=== PATIENT | female | born 1950 | race Caucasian/White ===

== ENCOUNTER 2016-03-28 15:17 | Emergency (ER) | payer BC ==
[~2016-03-28] VITALS: Ht 166.4 cm; Wt 57.0 kg
[~2016-03-28 15:17] MED LIST: ALPR-411 JT; B-CO-34 JT; CALC1SOL JT; CALC667C4 JT; CINA60TA JT; CITA20TA9 JT; DOCU-94 JT; EPGI10M IV; FURO80TA63 JT; HYDR8TAB29 JT; METO1TAB69 JT; MYCO500T4 JT; NUTRLIQ14 GJT; PROGRAFT PO; RANI300T2 JT; SIMV10TA2 JT; SULF1SUS4 JT; TRIA1SPR4 NAE
[2016-03-28 15:38] VITALS: TEMP 37.1; Ht 166.4 cm; Wt 57.0 kg
[2016-03-28] MEDS ORDERED: METO100T14 JT (16:00)
[2016-03-28 17:03] VITALS: BP 134/86; PULSE 74; O2SAT 90
--- NOTE | 2016-03-28 18:40 | EMERGENCY ROOM VISIT NOTE ---
History Report prepared by Diane: Misael Ervin Under the Supervision of: Dr. Bertrand Hanna M.D. First contact with patient: 16:11 Chief Complaint: BLEEDING Stated Complaint: LF ARM BLEED/ FISTULA Nursing Triage Summary: Patient arrived to [facility] via BLS from the [place] [facility]. After patient's treatment, staff was unable to get the fistula to the left upper arm to stop bleeding. +bleeding noted from the needle insertion site to the left upper arm. Quick Clot applied with a pressure dressing and manual pressure - bleeeding ceased within about 10 minutes. History of Present Illness The patient is a 66 year old female who presents to the Emergency Room with complaints of a left arm bleed that occurred [employer]. The patient had received dialysis today, and afterward she noticed that her arm had not stopped bleeding. She has a fistula on her upper left arm. In the ER, the nurse applied a Quick Clot dressing to the area with some pressure. Within 10 minutes, the bleeding stopped. Patient denies LOC, headache, fevers, chills, diaphoresis, visual changes, neck pain, chest pain, breathing difficulties, nausea, vomiting , abdominal pain, back pain, melena, hematochezia, urinary symptoms, easy bleeding or bruising, rash, or other complaints. Source of History: patient Onset: [employer] Position: arm (left) Symptom Intensity: moderate Quality: other (bleeding) Timing: constant Review of Systems See HPI for pertinent positives and negatives. A total of six systems were reviewed and were otherwise negative. Past Medical & Surgical Medical Problems: (1) Abrasion of back wall of thorax (2) Acute anterior epistaxis (3) Altered mental status (4) Anemia (5) Chest wall pain (6) Chronic pain syndrome (7) Contusion of mid back (8) Contusion of mid back (9) Creatinine elevation (10) Creatinine elevation (11) Depression with anxiety (12) Diabetes (13) Drop foot gait (14) Dyslipidemia (15) End stage kidney disease (16) End stage renal disease on dialysis (17) Fall (18) Fall (19) Gastroparesis (20) GERD (gastroesophageal reflux disease) (21) HTN (hypertension) (22) Immunosuppression (23) Intractable back pain (24) Jejunostomy tube present (25) Laceration of right forearm (26) Narcotic dependence (27) Orbital floor fracture (28) Osteoporosis (29) Port-a-cath in place (30) Secondary hyperparathyroidism of renal origin Surgical Problems: (1) H/O pancreas transplant (2) H/O total hip arthroplasty (3) Pancreas transplant status Family History Cancer Heart disease Social History Smoking Status: Never Smoker Alcohol Use: none Drug Use: none Marital Status: Housing Status: lives with family Occupation Status: unemployed Current/Historical Medications Scheduled Calcium Acetate (Phoslo 667 Mg), 1 CAP PO QAM Calcium Acetate (Phoslo 667 Mg), 2 CAP PO DAILY AT LUNCH Calcium Acetate (Phoslo 667 Mg), 3 CAP PO QPM MEAL Cinecalcet (Sensipar), 30 MG JT BID Citalopram Hydrobromide (Celexa), 20 MG JT QAM Epoetin Roge (Procrit), 5,000 IV post dialysis Furosemide (Lasix), 80 MG JT BID Metoprolol Tartrate (Lopressor) (Lopressor), 100 MG PO BID Mycophenolate Mofetil (Cellcept), 1 TAB JT BID Nutritional Supplements (Nutren 2.0), 2 DOSE GJT DAILY Ranitidine (Zantac), 300 MG JT BID Simvastatin (Zocor), 1 TAB JT DAILY Sulfa/Trimethoprim (Bactrim 200/40MG 5ML), 5 ML JT M,W,F [Diatx Zn], 1 TAB JT QAM [prograft], 2 ML PO BID Scheduled PRN Alprazolam (Xanax), 0.5 MG JT Q6H PRN for Anxiety Docusate Sodium (Colace), 1 CAP JT BID PRN for CNSTIPATION Hydromorphone Hcl (Dilaudid), 1 TAB JT Q4 PRN for Pain Triamcinolone Acetonide (Nasal (Nasacort Allergy 24Hr), 1 SPRAY NA DAILY PRN for CONGSTION Allergies Coded Allergies: Penicillins (Verified Allergy, Intermediate, RASH, 03/28/16) Prednisolone (Verified Allergy, Mild, IRRITATION, 03/28/16) Acetaminophen (Unverified Allergy, Unknown, NAUSEA, 03/28/16) Cephalexin (Verified Allergy, Unknown, NAUSEA, 03/28/16) Erythromycin (Verified Allergy, Unknown, RASH, 03/28/16) Levofloxacin (Verified Allergy, Unknown, NAUSEA, 03/28/16) Nitrofurantoin (Verified Allergy, Unknown, NAUSEA, 03/28/16) Surgical Lubricant (Verified Allergy, Unknown, ITCHY, 03/28/16) Carbamazepine (Verified Adverse Reaction, Severe, TOXIC BLOOD POISONING, ) TOXIC BLOOD POISONING Metoclopramide (Verified Adverse Reaction, Severe, SEIZURES, 03/28/16) SEIZURES Mirtazapine (Verified Adverse Reaction, Severe, HEARS VOICES, 03/28/16) Pregabalin (Verified Adverse Reaction, Severe, CONFUSION, 03/28/16) Corticosteroids (Verified Adverse Reaction, Intermediate, NAUSEA, 03/28/16) PATIENT STATES ON ALLERGY SHEET "ABSOLUTELY NONE" Dicyclomine (Verified Adverse Reaction, Intermediate, HALLUCINATIONS, 03/28) HALLUCINATIONS Ketorolac (Verified Adverse Reaction, Intermediate, NAUSEATED, 03/28/16) Macrolides (Verified Adverse Reaction, Intermediate, ZITHROMAX-N/V, ) Quinolones (Verified Adverse Reaction, Intermediate, LEVAQUIN-NAUSEA, CHRONIC HEARTBURN, 03/28/16) levaquin =NAUSEA, CHRONIC HEARTBURN. PT SAID SHE WILL NOT TAKE 12/06/08 Cephalosporins (Verified Adverse Reaction, Mild, KEFLEX = NAUSEA, 03/28/16) Codeine (Verified Adverse Reaction, Mild, NAUSEA, 03/28/16) Gabapentin (Verified Adverse Reaction, Mild, NAUSEA, 03/28/16) NAUSEA Naproxen (Verified Adverse Reaction, Mild, NAUSEA, 03/28/16) Oxycodone (Verified Adverse Reaction, Mild, PRC/TYLOX = NAUSEA, 03/28/16) NAUSEA Phenobarbital (Verified Adverse Reaction, Mild, NAUSEA, 03/28/16) Promethazine (Verified Adverse Reaction, Mild, DIARRHEA, 03/28/16) Sertraline (Verified Adverse Reaction, Mild, NAUSEA, 03/28/16) Adhesives (Verified Adverse Reaction, Unknown, UNKNOWN, 03/28/16) Propoxyphene (Verified Adverse Reaction, Unknown, NAUSEA, 03/28/16) NAUSEA Tramadol (Verified Adverse Reaction, Unknown, DEPRESSION, 03/28/16) DEPRESSION Physical Exam Vital Signs Date Time Temp Pulse Resp B/P Pulse Ox O2 Delivery O2 Flow Rate FiO2 03/28/16 17:03 74 18 134/86 90 03/28/16 15:38 37.1 73 18 153/85 94 Room Air Physical Exam GENERAL: Awake, alert, well-appearing, in no distress HENT: Normocephalic, atraumatic. Oropharynx unremarkable. EYES: Normal conjunctiva. Sclera non-icteric. NECK: Supple. No nuchal rigidity. FROM. No JVD. RESPIRATORY: Clear to auscultation. CARDIAC: Regular rate, normal rhythm. Extremities warm and well perfused. Pulses equal. MUSCULOSKELETAL: Left arm examined: fistula present with 2 puncture sites in the upper aspect. Bleeding controlled. No obvious abnormalities. No sign of infection. NEURO: Normal sensorium. No sensory or motor deficits noted. SKIN: No rash or jaundice noted. Medical Decision & Procedures ED Course 1611: The patient was evaluated in room B12. A complete history and physical exam was performed. 1620: The patient's hemostatic dressing was removed. Dermabond was applied. 1648: The patient's bleeding has stopped. 1700: I reevaluated the patient. Discussed results and discharge instructions: She verbalized understanding and agreement. The patient is ready for discharge. Medical Decision The patient was evaluated. Clinically she was doing well. Nursing had placed quick clot and a pressure wrap. This resulted in hemostasis. Her physical examination was benign as above. There is no active bleeding but the puncture wounds still were present. Quick clot dressing was removed. The skin was prepped. I did cover the puncture wounds with Dermabond. The patient was observed and she had no additional bleeding. She felt well. A gauze cover was wrapped to protect the area. Bleeding instructions were given. She will follow -up with dialysis. If she worsens in any way she will come back to the Emergency Room for reevaluation. I gave my usual and customary discussion regarding this issue. Impression Primary Impression: Bleeding from dialysis shunt Scribe Attestation The scribe's documentation has been prepared under my direction and personally reviewed by me in its entirety. I confirm that the note above accurately reflects all work, treatment, procedures, and medical decision making performed by me. Departure Information Dispostion Home / Self-Care Referrals Pedro Pablo Hollis M.D. (PCP) Forms HOME CARE DOCUMENTATION FORM, IMPORTANT VISIT INFORMATION Patient Instructions My [facility] Additional Instructions Dermabond skin adhesive was used to close the wound. It should fall off in 5 to 10 days on its own. You do not did not need to keep it bandaged. Do not soak the wound for 8 hours. After 8 hours you may get it wet, but again do not soak it. Tylenol as needed for pain. Apply direct pressure for any bleeding. Return to the ER immediately for spreading redness, fevers, pus-like drainage, severe pain, or as needed. Follow-up with dialysis as scheduled on Wednesday.
[2016-06-15] MEDS ORDERED: MRLP17 PO (14:43)
[2016-06-15] MEDS ORDERED: HYDR8TAB29 JT (14:43)
[2016-06-15] MEDS ORDERED: LSN20 PO (14:43)
[2016-06-15] MEDS ORDERED: ZINC40OI11 TOP (14:43)
[2016-06-15] MEDS ORDERED: ALPR-411 JT (14:43)
[2016-07-22] MEDS ORDERED: [UNRECOGNIZED DRUG - CODE] PO (08:44)
== END 2016-03-28 17:03 | disposition home or self-care (01) ==
LOC: EDBD 15:17 → C.EDB 15:18
DX: I97.620 Postprocedural hemorrhage of a circulatory system organ or structure following other procedure (principal); Y84.1 Kidney dialysis as the cause of abnormal reaction of the patient, or of later complication, without mention of misadventure at the time of the procedure; N18.6 End stage renal disease; I12.0 Hypertensive chronic kidney disease with stage 5 chronic kidney disease or end stage renal disease; D64.9 Anemia, unspecified; E78.5 Hyperlipidemia, unspecified; K21.9 Gastro-esophageal reflux disease without esophagitis; F41.8 Other specified anxiety disorders; Z99.2 Dependence on renal dialysis; Z79.2 Long term (current) use of antibiotics; Z79.899 Other long term (current) drug therapy; Z88.0 Allergy status to penicillin; Z88.1 Allergy status to other antibiotic agents; Z88.5 Allergy status to narcotic agent; Z88.6 Allergy status to analgesic agent; Z88.8 Allergy status to other drugs, medicaments and biological substances; Z82.49 Family history of ischemic heart disease and other diseases of the circulatory system

== ENCOUNTER 2016-06-04 09:41 | Inpatient (IN) | payer BC, OTHER ==
[~2016-06-04] VITALS: Ht 165.1 cm; Wt 56.8 kg
[2016-06-04] VITALS (19 sets, daily range): BP systolic 128–172; BP diastolic 65–93; PULSE 64–72; TEMP 36.8–37.1; O2SAT 93–94; Ht 165.1 cm; Wt 56.8 kg
[~2016-06-04 09:41] MED LIST changes: -CALC1SOL JT; +METO100T14 JT; -METO1TAB69 JT
[2016-06-04 10:34] LABS: BASO % 0.3 %; BASO ABS # 0.02 K/uL (0-0.2); COMPLETE YES; EOS % 4.8 %; HEMATOCRIT 31.9 % (37-47); LYMPH % 16.4 %; LYMPH ABS # 0.99 K/uL (1.2-3.4); MEAN CELL VOLUME 108.5 fL (80-100); MEAN CORPUSCULAR HEMOGLOBIN 32.3 pg (25-34); MEAN CORPUSCULAR HGB CONC 29.8 g/dl (32-36); MEAN PLATELET VOLUME 11.2 fL (7.4-10.4); MONO % 8.8 %; NEUT % 69.7 %; PLATELET COUNT 110 K/uL (130-400); RED BLOOD COUNT 2.94 M/uL (4.2-5.4); WHITE BLOOD COUNT 6.03 K/uL (4.8-10.8)
--- NOTE | 2016-06-04 10:34 | EMERGENCY ROOM VISIT NOTE ---
History Report prepared by Diane: Selma Lopez Under the Supervision of: Dr. Micaela Parish M.D. First contact with patient: 10:15 Chief Complaint: ILLNESS Stated Complaint: SYNCOPE/WEAKNESS History of Present Illness The patient is a 66 year old female who presents to the Emergency Room with complaints of persistent weakness starting today. She presents to the ED via ALS. She had an episode of unresponsiveness on the way to dialysis. She reports SOB, diarrhea, and cough. She denies any melena. She missed dialysis 2 days ago. Source of History: patient Onset: today Position: other (global) Quality: other (weakness) Timing: other (persistent) Associated Symptoms: + SOB, + cough, + diarrhea, No melena Review of Systems See HPI for pertinent positives & negatives. A total of 10 systems reviewed and were otherwise negative. Past Medical & Surgical Medical Problems: (1) Abrasion of back wall of thorax (2) Acute anterior epistaxis (3) Altered mental status (4) Anemia (5) Chest wall pain (6) Chronic pain syndrome (7) Contusion of mid back (8) Contusion of mid back (9) Creatinine elevation (10) Creatinine elevation (11) Depression with anxiety (12) Diabetes (13) Drop foot gait (14) Dyslipidemia (15) End stage kidney disease (16) End stage renal disease on dialysis (17) Fall (18) Fall (19) Gastroparesis (20) GERD (gastroesophageal reflux disease) (21) HTN (hypertension) (22) Immunosuppression (23) Intractable back pain (24) Jejunostomy tube present (25) Laceration of right forearm (26) Narcotic dependence (27) Orbital floor fracture (28) Osteoporosis (29) Port-a-cath in place (30) Secondary hyperparathyroidism of renal origin (31) Syncope Surgical Problems: (1) H/O pancreas transplant (2) H/O total hip arthroplasty (3) Pancreas transplant status Family History Cancer Heart disease Social History Smoking Status: Never Smoker Alcohol Use: none Drug Use: none Marital Status: Housing Status: lives with family Occupation Status: unemployed Current/Historical Medications Scheduled Calcitriol (Calcitriol), 25 MG JT QAM Calcium Acetate (Phoslo 667 Mg), 2 CAP JT BREAKFAST Calcium Acetate (Phoslo 667 Mg), 3 CAP JT UD Calcium Acetate (Phoslo 667 Mg), 3 CAP JT SNACKS Cinecalcet (Sensipar), 30 MG JT QAM Citalopram Hydrobromide (Celexa), 20 MG JT QAM Epoetin Roge (Procrit), 5,000 IV post dialysis Furosemide (Lasix), 80 MG JT MoWeFr Metoprolol Tartrate (Lopressor) (Lopressor), 100 MG JT BID Mycophenolate Mofetil (Cellcept), 500 MG JT QAM Nutritional Supplements (Nutren 2.0), 2 DOSE GJT DAILY Pantoprazole (Protonix), 1 TAB JT BID Ranitidine (Zantac), 300 MG JT BID Simvastatin (Zocor), 1 TAB JT HS Tacrolimus (Prograf), 8 ML JT QAM Tacrolimus (Bulk) (Tacrolimus), 6 ML JT HS Trimethoprim/Sulfamethoxazole Susp (Bactrim 200/40MG 5ML), 2.5 ML JT MoWeFr [Diatx Zn], 1 TAB JT QAM Scheduled PRN Alprazolam (Xanax), 0.5 MG JT Q4H PRN for Anxiety Docusate Sodium (Colace), 1 CAP JT BID PRN for CNSTIPATION Hydromorphone Hcl (Dilaudid), 1 TAB JT Q4 PRN for Pain Triamcinolone Acetonide (Nasal (Nasacort Allergy 24Hr), 2 SPRAY AMRIT DAILY PRN for CONGSTION Allergies Coded Allergies: Penicillins (Verified Allergy, Intermediate, RASH, 06/04/16) Erythromycin (Verified Allergy, Mild, RASH, 06/04/16) Surgical Lubricant (Verified Allergy, Unknown, ITCHY, 06/04/16) Carbamazepine (Verified Adverse Reaction, Severe, TOXIC BLOOD POISONING, ) TOXIC BLOOD POISONING Metoclopramide (Verified Adverse Reaction, Severe, SEIZURES, 06/04/16) SEIZURES Corticosteroids (Verified Adverse Reaction, Intermediate, NAUSEA, 06/04/16) PATIENT STATES ON ALLERGY SHEET "ABSOLUTELY NONE" Dicyclomine (Verified Adverse Reaction, Intermediate, HALLUCINATIONS, 06/04) HALLUCINATIONS Ketorolac (Verified Adverse Reaction, Intermediate, NAUSEATED, 06/04/16) Pregabalin (Verified Adverse Reaction, Intermediate, CONFUSION, 06/04/16) Quinolones (Verified Adverse Reaction, Intermediate, LEVAQUIN-NAUSEA, CHRONIC HEARTBURN, 06/04/16) levaquin =NAUSEA, CHRONIC HEARTBURN. PT SAID SHE WILL NOT TAKE 12/06/08 Azithromycin (Verified Adverse Reaction, Mild, n&v, 06/04/16) Cephalexin (Verified Adverse Reaction, Mild, NAUSEA, 06/04/16) Cephalosporins (Verified Adverse Reaction, Mild, KEFLEX = NAUSEA, 06/04/16) Codeine (Verified Adverse Reaction, Mild, NAUSEA, 06/04/16) Gabapentin (Verified Adverse Reaction, Mild, NAUSEA, 06/04/16) NAUSEA Levofloxacin (Verified Adverse Reaction, Mild, NAUSEA, 06/04/16) Naproxen (Verified Adverse Reaction, Mild, NAUSEA, 06/04/16) Nitrofurantoin (Verified Adverse Reaction, Mild, NAUSEA, 06/04/16) Oxycodone (Verified Adverse Reaction, Mild, PRC/TYLOX = NAUSEA, 06/04/16) NAUSEA Phenobarbital (Verified Adverse Reaction, Mild, NAUSEA, 06/04/16) Prednisolone (Verified Adverse Reaction, Mild, IRRITATION, 06/04/16) Promethazine (Verified Adverse Reaction, Mild, DIARRHEA, 06/04/16) Sertraline (Verified Adverse Reaction, Mild, NAUSEA, 06/04/16) Adhesives (Verified Adverse Reaction, Unknown, UNKNOWN, 06/04/16) Mirtazapine (Verified Adverse Reaction, Unknown, HEARS VOICES, 06/04/16) Propoxyphene (Verified Adverse Reaction, Unknown, NAUSEA, 06/04/16) NAUSEA Tramadol (Verified Adverse Reaction, Unknown, DEPRESSION, 06/04/16) DEPRESSION Physical Exam Vital Signs Date Time Temp Pulse Resp B/P Pulse Ox O2 Delivery O2 Flow Rate FiO2 06/04/16 12:07 64 20 143/82 96 Nasal Cannula 2.0 06/04/16 10:51 65 18 150/81 94 Nasal Cannula 2.0 06/04/16 10:01 36.3 67 18 110/63 88 Room Air 06/04/16 09:57 66 06/04/16 09:52 94 Nasal Cannula 4.0 06/04/16 09:52 94 Nasal Cannula Physical Exam Vital signs reviewed. General: Chronically ill-appearing, in no significant distress. HEENT: No scleral icterus, PERRLA, neck supple. Atraumatic. Cardiovascular: Regular rate and rhythm, no extra sounds. Pulmonary: Left basilar crackles, normal work of breathing, on nasal cannula oxygen. Abdomen: Soft, nontender, nondistended, positive bowel sounds. Feeding tube on abdominal exam. Rectal: Normal rectal mucosa, guaiac positive brown stool. Musculoskeletal: Atraumatic, no significant peripheral edema. Significant scoliosis to spine with head deviated to the right. Neurologic: Patient awake alert and oriented x 3, full strength in all 4 extremities. Cranial nerves 2 through 12 grossly intact. Skin: Warm, dry, no rash Medical Decision & Procedures ER Provider Diagnostic Interpretation: X-ray results as stated below per interpretation by me and the radiologist: CHEST ONE VIEW PORTABLE CLINICAL HISTORY: Weakness. Syncope. COMPARISON STUDY: Chest radiograph July or 2015. FINDINGS: A left internal jugular [id number] is in place. The patient is rotated. Cardiomegaly is changed. There are trace bilateral pleural effusions. Mild pulmonary edema is noted. Linear opacities favor atelectasis. There is no pneumothorax. IMPRESSION: 1. Mild pulmonary edema and trace bilateral pleural effusions. 2. Linear opacities suggestive of atelectasis. 3. No pneumothorax. Electronically signed by: Karthik Kahn M.D. 06/04/2016 11:46 AM Dictated Date/Time: 06/04/2016 11:44 AM Laboratory Results 06/04/16 10:10 Red Blood Count 2.94, Mean Corpuscular Volume 108.5, Mean Corpuscular Hemoglobin 32.3, Mean Corpuscular Hemoglobin Concent 29.8, Mean Platelet Volume 11.2, Neutrophils (%) (Auto) 69.7, Lymphocytes (%) (Auto) 16.4, Monocytes (%) ( Auto) 8.8, Eosinophils (%) (Auto) 4.8, Basophils (%) (Auto) 0.3, Neutrophils # ( Auto) 4.20, Lymphocytes # (Auto) 0.99, Monocytes # (Auto) 0.53, Eosinophils # ( Auto) 0.29, Basophils # (Auto) 0.02 06/04/16 10:10 Test 06/04/16 10:10 06/04/16 10:45 06/04/16 10:48 06/04/16 10:51 White Blood Count 6.03 K/uL (4.8-10.8) Red Blood Count 2.94 M/uL (4.2-5.4) Hemoglobin 9.5 g/dL (12.0-16.0) Hematocrit 31.9 % (37-47) Mean Corpuscular Volume 108.5 fL (80-100) Mean Corpuscular Hemoglobin 32.3 pg (25-34) Mean Corpuscular Hemoglobin Concent 29.8 g/dl (32-36) Platelet Count 110 K/uL (130-400) Mean Platelet Volume 11.2 fL (7.4-10.4) Neutrophils (%) (Auto) 69.7 % Lymphocytes (%) (Auto) 16.4 % Monocytes (%) (Auto) 8.8 % Eosinophils (%) (Auto) 4.8 % Basophils (%) (Auto) 0.3 % Neutrophils # (Auto) 4.20 K/uL (1.4-6.5) Lymphocytes # (Auto) 0.99 K/uL (1.2-3.4) Monocytes # (Auto) 0.53 K/uL (0.11-0.59) Eosinophils # (Auto) 0.29 K/uL (0-0.5) Basophils # (Auto) 0.02 K/uL (0-0.2) RDW Standard Deviation 59.6 fL (36.4-46.3) RDW Coefficient of Variation 15.0 % (11.5-14.5) Immature Granulocyte % (Auto) 0.0 % Immature Granulocyte # (Auto) 0.00 K/uL (0.00-0.02) Est Creatinine Clear Calc Drug Dose 5.1 ml/min Estimated GFR () 5.0 Estimated GFR (Non- 4.4 BUN/Creatinine Ratio 12.2 (10-20) Calcium Level 8.6 mg/dl (8.5-10.1) Magnesium Level 2.8 mg/dl (1.8-2.4) Total Bilirubin 0.6 mg/dl (0.2-1) Direct Bilirubin 0.1 mg/dl (0-0.2) Aspartate Amino Transf (AST/SGOT) 15 U/L (15-37) Alanine Aminotransferase (ALT/SGPT) 18 U/L (12-78) Alkaline Phosphatase 126 U/L (45-117) Total Creatine Kinase 60 U/L (26-192) Creatine Kinase MB 2.0 ng/ml (0.5-3.6) Creatine Kinase MB Ratio 3.3 (0-3.0) Total Protein 6.4 gm/dl (6.4-8.2) Albumin 3.4 gm/dl (3.4-5.0) Thyroid Stimulating Hormone (TSH) 1.930 uIu/ml (0.300-4.500) Prothrombin Time 12.2 SECONDS (9.0-12.0) Prothromb Time International Ratio 1.1 (0.9-1.1) Activated Partial Thromboplast Time 33.2 SECONDS (21.0-31.0) Partial Thromboplastin Ratio 1.3 Bedside Hemoglobin 10.2 g/dl (12.0-16.0) Bedside Hematocrit 30 % (37-47) Bedside Sodium 140 mEq/L (135-144) Bedside Potassium 5.8 mEq/L (3.3-5.0) Bedside Chloride 101 mEq/L (101-112) Bedside Total CO2 26 mEq/l (24-31) Anion Gap 20.0 mmol/L (16-25) Bedside Blood Urea Nitrogen 104 mg/dl (7-18) Bedside Creatinine 8.1 mg/dl (0.6-1.3) Bedside Glucose (other) 88 mg/dl (70-99) Bedside Ionized Calcium (Demarco) 1.03 mmol/l (1.12-1.32) Bedside Troponin I 0.010 ng/ml (0-0.045) Laboratory results per my review. Medications Administered ECG Indication: syncope Rate (beats per minute): 67 Rhythm: normal sinus Findings: nonspecific-ST abn, no acute ischemic change, no ectopy ED Course 1019: Past medical records reviewed. The patient was evaluated in room B6. A complete history and physical examination was performed. 1207: I reviewed the patient's case with [place]. Rea, [facility] [place]. He will evaluate the patient for further management. 1210: Upon reevaluation, the patient is resting comfortably. I discussed laboratory and radiographic results with her. She verbalized agreement of the treatment plan. I spoke with Dr. Rea of the [facility] [place] [facility]. The patient will be evaluated for further management and care. Medical Decision Differential diagnosis: Etiologies such as metabolic, infection, hypo/hyperglycemia, electrolyte abnormalities, cardiac sources, intracerebral event, toxicologic, neurologic, as well as others were entertained. This patient was evaluated and appears to be chronically ill. She is guaiac positive from below. Patient was placed on the net mobile developer and hydrated gently with IV normal saline solution. H&H seems to be stable but anemic. EKG reveals a normal sinus rhythm with a nonspecific ST change. Patient is noted to be mildly hypoxic on nasal cannula oxygen. Due to the syncopal episode, GI bleed the patient will be evaluated by the hospitalist for further management. Dr. Hollis has evaluated the patient in the emergency department the placed orders for dialysis. Consults Time Called: 1204 Consulting Physician: Dr. Rea [facility] [place] Returned Call: 1207 I reviewed the patient's case with him. He will evaluate the patient for further management. Impression Primary Impression: GI bleed Additional Impressions: Episode of syncope Anemia Scribe Attestation The scribe's documentation has been prepared under my direction and personally reviewed by me in its entirety. I confirm that the note above accurately reflects all work, treatment, procedures, and medical decision making performed by me. Departure Information Dispostion Being Evaluated By Hospitalist Referrals Pedro Pablo Hollis M.D. (PCP) Patient Instructions My [facility] Problem Qualifiers
[2016-06-04 10:57] LABS: CALCIUM 8.6 mg/dl (8.5-10.1)
[2016-06-04 11:02] LABS: ISTAT CREATININE 8.1 mg/dl (0.6-1.3); ISTAT HEMOGLOBIN 10.2 g/dl (12.0-16.0); ISTAT IONIZED CALCIUM 1.03 mmol/l (1.12-1.32)
[2016-06-04] MEDS ORDERED: SODIUM CHLORIDE 0.9% 1000ML 1,000 ML IV PRN (11:03)
[2016-06-04 11:10] LABS: BUN/CREATININE RATIO 12.2 (10-20); CKMB/CK RATIO 3.3 (0-3.0); CREATININE 8.5 mg/dl (0.60-1.20); MAGNESIUM 2.8 mg/dl (1.8-2.4); POTASSIUM 5.7 mmol/L (3.5-5.1)
[2016-06-04 11:11] LABS: INR 1.1 (0.9-1.1); PARTIAL THROMBOPLASTIN RATIO 1.3; PROTHROMBIN TIME (PATIENT) 12.2 SECONDS (9.0-12.0)
[2016-06-04] MEDS ORDERED: MYCO200S JT (11:25)
[2016-06-04] MEDS ORDERED: SPTL JT (11:25)
[2016-06-04] MEDS ORDERED: [UNRECOGNIZED DRUG - CODE] JT (11:25)
[2016-06-04] MEDS ORDERED: [UNRECOGNIZED DRUG - CODE] JT (11:25)
[2016-06-04] MEDS ORDERED: PANT40TA JT (11:42)
[2016-06-04] MEDS ORDERED: TACRPOW JT (11:44)
--- NOTE | 2016-06-04 11:48 | DIAGNOSTIC IMAGING REPORT ---
CHEST ONE VIEW PORTABLE CLINICAL HISTORY: Weakness. Syncope. COMPARISON STUDY: Chest radiograph July or 2015. FINDINGS: A left internal jugular [id number] is in place. The patient is rotated. Cardiomegaly is changed. There are trace bilateral pleural effusions. Mild pulmonary edema is noted. Linear opacities favor atelectasis. There is no pneumothorax. IMPRESSION: 1. Mild pulmonary edema and trace bilateral pleural effusions. 2. Linear opacities suggestive of atelectasis. 3. No pneumothorax. Electronically signed by: Karthik Kahn M.D. 06/04/2016 11:46 AM Dictated Date/Time: 06/04/2016 11:44 AM
--- NOTE | 2016-06-04 11:51 | NEPHROLOGY CONSULTATION ---
DATE OF CONSULTATION: 06/04/2016 DATE OF CONSULTATION: 06/04/2016. HISTORY OF PRESENT ILLNESS: Mrs. Guillen is a 66-year-old white female well known to me. She has end-stage renal disease and is dialyzed regularly at the [facility] [place]. She dialyzes on Tuesdays, and Saturdays. She was sent to the Emergency Room by me after seeing her in a van outside the dialysis unit. Her had called and said that the patient awoke this morning feeling terribly weak. She said she had never seen her look so bad but elected to send her to dialysis as opposed directly to the Emergency Room. In the van, she appeared very pale and sallow. She was initially a bit difficult to arouse. She seemed generally weak. Because of her physical appearance she was sent to the emergency room for further evaluation and likely hospitalization. PROBLEM LIST: 1. History of diabetes mellitus, status post pancreas transplant in 2003 with normal carbohydrate metabolism. 2. Gastroparesis secondary to autonomic neuropathy with chronic nausea and vomiting. 3. End-stage renal disease. 4. Secondary anemia. 5. History of depression. 6. History of hypertension. 7. History of fractured left hip and right femur. 8. History of fractured left radius. 9. History of orbital fracture. As noted above, Mrs. Guillen has a history of longstanding insulin-dependent diabetes mellitus complicated by autonomic neuropathy primarily manifested by gastroparesis. Other complications of her diabetes include presumed diabetic nephropathy associated with hypertension and the ultimate progression to end-stage renal disease. However, in 2003, Mrs. Guillen underwent a pancreas transplant without any other solid organ transplant. That was done at the [facility]. She has been immunosuppressed since that time with a combination of Prograf 4 mg in the morning and 6 mg in the evening (concentration is 0.5 mg per mL) as well as CellCept 500 mg daily. She has a normal carbohydrate metabolism. She is followed regularly with serum amylase and lipase levels. They have continued to be normal. Despite her normal carbohydrate metabolism since her pancreas transplant, she continued to have the sequelae of longstanding diabetes. This was principally manifested by the autonomic neuropathy with gastroparesis as well as a peripheral neuropathy and an associated left foot drop. Additionally, she had progressive renal insufficiency associated with hypertension. Her renal insufficiency and hypertension frequently resulted in episodes of volume overload and shortness of breath. She was placed on the active renal transplant list at the [facility] in 2010. However, since that time she was removed from the list because of her other comorbidities and general decline in her health status. She has a GJ tube in place for occasional feedings, but predominantly for the administration of medications. The GJ tube is managed at [facility]. She has had significant difficulties with the tube flipping out of place. It has had to be replaced and repositioned on multiple occasions. This is generally done at [facility]. In August 2010, Mrs. Guillen was begun on maintenance dialysis. Despite some initial difficulties with vascular access she has had a functioning left upper arm AV fistula. That was created by Dr. Sanchez. Since being on dialysis the frequency of medical hospitalizations has decreased dramatically and has generally been brought about by falls resulting in some type of trauma or fracture. She has not had regular problems with symptoms of uremia or volume overload and her blood pressure has generally been controlled. Recently, she has missed dialysis treatments on occasion because of her reports of diarrhea. She says that she generally has about 2 bowel movements a day, occasionally 3. These are always brown in color. She has not had any obvious hematochezia nor has she had any obvious melena. She canceled her dialysis treatment that was scheduled for Thursday, June 02, 2016. She said that she was having diarrhea. Today, however, she tells me that on Wednesday she had only 2 bowel movements. She had 2-3 bowel movements yesterday and 1 bowel movement earlier this morning. Stools were brown. She said that this morning's bowel movement appeared essentially normal to her, although after passing some formed stools she said that she had some liquid stool. She denies having any abdominal pain other than occasional symptoms of abdominal pain that she attributes to being too "dried out" in the with dialysis treatments. Currently she dialyzes 3 times a week as noted. She is dialyzed with a 160 dialyzer. She receives no heparin with her dialysis treatments. However, despite that, she will occasionally have some oozing from her AV fistula. Her blood flow rate with dialysis is 350 mL per minute and her dialysis flow rate is 800 mL per minute. She is on a 2K 2 calcium bath for 3-1/2 hours. Other current medications administered in the dialysis unit include only Mircera 75 mg IV push q. 2 weeks. Her last dose of that was on 05/26/2016. She also will occasionally use loperamide 4 mg during dialysis treatment if she senses that she is going to have diarrhea. She also will occasionally use acetaminophen 650 mg for minor pain. Her home medications include Bactrim liquid 200/40 per 5 mL, which is administered on Wednesday, Wednesday and Wednesday via her GJ tube. Additionally, she takes calcitriol 25 mg via her J tube. She uses the liquid 1 mcg per mL. She uses calcium acetate (PhosLo) 667 mg 2 with breakfast, 3 with lunch and dinner and 1 with snacks, Celexa 20 mg via the J tube daily, her CellCept 500 mg daily (she uses 200 mg per mL liquid formula), Colace 100 mg twice daily, Diatx ZN 1 daily, hydromorphone 8 mg every 4 hours p.r.n., Lasix 80 mg twice daily (still makes urine), metoprolol tartrate 100 mg twice daily, Nasacort AQ 2 sniffs each nostril daily, Prograf liquid 4 mg in the morning and 3 mg in the evening via her J tube (the concentration is 0.5 mg per mL), Protonix 40 mg daily, ranitidine 300 mg daily, Sensipar 60 mg daily, Toprol-XL 50 mg daily, Xanax 0.5 mg q. 4 hours p.r.n. and simvastatin 10 mg at bedtime. The remainder of her past medical history appears in previous admission notes and will not be repeated. Her recent laboratory work showed her most recent hemoglobin to be 10.3. That has risen over the course of the past month on her erythrocyte stimulating agent (Mircera which she gets in the dose of 75 mcg every 2 weeks). She is not currently receiving intravenous iron. Her other laboratory work indicates well controlled end-stage renal disease. Dialysis clearances are adequate. She has not been significantly acidotic. Her serum albumin is 4.0 which is quite good for a patient on dialysis. OBJECTIVE: GENERAL: When seen by me in the Emergency Room, Mrs. Guillen appeared to be significantly better than she did when I saw her at the dialysis unit earlier today. VITAL SIGNS: Her blood pressure was 110/63 with a pulse of 67 and regular. Respiratory rate was 18, her pulse ox was only 88% on room air but 94% with 4 liters of oxygen via nasal cannula. SKIN: Warm and dry. She has no obvious rash or infiltrative skin disease. She has multiple scars from prior surgical procedures including a right lower quadrant scar from her pancreas transplant, a left upper arm scar from the creation of her AV fistula with multiple dialysis needle tract rajan over the fistula, scars over both hips from prior orthopedic surgery and a scar over her right shoulder. She has an A-port beneath the distal left clavicle. She has a GJ tube in place in the left upper quadrant of her abdomen. At the current time, her dressing appears to be dry. LYMPHATICS: Show no palpable lymphadenopathy. HEAD: Grossly normal. EYES: Grossly normal. She has no conjunctival injection and no conjunctival icterus. Pupils are equal and reactive to light. The ocular fundi were not examined. EARS, NOSE, MOUTH AND THROAT: Unremarkable other than very poor dentition. She has multiple missing teeth with retained roots. Oral mucous membranes are moist. NECK: Supple. It is flexed forward and tilted to the right which is a usual position for her. She has no jugular venous distention, carotid bruit or thyromegaly. CHEST: Showed initially some crackles at the right base, but then she appeared to clear with deep breathing. She had no other wheezes, rales or rhonchi. CARDIAC EXAMINATION: Showed a regular rhythm. S1 and S2 are normal. She has a soft systolic murmur at the base and a harsher systolic murmur at the apex radiating to the axilla. She has no gallop or rubs. ABDOMEN: Shows the GJ tube placement. The current dressing is dry. Bowel sounds are present and occasionally she has rushes noted. The abdomen is nontender. She has a fullness in the right lower quadrant at the site of her pancreas transplant. Liver and spleen are not felt. EXTREMITIES: Show no cyanosis, clubbing or peripheral edema. She has a left upper arm AV fistula with a good pulse, thrill and bruit. She has the scars noted over both hips and her shoulders. NEUROLOGIC EXAMINATION: Shows a decrease in protective sensation in her feet to vibration and light touch. Ankle jerks are absent bilaterally. Deep tendon reflexes, otherwise unremarkable. Cranial nerves II-XII are normal and symmetrical. She is oriented in 3 spheres. She speaks slowly and chooses her words carefully. PERTINENT LABORATORY WORK: From today shows a white count of 6,030 with an apparent normal differential, although she does have 4.8% eosinophils but her absolute eosinophil count is normal at 290. Her hemoglobin is 9.5 with a hematocrit of 31.9. Red cell indices are macrocytic. Her platelet count is 110,000. Clinical chemistries have yet to be reported. ASSESSMENT: Mrs. Guillen is a chronically ill woman with a longstanding history of type 1 diabetes. Her carbohydrate metabolism has been normal since 2003 when she received a pancreas transplant. She remains immunosuppressed. Despite her pancreas transplant, she went on to develop end-stage renal disease associated with her previous diabetes and hypertension. She has been on maintenance dialysis since 2010 and has been remarkably stable. She presents today with some generalized weakness. She had no chills or fevers. She reported that she had had some diarrhea, but close questioning with regard to her bowel movements suggest that she is at least not had a high volume of diarrhea. Nonetheless, given her appearance at that time seen I think that she should at least be kept on observation for a period of 24-48 hours. Dialysis can be arranged here. I would recommend a chest x-ray and blood cultures. Stool for occult blood was done and was positive but it is difficult to say whether or not she is really having any significant active GI bleeding. This is not necessarily an unusual finding in a patient with end-stage renal disease. Additionally, she has some irritation to the stomach from her GJ tube. No other immediate recommendations.
--- NOTE | 2016-06-04 12:41 | History and Physical ---
History & Physical Date & Time of Service: Jun 04, 2016 at 12:19 Chief Complaint: Syncope/Weakness Primary Care Physician: Pedro Pablo Hollis M.D. History of Present Illness Source: patient, spouse 66yo female with ESRD on HD //Wed and s/p pancreatic transplant on chronic immunosuppressives who presents after a syncopal episode in the parking lot at the [facility]. This AM upon awakening she reports that her legs "felt weak." When she tried to walk this AM with her walker it was very difficult because of the weakness. She says several times "I just didn't feel right." Had nausea this am but she has chronic nausea. Had pallor this AM according to her with whom she lives. Had slurred speech this AM but that is back to normal now. While in the van traveling to the dialysis center she said "I felt off." She felt confused and lightheaded. At some point she lost consciousness in the van. Dr. Hollis was in the dialysis center and ran out to the parking lot to assess her. She apparently "looked poor" per records and 911 was called. She was then transported to [facility]. Over the last 2 days she has had significant diarrhea. In fact she missed HD on Wednesday because of the diarrhea. Has had at least 4 episodes of diarrhea since Wednesday. The stool is foul-smelling. No bright red blood per rectum. She has chronic mucous in her stool. Her oral intake has been poor since Wednesday. Last evening she had mild periumbilical pain and a little this AM. She takes bactrim 3 days/week for prophylaxis and was on doxycycline a few weeks ago. Past Medical/Surgical History PMH: 1. T1DM, s/p pancreatic transplant 2003 @ [facility]; no longer requires insulin 2. severe scoliosis 3. 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 chronic pain syndrome 5. gastroparesis 6. left foot drop 7. diabetic neuropathy 8. h/o c. diff colitis 9. ESRD on HD //Wed 10. anemia of chronic kidney disease 11. depression/anxiety 12. HTN 13. h/o orbital fracture PSH: 1. History of fractured left hip s/p left ORIF. 2. AV fistula placement left upper extremity. 3. G-J tube placement. 4. A-Port placement, left chest. 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) Immunizations History of Influenza Vaccine: Yes Influenza Vaccine Date: Nov 20, 2011 History of Tetanus Vaccine?: Yes Tetanus Immunization Date: June 21, 2004 History of Pneumococcal: Yes Pneumococcal Date: June 20, 1999 History of Hepatitis B Vaccine: Yes Hepatitis Immunization Date: Apr 10, 2003 Multi-Drug Resistant Organisms History of MDRO: No Allergies Coded Allergies: Penicillins (Verified Allergy, Intermediate, RASH, 06/04/16) Erythromycin (Verified Allergy, Mild, RASH, 06/04/16) Surgical Lubricant (Verified Allergy, Unknown, ITCHY, 06/04/16) Carbamazepine (Verified Adverse Reaction, Severe, TOXIC BLOOD POISONING, ) TOXIC BLOOD POISONING Metoclopramide (Verified Adverse Reaction, Severe, SEIZURES, 06/04/16) SEIZURES Corticosteroids (Verified Adverse Reaction, Intermediate, NAUSEA, 06/04/16) PATIENT STATES ON ALLERGY SHEET "ABSOLUTELY NONE" Dicyclomine (Verified Adverse Reaction, Intermediate, HALLUCINATIONS, 06/04) HALLUCINATIONS Ketorolac (Verified Adverse Reaction, Intermediate, NAUSEATED, 06/04/16) Pregabalin (Verified Adverse Reaction, Intermediate, CONFUSION, 06/04/16) Quinolones (Verified Adverse Reaction, Intermediate, LEVAQUIN-NAUSEA, CHRONIC HEARTBURN, 06/04/16) levaquin =NAUSEA, CHRONIC HEARTBURN. PT SAID SHE WILL NOT TAKE 12/06/08 Azithromycin (Verified Adverse Reaction, Mild, n&v, 06/04/16) Cephalexin (Verified Adverse Reaction, Mild, NAUSEA, 06/04/16) Cephalosporins (Verified Adverse Reaction, Mild, KEFLEX = NAUSEA, 06/04/16) Codeine (Verified Adverse Reaction, Mild, NAUSEA, 06/04/16) Gabapentin (Verified Adverse Reaction, Mild, NAUSEA, 06/04/16) NAUSEA Levofloxacin (Verified Adverse Reaction, Mild, NAUSEA, 06/04/16) Naproxen (Verified Adverse Reaction, Mild, NAUSEA, 06/04/16) Nitrofurantoin (Verified Adverse Reaction, Mild, NAUSEA, 06/04/16) Oxycodone (Verified Adverse Reaction, Mild, PRC/TYLOX = NAUSEA, 06/04/16) NAUSEA Phenobarbital (Verified Adverse Reaction, Mild, NAUSEA, 06/04/16) Prednisolone (Verified Adverse Reaction, Mild, IRRITATION, 06/04/16) Promethazine (Verified Adverse Reaction, Mild, DIARRHEA, 06/04/16) Sertraline (Verified Adverse Reaction, Mild, NAUSEA, 06/04/16) Adhesives (Verified Adverse Reaction, Unknown, UNKNOWN, 06/04/16) Mirtazapine (Verified Adverse Reaction, Unknown, HEARS VOICES, 06/04/16) Propoxyphene (Verified Adverse Reaction, Unknown, NAUSEA, 06/04/16) NAUSEA Tramadol (Verified Adverse Reaction, Unknown, DEPRESSION, 06/04/16) DEPRESSION Home Medications Scheduled Calcitriol (Calcitriol), 25 MG JT QAM Calcium Acetate (Phoslo 667 Mg), 2 CAP JT BREAKFAST Calcium Acetate (Phoslo 667 Mg), 3 CAP JT UD Calcium Acetate (Phoslo 667 Mg), 3 CAP JT SNACKS Cinecalcet (Sensipar), 30 MG JT QAM Citalopram Hydrobromide (Celexa), 20 MG JT QAM Epoetin Roge (Procrit), 5,000 IV post dialysis Furosemide (Lasix), 80 MG JT MoWeFr Metoprolol Tartrate (Lopressor) (Lopressor), 100 MG JT BID Mycophenolate Mofetil (Cellcept), 500 MG JT QAM Nutritional Supplements (Nutren 2.0), 2 DOSE GJT DAILY Pantoprazole (Protonix), 1 TAB JT BID Ranitidine (Zantac), 300 MG JT BID Simvastatin (Zocor), 1 TAB JT HS Tacrolimus (Prograf), 8 ML JT QAM Tacrolimus (Bulk) (Tacrolimus), 6 ML JT HS Trimethoprim/Sulfamethoxazole Susp (Bactrim 200/40MG 5ML), 2.5 ML JT MoWeFr [Diatx Zn], 1 TAB JT QAM Scheduled PRN Alprazolam (Xanax), 0.5 MG JT Q4H PRN for Anxiety Docusate Sodium (Colace), 1 CAP JT BID PRN for CNSTIPATION Hydromorphone Hcl (Dilaudid), 1 TAB JT Q4 PRN for Pain Triamcinolone Acetonide (Nasal (Nasacort Allergy 24Hr), 2 SPRAY AMRIT DAILY PRN for CONGSTION Review of Systems Constitutional: + fatigue, + sweats (last week ), + weakness, No chills, No fever Eyes: No worsening of vision ENT: + nasal symptoms (chronic), + trouble swallowing (intermittent, chronic ) , No sore throat Respiratory: + dyspnea on exertion (chronic ), + sputum (every AM - chronic) Cardiovascular: + chest pain (last week after hemodialysis) Abdomen: + diarrhea, + nausea, + pain, No GI bleeding (had a fall last week; she hit the left chest wall during the fall; some pain associated with this) Musculoskeletal: + swelling (left foot - chronic ) Genitourinary - Female: + problem reported (makes very little urine, maybe twice a week) Neurologic: + balance problems (frequent falls ) Psychiatric: + anxiety, + depression symptoms Endocrine: + problem reported (cold intolerance) Hematologic / Lymphatic: + abnormal bleeding/bruising (bruises) Integumentary: No rash (bruises) Physical Exam Vital Signs Date Time Temp Pulse Resp B/P Pulse Ox O2 Delivery O2 Flow Rate FiO2 06/04/16 12:07 64 20 143/82 96 Nasal Cannula 2.0 06/04/16 10:51 65 18 150/81 94 Nasal Cannula 2.0 06/04/16 10:01 36.3 67 18 110/63 88 Room Air 06/04/16 09:57 66 06/04/16 09:52 94 Nasal Cannula 4.0 06/04/16 09:52 94 Nasal Cannula General Appearance: no apparent distress, + pertinent finding (chronically ill appearing, thin, severe scoliosis with torticollis, head tilt to the right) Head: normocephalic Eyes: normal inspection, PERRL (pupils 1-2mm b/l), sclerae normal ENT: hearing grossly normal, TMs normal, pharynx normal, + pertinent finding ( MM scantly dry; lips very dry; very poor dentition ) Neck: no adenopathy, thyroid normal, no JVD, + pertinent finding (torticollis, head tilt right ) Respiratory/Chest: no respiratory distress, no accessory muscle use, + crackles (left base) Cardiovascular: regular rate, rhythm, no gallop, + diastolic murmur (LLSB - 1/ 6 ), + systolic murmur (2/6 LLSB with radiation to axillae) Abdomen/GI: normal bowel sounds, non tender, soft, no organomegaly, + pertinent finding (G-J tube in place; there is copious amounts of dressing around the site but overall appears clean/dry) Back: + pertinent finding (severe scoliosis) Extremities/Musculoskelatal: + pedal edema (1+ b/l ) Neurologic/Psych: alert, normal mood/affect, oriented x 3, + pertinent finding (foot drop on left; strength 5/5 bilateral upper extremities; lower extremities about 4-5/5) Skin: + pallor Lymphatic: no adenopathy (cervical ) vascular - AV fistula, left arm with +thrill AV fistula - left chest - clean Diagnostics Laboratory Results Results Past 24 Hours Test 06/04/16 10:10 06/04/16 10:45 06/04/16 10:48 06/04/16 10:51 Range/Units White Blood Count 6.03 4.8-10.8 K/uL Red Blood Count 2.94 4.2-5.4 M/uL Hemoglobin 9.5 12.0-16.0 g/dL Hematocrit 31.9 37-47 % Mean Corpuscular Volume 108.5 80-100 fL Mean Corpuscular Hemoglobin 32.3 25-34 pg Mean Corpuscular Hemoglobin Concent 29.8 32-36 g/dl Platelet Count 110 130-400 K/uL Mean Platelet Volume 11.2 7.4-10.4 fL Neutrophils (%) (Auto) 69.7 % Lymphocytes (%) (Auto) 16.4 % Monocytes (%) (Auto) 8.8 % Eosinophils (%) (Auto) 4.8 % Basophils (%) (Auto) 0.3 % Neutrophils # (Auto) 4.20 1.4-6.5 K/uL Lymphocytes # (Auto) 0.99 1.2-3.4 K/uL Monocytes # (Auto) 0.53 0.11-0.59 K/uL Eosinophils # (Auto) 0.29 0-0.5 K/uL Basophils # (Auto) 0.02 0-0.2 K/uL RDW Standard Deviation 59.6 36.4-46.3 fL RDW Coefficient of Variation 15.0 11.5-14.5 % Immature Granulocyte % (Auto) 0.0 % Immature Granulocyte # (Auto) 0.00 0.00-0.02 K/uL Sodium Level 140 136-145 mmol/L Potassium Level 5.7 3.5-5.1 mmol/L Chloride Level 101 98-107 mmol/L Carbon Dioxide Level 28 21-32 mmol/L Anion Gap 11.0 20.0 16-25 mmol/L Blood Urea Nitrogen 103 7-18 mg/dl Creatinine 8.50 0.60-1.20 mg/dl Est Creatinine Clear Calc Drug Dose 5.1 ml/min Estimated GFR () 5.0 Estimated GFR (Non- 4.4 BUN/Creatinine Ratio 12.2 10-20 Random Glucose 94 70-99 mg/dl Calcium Level 8.6 8.5-10.1 mg/dl Magnesium Level 2.8 1.8-2.4 mg/dl Total Bilirubin 0.6 0.2-1 mg/dl Direct Bilirubin 0.1 0-0.2 mg/dl Aspartate Amino Transf (AST/SGOT) 15 15-37 U/L Alanine Aminotransferase (ALT/SGPT) 18 12-78 U/L Alkaline Phosphatase 126 45-117 U/L Total Creatine Kinase 60 26-192 U/L Creatine Kinase MB 2.0 0.5-3.6 ng/ml Creatine Kinase MB Ratio 3.3 0-3.0 Total Protein 6.4 6.4-8.2 gm/dl Albumin 3.4 3.4-5.0 gm/dl Prothrombin Time 12.2 9.0-12.0 SECONDS Prothromb Time International Ratio 1.1 0.9-1.1 Activated Partial Thromboplast Time 33.2 21.0-31.0 SECONDS Partial Thromboplastin Ratio 1.3 Bedside Hemoglobin 10.2 12.0-16.0 g/dl Bedside Hematocrit 30 37-47 % Bedside Sodium 140 135-144 mEq/L Bedside Potassium 5.8 3.3-5.0 mEq/L Bedside Chloride 101 101-112 mEq/L Bedside Total CO2 26 24-31 mEq/l Bedside Blood Urea Nitrogen 104 7-18 mg/dl Bedside Creatinine 8.1 0.6-1.3 mg/dl Bedside Glucose (other) 88 70-99 mg/dl Bedside Ionized Calcium (Demarco) 1.03 1.12-1.32 mmol/l Bedside Troponin I 0.010 0-0.045 ng/ml Diagnostic Radiology cxr: FINDINGS: A left internal jugular [id number] is in place. The patient is rotated. Cardiomegaly is changed. There are trace bilateral pleural effusions. Mild pulmonary edema is noted. Linear opacities favor atelectasis. There is no pneumothorax. IMPRESSION: 1. Mild pulmonary edema and trace bilateral pleural effusions. 2. Linear opacities suggestive of atelectasis. 3. No pneumothorax. EKG EKG - my reading - NSR, NS ST changes III, AVF Biatrial enlargement RSR' pattern lead V1 but QRS duration normal No change from prior EKG Impression Assessment and Plan 66yo female with multiple medical problems including ESRD on HD //Wed and s/p pancreatic transplant on chronic immunosuppressives who presents after feeling poorly most of this AM and then suffering a syncopal episode in the parking lot at the dialysis center. 1. syncope - she had prodromal symptoms leading up to the event ("didn't feel good," dizzy, thirsty, weak, etc). She had severe diarrhea over the last 48 hours with poor oral intake. It is possible that she was intra-vascularly volume depleted this AM leading to the event. Other possibilities include infectious process (stool, lungs, etc), cardiac dysrhythmia, valvular heart disease, etc. She has a nonfocal neurological exam so I am less suspicious about a INS[employer]OR [employer] event such as stroke. Plan - * check blood cultures, r/o bacteremia * check stool for c. diff and culture given her diarrhea * check rapid flu test * check cortisol, r/o Knott's * had mild-moderate mitral regurgitation on last echo; repeat the echo to exclude worsening valve disease * if the work-up is negative consider MRI brain, carotid duplex, etc. * place on telemetry * serial troponins * check TSH as well 2. ESRD on HD //Wed - Dr. Hollis has consulted and HD to be performed right away. 3. hyperkalemia - 2nd to #2. 4. s/p pancreatic transplant status - continue prograf and cellcept. I don't see that she has had recent levels and so will order them. Cont bactrim for PCP prophylaxis. 5. diarrhea - r/o infectious causes first; if negative then consider pancreatic insufficiency, etc. 6. macrocytic anemia - b12/folate in the recent past were normal. Check TSH. No evidence of liver disease. May be 2nd to ESRD. 7. thrombocytopenia - appears new relative to old CBCs. Repeat CBC in am for stability. 8. G-J tube status - noted. Mainly used to vent the stomach in the setting of her gastroparesis. 9. chronic pain syndrome - continue dilaudid prn. 10. DVT proph - SCDs for now due to heme+ stool. 11. heme+ stool - although stool was heme+ her hemoglobin levels are at baseline. I am less suspicious she is having an active GI bleed. Need to follow CBCs carefully however. Cont PPI twice daily. 12. HTN - takes lasix & metoprolol at home. Until we trend her BPs will hold the metoprolol. 13. PT, OT consultations. 14. FEN - renal/low fiber diet. Saline lock. BMP in am. Level of Care Telemetry Advanced Directives Existing Advance Directive: No Existing Living Will: No Resuscitation Status FULL RESUSCITATION VTE Prophylaxis Risk Level: Moderate Given or contraindicated: Unfractionated heparin SQ Note total visit time 70 minutes Additional Copies To Pedro Pablo Hollis M.D.
[2016-06-04] MEDS ORDERED: TRIAMCINOLONE ACET NASAL SPRAY 10.8ML BTL NAE PRN (13:15)
[2016-06-04] MEDS ORDERED: CALCIUM ACETATE 667MG GELCAP PO PRN (13:15)
[2016-06-04] MEDS ORDERED: NITROGLYCERIN 0.4 MG SL PER TAB CHARGE SL PRN (13:15)
[2016-06-04] MEDS: CALCIUM ACETATE 667MG GELCAP PO SCH (19:00)
[2016-06-04] MEDS: RANITIDINE HCL 150 MG TAB PO SCH (20:02)
[2016-06-04] MEDS: SIMVASTATIN 10 MG TAB JT SCH (20:03)
[2016-06-04] MEDS: TACROLIMUS 1 MG CAP JT SCH (20:03)
[2016-06-04] MEDS: ALPRAZOLAM 0.5 MG TAB JT PRN (20:03)
[2016-06-04] MEDS: LANSOPRAZOLE SOLUTAB 30 MG NG SCH (20:06)
[2016-06-04] MEDS ORDERED: HEPARIN SOD 5000 UNIT/0.5 ML CARP SQ SCH (21:00)
[2016-06-05] VITALS (9 sets, daily range): BP systolic 122–167; BP diastolic 67–86; PULSE 73–81; TEMP 36.4–36.9; O2SAT 90–95
[2016-06-05] MEDS: ALPRAZOLAM 0.5 MG TAB JT PRN ×3 (00:32→16:08)
[2016-06-05] MEDS: LANSOPRAZOLE SOLUTAB 30 MG NG SCH ×2 (08:49→21:16)
[2016-06-05] MEDS: FUROSEMIDE 80 MG TAB PO SCH (08:49)
[2016-06-05] MEDS: RANITIDINE HCL 150 MG TAB PO SCH ×2 (08:50→21:16)
[2016-06-05] MEDS: CALCIUM ACETATE 667MG GELCAP PO SCH ×3 (08:50→17:32)
[2016-06-05] MEDS: TACROLIMUS 1 MG CAP JT SCH ×2 (08:50→21:16)
[2016-06-05] MEDS: ACETAMINOPHEN 325 MG TAB PO PRN (08:52)
[2016-06-05] MEDS: MYCOPHENOLATE SUSP 200 MG/1 ML JT SCH (08:52)
[2016-06-05] MEDS: CALCITRIOL 0.25 MCG CAP JT SCH (08:52)
[2016-06-05] MEDS: CITALOPRAM 20 MG TAB JT SCH (08:52)
[2016-06-05] MEDS ORDERED: IMPACT LIQ 1000 ML BAG GJT SCH ×4 (09:00→17:15)
--- NOTE | 2016-06-05 10:16 | NEPHROLOGY PROGRESS NOTE ---
DATE: 06/05/2016 SUBJECTIVE: Mrs. Guillen says that she is feeling somewhat better today. She still has a variety of aches and pains that are relieved by her hydromorphone. She denies having any shortness of breath. She has had no chest pain. She has had no shaking chills and she has had no sweats. Despite her abdominal pain, she denies having any nausea or vomiting. Her dialysis treatment yesterday was uncomplicated. OBJECTIVE: GENERAL: On physical exam, at the current time Mrs. Guillen appears as a chronically ill woman but younger than her stated age of 66. VITAL SIGNS: She is afebrile (36.4), her blood pressure 130/67, her pulse 76 and regular, respiratory rate 16, her pulse ox is 91-94% on 2 liters of oxygen via nasal cannula but also on room air. SKIN: Shows a sallow complexion. She has scars from prior surgical procedures including a right lower quadrant scar from her pancreas transplant, a left upper arm scar from the creation of her AV fistula with multiple dialysis needle tract rajan over the fistula, and scars over both hips from prior orthopedic surgery. She also has a scar over her right shoulder. There is an A-port beneath the distal left clavicle. A GJ tube is in place in the left upper quadrant of her abdomen. Her dressing appears dry at this time. LYMPHATICS: Show no palpable lymphadenopathy. HEAD: Grossly normal. EYES: Grossly normal. There is no conjunctival injection and no conjunctival icterus. Pupils are equal and reactive to light. The fundi were not examined. EARS, NOSE, MOUTH AND THROAT: Unremarkable other than very poor dentition and multiple missing teeth with retained roots. Oral mucous membranes are moist. NECK: Supple. However, it remains flexed forward and tilted to the right. It can easily be straightened, however, either voluntarily or involuntarily. It can be straightened without significant pain. She has no jugular venous distention. I hear no carotid bruit and there is no thyromegaly. CHEST: Clear to auscultation. I hear no wheezes, rales or rhonchi. CARDIAC: Shows a regular rhythm. S1 and S2 are normal. She has a systolic murmur at the base as well as a harsher systolic murmur at the apex radiating to the axilla. There are no gallops and no rubs. ABDOMEN: Shows the GJ tube. The dressing is dry. Bowel sounds are present. I do not hear rushes as I did yesterday. There is no obvious organomegaly or mass, although she does have the right lower quadrant fullness at the site of her pancreas transplant. EXTREMITIES: Show no cyanosis, clubbing or peripheral edema. She has a left upper arm AV fistula with a good pulse, thrill and bruit. Scars are noted over both hips and her shoulders. NEUROLOGIC: Shows loss of protective sensation in her feet. Ankle jerks are absent bilaterally. Other deep tendon reflexes seem unremarkable. She is oriented in 3 spheres. She continues to speak slowly and carefully choose her words. The remainder of her neurologic exam is unremarkable. PERTINENT LABORATORY WORK: Has shown normal troponins. Her cortisol level is normal. She is negative for influenza A and influenza B, and her hepatitis C screen is negative. Her chest x-ray done at the time of admission showed mild pulmonary edema and trace bilateral pleural effusions. She does have some changes of atelectasis. There is no pneumothorax. ASSESSMENT: The etiology of Mrs. Guillen's symptoms is unclear. At the current time, with her normal white count and lack of fever, it does not appear as if she had at least a significant infection. Most of her symptoms have since resolved. She has normal troponins and her cardiac exam is unchanged, making an acute cardiac event unlikely as well. I am concerned and I have been concerned for some time about her dose of hydromorphone. It seems quite high, especially for a woman of her size and with her chronic renal insufficiency. However, she has been dependent on that dose for years with no previous apparent sequelae. However, if she has gradually been losing her residual renal function, metabolites of hydromorphone could accumulate and that could suppress her respirations and could have given her the presentation noted yesterday. PLAN: We will schedule hemodialysis again for tomorrow. Would continue to watch the patient closely. Would suggest discussing with the lab obtaining metabolites of hydromorphone. These are similar to the metabolites of morphine. Certainly, significant levels of the metabolites if present could explain her clinical picture.
--- NOTE | 2016-06-05 13:53 | Hospitalist Progress Note ---
Hospitalist Progress Note Date of Service Jun 05, 2016. Subjective Pt evaluation today including: conversation w/ patient, physical exam, chart review Feels well. Worked with PT. Medications Medications (Trade) Dose Ordered Sig/Ayaka Route Start Time Stop Time Status Last Admin Dose Admin Calcium Acetate (Phoslo Cap) 1,334 mg QDB PO 06/05/16 07:30 07/05/16 07:59 06/05/16 08:50 1,334 MG Calcium Acetate (Phoslo Cap) 2,001 mg 1130,1645 PO 06/04/16 19:00 07/04/16 18:59 06/05/16 12:29 2,001 MG Citalopram Hydrobromide (celeXA TAB) 20 mg QAM JT 06/05/16 09:00 07/05/16 08:59 06/05/16 08:52 20 MG Furosemide (Lasix Tab) 80 mg MoWeFr@0900 PO 06/05/16 09:00 07/05/16 08:59 06/05/16 08:49 80 MG Mycophenolate Mofetil (Cellcept Susp) 500 mg QAM JT 06/05/16 09:00 07/05/16 08:59 06/05/16 08:52 500 MG Lansoprazole (Prevacid Solutab) 30 mg BID NG 06/04/16 21:00 07/04/16 20:59 06/05/16 08:49 30 MG Simvastatin (Zocor Tab) 10 mg HS JT 06/04/16 21:00 07/04/16 20:59 06/04/16 20:03 10 MG Calcitriol (Rocaltrol Cap) 0.25 mcg QAM JT 06/05/16 09:00 07/05/16 08:59 06/05/16 08:52 0.25 MCG Tacrolimus (Prograf Cap) 6 mg HS JT 06/04/16 21:00 07/04/16 20:59 06/04/16 20:03 6 MG Tacrolimus (Prograf Cap) 8 mg QAM JT 06/05/16 09:00 07/05/16 08:59 06/05/16 08:50 8 MG Ranitidine HCl (zANTac TAB) 300 mg BID PO 06/04/16 21:00 07/04/16 20:59 06/05/16 08:50 300 MG Heparin Sodium (Porcine) (Heparin 100 Unit/ml 5ml Flush) 5 ml STK-MED ONCE .ROUTE 06/04/16 13:52 06/04/16 13:53 DC 06/04/16 13:52 5 ML Heparin Sodium (Porcine) (Heparin 100 Unit/ml 5ml Flush) 5 ml PRN PRN IV 06/05/16 03:15 07/05/16 03:14 06/05/16 08:52 5 ML Objective Vital Signs Date Time Temp Pulse Resp B/P Pulse Ox O2 Delivery O2 Flow Rate FiO2 06/05/16 12:00 Nasal Cannula 2.0 06/05/16 11:45 74 91 06/05/16 11:17 36.6 81 16 122/69 90 2.0 06/05/16 08:00 Nasal Cannula 06/05/16 07:32 36.4 76 16 130/67 94 Room Air 06/05/16 04:00 93 Nasal Cannula 2.0 06/05/16 03:31 36.8 73 21 167/86 91 Nasal Cannula 2.0 06/04/16 23:59 93 Nasal Cannula 2.0 06/04/16 23:27 37.1 72 20 172/85 93 Nasal Cannula 2.0 06/04/16 19:06 37.0 72 18 163/81 94 Nasal Cannula 2.0 06/04/16 18:45 Nasal Cannula 06/04/16 18:39 36.8 71 159/87 06/04/16 17:30 64 160/70 06/04/16 17:15 67 133/65 06/04/16 17:00 68 145/71 06/04/16 16:45 69 150/90 06/04/16 16:30 70 162/93 06/04/16 16:15 66 163/82 06/04/16 16:00 66 150/85 06/04/16 15:57 36.8 65 20 136/77 92 06/04/16 15:45 67 150/78 06/04/16 15:30 64 145/78 06/04/16 15:15 66 137/80 06/04/16 15:00 65 136/77 06/04/16 14:45 66 128/81 06/04/16 14:30 65 135/89 06/04/16 14:23 65 143/83 06/04/16 14:15 36.8 66 145/83 Physical Exam General Appearance: WD/WN Eyes: normal inspection ENT: hearing grossly normal Neck: + pertinent finding (Deviated to the right) Respiratory/Chest: chest non-tender, no respiratory distress Cardiovascular: regular rate, rhythm, no edema, + systolic murmur Abdomen: normal bowel sounds, non tender, soft Extremities: normal range of motion Neurologic/Psychiatric: alert, oriented x 3 Skin: no rash Laboratory Results Last 24 Hours Test 06/04/16 19:54 06/04/16 23:13 06/05/16 07:10 Troponin I < 0.015 ng/ml < 0.015 ng/ml Hepatitis C Antibody Screen NEG Assessment and Plan 66yo female with multiple medical problems including ESRD on HD //Wed and s/p pancreatic transplant on chronic immunosuppressives who presents after feeling poorly most of this AM and then suffering a syncopal episode in the parking lot at the dialysis center. 1. syncope - she had prodromal symptoms leading up to the event ("didn't feel good," dizzy, thirsty, weak, etc). She had severe diarrhea over the last 48 hours with poor oral intake. It is possible that she was intra-vascularly volume depleted this AM leading to the event. Other possibilities include infectious process (stool, lungs, etc), cardiac dysrhythmia, valvular heart disease, etc. She has a nonfocal neurological exam so I am less suspicious about a INDUSTRIAL/ORGANIZATIONAL PSYCHOLOGIST event such as stroke. Plan - * check blood cultures, r/o bacteremia * check stool for c. diff and culture given her diarrhea * Neg rapid flu test * Random s.cortisol is WNL. * had mild-moderate mitral regurgitation on last echo; repeat the echo to exclude worsening valve disease * if the work-up is negative consider MRI brain, carotid duplex, etc. * place on telemetry * serial troponins are negative. * check TSH as well 2. ESRD on HD //Wed - Dr. Hollis has consulted and HD to be performed right away. 3. hyperkalemia - 2nd to #2. 4. s/p pancreatic transplant status - continue prograf and cellcept. Will check levels Cont bactrim for PCP prophylaxis. 5. diarrhea - r/o infectious causes first; if negative then consider pancreatic insufficiency, etc. 6. macrocytic anemia - b12/folate in the recent past were normal. Check TSH. No evidence of liver disease. May be 2nd to ESRD. 7. thrombocytopenia - appears new relative to old CBCs. Repeat CBC in am for stability. 8. G-J tube status - noted. Mainly used to vent the stomach in the setting of her gastroparesis. 9. chronic pain syndrome - continue dilaudid prn. 10. DVT proph - SCDs for now due to heme+ stool. 11. heme+ stool - although stool was heme+ her hemoglobin levels are at baseline. I am less suspicious she is having an active GI bleed. Need to follow CBCs carefully however. Cont PPI twice daily. No significant drop in Hgb. 12. HTN - takes lasix & metoprolol at home. Until we trend her BPs will hold the metoprolol. 13. PT, OT consultations. 14. FEN - renal/low fiber diet. Saline lock. BMP in am.
--- NOTE | 2016-06-05 16:06 | ECHOCARDIOGRAM REPORT ---
*NOTICE TO RECEIVING LIBERTARIAN AGENCY This information is strictly Confidential and protected under [place] law. [place] law prohibits you from making any further disclosure of this information unless further disclosure is expressly permitted by the written consent of the person to whom it pertains or is authorized by law. A general authorization for the release of medical or other information is not sufficient for this purpose. Hospital accepts no responsibility if the information is made available to any other person, INCLUDING THE PATIENT. Interpretation Summary * Name: DENISHA MOREAU V Study Date: 06/05/2016 02:48 PM BP: 142/70 mmHg * Patient Location: .2T\S\E215\S\1 HR: 76 * : 1950 (M/d/yyyy) Gender: Female Height: 65 in * Age: 66 yrs Ethnicity: [place] Weight: 128 lb * Ordering Physician: Pedro Pablo Rea * Referring Physician: Self, Referred * Performed By: Jessica Harry RDCS * * Reason For Study: HTN * BSA: 1.6 m2 * -- Conclusions -- * There is mild asymmetric left ventricular hypertrophy. * Left ventricular systolic function is normal. * Diastolic dysfunction, Grade II (pseudonormalization pattern). * The left atrium is moderately dilated. * The right atrium is moderately dilated. * Calcified mitral apparatus. * There is moderate mitral annular calcification. * There is mild to moderate mitral regurgitation. * There is severe tricuspid regurgitation. * Right ventricular systolic pressure is elevated at >60mmHg. * Compared to a study from 2015, the pulmonary pressures are higher Procedure Details * A complete two-dimensional transthoracic echocardiogram was performed (2D, M-mode, Doppler and color flow Doppler). Left Ventricle * The left ventricle is normal in size. * There is mild asymmetric left ventricular hypertrophy. * Ejection Fraction = 55-60%. * Left ventricular systolic function is normal. * Diastolic dysfunction, Grade II (pseudonormalization pattern). Right Ventricle * The right ventricle is mildly dilated. * The right ventricular systolic function is qualitatively normal. Atria * The left atrium is moderately dilated. * The right atrium is moderately dilated. Mitral Valve * Calcified mitral apparatus. * There is moderate mitral annular calcification. * There is no mitral valve stenosis. * There is mild to moderate mitral regurgitation. Tricuspid Valve * The tricuspid valve is not well visualized, but is grossly normal. * There is severe tricuspid regurgitation. * Right ventricular systolic pressure is elevated at >60mmHg. Aortic Valve * The aortic valve is tricuspid. The leaflet thickness if normal. There is no aortic stenosis, and no significant insufficiency. * Annulus is calcified * No hemodynamically significant valvular aortic stenosis. * There is no significant aortic regurgitation. Great Vessels * The aortic root is normal size. Pericardium/Pleural * There is no pericardial effusion. * PLeural effusion is present MMode 2D Measurements and Calculations IVSd 0.93 cm IVSs 1.4 cm LVIDd 3.9 cm LVIDs 2.7 cm LVPWd 1.6 cm LVPWs 2.4 cm IVS/LVPW 0.60 FS 32.5 % EDV(Teich) 67.5 ml ESV(Teich) 26.0 ml EF(Teich) 61.4 % EDV(cubed) 61.1 ml ESV(cubed) 18.8 ml EF(cubed) 69.2 % % IVS thick 48.7 % % LVPW thick 50.7 % LV mass(C)d 170.8 grams LV mass(C)dI 104.4 grams/m\S\2 LV mass(C)s 202.5 grams LV mass(C)sI 123.8 grams/m\S\2 SV(Teich) 41.4 ml SI(Teich) 25.3 ml/m\S\2 SV(cubed) 42.3 ml SI(cubed) 25.8 ml/m\S\2 Ao root diam 2.7 cm Ao root area 5.7 cm\S\2 LA dimension 4.8 cm LA/Ao 1.8 LVAd ap4 24.9 cm\S\2 LVLd ap4 7.8 cm EDV(MOD-sp4) 65.8 ml LVAs ap4 14.2 cm\S\2 LVLs ap4 6.4 cm ESV(MOD-sp4) 27.7 ml EF(MOD-sp4) 57.9 % LVAd ap2 21.4 cm\S\2 LVLd ap2 7.7 cm EDV(MOD-sp2) 51.0 ml LVAs ap2 12.8 cm\S\2 LVLs ap2 6.1 cm ESV(MOD-sp2) 25.2 ml EF(MOD-sp2) 50.6 % SV(MOD-sp4) 38.1 ml SI(MOD-sp4) 23.3 ml/m\S\2 SV(MOD-sp2) 25.8 ml SI(MOD-sp2) 15.8 ml/m\S\2 Doppler Measurements and Calculations MV E max mckayla 100.9 cm/sec MV A max mckayla 100.4 cm/sec MV E/A 1.0 MV dec time 0.25 sec Ao V2 max 215.7 cm/sec Ao max PG 18.6 mmHg Ao max PG (full) 15.3 mmHg Ao V2 mean 146.8 cm/sec Ao mean PG 9.7 mmHg Ao mean PG (full) 8.1 mmHg Ao V2 VTI 40.3 cm LV V1 max PG 3.3 mmHg LV V1 mean PG 1.6 mmHg LV V1 max 90.7 cm/sec LV V1 mean 59.6 cm/sec LV V1 VTI 17.2 cm SV(Ao) 231.0 ml SI(Ao) 141.2 ml/m\S\2 TR max mckayla 372.6 cm/sec
[2016-06-05] MEDS: SIMVASTATIN 10 MG TAB JT SCH (21:16)
[2016-06-06] VITALS (26 sets, daily range): BP systolic 123–182; BP diastolic 66–92; PULSE 73–93; TEMP 36.7–36.9; O2SAT 93–97
[2016-06-06] MEDS: ALPRAZOLAM 0.5 MG TAB JT PRN ×4 (02:56→20:37)
[2016-06-06 07:19] LABS: BASO % 0.4 %; BASO ABS # 0.02 K/uL (0-0.2); COMPLETE YES; EOS % 5.7 %; HEMATOCRIT 32.9 % (37-47); IG% 0.4 %; LYMPH % 15.1 %; LYMPH ABS # 0.74 K/uL (1.2-3.4); MEAN CELL VOLUME 106.1 fL (80-100); MEAN CORPUSCULAR HEMOGLOBIN 31.6 pg (25-34); MEAN CORPUSCULAR HGB CONC 29.8 g/dl (32-36); MEAN PLATELET VOLUME 11.1 fL (7.4-10.4); MONO % 10.2 %; NEUT % 68.2 %; PLATELET COUNT 136 K/uL (130-400); WHITE BLOOD COUNT 4.91 K/uL (4.8-10.8)
[2016-06-06] MEDS: CALCIUM ACETATE 667MG GELCAP PO SCH ×3 (07:54→16:45)
[2016-06-06] MEDS: MYCOPHENOLATE SUSP 200 MG/1 ML JT SCH (07:55)
[2016-06-06] MEDS: LANSOPRAZOLE SOLUTAB 30 MG NG SCH ×3 (07:56→20:20)
[2016-06-06] MEDS: TACROLIMUS 1 MG CAP JT SCH ×2 (07:56→20:19)
[2016-06-06] MEDS: CALCITRIOL 0.25 MCG CAP JT SCH (07:56)
[2016-06-06] MEDS ORDERED: SODIUM CHLORIDE 0.9% 1000ML 1,000 ML IV PRN (08:00)
[2016-06-06 08:11] LABS: BUN/CREATININE RATIO 9.9 (10-20); CREATININE 6.4 mg/dl (0.60-1.20); POTASSIUM 4.3 mmol/L (3.5-5.1)
[2016-06-06] MEDS: CITALOPRAM 20 MG TAB JT SCH (08:15)
[2016-06-06] MEDS: RANITIDINE HCL 150 MG TAB PO SCH ×2 (08:15→20:19)
[2016-06-06] MEDS ORDERED: EPOETIN ALFA 10,000 UNITS/ML VIAL IV. ONE (10:00)
--- NOTE | 2016-06-06 13:34 | Dialysis Progress Note ---
Hemodialysis Note Date of Service Jun 06, 2016. Chief Complaint ESRD Subjective Suni was seen and evaluated during hemodialysis this morning. She tolerated her treatment well. Qb appropriate. Blood pressure normal. Net UF 3 kg. She reported continued weakness but overall no acute complaints. She believes that her weakness is related to anemia. Review of Systems A complete review of systems was performed. Pertinent positives are noted above. All other systems are negative. Vital Signs Last 8 Hrs Date Time Temp Pulse Resp B/P Pulse Ox O2 Delivery O2 Flow Rate FiO2 06/06/16 11:45 77 146/85 06/06/16 11:30 77 137/81 06/06/16 11:15 76 130/80 06/06/16 11:00 76 133/76 06/06/16 10:45 76 135/81 06/06/16 10:30 76 123/75 06/06/16 10:15 76 135/81 06/06/16 10:00 75 144/79 06/06/16 09:45 78 136/83 06/06/16 09:30 78 144/75 06/06/16 09:15 78 134/77 06/06/16 09:00 74 155/86 06/06/16 08:52 36.8 73 150/84 06/06/16 08:00 95 Nasal Cannula 2.0 06/06/16 07:26 36.9 79 18 158/83 95 I & O 24-Hour Column 06/06/16 08:00 Output Total 50 ml Balance -50 ml Last Recorded Weight Weight (Kilograms): 59.600 Physical Exam General Appearance: no apparent distress, + thin Head: normocephalic, atraumatic Eyes: normal inspection, sclerae normal ENT: normal ENT inspection, pharynx normal Neck: supple, no JVD Respiratory/Chest: lungs clear, no respiratory distress, no accessory muscle use Cardiovascular: regular rate, rhythm, no gallop Abdomen/GI: non tender, soft Extremities/Musculoskelatal: normal inspection, no pedal edema Neurologic/Psych: alert, normal mood/affect Social History Smoking Status: Never smoker Smokeless Tobacco Use: No Alcohol Use: socially Drug Use: none Marital Status: (in [place]; has 2 kids ) Housing Status: lives with family 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[employer]; 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8 g/dL (12.0-16.0) Hematocrit 32.9 % (37-47) Mean Corpuscular Volume 106.1 fL (80-100) Mean Corpuscular Hemoglobin 31.6 pg (25-34) Mean Corpuscular Hemoglobin Concent 29.8 g/dl (32-36) Platelet Count 136 K/uL (130-400) Mean Platelet Volume 11.1 fL (7.4-10.4) Neutrophils (%) (Auto) 68.2 % Lymphocytes (%) (Auto) 15.1 % Monocytes (%) (Auto) 10.2 % Eosinophils (%) (Auto) 5.7 % Basophils (%) (Auto) 0.4 % Neutrophils # (Auto) 3.35 K/uL (1.4-6.5) Lymphocytes # (Auto) 0.74 K/uL (1.2-3.4) Monocytes # (Auto) 0.50 K/uL (0.11-0.59) Eosinophils # (Auto) 0.28 K/uL (0-0.5) Basophils # (Auto) 0.02 K/uL (0-0.2) RDW Standard Deviation 55.8 fL (36.4-46.3) RDW Coefficient of Variation 14.3 % (11.5-14.5) Immature Granulocyte % (Auto) 0.4 % Immature Granulocyte # (Auto) 0.02 K/uL (0.00-0.02) Anion Gap 9.0 mmol/L (3-11) Est Creatinine Clear Calc Drug Dose 7.6 ml/min Estimated GFR () 7.1 Estimated GFR (Non- 6.1 BUN/Creatinine Ratio 9.9 (10-20) Calcium Level 9.0 mg/dl (8.5-10.1) Total Bilirubin 0.4 mg/dl (0.2-1) Aspartate Amino Transf (AST/SGOT) 12 U/L (15-37) Alanine Aminotransferase (ALT/SGPT) 15 U/L (12-78) Alkaline Phosphatase 113 U/L (45-117) Total Protein 6.1 gm/dl (6.4-8.2) Albumin 3.0 gm/dl (3.4-5.0) Globulin 3.1 gm/dl (2.5-4.0) Albumin/Globulin Ratio 1.0 (0.9-2) Allergies Coded Allergies: Penicillins (Verified Allergy, Intermediate, RASH, 06/04/16) Erythromycin (Verified Allergy, Mild, RASH, 06/04/16) Surgical Lubricant (Verified Allergy, Unknown, ITCHY, 06/04/16) Carbamazepine (Verified Adverse Reaction, Severe, TOXIC BLOOD POISONING, ) TOXIC BLOOD POISONING Metoclopramide (Verified Adverse Reaction, Severe, SEIZURES, 06/04/16) SEIZURES Corticosteroids (Verified Adverse Reaction, Intermediate, NAUSEA, 06/04/16) PATIENT STATES ON ALLERGY SHEET "ABSOLUTELY NONE" Dicyclomine (Verified Adverse Reaction, Intermediate, HALLUCINATIONS, 06/04) HALLUCINATIONS Ketorolac (Verified Adverse Reaction, Intermediate, NAUSEATED, 06/04/16) Pregabalin (Verified Adverse Reaction, Intermediate, CONFUSION, 06/04/16) Quinolones (Verified Adverse Reaction, Intermediate, LEVAQUIN-NAUSEA, CHRONIC HEARTBURN, 06/04/16) levaquin =NAUSEA, CHRONIC HEARTBURN. PT SAID SHE WILL NOT TAKE 12/06/08 Azithromycin (Verified Adverse Reaction, Mild, n&v, 06/04/16) Cephalexin (Verified Adverse Reaction, Mild, NAUSEA, 06/04/16) Cephalosporins (Verified Adverse Reaction, Mild, KEFLEX = NAUSEA, 06/04/16) Codeine (Verified Adverse Reaction, Mild, NAUSEA, 06/04/16) Gabapentin (Verified Adverse Reaction, Mild, NAUSEA, 06/04/16) NAUSEA Levofloxacin (Verified Adverse Reaction, Mild, NAUSEA, 06/04/16) Naproxen (Verified Adverse Reaction, Mild, NAUSEA, 06/04/16) Nitrofurantoin (Verified Adverse Reaction, Mild, NAUSEA, 06/04/16) Oxycodone (Verified Adverse Reaction, Mild, PRC/TYLOX = NAUSEA, 06/04/16) NAUSEA Phenobarbital (Verified Adverse Reaction, Mild, NAUSEA, 06/04/16) Prednisolone (Verified Adverse Reaction, Mild, IRRITATION, 06/04/16) Promethazine (Verified Adverse Reaction, Mild, DIARRHEA, 06/04/16) Sertraline (Verified Adverse Reaction, Mild, NAUSEA, 06/04/16) Adhesives (Verified Adverse Reaction, Unknown, UNKNOWN, 06/04/16) Mirtazapine (Verified Adverse Reaction, Unknown, HEARS VOICES, 06/04/16) Propoxyphene (Verified Adverse Reaction, Unknown, NAUSEA, 06/04/16) NAUSEA Tramadol (Verified Adverse Reaction, Unknown, DEPRESSION, 06/04/16) DEPRESSION Medications Current Inpatient Medications Medications (Trade) Dose Ordered Sig/Ayaka Route Start Time Stop Time Status Last Admin Dose Admin Acetaminophen (Tylenol Tab) 650 mg Q4H PRN PO 06/04/16 13:15 07/04/16 13:14 06/05/16 08:52 650 MG Ondansetron HCl (Zofran Inj) 4 mg Q6H PRN IV 06/04/16 13:15 07/04/16 13:14 Nitroglycerin (Nitrostat Tab) 0.4 mg UD PRN SL 06/04/16 13:15 07/04/16 13:14 Alprazolam (Xanax Tab) 0.5 mg Q4H PRN JT 06/04/16 13:15 07/04/16 13:14 06/06/16 08:27 0.5 MG Calcium Acetate (Phoslo Cap) 1,334 mg QDB PO 06/05/16 07:30 07/05/16 07:59 06/06/16 07:54 1,334 MG Calcium Acetate (Phoslo Cap) 2,001 mg TID PRN PO 06/04/16 13:15 07/04/16 13:14 Calcium Acetate (Phoslo Cap) 2,001 mg 1130,1645 PO 06/04/16 19:00 07/04/16 18:59 06/05/16 17:32 2,001 MG Citalopram Hydrobromide (celeXA TAB) 20 mg QAM JT 06/05/16 09:00 07/05/16 08:59 06/06/16 08:15 20 MG Furosemide (Lasix Tab) 80 mg MoWeFr@0900 PO 06/05/16 09:00 07/05/16 08:59 06/05/16 08:49 80 MG Hydromorphone HCl (Dilaudid Tab) 8 mg Q4 PRN JT 06/04/16 13:15 06/18/16 13:14 06/06/16 08:27 8 MG Mycophenolate Mofetil (Cellcept Susp) 500 mg QAM JT 06/05/16 09:00 07/05/16 08:59 06/06/16 07:55 500 MG Lansoprazole (Prevacid Solutab) 30 mg BID NG 06/04/16 21:00 07/04/16 20:59 06/05/16 21:16 30 MG Simvastatin (Zocor Tab) 10 mg HS JT 06/04/16 21:00 07/04/16 20:59 06/05/16 21:16 10 MG Triamcinolone Acetonide (Nasacort Allergy 24hr) 2 sprays DAILY PRN AMRIT 06/04/16 13:15 07/04/16 13:14 Calcitriol (Rocaltrol Cap) 0.25 mcg QAM JT 06/05/16 09:00 07/05/16 08:59 06/06/16 07:56 0.25 MCG Miscellaneous Information (Order Awaiting Action) 1 ea QS N/A 06/04/16 16:00 07/04/16 15:59 Tacrolimus (Prograf Cap) 6 mg HS JT 06/04/16 21:00 07/04/16 20:59 06/05/16 21:16 6 MG Tacrolimus (Prograf Cap) 8 mg QAM JT 06/05/16 09:00 07/05/16 08:59 4/29/17 07:56 8 MG Ranitidine HCl (zANTac TAB) 300 mg BID PO 06/04/16 21:00 07/04/16 20:59 06/06/16 08:15 300 MG Heparin Sodium (Porcine) 5 ml 5 ml PRN PRN IV 06/05/16 03:15 07/05/16 03:14 06/05/16 08:52 5 ML Sodium Chloride (Nss 1000ml) 1,000 ml @ 0 mls/hr Q0M PRN IV 06/06/16 08:00 06/06/16 19:00 Impression (1) ESRD (end stage renal disease) on dialysis (2) Diabetes mellitus type 1 (3) 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 Medical history is notable for DM 1 for which she underwent pancreas transplant at [facility]. She presented to [facility] following hemodialysis with progressive generalized weakness and a reported syncopal episode following hemodialysis. No acute cardiac etiology identified. Infectious work up has been negative. Several potential contributing medications include the regular use of hydromorphone. Professional oversight of hemodialysis was provided today. Suni tolerated hemodialysis well. Blood pressure and volume status are appropriate. Recommendations ESRD: -- HD TTS -- Qb ~400 via AVF -- Renal diet -- Medications appropriate for renal function Pancreas transplant: -- Maintained on Tacrolimus and Cellcept -- Tolerating medications well Anemia: -- Maintained on Micera as outpatient -- Check B12, folic acid and iron profile
[2016-06-06] MEDS ORDERED: POLYETHYLENE (MIRALAX) 17 GM PACK PO ONE (15:03)
[2016-06-06] MEDS: ONDANSETRON INJ 2 MG/ML 2 ML VIAL IV PRN (15:11)
[2016-06-06] MEDS: SIMVASTATIN 10 MG TAB JT SCH (20:19)
[2016-06-06] MEDS: DOCUSATE SODIUM 100 MG CAP PO SCH (20:20)
--- NOTE | 2016-06-06 21:16 | Hospitalist Progress Note ---
Hospitalist Progress Note Date of Service Jun 06, 2016. (Brandon Mc PA-C) Subjective Pt evaluation today including: conversation w/ patient, conversation w/ family , physical exam, chart review, lab review, review of studies Pain: Controlled End-stage renal dialysis patient with no urine output Reported change in mental status in dialysis parking lot last Several days of diarrhea prior to event. Patient also reports increasing balance issues at home Today patient complains that to much fluid is taken off during dialysis resulting in nausea and vomiting Patient also complains about fluid restrictions She reports the pain is generally controlled No fever or chills or rigors No shortness of breath, cough, sputum production Additional Comments: A total of 12 systems was reviewed and is negative other than as listed above in the HPI All Other Systems: Reviewed and Negative (Brandon Mc PA-C) Medications Current Inpatient Medications Medications (Trade) Dose Ordered Sig/Ayaka Route Start Time Stop Time Status Last Admin Dose Admin Acetaminophen (Tylenol Tab) 650 mg Q4H PRN PO 06/04/16 13:15 07/04/16 13:14 06/05/16 08:52 650 MG Ondansetron HCl (Zofran Inj) 4 mg Q6H PRN IV 06/04/16 13:15 07/04/16 13:14 06/06/16 15:11 4 MG Nitroglycerin (Nitrostat Tab) 0.4 mg UD PRN SL 06/04/16 13:15 07/04/16 13:14 Alprazolam (Xanax Tab) 0.5 mg Q4H PRN JT 06/04/16 13:15 07/04/16 13:14 06/06/16 20:37 0.5 MG Calcium Acetate (Phoslo Cap) 1,334 mg QDB PO 06/05/16 07:30 07/05/16 07:59 06/06/16 07:54 1,334 MG Calcium Acetate (Phoslo Cap) 2,001 mg TID PRN PO 06/04/16 13:15 07/04/16 13:14 Calcium Acetate (Phoslo Cap) 2,001 mg 1130,1645 PO 06/04/16 19:00 07/04/16 18:59 06/06/16 13:33 2,001 MG Citalopram Hydrobromide (celeXA TAB) 20 mg QAM JT 06/05/16 09:00 07/05/16 08:59 06/06/16 08:15 20 MG Furosemide (Lasix Tab) 80 mg MoWeFr@0900 PO 06/05/16 09:00 07/05/16 08:59 06/05/16 08:49 80 MG Hydromorphone HCl (Dilaudid Tab) 8 mg Q4 PRN JT 06/04/16 13:15 06/18/16 13:14 06/06/16 20:37 8 MG Mycophenolate Mofetil (Cellcept Susp) 500 mg QAM JT 06/05/16 09:00 07/05/16 08:59 06/06/16 07:55 500 MG Lansoprazole (Prevacid Solutab) 30 mg BID NG 06/04/16 21:00 07/04/16 20:59 06/06/16 20:20 30 MG Simvastatin (Zocor Tab) 10 mg HS JT 06/04/16 21:00 07/04/16 20:59 06/06/16 20:19 10 MG Triamcinolone Acetonide (Nasacort Allergy 24hr) 2 sprays DAILY PRN AMRIT 06/04/16 13:15 07/04/16 13:14 Calcitriol (Rocaltrol Cap) 0.25 mcg QAM JT 06/05/16 09:00 07/05/16 08:59 06/06/16 07:56 0.25 MCG Miscellaneous Information (Order Awaiting Action) 1 ea QS N/A 06/04/16 16:00 07/04/16 15:59 Tacrolimus (Prograf Cap) 6 mg HS JT 06/04/16 21:00 07/04/16 20:59 06/06/16 20:19 6 MG Tacrolimus (Prograf Cap) 8 mg QAM JT 06/05/16 09:00 07/05/16 08:59 06/06/16 07:56 8 MG Ranitidine HCl (zANTac TAB) 300 mg BID PO 06/04/16 21:00 07/04/16 20:59 06/06/16 20:19 300 MG Heparin Sodium (Porcine) (Heparin 100 Unit/ml 5ml Flush) 5 ml PRN PRN IV 06/05/16 03:15 07/05/16 03:14 06/05/16 08:52 5 ML Docusate Sodium (coLACE CAP) 100 mg BID PO 06/06/16 21:00 07/06/16 20:59 06/06/16 20:20 100 MG Polyethylene (Miralax Powder Packet) 17 gm DAILY PO 06/07/16 09:00 07/07/16 08:59 (Brandon Mc-C) Objective Vital Signs Date Time Temp Pulse Resp B/P Pulse Ox O2 Delivery O2 Flow Rate FiO2 06/06/16 19:47 36.8 78 20 164/88 97 Nasal Cannula 2.0 06/06/16 16:00 93 Nasal Cannula 2.0 06/06/16 15:07 36.9 93 20 182/88 94 Nasal Cannula 2.0 06/06/16 13:20 95 Nasal Cannula 2.0 06/06/16 13:00 36.8 76 155/92 06/06/16 12:15 77 153/86 06/06/16 12:00 77 149/84 06/06/16 11:45 77 146/85 06/06/16 11:30 77 137/81 06/06/16 11:15 76 130/80 06/06/16 11:00 76 133/76 06/06/16 10:45 76 135/81 06/06/16 10:30 76 123/75 06/06/16 10:15 76 135/81 06/06/16 10:00 75 144/79 06/06/16 09:45 78 136/83 06/06/16 09:30 78 144/75 06/06/16 09:15 78 134/77 06/06/16 09:00 74 155/86 06/06/16 08:52 36.8 73 150/84 06/06/16 08:00 95 Nasal Cannula 2.0 06/06/16 07:26 36.9 79 18 158/83 95 06/06/16 04:10 94 Nasal Cannula 2.0 06/06/16 03:27 36.8 76 20 147/66 93 Nasal Cannula 2.0 06/05/16 23:59 94 Nasal Cannula 2.0 06/05/16 23:18 36.6 75 20 157/81 94 Nasal Cannula 2.0 (Brandon Mc PA-C) Physical Exam Notes: GENERAL : No acute distress EYES: No icterus, gaze conjugate NOSE: No evidence of epistaxis SKIN: Positive turgor with tenting MOUTH: No lesions or candidiasis. Mucosa dry NECK: Supple LUNGS: CTA B/L, no wheezes, rales or rhonchi. Decreased bilaterally HEART: Regular, rate controlled ABDOMEN: Soft, NT, ND, BS Present EXTREMITIES: No LE edema, pedal pulses intact NEURO: A&OX3 (Brandon Mc PA-C) Laboratory Results Last 24 Hours Test 06/06/16 06:59 White Blood Count 4.91 K/uL Red Blood Count 3.10 M/uL Hemoglobin 9.8 g/dL Hematocrit 32.9 % Mean Corpuscular Volume 106.1 fL Mean Corpuscular Hemoglobin 31.6 pg Mean Corpuscular Hemoglobin Concent 29.8 g/dl Platelet Count 136 K/uL Mean Platelet Volume 11.1 fL Neutrophils (%) (Auto) 68.2 % Lymphocytes (%) (Auto) 15.1 % Monocytes (%) (Auto) 10.2 % Eosinophils (%) (Auto) 5.7 % Basophils (%) (Auto) 0.4 % Neutrophils # (Auto) 3.35 K/uL Lymphocytes # (Auto) 0.74 K/uL Monocytes # (Auto) 0.50 K/uL Eosinophils # (Auto) 0.28 K/uL Basophils # (Auto) 0.02 K/uL RDW Standard Deviation 55.8 fL RDW Coefficient of Variation 14.3 % Immature Granulocyte % (Auto) 0.4 % Immature Granulocyte # (Auto) 0.02 K/uL Sodium Level 140 mmol/L Potassium Level 4.3 mmol/L Chloride Level 100 mmol/L Carbon Dioxide Level 31 mmol/L Anion Gap 9.0 mmol/L Blood Urea Nitrogen 64 mg/dl Creatinine 6.40 mg/dl Est Creatinine Clear Calc Drug Dose 7.6 ml/min Estimated GFR () 7.1 Estimated GFR (Non- 6.1 BUN/Creatinine Ratio 9.9 Random Glucose 169 mg/dl Calcium Level 9.0 mg/dl Total Bilirubin 0.4 mg/dl Aspartate Amino Transf (AST/SGOT) 12 U/L Alanine Aminotransferase (ALT/SGPT) 15 U/L Alkaline Phosphatase 113 U/L Total Protein 6.1 gm/dl Albumin 3.0 gm/dl Globulin 3.1 gm/dl Albumin/Globulin Ratio 1.0 (Brandon Mc PA-C) Diagnostic Results CHEST ONE VIEW PORTABLE CLINICAL HISTORY: Weakness. Syncope. COMPARISON STUDY: Chest radiograph July or 2015. FINDINGS: A left internal jugular [id number] is in place. The patient is rotated. Cardiomegaly is changed. There are trace bilateral pleural effusions. Mild pulmonary edema is noted. Linear opacities favor atelectasis. There is no pneumothorax. IMPRESSION: 1. Mild pulmonary edema and trace bilateral pleural effusions. 2. Linear opacities suggestive of atelectasis. 3. No pneumothorax. (Brandon Mc PA-C) Assessment and Plan SYNCOPE Patient found to be with change of mental status and transferred to emergency room for further evaluation treatment on 06/04/16 Question of whether patient was dehydrated secondary to multiple episodes of diarrhea No further episodes since admission No evidence of sepsis Echocardiogram shows no significant change and valvular disease or function No significant arrhythmia on telemetry Consider brain imaging and carotid duplex No other significant indication for etiology END-STAGE RENAL DISEASE Follows with Dr. Hollis Continue hemodialysis Wednesday//Wednesday PANCREATIC TRANSPLANT [facility] in 2003 Continue Prograf DIARRHEA Controlled - patient reports no further diarrhea CHRONIC PAIN SYNDROME Continue dilauded which patient has taken for years Discussed possibility of patient following with pain clinic HYPERTENSION Metoprolol held Continue furosemide Continued hemodialysis HEME POSITIVE STOOL No sergio blood per patient report No bowel movement since admission Continue ranitidine and lansoprazole DVT PROPHYLAXIS Chemical prophylaxis held for macrocytic anemia and question of heme positive stool Continue HILLARY hose and SCDs as tolerated Thank you for including us in the care of this patient. Please refer to Dr. eRa's addendum for further recommendations Continued [facility] stay due to: other Discharge planning: uncertain (Brandon Mc PA-C) Attending Attestation Note: Pt seen/examined, chart reviewed, care plan d/w TRAM Mc. I agree w/ the holloway components of his documentation. Pt reports she is now constipated - has had NO diarrhea since admission. She denies any syncope, presyncope, or dizziness. Did have episode of emesis after dialysis today; the emesis contained her previous meal. Denies any dyspnea. VSS no fever gen - nad mouth - MMM neck - no JVD, torticollis head tilt right heart - RRR, s1, s2, 2/6 systolic murmur LSB lungs - CTA b/l abd - soft, NT, BS+ ext - no edema hemoglobin 9.8 A/P: 1. recent syncope - exact etiology unclear; infectious & metabolic w/u negative , but I do suspect she was volume depleted (from diarrhea) precipitating and/or at least contributing to event. 2. pulmonary HTN - severe. etiology?? idiopathic vs chronic PE vs primary lung disease (CT chest 2013 with "ill-defined" infiltrates) vs other. the amount of mitral regurg unlikely to cause the amount of pulmonary HTN. consider V/Q scan and/or consider CTA chest. 3. diarrhea - resolved. 4. constipation - add miralax/colace. 5. ESRD - on HD //Wed. 6. anemia - agree w/ work-up as ordered by nephrology. PT note reviewed -- may be able to return home, but still remains weak. Post-discharge rehab may be best option. Cheryl REA MD (Pedro Pablo Rea MD)
[2016-06-06] MEDS: ACETAMINOPHEN 325 MG TAB PO PRN (22:46)
[2016-06-07] VITALS (14 sets, daily range): BP systolic 131–167; BP diastolic 70–82; PULSE 77–80; TEMP 36.6–36.8; O2SAT 91–99
[2016-06-07] MEDS: ALPRAZOLAM 0.5 MG TAB JT PRN ×4 (01:39→21:24)
[2016-06-07 06:39] LABS: BLOOD UREA NITROGEN 32 mg/dl (7-18); BUN/CREATININE RATIO 7.1 (10-20); CALCIUM 8.9 mg/dl (8.5-10.1); CARBON DIOXIDE 32 mmol/L (21-32); CHLORIDE 99 mmol/L (98-107); FERRITIN 645.5 ng/ml (8.0-388.0); GLUCOSE 173 mg/dl (70-99); PHOSPHORUS 4.6 mg/dl (2.5-4.9); POTASSIUM 3.9 mmol/L (3.5-5.1); SODIUM 138 mmol/L (136-145); TOTAL IRON BINDING CAPACITY 182 mcg/dl (250-450)
[2016-06-07] MEDS: ACETAMINOPHEN 325 MG TAB PO PRN (07:16)
[2016-06-07] MEDS: CALCIUM ACETATE 667MG GELCAP PO SCH ×3 (07:18→16:33)
[2016-06-07] MEDS: LANSOPRAZOLE SOLUTAB 30 MG NG SCH ×2 (08:13→21:24)
[2016-06-07] MEDS: POLYETHYLENE (MIRALAX) 17 GM PACK PO SCH (08:13)
[2016-06-07] MEDS: CITALOPRAM 20 MG TAB JT SCH (08:14)
[2016-06-07] MEDS: MYCOPHENOLATE SUSP 200 MG/1 ML JT SCH (08:14)
[2016-06-07] MEDS: TACROLIMUS 1 MG CAP JT SCH ×2 (08:15→21:24)
[2016-06-07] MEDS: DOCUSATE SODIUM 100 MG CAP PO SCH ×2 (08:15→21:24)
[2016-06-07] MEDS: CALCITRIOL 0.25 MCG CAP JT SCH (08:15)
[2016-06-07] MEDS: RANITIDINE HCL 150 MG TAB PO SCH ×2 (08:15→21:24)
--- NOTE | 2016-06-07 09:21 | Hospitalist Progress Note ---
Hospitalist Progress Note Date of Service Jun 07, 2016. Subjective Pt evaluation today including: conversation w/ patient, physical exam, chart review, lab review, review of studies Pain: Better controlled PO Intake: Fluid restriction. No dysphagia Patient seen and examined at bedside. She had a better night last night. Nausea better controlled. No vomiting last night. No bowel movement. Denies fever sweats rigors. No new acute complaints. She has a lot of nephrology related questions. I suggested that she have more in depth discussion with nephrology.All other concerns addressed to the satisfaction of the patient. No acute complaints. Head ache is improved. Additional Comments: A total of 12 systems was reviewed and is negative other than as listed above in the HPI All Other Systems: Reviewed and Negative Medications Current Inpatient Medications Medications (Trade) Dose Ordered Sig/Ayaka Route Start Time Stop Time Status Last Admin Dose Admin Acetaminophen (Tylenol Tab) 650 mg Q4H PRN PO 06/04/16 13:15 07/04/16 13:14 06/07/16 07:16 650 MG Ondansetron HCl (Zofran Inj) 4 mg Q6H PRN IV 06/04/16 13:15 07/04/16 13:14 06/06/16 15:11 4 MG Nitroglycerin (Nitrostat Tab) 0.4 mg UD PRN SL 06/04/16 13:15 07/04/16 13:14 Alprazolam (Xanax Tab) 0.5 mg Q4H PRN JT 06/04/16 13:15 07/04/16 13:14 06/07/16 08:15 0.5 MG Calcium Acetate (Phoslo Cap) 1,334 mg QDB PO 06/05/16 07:30 07/05/16 07:59 06/07/16 07:18 1,334 MG Calcium Acetate (Phoslo Cap) 2,001 mg TID PRN PO 06/04/16 13:15 07/04/16 13:14 Calcium Acetate (Phoslo Cap) 2,001 mg 1130,1645 PO 06/04/16 19:00 07/04/16 18:59 06/06/16 13:33 2,001 MG Citalopram Hydrobromide (celeXA TAB) 20 mg QAM JT 06/05/16 09:00 07/05/16 08:59 06/07/16 08:14 20 MG Furosemide (Lasix Tab) 80 mg MoWeFr@0900 PO 06/05/16 09:00 07/05/16 08:59 06/05/16 08:49 80 MG Hydromorphone HCl (Dilaudid Tab) 8 mg Q4 PRN JT 06/04/16 13:15 06/18/16 13:14 06/07/16 08:16 8 MG Mycophenolate Mofetil (Cellcept Susp) 500 mg QAM JT 06/05/16 09:00 07/05/16 08:59 06/07/16 08:14 500 MG Lansoprazole (Prevacid Solutab) 30 mg BID NG 06/04/16 21:00 07/04/16 20:59 06/06/16 20:20 30 MG Simvastatin (Zocor Tab) 10 mg HS JT 06/04/16 21:00 07/04/16 20:59 06/06/16 20:19 10 MG Triamcinolone Acetonide (Nasacort Allergy 24hr) 2 sprays DAILY PRN AMRIT 06/04/16 13:15 07/04/16 13:14 Calcitriol (Rocaltrol Cap) 0.25 mcg QAM JT 06/05/16 09:00 07/05/16 08:59 06/07/16 08:15 0.25 MCG Miscellaneous Information (Order Awaiting Action) 1 ea QS N/A 06/04/16 16:00 07/04/16 15:59 Tacrolimus (Prograf Cap) 6 mg HS JT 06/04/16 21:00 07/04/16 20:59 06/06/16 20:19 6 MG Tacrolimus (Prograf Cap) 8 mg QAM JT 06/05/16 09:00 07/05/16 08:59 06/07/16 08:15 8 MG Ranitidine HCl (zANTac TAB) 300 mg BID PO 06/04/16 21:00 07/04/16 20:59 06/07/16 08:15 300 MG Heparin Sodium (Porcine) (Heparin 100 Unit/ml 5ml Flush) 5 ml PRN PRN IV 06/05/16 03:15 07/05/16 03:14 06/05/16 08:52 5 ML Docusate Sodium (coLACE CAP) 100 mg BID PO 06/06/16 21:00 07/06/16 20:59 06/07/16 08:15 100 MG Polyethylene (Miralax Powder Packet) 17 gm DAILY PO 06/07/16 09:00 07/07/16 08:59 Objective Vital Signs Date Time Temp Pulse Resp B/P Pulse Ox O2 Delivery O2 Flow Rate FiO2 06/07/16 07:02 36.7 80 18 167/82 95 Room Air 06/07/16 04:00 91 Room Air 06/07/16 03:18 36.8 78 17 131/73 91 Room Air 06/07/16 00:00 97 Nasal Cannula 2.0 06/06/16 23:07 36.7 75 16 168/87 97 Nasal Cannula 2.0 06/06/16 20:00 97 Nasal Cannula 2.0 06/06/16 19:47 36.8 78 20 164/88 97 Nasal Cannula 2.0 06/06/16 16:00 93 Nasal Cannula 2.0 06/06/16 15:07 36.9 93 20 182/88 94 Nasal Cannula 2.0 06/06/16 13:20 95 Nasal Cannula 2.0 06/06/16 13:00 36.8 76 155/92 06/06/16 12:15 77 153/86 06/06/16 12:00 77 149/84 06/06/16 11:45 77 146/85 06/06/16 11:30 77 137/81 06/06/16 11:15 76 130/80 06/06/16 11:00 76 133/76 06/06/16 10:45 76 135/81 06/06/16 10:30 76 123/75 06/06/16 10:15 76 135/81 06/06/16 10:00 75 144/79 06/06/16 09:45 78 136/83 06/06/16 09:30 78 144/75 Physical Exam Notes: Vital Signs - as noted below Laboratory Data - as noted below Physical Exam: General - NAD Eyes - No icterus, gaze conjugate ENT - Mucosa moist, no lesions or candidiasis Neck - torticollis, No JVD Back - kyphoscoliosis Lungs - No bronchospasm, rales, or rhonchi. Better inspiratory effort today Heart - Regular, rate controlled Abdomen - Soft, NT, ND, BS present Extremities - No edema, pedal pulses intact Neuro - A&OX3 Skin - less turgor Laboratory Results Last 24 Hours Test 06/07/16 05:15 06/07/16 08:34 Sodium Level 138 mmol/L Potassium Level 3.9 mmol/L Chloride Level 99 mmol/L Carbon Dioxide Level 32 mmol/L Anion Gap 7.0 mmol/L Blood Urea Nitrogen 32 mg/dl Creatinine 4.50 mg/dl Est Creatinine Clear Calc Drug Dose 10.8 ml/min Estimated GFR () 10.9 Estimated GFR (Non- 9.4 BUN/Creatinine Ratio 7.1 Random Glucose 173 mg/dl Calcium Level 8.9 mg/dl Phosphorus Level 4.6 mg/dl Iron Level mcg/dl Total Iron Binding Capacity 182 mcg/dl Transferrin 144 mg/dl Transferrin % Saturation % Ferritin 645.5 ng/ml Albumin 2.9 gm/dl Vitamin B12 Level > 2000 pg/mL Folate > 24.00 ng/mL Assessment and Plan SYNCOPE Patient found to be with change of mental status and transferred to emergency room for further evaluation treatment on 06/04/16 Question of whether patient was dehydrated secondary to multiple episodes of diarrhea No further episodes since admission No evidence of sepsis Echocardiogram shows no significant change and valvular disease or function No significant arrhythmia on telemetry Check carotid duplex today Check orthostatics No other significant indication for etiology END-STAGE RENAL DISEASE Follows with Dr. Hollis Continue hemodialysis Wednesday//Wednesday PANCREATIC TRANSPLANT [facility] in 2003 Continue Prograf DIARRHEA Controlled - patient reports no further diarrhea again today CHRONIC PAIN SYNDROME Continue dilauded (patient has taken for years) Mycophenolic acid, MPA glucuronide, and tacrolimus pending Discussed possibility of patient following with pain clinic HYPERTENSION Metoprolol held Continue furosemide -2.6 L cumulative I's and O's with dialysis Continued hemodialysis HEME POSITIVE STOOL No sergio blood per patient report No bowel movement since admission Continue ranitidine and lansoprazole DVT PROPHYLAXIS Chemical prophylaxis held for macrocytic anemia and question of heme positive stool Continue HILLARY hose and SCDs as tolerated Please refer to Dr. Arechiga's addendum for further recommendations Continued [facility] stay due to: other Discharge planning: uncertain
--- NOTE | 2016-06-07 12:13 | Nephrology Progress Note ---
Nephrology Progress Note Date of Service Jun 07, 2016. Chief Complaint ESRD Subjective No acute events overnight. Suni is uncomfortable due to positioning in her bed this morning. She reports some ache discomfort in her lower back. Overall , she continues to feel weak. Appetite is slowly improving. She denies nausea this morning. She denies fevers or chills. She denies shortness of breath. She tolerated hemodialysis yesterday without complications. Review of Systems A complete review of systems was performed. Pertinent positives are noted above. All other systems are negative. Vital Signs Last 8 Hrs Date Time Temp Pulse Resp B/P Pulse Ox O2 Delivery O2 Flow Rate FiO2 06/07/16 11:06 36.7 79 16 134/76 95 Room Air 06/07/16 08:00 92 Room Air 06/07/16 07:02 36.7 80 18 167/82 95 Room Air I & O 24-Hour Column 06/07/16 08:00 Intake Total 500 ml Output Total 3100 ml Balance -2600 ml Last Recorded Weight Weight (Kilograms): 58.700 Physical Exam General Appearance: no apparent distress, + thin Head: normocephalic, atraumatic Eyes: normal inspection, sclerae normal ENT: normal ENT inspection, pharynx normal Neck: supple, no JVD Respiratory/Chest: lungs clear, + decreased breath sounds Cardiovascular: regular rate, rhythm, no gallop Abdomen/GI: non tender, soft Extremities/Musculoskelatal: normal inspection, no pedal edema Neurologic/Psych: alert, normal mood/affect Family History Cancer Heart disease Social History Smoking Status: Never smoker Smokeless Tobacco Use: No Alcohol Use: socially Drug Use: none Marital Status: (in [place]; has 2 kids ) Housing Status: lives with family 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00 ng/mL (>5.38) Allergies Coded Allergies: Penicillins (Verified Allergy, Intermediate, RASH, 06/04/16) Erythromycin (Verified Allergy, Mild, RASH, 06/04/16) Surgical Lubricant (Verified Allergy, Unknown, ITCHY, 06/04/16) Carbamazepine (Verified Adverse Reaction, Severe, TOXIC BLOOD POISONING, ) TOXIC BLOOD POISONING Metoclopramide (Verified Adverse Reaction, Severe, SEIZURES, 06/04/16) SEIZURES Corticosteroids (Verified Adverse Reaction, Intermediate, NAUSEA, 06/04/16) PATIENT STATES ON ALLERGY SHEET "ABSOLUTELY NONE" Dicyclomine (Verified Adverse Reaction, Intermediate, HALLUCINATIONS, 06/04) HALLUCINATIONS Ketorolac (Verified Adverse Reaction, Intermediate, NAUSEATED, 06/04/16) Pregabalin (Verified Adverse Reaction, Intermediate, CONFUSION, 06/04/16) Quinolones (Verified Adverse Reaction, Intermediate, LEVAQUIN-NAUSEA, CHRONIC HEARTBURN, 06/04/16) levaquin =NAUSEA, CHRONIC HEARTBURN. PT SAID SHE WILL NOT TAKE 12/06/08 Azithromycin (Verified Adverse Reaction, Mild, n&v, 06/04/16) Cephalexin (Verified Adverse Reaction, Mild, NAUSEA, 06/04/16) Cephalosporins (Verified Adverse Reaction, Mild, KEFLEX = NAUSEA, 06/04/16) Codeine (Verified Adverse Reaction, Mild, NAUSEA, 06/04/16) Gabapentin (Verified Adverse Reaction, Mild, NAUSEA, 06/04/16) NAUSEA Levofloxacin (Verified Adverse Reaction, Mild, NAUSEA, 06/04/16) Naproxen (Verified Adverse Reaction, Mild, NAUSEA, 06/04/16) Nitrofurantoin (Verified Adverse Reaction, Mild, NAUSEA, 06/04/16) Oxycodone (Verified Adverse Reaction, Mild, PRC/TYLOX = NAUSEA, 06/04/16) NAUSEA Phenobarbital (Verified Adverse Reaction, Mild, NAUSEA, 06/04/16) Prednisolone (Verified Adverse Reaction, Mild, IRRITATION, 06/04/16) Promethazine (Verified Adverse Reaction, Mild, DIARRHEA, 06/04/16) Sertraline (Verified Adverse Reaction, Mild, NAUSEA, 06/04/16) Adhesives (Verified Adverse Reaction, Unknown, UNKNOWN, 06/04/16) Mirtazapine (Verified Adverse Reaction, Unknown, HEARS VOICES, 06/04/16) Propoxyphene (Verified Adverse Reaction, Unknown, NAUSEA, 06/04/16) NAUSEA Tramadol (Verified Adverse Reaction, Unknown, DEPRESSION, 06/04/16) DEPRESSION Medications Current Inpatient Medications Medications (Trade) Dose Ordered Sig/Ayaka Route Start Time Stop Time Status Last Admin Dose Admin Acetaminophen (Tylenol Tab) 650 mg Q4H PRN PO 06/04/16 13:15 07/04/16 13:14 06/07/16 07:16 650 MG Ondansetron HCl (Zofran Inj) 4 mg Q6H PRN IV 06/04/16 13:15 07/04/16 13:14 06/06/16 15:11 4 MG Nitroglycerin (Nitrostat Tab) 0.4 mg UD PRN SL 06/04/16 13:15 07/04/16 13:14 Alprazolam (Xanax Tab) 0.5 mg Q4H PRN JT 06/04/16 13:15 07/04/16 13:14 06/07/16 08:15 0.5 MG Calcium Acetate (Phoslo Cap) 1,334 mg QDB PO 06/05/16 07:30 07/05/16 07:59 06/07/16 07:18 1,334 MG Calcium Acetate (Phoslo Cap) 2,001 mg TID PRN PO 06/04/16 13:15 07/04/16 13:14 Calcium Acetate (Phoslo Cap) 2,001 mg 1130,1645 PO 06/04/16 19:00 07/04/16 18:59 06/07/16 11:33 2,001 MG Citalopram Hydrobromide (celeXA TAB) 20 mg QAM JT 06/05/16 09:00 07/05/16 08:59 06/07/16 08:14 20 MG Furosemide (Lasix Tab) 80 mg MoWeFr@0900 PO 06/05/16 09:00 07/05/16 08:59 06/05/16 08:49 80 MG Hydromorphone HCl (Dilaudid Tab) 8 mg Q4 PRN JT 06/04/16 13:15 06/18/16 13:14 06/07/16 08:16 8 MG Mycophenolate Mofetil (Cellcept Susp) 500 mg QAM JT 06/05/16 09:00 07/05/16 08:59 06/07/16 08:14 500 MG Lansoprazole (Prevacid Solutab) 30 mg BID NG 06/04/16 21:00 07/04/16 20:59 06/06/16 20:20 30 MG Simvastatin (Zocor Tab) 10 mg HS JT 06/04/16 21:00 07/04/16 20:59 06/06/16 20:19 10 MG Triamcinolone Acetonide (Nasacort Allergy 24hr) 2 sprays DAILY PRN AMRIT 06/04/16 13:15 07/04/16 13:14 Calcitriol (Rocaltrol Cap) 0.25 mcg QAM JT 06/05/16 09:00 07/05/16 08:59 06/07/16 08:15 0.25 MCG Miscellaneous Information (Order Awaiting Action) 1 ea QS N/A 06/04/16 16:00 07/04/16 15:59 Tacrolimus (Prograf Cap) 6 mg HS JT 06/04/16 21:00 07/04/16 20:59 06/06/16 20:19 6 MG Tacrolimus (Prograf Cap) 8 mg QAM JT 06/05/16 09:00 07/05/16 08:59 06/07/16 08:15 8 MG Ranitidine HCl (zANTac TAB) 300 mg BID PO 06/04/16 21:00 07/04/16 20:59 06/07/16 08:15 300 MG Heparin Sodium (Porcine) (Heparin 100 Unit/ml 5ml Flush) 5 ml PRN PRN IV 06/05/16 03:15 07/05/16 03:14 06/05/16 08:52 5 ML Docusate Sodium (coLACE CAP) 100 mg BID PO 06/06/16 21:00 07/06/16 20:59 06/07/16 08:15 100 MG Polyethylene (Miralax Powder Packet) 17 gm DAILY PO 06/07/16 09:00 07/07/16 08:59 Impression (1) ESRD (end stage renal disease) on dialysis (2) Diabetes mellitus type 1 (3) 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 Medical history is notable for DM 1 for which she underwent pancreas transplant at [facility]. She presented to [facility] following outpatient and an unwitnessed syncopal episode following hemodialysis. She reported progressive generalized weakness. No acute cardiac etiology identified. Infectious work up has been negative. There are several potential contributing medications include the regular use of hydromorphone. Blood pressure volume status and electrolytes are appropriate. Recommendations ESRD: -- HD TTS -- Renal diet -- Medications appropriate for renal function Pancreas transplant: -- Maintained on Tacrolimus and Cellcept -- Tolerating medications well Anemia: -- Maintained on Mircera as outpatient -- Hemoglobin stable
[2016-06-07] MEDS: SIMVASTATIN 10 MG TAB JT SCH (21:24)
[2016-06-08] VITALS (11 sets, daily range): BP systolic 141–174; BP diastolic 66–90; PULSE 77–81; TEMP 36.4–36.8; O2SAT 93–99
[2016-06-08] MEDS: ALPRAZOLAM 0.5 MG TAB JT PRN ×3 (03:36→21:44)
--- NOTE | 2016-06-08 06:53 | DIAGNOSTIC IMAGING REPORT ---
ULTRASOUND OF THE CAROTID ARTERIES CLINICAL HISTORY: Syncope COMPARISON STUDY: None. TECHNIQUE: Real-time, grayscale, and color Doppler sonography of the carotid arteries was performed. Imaging reviewed in the transverse and longitudinal planes. NASCET criteria was utilized for stenosis calcification. FINDINGS: There is minimal atherosclerotic plaque present . The peak systolic velocity within the right internal carotid artery is 56 cm/sec. The systolic velocity ratio of right internal to common carotid artery is 0.6. The peak systolic velocity within the left internal carotid artery is 73 cm/sec. The systolic velocity ratio left internal to common carotid artery is 0.7. Antegrade flow is seen in the vertebral arteries. The external carotid arteries are patent. There is a multinodular thyroid gland with nodules measuring up to 19 mm in diameter. Prominent lymph nodes in the right neck are also visualized several without normal fatty salud. The largest measures 10 x 6 x 6 mm. IMPRESSION: 1. No evidence of hemodynamically significant carotid stenosis 2. Multinodular thyroid gland. 3. Prominent right cervical lymph nodes Electronically signed by: Casey Baca M.D. 06/08/2016 6:52 AM Dictated Date/Time: 06/08/2016 6:49 AM
[2016-06-08] MEDS: CALCIUM ACETATE 667MG GELCAP PO SCH ×3 (07:38→17:54)
[2016-06-08] MEDS: LANSOPRAZOLE SOLUTAB 30 MG NG SCH ×2 (08:52→21:10)
[2016-06-08] MEDS: POLYETHYLENE (MIRALAX) 17 GM PACK PO SCH (08:52)
[2016-06-08] MEDS: CITALOPRAM 20 MG TAB JT SCH (09:17)
[2016-06-08] MEDS: DOCUSATE SODIUM 100 MG CAP PO SCH ×2 (09:17→21:11)
[2016-06-08] MEDS: MYCOPHENOLATE SUSP 200 MG/1 ML JT SCH (09:17)
[2016-06-08] MEDS: CALCITRIOL 0.25 MCG CAP JT SCH (09:17)
[2016-06-08] MEDS: FUROSEMIDE 80 MG TAB PO SCH (09:18)
[2016-06-08] MEDS: RANITIDINE HCL 150 MG TAB PO SCH ×2 (09:18→21:11)
--- NOTE | 2016-06-08 09:48 | NEPHROLOGY PROGRESS NOTE ---
DATE: 06/08/2016 SUBJECTIVE: Ms. Guillen has multiple complaints again this morning. She was bothered yesterday by pain in her neck. She had some studies done this morning regarding her neck, but now says that her next does not hurt her at all. Also, last night, she vomited. When asked if she had abdominal pain, she said that it was "not horrible." In fact, she said it was not particularly severe at all. She has not had a bowel movement for the past 24 hours. However, she does not feel particularly constipated. She generally feels weak. She has had no shaking chills or fevers. She denies having any chest pain or shortness of breath. She has many musculoskeletal aches and pains. OBJECTIVE: GENERAL: On physical exam, she appears about the same. She is a chronically ill, small woman, who appears to be younger than her stated age of 66. However, she does appear to be quite obviously chronically ill. VITAL SIGNS: Her blood pressure today is 163/89, her pulse is 80 and regular, respiratory rate 18, and her pulse ox 97% on 2 liters via nasal cannula. She is afebrile. SKIN: Shows normal skin turgor. She has multiple scars from prior surgeries including scars over both hips from hip surgery, right lower quadrant scar from her pancreas transplant and a scar in the left antecubital fossa from the creation of her AV fistula with multiple dialysis needle tract rajan over the upper arm fistula. She has an A-port beneath the distal left clavicle. LYMPHATICS: Show no palpable lymphadenopathy. HEAD: Normal. EYES: Grossly normal. The ocular fundi were not examined. EARS, NOSE, MOUTH AND THROAT: All unremarkable. Her dentition is in very poor repair. Her oral mucous membranes are moist. NECK: Tilted to the right; however, can easily be straightened both passively and actively. She has no jugular venous distention, carotid bruit or thyromegaly. CHEST: Clear to auscultation, although breath sounds are somewhat diminished at the bases. She has no wheezes, rales or rhonchi. CARDIAC: Shows a regular rhythm. She has a soft systolic murmur at the base and a harsh murmur at the apex radiating toward the axilla. She has no gallop sounds. ABDOMEN: Shows the G-J tube in the left upper quadrant. The dressing is dry. There is no significant surrounding erythema. There was no obvious drainage at that time seen by me. She has a fullness in the right lower quadrant in the area of her pancreas transplant. No other organomegaly or mass. There is no definite palpable ascites. Bowel sounds are present. EXTREMITIES: Show no cyanosis, clubbing or peripheral edema. She has a left upper arm AV fistula with a good pulse, thrill and bruit. She has the other scars as noted. NEUROLOGIC: Shows a decrease in protective sensation in her feet. Ankle jerks are absent. No other abnormalities are noted. She continues to speak slowly and chose her words carefully. No laboratory work was ordered today. ASSESSMENT: Ms. Guillen remains reasonably stable. She is chronically ill and generally weak. Part of the weakness may be related to her anemia. The anemia is likely multifactorial and include her chronic renal disease. However, given her low platelet count, I would still be concerned about the possibility that the changes are related to mycophenolate or the possibility is that she is evolving myelodysplastic disorder. I do not think further workup is necessary until we see how she responds to her Epogen. As an outpatient, she has been receiving ____, which is a long-acting erythrocyte stimulating agent. In my experience, it has not been as effective as Aranesp or erythropoietin. RECOMMENDATIONS: I have taken the liberty of ordering hydromorphone metabolites to see if that might have contributed to her symptoms at the time of admission and whether or not it warrants a decrease in her dose, which she has refused in the past. We will schedule her for dialysis tomorrow and continue her on Epogen for now. No other immediate recommendations for either workup or therapy.
[2016-06-08] MEDS: TACROLIMUS 1 MG CAP JT SCH ×2 (12:57→21:12)
--- NOTE | 2016-06-08 14:11 | Progress Note ---
Subjective Date of Service: June 08, 2016. Subjective Pt evaluation today including: conversation w/ patient, physical exam, chart review, lab review, review of studies Problem List Medical Problems: (1) Acute head injury Status: Acute (2) Chronic pain syndrome Status: Chronic (3) Depression with anxiety Status: Chronic (4) Dyslipidemia Status: Chronic (5) End stage renal disease on dialysis Status: Chronic (6) Episode of syncope Status: Acute (7) GERD (gastroesophageal reflux disease) Status: Chronic (8) GI bleed Status: Acute (9) HTN (hypertension) Status: Chronic (10) Narcotic dependence Status: Chronic (11) Osteoporosis Status: Chronic (12) Right arm pain Status: Acute (13) Right orbital fracture Status: Acute Review of Systems Constitutional: No chills, No fever Respiratory: No cough, No dyspnea on exertion, No shortness of breath, No sputum, No wheezing Cardiac: No chest pain, No orthopnea Abdomen: No constipation, No diarrhea, No nausea, No pain, No vomiting Musculoskeletal: No joint pain, No muscle pain Female : No dysuria, No urinary frequency Objective Vital Signs Date Time Temp Pulse Resp B/P Pulse Ox O2 Delivery O2 Flow Rate FiO2 06/08/16 12:00 93 Nasal Cannula 2.0 06/08/16 11:01 36.8 79 18 152/80 94 2.0 06/08/16 08:00 93 Nasal Cannula 2.0 06/08/16 07:22 36.7 80 18 163/89 97 2.0 06/08/16 04:03 165/88 06/08/16 04:00 97 Nasal Cannula 2.0 06/08/16 03:16 36.7 81 16 174/90 97 Nasal Cannula 2.0 06/08/16 00:00 99 Nasal Cannula 2.0 06/07/16 23:09 36.8 77 19 163/82 99 Nasal Cannula 2.0 06/07/16 20:00 36.6 80 20 139/79 97 Nasal Cannula 2.0 06/07/16 20:00 97 Nasal Cannula 2.0 06/07/16 16:00 94 Nasal Cannula 2.0 06/07/16 15:27 36.7 80 20 150/74 94 Nasal Cannula 2.0 06/07/16 14:12 133/70 06/07/16 14:11 157/81 06/07/16 14:10 158/79 Physical Exam General Appearance: WD/WN, no apparent distress Neck: supple, no adenopathy Respiratory/Chest: lungs clear, normal breath sounds Cardiovascular: no edema, no gallop Abdomen: non tender, soft Neurologic/Psychiatric: alert, normal mood/affect Assessment and Plan SYNCOPE/WEAKNESS Patient found to be with change of mental status and transferred to emergency room for further evaluation treatment on 06/04/16 Question of whether patient was dehydrated secondary to multiple episodes of diarrhea No further episodes since admission No evidence of sepsis Echocardiogram shows no significant change and valvular disease or function No significant arrhythmia on telemetry Carotid US unremarkable for any significant stenosis Orthostatics negative END-STAGE RENAL DISEASE Follows with Dr. Hollis Continue hemodialysis Wednesday//Wednesday PANCREATIC TRANSPLANT [facility] in 2003 Continue Prograf DIARRHEA Controlled - patient reports no further diarrhea again today CHRONIC PAIN SYNDROME Continue dilauded (patient has taken for years) Mycophenolic acid, MPA glucuronide, and tacrolimus pending Discussed possibility of patient following with pain clinic HYPERTENSION Metoprolol held Continue furosemide -2.6 L cumulative I's and O's with dialysis Continued hemodialysis HEME POSITIVE STOOL No sergio blood per patient report No bowel movement since admission Continue ranitidine and lansoprazole DVT PROPHYLAXIS Chemical prophylaxis held for macrocytic anemia and question of heme positive stool Continue HILLARY harkins and JASVIRs as tolerated Continued [facility] stay due to: other Discharge planning: uncertain
[2016-06-08] MEDS: SIMVASTATIN 10 MG TAB JT SCH (21:12)
[2016-06-09] VITALS (23 sets, daily range): BP systolic 82–156; BP diastolic 53–89; PULSE 80–92; TEMP 36.7–36.8; O2SAT 96–99
[2016-06-09] MEDS: ALPRAZOLAM 0.5 MG TAB JT PRN ×3 (02:18→17:55)
[2016-06-09] MEDS ORDERED: EPOETIN ALFA 10,000 UNITS/ML VIAL IV. SCH (08:00)
[2016-06-09] MEDS ORDERED: SODIUM CHLORIDE 0.9% 1000ML 1,000 ML IV PRN (08:00)
[2016-06-09] MEDS: DOCUSATE SODIUM 100 MG CAP PO SCH ×2 (08:00→20:50)
[2016-06-09] MEDS: LANSOPRAZOLE SOLUTAB 30 MG NG SCH ×2 (08:04→20:50)
[2016-06-09] MEDS: CALCIUM ACETATE 667MG GELCAP PO SCH ×3 (08:05→17:38)
[2016-06-09] MEDS: RANITIDINE HCL 150 MG TAB PO SCH ×2 (08:07→20:50)
[2016-06-09] MEDS: ACETAMINOPHEN 325 MG TAB PO PRN ×2 (08:09→17:41)
--- NOTE | 2016-06-09 09:43 | NEPHROLOGY PROGRESS NOTE ---
DATE: 06/09/2016 SUBJECTIVE: Ms. Guillen says that she is not feeling too bad this morning. However, she points out that she did vomit last night a small amount. Vomitus contained no blood. She has some mild nausea, but has been able to eat at least to some degree. She complains of being constipated. She has had no shaking chills or sweats. She denies having chest pain or shortness of breath. She has been out of bed and says that she has been able to walk to the bathroom. She has no specific symptoms of uremia or volume overload. OBJECTIVE: GENERAL: On physical exam, she appears as a chronically ill woman, a younger than her stated age of 66. She was in no distress when seen. VITAL SIGNS: She is afebrile (36.7), her blood pressure 123/71, her pulse 83 and regular, respiratory rate 17, and her pulse ox 99% on room air. SKIN: Shows normal skin turgor. There is no rash or infiltrative skin disease. She has a left upper arm AV fistula with multiple needle tract rajan over the fistula. There is an A-port beneath the distal left clavicle. GJ tube is present exiting in the left upper quadrant of her abdomen. She has a right lower quadrant abdominal scar from her pancreas transplant. LYMPHATICS: Show no palpable lymphadenopathy. HEAD: Normal. EYES: Grossly normal. The ocular fundi were not examined. EARS, NOSE, MOUTH AND THROAT: Unremarkable. Dentition is in very poor repair with multiple missing teeth. Oral mucous membranes are moist. NECK: Remains tilted to the right and can easily be straightened both passively and actively. It is supple. There is no jugular venous distention, carotid bruit or thyromegaly. CHEST: Clear to auscultation. Breath sounds are diminished at the bases. I hear no wheezes, rales or rhonchi. CARDIAC: Shows a regular rhythm. There is a soft systolic murmur at the base and a harsh systolic murmur at the apex radiating to the axilla. No gallops or rubs are heard. ABDOMEN: Shows GJ tube to be in place. The dressing is dry. She has a fullness in the right lower quadrant at the site of her pancreas transplant. There is no other organomegaly or mass. No definite ascites. EXTREMITIES: Show no cyanosis, clubbing or peripheral edema. She has a left upper arm AV fistula with a good pulse, thrill and bruit. She has scars over both hips. NEUROLOGIC: Shows diminished protective sensation in her feet. She has no ankle jerks. No other abnormalities are noted. Again, she speaks slowly and she uses her words carefully. No laboratory work was done today. ASSESSMENT: Ms. Guillen seems to be reasonably stable at the current time. She has multiple complaints, but that is not necessarily unusual for her. She has a global weakness. I am sure that that is multifactorial. I am still concerned about the effects of metabolites of hydromorphone. She has been taking high dose for many years. It has not seemed to be a problem in the past. I did try to order hydromorphone metabolites yesterday, although I do not see them listed in her current laboratory work. PLAN: Hemodialysis today. I think we should plan for transfer either to [facility] or some intermediate facility for the interim care until she gains enough strength to return home.
--- NOTE | 2016-06-09 12:50 | Progress Note ---
Subjective Date of Service: June 09, 2016. Subjective Pt evaluation today including: conversation w/ patient, physical exam, chart review, lab review, review of studies, review of inpatient medication list Resting comfortably in bed some nausea and headache this AM Tolerating breakfast No acute events overnight Problem List Medical Problems: (1) Acute head injury Status: Acute (2) Chronic pain syndrome Status: Chronic (3) Depression with anxiety Status: Chronic (4) Dyslipidemia Status: Chronic (5) End stage renal disease on dialysis Status: Chronic (6) Episode of syncope Status: Acute (7) GERD (gastroesophageal reflux disease) Status: Chronic (8) GI bleed Status: Acute (9) HTN (hypertension) Status: Chronic (10) Narcotic dependence Status: Chronic (11) Osteoporosis Status: Chronic (12) Right arm pain Status: Acute (13) Right orbital fracture Status: Acute Review of Systems Constitutional: No chills, No fever Respiratory: No cough, No dyspnea on exertion, No shortness of breath, No sputum, No wheezing Cardiac: No chest pain, No orthopnea Abdomen: + nausea, + vomiting, No diarrhea, No pain Musculoskeletal: No joint pain, No muscle pain Female : No dysuria, No urinary frequency Objective Vital Signs Date Time Temp Pulse Resp B/P Pulse Ox O2 Delivery O2 Flow Rate FiO2 06/09/16 12:30 87 108/67 06/09/16 12:15 92 113/70 06/09/16 12:00 88 110/63 06/09/16 11:45 86 110/69 06/09/16 11:30 91 103/66 06/09/16 11:15 91 102/63 06/09/16 11:00 91 102/60 06/09/16 10:45 87 107/67 06/09/16 10:30 87 105/65 06/09/16 10:15 90 82/53 06/09/16 10:00 89 99/61 06/09/16 09:45 88 109/63 06/09/16 09:30 84 109/69 06/09/16 09:21 83 119/69 06/09/16 09:06 36.7 82 119/70 06/09/16 08:00 96 Room Air 06/09/16 07:34 36.7 83 17 123/71 99 Room Air 06/09/16 00:00 96 Room Air 06/08/16 23:22 36.6 77 16 141/66 93 Room Air 06/08/16 20:00 96 Room Air 06/08/16 16:00 Nasal Cannula 2.0 06/08/16 16:00 36.4 79 20 171/80 96 2.0 Physical Exam General Appearance: WD/WN, no apparent distress Neck: supple, no adenopathy Respiratory/Chest: chest non-tender, lungs clear Cardiovascular: no edema, no gallop Abdomen: non tender, soft Neurologic/Psychiatric: alert, oriented x 3 Laboratory Results Last 24 Hours Test 06/09/16 09:53 Assessment and Plan SYNCOPE/WEAKNESS Patient found to be with change of mental status and transferred to emergency room for further evaluation treatment on 06/04/16 Question of whether patient was dehydrated secondary to multiple episodes of diarrhea No further episodes since admission No evidence of sepsis Echocardiogram shows no significant change and valvular disease or function No significant arrhythmia on telemetry Carotid US unremarkable for any significant stenosis Orthostatics negative END-STAGE RENAL DISEASE Follows with Dr. Hollis Continue hemodialysis Wednesday//Wednesday PANCREATIC TRANSPLANT [facility] in 2003 Continue Prograf DIARRHEA Controlled - patient reports no further diarrhea again today CHRONIC PAIN SYNDROME Continue dilauded (patient has taken for years) Mycophenolic acid, MPA glucuronide, and tacrolimus pending Discussed possibility of patient following with pain clinic HYPERTENSION Metoprolol held Continue furosemide -2.6 L cumulative I's and O's with dialysis Continued hemodialysis HEME POSITIVE STOOL No sergio blood per patient report No bowel movement since admission Continue ranitidine and lansoprazole DVT PROPHYLAXIS Chemical prophylaxis held for macrocytic anemia and question of heme positive stool Continue HILLARY hose and SCDs as tolerated DISPO Awaiting placement Continued [facility] stay due to: other Discharge planning: uncertain
[2016-06-09] MEDS: CALCITRIOL 0.25 MCG CAP JT SCH (13:42)
[2016-06-09] MEDS: POLYETHYLENE (MIRALAX) 17 GM PACK PO SCH (13:42)
[2016-06-09] MEDS: CITALOPRAM 20 MG TAB JT SCH (13:42)
[2016-06-09] MEDS: TACROLIMUS 1 MG CAP JT SCH ×2 (13:43→20:52)
[2016-06-09] MEDS: MYCOPHENOLATE SUSP 200 MG/1 ML JT SCH (13:45)
[2016-06-09] MEDS: SIMVASTATIN 10 MG TAB JT SCH (20:50)
[2016-06-10] VITALS (7 sets, daily range): BP systolic 127–159; BP diastolic 68–83; PULSE 80–89; TEMP 36.6–36.8; O2SAT 89–96
[2016-06-10] MEDS: ALPRAZOLAM 0.5 MG TAB JT PRN ×4 (00:46→22:47)
[2016-06-10 07:29] LABS: FK506 TACROLIMUS HIGHLY SENS 7.9 MCG/L (5-20); MPA GLUCURONIDE 174.6 mcg/mL (35.0-100.0); MYCOPHENOLIC ACID 2.6 mcg/mL (1.0-3.5)
[2016-06-10] MEDS: CALCIUM ACETATE 667MG GELCAP PO SCH ×3 (08:22→18:11)
[2016-06-10] MEDS: POLYETHYLENE (MIRALAX) 17 GM PACK PO SCH (08:23)
[2016-06-10] MEDS: LANSOPRAZOLE SOLUTAB 30 MG NG SCH ×2 (08:24→20:40)
[2016-06-10] MEDS: CALCITRIOL 0.25 MCG CAP JT SCH (08:25)
[2016-06-10] MEDS: TACROLIMUS 1 MG CAP JT SCH ×2 (08:25→20:41)
[2016-06-10] MEDS: MYCOPHENOLATE SUSP 200 MG/1 ML JT SCH (08:26)
[2016-06-10] MEDS: DOCUSATE SODIUM 100 MG CAP PO SCH ×2 (08:26→20:42)
[2016-06-10] MEDS: FUROSEMIDE 80 MG TAB PO SCH (08:26)
[2016-06-10] MEDS: CITALOPRAM 20 MG TAB JT SCH (08:26)
[2016-06-10] MEDS: RANITIDINE HCL 150 MG TAB PO SCH ×2 (08:27→20:42)
[2016-06-10] MEDS: ACETAMINOPHEN 325 MG TAB PO PRN (08:30)
--- NOTE | 2016-06-10 11:31 | NEPHROLOGY PROGRESS NOTE ---
DATE: 06/10/2016 SUBJECTIVE: Mrs. Guillen says that she is feeling somewhat better today. She denies having any nausea or vomiting. She denies abdominal pain. She says that her appetite is improved. She did have a bowel movement earlier today. She denies chest pain and denies shortness of breath. She does have a variety of musculoskeletal aches and pains which are chronic but not particularly severe today. She denies having a stiff neck or headache today. She had multiple questions with regard to post-hospitalization care, specifically what rehabilitation facility or retirement might be available to her. OBJECTIVE: GENERAL: On physical exam, she appears as an obviously chronically ill woman who appears to be somewhat younger than her stated age of 66. VITAL SIGNS: She is afebrile (36.6), her blood pressure 127/68, her pulse 86 and regular, respiratory rate 16, pulse ox is 90-96% on 2 liters of oxygen via nasal cannula. SKIN: Shows normal skin turgor. She has no rash or infiltrative skin disease. She has a few scattered ecchymoses. She has multiple scars from prior surgical procedures including a scar in the left antecubital fossa from the creation of her AV fistula which is dilated in the left upper arm. There are multiple dialysis needle tract rajan over the fistula. She has an A-port beneath the distal left clavicle. A GJ tube is present in the left upper quadrant of her abdomen. She has a right lower quadrant scar from her previous pancreas transplant and scars over both hips from prior orthopedic surgery. LYMPHATICS: Show no palpable lymphadenopathy. HEAD: Grossly normal. EYES: Grossly normal. The ocular fundi were not examined. She has no conjunctival icterus. EARS, NOSE, MOUTH AND THROAT: All relatively unremarkable, although her dentition is in very poor repair with multiple missing teeth and retained roots. Oral mucous membranes are moist. NECK: Remains tilted to the right. It can be easily straightened both actively and passively. It is supple. She has no jugular venous distention, carotid bruit, or thyromegaly. CHEST: Clear to auscultation. She has no wheezes, rales or rhonchi. CARDIAC: Shows a regular rhythm. S1 and S2 seem normal. She has a systolic murmur at the base radiating toward the neck and a harsher systolic murmur at the apex radiating to the axilla. I hear no gallops. ABDOMEN: Shows the GJ tube to be in place. It is otherwise soft and nontender. There is fullness in the right upper quadrant at the site of her pancreas transplant. There is no definite ascites. EXTREMITIES: Show no cyanosis, clubbing or peripheral edema. She has a left upper arm AV fistula. NEUROLOGIC: Shows diminished protective sensation in her feet. She does not have ankle jerks. No other abnormalities were noted. She does speak slowly and chooses her words carefully. She does not have asterixis. No laboratory work was ordered for today. A study has been sent out to reference lab for her morphine metabolites given her use of hydromorphone. RECOMMENDATIONS: No specific change in her chronic therapy. However, I do think she is essentially ready for discharge. However, discharge to home is not advisable. I think she either needs to go to [facility] and it appears as if she has been approved for transfer there. If not [facility], she would need to go to a retirement facility with significant physical therapy. Nonetheless, I do think that she can participate in physical therapy for a significant time each day. No other recommendations. If she is to be discharged, she should be on her usual chronic medications. I will continue to follow her as an outpatient. If she is discharged to anywhere but [facility], the dialysis unit needs to be notified so that arrangements for transportation to the dialysis unit can be made. If she goes to [facility], we will continue her dialysis there. If she is still in the hospital tomorrow, dialysis orders are written.
--- NOTE | 2016-06-10 15:11 | Progress Note ---
Subjective Date of Service: June 10, 2016. Subjective Pt evaluation today including: conversation w/ patient, physical exam, chart review, lab review, review of studies, review of inpatient medication list Resting comfortably in bed States persistent weakness No N/V/D Problem List Medical Problems: (1) Acute head injury Status: Acute (2) Chronic pain syndrome Status: Chronic (3) Depression with anxiety Status: Chronic (4) Dyslipidemia Status: Chronic (5) End stage renal disease on dialysis Status: Chronic (6) Episode of syncope Status: Acute (7) GERD (gastroesophageal reflux disease) Status: Chronic (8) GI bleed Status: Acute (9) HTN (hypertension) Status: Chronic (10) Narcotic dependence Status: Chronic (11) Osteoporosis Status: Chronic (12) Right arm pain Status: Acute (13) Right orbital fracture Status: Acute Review of Systems Constitutional: + fatigue, + weakness, No fever Respiratory: No cough, No dyspnea on exertion, No shortness of breath, No sputum, No wheezing Cardiac: No chest pain, No orthopnea Abdomen: No constipation, No diarrhea, No nausea, No pain, No vomiting Musculoskeletal: No joint pain, No muscle pain Female : No dysuria, No urinary frequency Objective Vital Signs Date Time Temp Pulse Resp B/P Pulse Ox O2 Delivery O2 Flow Rate FiO2 06/10/16 10:30 89 96 06/10/16 09:35 36.6 86 16 127/68 93 Nasal Cannula 2.0 06/10/16 08:00 96 Room Air 06/10/16 07:00 36.8 82 20 159/78 90 Room Air 06/10/16 00:10 36.6 85 18 154/83 93 Room Air 06/10/16 00:00 Room Air 06/09/16 21:00 97 Nasal Cannula 2.0 06/09/16 15:33 36.8 80 18 156/89 97 Nasal Cannula 2.0 Physical Exam General Appearance: WD/WN, no apparent distress Neck: supple, no adenopathy Respiratory/Chest: chest non-tender, lungs clear, normal breath sounds Cardiovascular: no edema, no gallop Abdomen: non tender, soft Neurologic/Psychiatric: alert, oriented x 3 Laboratory Results Last 24 Hours Test 06/09/16 16:00 Assessment and Plan SYNCOPE/WEAKNESS Patient found to be with change of mental status and transferred to emergency room for further evaluation treatment on 06/04/16 Question of whether patient was dehydrated secondary to multiple episodes of diarrhea No further episodes since admission No evidence of sepsis Echocardiogram shows no significant change and valvular disease or function No significant arrhythmia on telemetry Carotid US unremarkable for any significant stenosis Orthostatics negative Awaiting placement END-STAGE RENAL DISEASE Follows with Dr. Hollis Continue hemodialysis Wednesday//Wednesday PANCREATIC TRANSPLANT [facility] in 2003 Continue Prograf DIARRHEA Controlled - patient reports no further diarrhea again today CHRONIC PAIN SYNDROME Continue dilauded (patient has taken for years) Mycophenolic acid, MPA glucuronide, and tacrolimus pending Discussed possibility of patient following with pain clinic HYPERTENSION Metoprolol held Continue furosemide -2.6 L cumulative I's and O's with dialysis Continued hemodialysis HEME POSITIVE STOOL No sergio blood per patient report No bowel movement since admission Continue ranitidine and lansoprazole DVT PROPHYLAXIS Chemical prophylaxis held for macrocytic anemia and question of heme positive stool Continue HILLARY shahana and SCDs as tolerated DISPOSITION Awaiting placement Continued [facility] stay due to: other Discharge planning: uncertain
[2016-06-10] MEDS: SIMVASTATIN 10 MG TAB JT SCH (20:41)
[2016-06-11] VITALS (22 sets, daily range): BP systolic 70–171; BP diastolic 47–93; PULSE 63–93; TEMP 36.2–36.9; O2SAT 96–98
[2016-06-11] MEDS ORDERED: SODIUM CHLORIDE 0.9% 1000ML 1,000 ML IV PRN (06:00)
[2016-06-11] MEDS ORDERED: EPOETIN ALFA 10,000 UNITS/ML VIAL IV. SCH (06:00)
[2016-06-11] MEDS: CALCIUM ACETATE 667MG GELCAP PO SCH ×3 (07:17→17:53)
[2016-06-11] MEDS: ACETAMINOPHEN 325 MG TAB PO PRN (07:26)
[2016-06-11] MEDS: ALPRAZOLAM 0.5 MG TAB JT PRN ×3 (07:27→20:22)
[2016-06-11] MEDS: LANSOPRAZOLE SOLUTAB 30 MG NG SCH ×2 (07:30→19:58)
[2016-06-11] MEDS: RANITIDINE HCL 150 MG TAB PO SCH ×2 (07:30→19:58)
[2016-06-11] MEDS ORDERED: LISINOPRIL 20 MG TAB PO ONE (08:45)
--- NOTE | 2016-06-11 10:49 | NEPHROLOGY PROGRESS NOTE ---
DATE: 06/11/2016 DATE: 06/11/2016. SUBJECTIVE: Ms. Guillen says that she is fatigued this morning. She did not sleep well last night. She denies having chest pain or shortness of breath. She does say that she has had some occasional abdominal pain and says that she vomited on one occasion last night. She denies having had any hematemesis. She did have 2 bowel movements yesterday. Today, she is complaining of some soreness around her right ear. She has a difficult time telling me exactly where in or around her ear her discomfort is. At one point she indicated that it was irritation from her oxygen tube, but equally as frequently she seemed to point to something deeper in her ear. She says that she has some right neck discomfort at the site over the right carotid artery. She said that she has some discomfort after having her duplex carotid ultrasound done 2 days ago. She has no other specific complaint. Apparently we are now waiting for her insurance to reauthorized her to go to [facility]. An alternative is for her to go to [facility]. If that were to be the case, they would need to make some arrangements for her transportation to dialysis. OBJECTIVE: GENERAL: On physical exam when seen Suni was undergoing her routine dialysis treatment. VITAL SIGNS: She is afebrile (36.7). Her blood pressure when seen was 90/54 with a pulse of 92 and regular. Her respiratory rate is 20 and her pulse ox on 2 liters of nasal oxygen is 98%. SKIN: Shows normal skin turgor. She has no rash or infiltrative skin disease. She has a slightly sallow complexion. She has multiple scars from prior surgical procedures. That includes scars over both hips and a right lower quadrant scar from her pancreas transplant. She has an A-port beneath the distal left clavicle. She has a left upper arm AV fistula with multiple dialysis needle tract rajan over the fistula. She has no palpable lymphadenopathy. HEAD: Normal. EYES: Grossly normal. The ocular fundi were not examined. EARS: Show no tenderness in the ears, particularly on the right side. I see no areas of irritation on the external ear. She has no particular degree of pain on pulling her ear. NOSE, MOUTH AND THROAT: Unremarkable other than very poor dentition with multiple missing teeth and retained roots. NECK: Supple. She holds her head tilted to the right, but she can easily straighten it of her own volition. Certainly, her neck is not stiff. She has no jugular venous distention, carotid bruit or thyromegaly. CHEST: Clear to auscultation. She has no wheezes, rales or rhonchi. CARDIAC EXAMINATION: Shows a regular rhythm. S1 and S2 are normal. She has a systolic murmur at the base radiating toward the neck as well as a harsh holosystolic murmur heard at the apex and radiating to the axilla. ABDOMEN: Shows a GJ tube to be in place exiting in the left upper quadrant. Bowel sounds are present. There is no definite organomegaly or mass. Her abdomen is not tender. Bowel sounds are present. EXTREMITIES: Show no cyanosis, clubbing or peripheral edema. She has scars over her hips from prior surgeries. There is a left upper arm AV fistula which is functioning well. NEUROLOGIC EXAMINATION: Shows no lateralizing changes. She has diminished protective sensation in her feet and diminished ankle jerks. She continues to speak slowly and choose words carefully. She seems somewhat less alert than she was yesterday but certainly is oriented to time, place and person. ASSESSMENT: Mrs. Guillen seems to be reasonably stable. I still get a bit concerned about the waxing and waning of her level of alertness. I am still concerned about buildup of metabolites of hydromorphone. Blood studies to determine that have been sent out. She says that she is trying to use or request less hydromorphone. RECOMMENDATIONS: No changes for now other than I would try as hard as we can to encourage her to minimize her dose of hydromorphone. Hopefully, the hospitalists can find an otoscope to look at her right ear. No other recommendations for now pending her insurance approval to go to [facility] or to go to [facility].
--- NOTE | 2016-06-11 12:44 | Progress Note ---
Subjective Date of Service: June 11, 2016. Subjective Pt evaluation today including: conversation w/ patient, physical exam, chart review, lab review, review of studies, review of inpatient medication list Seen during dialysis Resting comfortably in bed States neck hurting where carotid US was performed but OK now No shortness of breath, or chest pain No other concerns noted Problem List Medical Problems: (1) Acute head injury Status: Acute (2) Chronic pain syndrome Status: Chronic (3) Depression with anxiety Status: Chronic (4) Dyslipidemia Status: Chronic (5) End stage renal disease on dialysis Status: Chronic (6) Episode of syncope Status: Acute (7) GERD (gastroesophageal reflux disease) Status: Chronic (8) GI bleed Status: Acute (9) HTN (hypertension) Status: Chronic (10) Narcotic dependence Status: Chronic (11) Osteoporosis Status: Chronic (12) Right arm pain Status: Acute (13) Right orbital fracture Status: Acute Review of Systems Constitutional: No chills, No fever Respiratory: No cough, No dyspnea on exertion, No sputum, No wheezing Cardiac: No chest pain, No orthopnea Abdomen: No constipation, No diarrhea, No nausea, No pain, No vomiting Musculoskeletal: No joint pain, No muscle pain Female : No dysuria, No urinary frequency Objective Vital Signs Date Time Temp Pulse Resp B/P Pulse Ox O2 Delivery O2 Flow Rate FiO2 06/11/16 12:27 36.8 86 133/77 06/11/16 11:45 90 111/65 06/11/16 11:30 90 104/63 06/11/16 11:15 90 94/59 06/11/16 11:00 91 87/57 06/11/16 10:45 90 91/55 06/11/16 10:30 91 80/52 06/11/16 10:15 63 98/59 06/11/16 10:00 92 90/54 06/11/16 09:45 93 87/54 06/11/16 09:30 90 85/50 06/11/16 09:15 92 84/51 06/11/16 09:00 92 70/47 06/11/16 08:45 81 96/64 06/11/16 08:38 83 130/81 06/11/16 08:30 36.7 85 145/83 06/11/16 08:00 36.9 86 20 171/93 98 Nasal Cannula 2.0 5/4/17 08:00 98 Nasal Cannula 2.0 06/11/16 00:29 36.8 81 19 168/91 96 Nasal Cannula 2.0 06/11/16 00:00 Room Air 06/10/16 16:00 92 Room Air 06/10/16 15:27 36.6 80 15 159/79 89 Room Air Physical Exam General Appearance: WD/WN, no apparent distress Neck: supple, no adenopathy Respiratory/Chest: lungs clear, normal breath sounds Cardiovascular: no edema, no gallop Abdomen: non tender, soft Neurologic/Psychiatric: alert, normal mood/affect Assessment and Plan SYNCOPE/WEAKNESS Patient found to be with change of mental status and transferred to emergency room for further evaluation treatment on 06/04/16 Question of whether patient was dehydrated secondary to multiple episodes of diarrhea No further episodes since admission No evidence of sepsis Echocardiogram shows no significant change and valvular disease or function No significant arrhythmia on telemetry Carotid US unremarkable for any significant stenosis Orthostatics negative Awaiting placement END-STAGE RENAL DISEASE Follows with Dr. Hollis Continue hemodialysis Wednesday//Wednesday PANCREATIC TRANSPLANT [facility] in 2003 Continue Prograf DIARRHEA Controlled - patient reports no further diarrhea again today CHRONIC PAIN SYNDROME Continue dilauded (patient has taken for years) Mycophenolic acid, MPA glucuronide, and tacrolimus pending Discussed possibility of patient following with pain clinic HYPERTENSION Metoprolol held Continue furosemide -2.6 L cumulative I's and O's with dialysis Continued hemodialysis HEME POSITIVE STOOL No sergio blood per patient report No bowel movement since admission Continue ranitidine and lansoprazole DVT PROPHYLAXIS Chemical prophylaxis held for macrocytic anemia and question of heme positive stool Continue HILLARY harkins and Tommy as tolerated DISPOSITION Awaiting placement Continued [facility] stay due to: other Discharge planning: uncertain
[2016-06-11] MEDS: MYCOPHENOLATE SUSP 200 MG/1 ML JT SCH (13:50)
[2016-06-11] MEDS: POLYETHYLENE (MIRALAX) 17 GM PACK PO SCH (13:50)
[2016-06-11] MEDS: DOCUSATE SODIUM 100 MG CAP PO SCH ×2 (13:50→19:57)
[2016-06-11] MEDS: TACROLIMUS 1 MG CAP JT SCH ×2 (13:51→19:59)
[2016-06-11] MEDS: CITALOPRAM 20 MG TAB JT SCH (13:51)
[2016-06-11] MEDS: CALCITRIOL 0.25 MCG CAP JT SCH (13:52)
[2016-06-11] MEDS: SIMVASTATIN 10 MG TAB JT SCH (20:00)
[2016-06-12] MEDS: ALPRAZOLAM 0.5 MG TAB JT PRN ×3 (02:01→20:09)
[2016-06-12 07:20] VITALS: BP 151/77; PULSE 88; TEMP 37.1; O2SAT 93
[2016-06-12 08:00] VITALS: O2SAT 93
[2016-06-12] MEDS: CALCIUM ACETATE 667MG GELCAP PO SCH ×3 (08:30→16:07)
[2016-06-12] MEDS: DOCUSATE SODIUM 100 MG CAP PO SCH ×2 (08:30→20:09)
[2016-06-12] MEDS: POLYETHYLENE (MIRALAX) 17 GM PACK PO SCH (08:31)
[2016-06-12] MEDS: CITALOPRAM 20 MG TAB JT SCH (08:32)
[2016-06-12] MEDS: LANSOPRAZOLE SOLUTAB 30 MG NG SCH ×2 (08:33→20:09)
[2016-06-12] MEDS: RANITIDINE HCL 150 MG TAB PO SCH ×2 (08:33→20:09)
[2016-06-12] MEDS: FUROSEMIDE 80 MG TAB PO SCH (08:34)
[2016-06-12] MEDS: CALCITRIOL 0.25 MCG CAP JT SCH (08:34)
[2016-06-12] MEDS: MYCOPHENOLATE SUSP 200 MG/1 ML JT SCH (08:35)
[2016-06-12] MEDS: LISINOPRIL 20 MG TAB PO SCH (08:38)
[2016-06-12] MEDS: TACROLIMUS 1 MG CAP JT SCH ×2 (08:40→20:10)
--- NOTE | 2016-06-12 11:03 | NEPHROLOGY PROGRESS NOTE ---
DATE: 06/12/2016 DATE: 06/12/2016. SUBJECTIVE: Ms. Guillen has no specific complaints this morning. However, she is quite lethargic. She denies having any sergio chest pain but says that her chest is "uncomfortable" from time to time. She denies being short of breath. She has no cough and has had no wheezing. She says that she is intermittently nauseated from time to time which is a usual situation for her. However, she says that she has been able to eat. She has not had a bowel movement for nearly 48 hours. She has taken her hydromorphone. Her last dose was about 2 hours before she was seen. Her dose was 8 mg. OBJECTIVE: GENERAL: On physical findings Mrs. Guillen was somewhat lethargic but easily aroused. Once again, she answers questions, but takes a while to think about her answers. From time to time it seems as if she is being somewhat evasive, although it is possible that she simply is having a hard time describing her feelings. VITAL SIGNS: She has a temperature of 37.1. Her blood pressure 151/77, her pulse is 88 and regular, respiratory rate 20 and her pulse ox 93% on 2 liters of oxygen via nasal cannula. SKIN: Shows normal skin turgor. There is no rash or infiltrative skin disease. She has multiple scars from prior surgical procedures including scars over both hips as well as her right lower quadrant. There is an A-port beneath the distal left clavicle. She has a left upper arm AV fistula with multiple dialysis needle track rajan over the fistula. GJ tube is present exiting in the left upper quadrant of her abdomen. LYMPHATICS: Show no palpable adenopathy. HEAD: Normal. EYES: Grossly normal. The ocular fundi were not examined. EARS, NOSE, MOUTH AND THROAT: Remarkable for very poor dentition with multiple missing teeth and retained roots. Her oral mucous membranes are moist. NECK: Supple. Her head remains tilted to the right, but she can straighten it voluntarily. Her neck is not stiff. There is no jugular venous distention, carotid bruit or thyromegaly. CHEST: Clear to auscultation. I hear no wheezes, rales or rhonchi. CARDIAC EXAMINATION: Shows a regular rhythm. S1 and S2 are normal. She has a grade 2/6 systolic murmur at the base radiating toward the neck as well as a harsher grade 2-3 holosystolic murmur at the apex radiating to the axilla. ABDOMEN: Shows the GJ tube to be in place. It is slightly distended. Bowel sounds are present. Her abdomen is nontender and there is no obvious organomegaly or mass. She does have fullness in the right lower quadrant at the site of her pancreas transplant. EXTREMITIES: Show no cyanosis, clubbing or peripheral edema. She has scars as previously noted. Her AV fistula is functioning well. NEUROLOGIC EXAMINATION: Again shows her to be quite lethargic. She has no lateralizing changes. There is diminished protective sensation in her feet as well as diminished ankle jerks. No specific laboratory work was done today, although she did have an isolated blood sugar done yesterday of 218. Additional laboratory work that is back from 06/05/2016 shows that her mycophenolic acid level is 2.6 and her tacrolimus level is 7.9, both within an acceptable range for trough level. Her MPA glucuronide however is somewhat high. However, she shows no excessive signs of marrow suppression with acceptable levels of her white count and platelet count. I do not see any immediate reason to decrease her dose of immunosuppressants. It is being [facility] at the [facility]. We followed them intermittently locally as well. ASSESSMENT: Mrs. Guillen seems a bit more sedated today, but she had only recently gotten her dose of hydromorphone. Otherwise, she appears to be stable despite her complaints. She will often have multiple complaints. RECOMMENDATIONS: If accepted at [facility], I see no reason why she cannot be transferred there. We can continue to follow her status there and she can receive her dialysis treatments there. Otherwise, we will make sure that she gets her regular dialysis treatment here tomorrow. I will be out of town for the next week. Dr. Muller will be the inpatient office machine embossograph operator during that time and I will ask if he would stop by to see Mrs. Guillen and continue to supervise her dialysis treatments.
[2016-06-12 14:56] VITALS: BP 123/69; PULSE 83; TEMP 37; O2SAT 96
--- NOTE | 2016-06-12 15:46 | Progress Note ---
Subjective Date of Service: June 12, 2016. Subjective Pt evaluation today including: conversation w/ patient, physical exam, chart review, lab review, review of studies, review of inpatient medication list Resting comfortably in bed States occasional pain in neck and right flank pain Awaiting dispo for SNF Problem List Medical Problems: (1) Acute head injury Status: Acute (2) Chronic pain syndrome Status: Chronic (3) Depression with anxiety Status: Chronic (4) Dyslipidemia Status: Chronic (5) End stage renal disease on dialysis Status: Chronic (6) Episode of syncope Status: Acute (7) GERD (gastroesophageal reflux disease) Status: Chronic (8) GI bleed Status: Acute (9) HTN (hypertension) Status: Chronic (10) Narcotic dependence Status: Chronic (11) Osteoporosis Status: Chronic (12) Right arm pain Status: Acute (13) Right orbital fracture Status: Acute Review of Systems Constitutional: No chills, No fever Respiratory: No cough, No shortness of breath, No sputum, No wheezing Cardiac: No chest pain, No orthopnea Abdomen: No constipation, No diarrhea, No nausea, No pain, No vomiting Musculoskeletal: + joint pain, No muscle pain Female : No dysuria, No urinary frequency Objective Vital Signs Date Time Temp Pulse Resp B/P Pulse Ox O2 Delivery O2 Flow Rate FiO2 06/12/16 14:56 37.0 83 18 123/69 96 Nasal Cannula 2.0 06/12/16 08:00 93 Nasal Cannula 2.0 06/12/16 07:20 37.1 88 20 151/77 93 Nasal Cannula 2.0 06/12/16 00:00 Nasal Cannula 2.0 06/11/16 23:08 36.9 80 18 162/87 96 Nasal Cannula 2.0 06/11/16 16:06 36.2 79 18 142/77 98 Nasal Cannula 2.0 06/11/16 16:00 98 Nasal Cannula 2.0 Physical Exam General Appearance: WD/WN, + mild distress Neck: supple, no adenopathy Respiratory/Chest: lungs clear, normal breath sounds Cardiovascular: no edema, no gallop Abdomen: non tender, soft Neurologic/Psychiatric: alert, normal mood/affect Assessment and Plan SYNCOPE/WEAKNESS Patient found to be with change of mental status and transferred to emergency room for further evaluation treatment on 06/04/16 Question of whether patient was dehydrated secondary to multiple episodes of diarrhea No further episodes since admission No evidence of sepsis Echocardiogram shows no significant change and valvular disease or function No significant arrhythmia on telemetry Carotid US unremarkable for any significant stenosis Orthostatics negative Awaiting placement END-STAGE RENAL DISEASE Follows with Dr. Hollis Continue hemodialysis Wednesday//Wednesday PANCREATIC TRANSPLANT [facility] in 2003 Continue Prograf DIARRHEA Controlled - patient reports no further diarrhea again today CHRONIC PAIN SYNDROME Continue dilauded (patient has taken for years) Mycophenolic acid, MPA glucuronide, and tacrolimus pending Discussed possibility of patient following with pain clinic HYPERTENSION Metoprolol held Continue furosemide -2.6 L cumulative I's and O's with dialysis Continued hemodialysis HEME POSITIVE STOOL No sergio blood per patient report No bowel movement since admission Continue ranitidine and lansoprazole DVT PROPHYLAXIS Chemical prophylaxis held for macrocytic anemia and question of heme positive stool Continue HILLARY harkins and Tommy as tolerated DISPOSITION Awaiting placement Continued [facility] stay due to: other Discharge planning: uncertain
[2016-06-12] MEDS: SIMVASTATIN 10 MG TAB JT SCH (20:09)
[2016-06-12 22:45] VITALS: BP 121/70; PULSE 63; TEMP 36.3; O2SAT 95
[2016-06-13] VITALS (22 sets, daily range): BP systolic 89–154; BP diastolic 53–86; PULSE 82–88; TEMP 36.6–37.2; O2SAT 93–96
[2016-06-13] MEDS: ALPRAZOLAM 0.5 MG TAB JT PRN ×2 (03:05→21:20)
[2016-06-13] MEDS: ONDANSETRON INJ 2 MG/ML 2 ML VIAL IV PRN (03:06)
[2016-06-13] MEDS: LISINOPRIL 20 MG TAB PO SCH (08:00)
[2016-06-13] MEDS ORDERED: EPOETIN ALFA 10,000 UNITS/ML VIAL IV. SCH (08:00)
[2016-06-13] MEDS: POLYETHYLENE (MIRALAX) 17 GM PACK PO SCH (08:00)
[2016-06-13] MEDS: DOCUSATE SODIUM 100 MG CAP PO SCH ×2 (08:00→21:02)
[2016-06-13] MEDS ORDERED: SODIUM CHLORIDE 0.9% 1000ML 1,000 ML IV PRN (08:00)
[2016-06-13] MEDS: CALCITRIOL 0.25 MCG CAP JT SCH (08:20)
[2016-06-13] MEDS: MYCOPHENOLATE SUSP 200 MG/1 ML JT SCH (08:21)
[2016-06-13] MEDS: CITALOPRAM 20 MG TAB JT SCH (08:22)
[2016-06-13] MEDS: TACROLIMUS 1 MG CAP JT SCH ×2 (08:23→21:01)
[2016-06-13] MEDS: RANITIDINE HCL 150 MG TAB PO SCH ×2 (08:25→21:02)
[2016-06-13] MEDS: LANSOPRAZOLE SOLUTAB 30 MG NG SCH ×2 (08:27→21:01)
[2016-06-13] MEDS: CALCIUM ACETATE 667MG GELCAP PO SCH ×3 (08:27→18:01)
--- NOTE | 2016-06-13 09:55 | Dialysis Progress Note ---
Hemodialysis Note Date of Service June 13, 2016. Chief Complaint Follow up evaluation of this patient with ESRD on HD admitted for evaluation of lethargy Subjective Mrs. Guillen was seen & examined during HD this morning. She was alert and oriented to person, place and time. She denied fever, angina or dyspnea. She complained of generalized weakness. Her L arm AVF was functioning well at Qb 350 cc/min. The patient denied any complications with her HD treatment and voiced no new medical concerns. Review of Systems Constitutional: No fever Cardiovascular: No chest pain Respiratory: No dyspnea at rest Abdomen: No nausea, No pain Extremities: No leg edema A complete review of systems was performed. Pertinent positives are noted above. All other systems are negative. Vital Signs Last 8 Hrs Date Time Temp Pulse Resp B/P Pulse Ox O2 Delivery O2 Flow Rate FiO2 06/13/16 09:15 86 131/72 06/13/16 09:00 82 141/77 06/13/16 08:52 37.2 85 151/86 06/13/16 06:57 37.1 85 16 154/77 95 I & O 24-Hour Column 06/13/16 07:59 Intake Total 420 ml Balance 420 ml Last Recorded Weight Weight (Kilograms): 57.100 Physical Exam General Appearance: no apparent distress, + thin (frail, chronically ill appearing) Head: atraumatic (temporal muscle wasting) Eyes: PERRL, EOMI Neck: no adenopathy Respiratory/Chest: lungs clear (anteriorly) Cardiovascular: regular rate, rhythm Abdomen/GI: non tender, soft Extremities/Musculoskelatal: no calf tenderness, no pedal edema Neurologic/Psych: alert, oriented x 3 Social History Smoking Status: Never smoker Smokeless Tobacco Use: No Alcohol Use: socially Drug Use: none Marital Status: (in [place]; has 2 kids ) Housing Status: lives with family 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[employer]; 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) Allergies Coded Allergies: Penicillins (Verified Allergy, Intermediate, RASH, 06/04/16) Erythromycin (Verified Allergy, Mild, RASH, 06/04/16) Surgical Lubricant (Verified Allergy, Unknown, ITCHY, 06/04/16) Carbamazepine (Verified Adverse Reaction, Severe, TOXIC BLOOD POISONING, ) TOXIC BLOOD POISONING Metoclopramide (Verified Adverse Reaction, Severe, SEIZURES, 06/04/16) SEIZURES Corticosteroids (Verified Adverse Reaction, Intermediate, NAUSEA, 06/04/16) PATIENT STATES ON ALLERGY SHEET "ABSOLUTELY NONE" Dicyclomine (Verified Adverse Reaction, Intermediate, HALLUCINATIONS, 06/04) HALLUCINATIONS Ketorolac (Verified Adverse Reaction, Intermediate, NAUSEATED, 06/04/16) Pregabalin (Verified Adverse Reaction, Intermediate, CONFUSION, 06/04/16) Quinolones (Verified Adverse Reaction, Intermediate, LEVAQUIN-NAUSEA, CHRONIC HEARTBURN, 06/04/16) levaquin =NAUSEA, CHRONIC HEARTBURN. PT SAID SHE WILL NOT TAKE 12/06/08 Azithromycin (Verified Adverse Reaction, Mild, n&v, 06/04/16) Cephalexin (Verified Adverse Reaction, Mild, NAUSEA, 06/04/16) Cephalosporins (Verified Adverse Reaction, Mild, KEFLEX = NAUSEA, 06/04/16) Codeine (Verified Adverse Reaction, Mild, NAUSEA, 06/04/16) Gabapentin (Verified Adverse Reaction, Mild, NAUSEA, 06/04/16) NAUSEA Levofloxacin (Verified Adverse Reaction, Mild, NAUSEA, 06/04/16) Naproxen (Verified Adverse Reaction, Mild, NAUSEA, 06/04/16) Nitrofurantoin (Verified Adverse Reaction, Mild, NAUSEA, 06/04/16) Oxycodone (Verified Adverse Reaction, Mild, PRC/TYLOX = NAUSEA, 06/04/16) NAUSEA Phenobarbital (Verified Adverse Reaction, Mild, NAUSEA, 06/04/16) Prednisolone (Verified Adverse Reaction, Mild, IRRITATION, 06/04/16) Promethazine (Verified Adverse Reaction, Mild, DIARRHEA, 06/04/16) Sertraline (Verified Adverse Reaction, Mild, NAUSEA, 06/04/16) Adhesives (Verified Adverse Reaction, Unknown, UNKNOWN, 06/04/16) Mirtazapine (Verified Adverse Reaction, Unknown, HEARS VOICES, 06/04/16) Propoxyphene (Verified Adverse Reaction, Unknown, NAUSEA, 06/04/16) NAUSEA Tramadol (Verified Adverse Reaction, Unknown, DEPRESSION, 06/04/16) DEPRESSION Medications Current Inpatient Medications Medications (Trade) Dose Ordered Sig/Ayaka Route Start Time Stop Time Status Last Admin Dose Admin Acetaminophen (Tylenol Tab) 650 mg Q4H PRN PO 06/04/16 13:15 07/04/16 13:14 06/11/16 07:26 650 MG Ondansetron HCl (Zofran Inj) 4 mg Q6H PRN IV 06/04/16 13:15 07/04/16 13:14 06/13/16 03:06 4 MG Nitroglycerin (Nitrostat Tab) 0.4 mg UD PRN SL 06/04/16 13:15 07/04/16 13:14 Alprazolam (Xanax Tab) 0.5 mg Q4H PRN JT 06/04/16 13:15 07/04/16 13:14 06/13/16 03:05 0.5 MG Calcium Acetate (Phoslo Cap) 1,334 mg QDB PO 06/05/16 07:30 07/05/16 07:59 06/13/16 08:27 1,334 MG Calcium Acetate (Phoslo Cap) 2,001 mg TID PRN PO 06/04/16 13:15 07/04/16 13:14 Calcium Acetate (Phoslo Cap) 2,001 mg 1130,1645 PO 06/04/16 19:00 07/04/16 18:59 06/12/16 16:07 2,001 MG Citalopram Hydrobromide (celeXA TAB) 20 mg QAM JT 06/05/16 09:00 07/05/16 08:59 06/13/16 08:22 20 MG Furosemide (Lasix Tab) 80 mg MoWeFr@0900 PO 06/05/16 09:00 07/05/16 08:59 06/12/16 08:34 80 MG Hydromorphone HCl (Dilaudid Tab) 8 mg Q4 PRN JT 06/04/16 13:15 06/18/16 13:14 06/13/16 03:05 8 MG Mycophenolate Mofetil (Cellcept Susp) 500 mg QAM JT 06/05/16 09:00 07/05/16 08:59 06/13/16 08:21 500 MG Lansoprazole (Prevacid Solutab) 30 mg BID NG 06/04/16 21:00 07/04/16 20:59 06/13/16 08:27 30 MG Simvastatin (Zocor Tab) 10 mg HS JT 06/04/16 21:00 5/27/17 20:59 06/12/16 20:09 10 MG Triamcinolone Acetonide (Nasacort Allergy 24hr) 2 sprays DAILY PRN AMRIT 06/04/16 13:15 07/04/16 13:14 Calcitriol (Rocaltrol Cap) 0.25 mcg QAM JT 06/05/16 09:00 07/05/16 08:59 06/13/16 08:20 0.25 MCG Miscellaneous Information (Order Awaiting Action) 1 ea QS N/A 06/04/16 16:00 07/04/16 15:59 Tacrolimus (Prograf Cap) 6 mg HS JT 06/04/16 21:00 07/04/16 20:59 06/12/16 20:10 6 MG Tacrolimus (Prograf Cap) 8 mg QAM JT 06/05/16 09:00 07/05/16 08:59 06/13/16 08:23 8 MG Ranitidine HCl (zANTac TAB) 300 mg BID PO 06/04/16 21:00 07/04/16 20:59 06/13/16 08:25 300 MG Heparin Sodium (Porcine) (Heparin 100 Unit/ml 5ml Flush) 5 ml PRN PRN IV 06/05/16 03:15 07/05/16 03:14 06/13/16 03:06 5 ML Docusate Sodium (coLACE CAP) 100 mg BID PO 06/06/16 21:00 07/06/16 20:59 06/12/16 20:09 100 MG Polyethylene (Miralax Powder Packet) 17 gm DAILY PO 06/07/16 09:00 07/07/16 08:59 06/12/16 08:31 17 GM Lisinopril (Zestril Tab) 20 mg QAM PO 06/12/16 08:00 07/12/16 07:59 06/12/16 08:38 20 MG Epoetin Roge 11732 units 10,000 units TODAY@0800 IV. 06/13/16 08:00 06/13/16 18:00 Sodium Chloride (Nss 1000ml) 1,000 ml @ 0 mls/hr Q0M PRN IV 06/13/16 08:00 06/13/16 18:00 Impression (1) ESRD (end stage renal disease) on dialysis (2) Diabetes mellitus type 1 (3) 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 Medical history is notable for DM 1 for which she underwent pancreas transplant at [facility]. She was admitted for evaluation of lethargy. Patient reports progressive weakness. No acute cardiac etiology identified. Infectious evaluation has been negative. There are several potential contributing medications include the regular use of hydromorphone. Recommendations ESRD: -- Patient was seen & examined during her HD treatment this am. She is medically stable. No change to current HD prescription. -- Renal diet PANCREAS TRANSPLANT: -- Continue current immunosuppressive regimen ANEMIA: -- Epogen 10,000 units IV to be provided w/ HD today OTHER: -- Await transfer to [facility] for ongoing physical therapy
--- NOTE | 2016-06-13 13:35 | Progress Note ---
Subjective Date of Service: June 13, 2016. Subjective Pt evaluation today including: conversation w/ patient, physical exam, chart review, lab review, review of studies, review of inpatient medication list Resting comfortably in bed Undergoing dialysis No new concerns at this time Problem List Medical Problems: (1) Acute head injury Status: Acute (2) Chronic pain syndrome Status: Chronic (3) Depression with anxiety Status: Chronic (4) Dyslipidemia Status: Chronic (5) End stage renal disease on dialysis Status: Chronic (6) Episode of syncope Status: Acute (7) GERD (gastroesophageal reflux disease) Status: Chronic (8) GI bleed Status: Acute (9) HTN (hypertension) Status: Chronic (10) Narcotic dependence Status: Chronic (11) Osteoporosis Status: Chronic (12) Right arm pain Status: Acute (13) Right orbital fracture Status: Acute Review of Systems Constitutional: No chills, No fever Respiratory: No cough, No dyspnea on exertion, No shortness of breath, No sputum, No wheezing Cardiac: No chest pain, No orthopnea Abdomen: No constipation, No nausea, No pain, No vomiting Musculoskeletal: + joint pain, + muscle pain Female : No dysuria, No urinary frequency Objective Vital Signs Date Time Temp Pulse Resp B/P Pulse Ox O2 Delivery O2 Flow Rate FiO2 06/13/16 12:59 37.0 85 146/76 06/13/16 12:15 85 140/79 06/13/16 12:00 85 118/83 06/13/16 11:45 86 132/77 06/13/16 11:30 86 136/76 06/13/16 11:15 86 127/70 06/13/16 11:00 85 116/65 06/13/16 10:45 84 113/64 06/13/16 10:31 84 107/63 06/13/16 10:15 88 111/66 06/13/16 10:00 88 89/53 06/13/16 09:45 88 95/59 06/13/16 09:30 84 103/61 06/13/16 09:15 86 131/72 06/13/16 09:00 82 141/77 06/13/16 08:52 37.2 85 151/86 06/13/16 06:57 37.1 85 16 154/77 95 06/13/16 00:00 Nasal Cannula 2.0 06/12/16 22:45 36.3 63 16 121/70 95 06/12/16 20:00 Nasal Cannula 2.0 06/12/16 16:00 Nasal Cannula 2.0 06/12/16 14:56 37.0 83 18 123/69 96 Nasal Cannula 2.0 Physical Exam General Appearance: WD/WN, + mild distress Neck: supple, no adenopathy Respiratory/Chest: lungs clear, normal breath sounds Cardiovascular: no edema, no gallop Abdomen: non tender, soft Neurologic/Psychiatric: alert, normal mood/affect Assessment and Plan SYNCOPE/WEAKNESS Patient found to be with change of mental status and transferred to emergency room for further evaluation treatment on 06/04/16 Question of whether patient was dehydrated secondary to multiple episodes of diarrhea No further episodes since admission No evidence of sepsis Echocardiogram shows no significant change and valvular disease or function No significant arrhythmia on telemetry Carotid US unremarkable for any significant stenosis Orthostatics negative Awaiting placement END-STAGE RENAL DISEASE Follows with Dr. Hollis Continue hemodialysis Wednesday//Wednesday Awaiting placement PANCREATIC TRANSPLANT [facility] in 2003 Continue Prograf DIARRHEA Controlled - patient reports no further diarrhea again today CHRONIC PAIN SYNDROME Continue dilauded (patient has taken for years), likely metabolites contributing to weakness Mycophenolic acid, MPA glucuronide, and tacrolimus levels obtained Discussed possibility of patient following with pain clinic HYPERTENSION Metoprolol held Continue furosemide -2.6 L cumulative I's and O's with dialysis Continued hemodialysis HEME POSITIVE STOOL No sergio blood per patient report No bowel movement since admission Continue ranitidine and lansoprazole DVT PROPHYLAXIS Chemical prophylaxis held for macrocytic anemia and question of heme positive stool Continue HILLARY harkins and JASVIRs as tolerated DISPOSITION Awaiting placement Continued [facility] stay due to: other Discharge planning: uncertain
[2016-06-13] MEDS: SIMVASTATIN 10 MG TAB JT SCH (21:02)
[2016-06-13] MEDS: ACETAMINOPHEN 325 MG TAB PO PRN (22:29)
[2016-06-14 06:06] LABS: HEMATOCRIT 35.5 % (37-47); MEAN CELL VOLUME 105.3 fL (80-100); MEAN CORPUSCULAR HGB CONC 30.4 g/dl (32-36); PLATELET COUNT 203 K/uL (130-400); RED BLOOD COUNT 3.37 M/uL (4.2-5.4); WHITE BLOOD COUNT 5.32 K/uL (4.8-10.8)
[2016-06-14 06:37] LABS: BUN/CREATININE RATIO 6.7 (10-20); POTASSIUM 3.7 mmol/L (3.5-5.1)
[2016-06-14 06:52] VITALS: BP 174/87; PULSE 76; TEMP 36.6; O2SAT 96
[2016-06-14] MEDS: ALPRAZOLAM 0.5 MG TAB JT PRN ×3 (08:42→23:18)
[2016-06-14] MEDS: POLYETHYLENE (MIRALAX) 17 GM PACK PO SCH (08:44)
[2016-06-14] MEDS: CALCIUM ACETATE 667MG GELCAP PO SCH ×3 (08:44→16:23)
[2016-06-14] MEDS: CITALOPRAM 20 MG TAB JT SCH (08:47)
[2016-06-14] MEDS: DOCUSATE SODIUM 100 MG CAP PO SCH ×2 (08:47→20:22)
[2016-06-14] MEDS: RANITIDINE HCL 150 MG TAB PO SCH ×2 (08:47→20:23)
[2016-06-14] MEDS: TACROLIMUS 1 MG CAP JT SCH ×2 (08:48→22:06)
[2016-06-14] MEDS: LISINOPRIL 20 MG TAB PO SCH (08:48)
[2016-06-14] MEDS: CALCITRIOL 0.25 MCG CAP JT SCH (08:48)
[2016-06-14] MEDS: MYCOPHENOLATE SUSP 200 MG/1 ML JT SCH (08:49)
[2016-06-14] MEDS: LANSOPRAZOLE SOLUTAB 30 MG NG SCH ×2 (08:49→20:22)
--- NOTE | 2016-06-14 10:06 | Nephrology Progress Note ---
Nephrology Progress Note Date of Service June 14, 2016. Chief Complaint Follow up evaluation of this patient with ESRD on HD admitted for evaluation of lethargy Subjective Mrs. Guillen was seen & examined in her hospital room this morning. She complains of constipation. She has been given Miralax this morning by the RN. Patient was dialyzed yesterday for 3.5 hours w/ 1300 cc UF. UF was reduced due to intradialytic hypotension. No other complications. AVF functioned well. Mrs. Guillen complains of weakness. She has difficulty grasping standard eating utensils. She is anxious to begin outpatient physical therapy Review of Systems Constitutional: No fever Cardiovascular: No chest pain Respiratory: No dyspnea at rest Abdomen: + constipation, No nausea Extremities: No leg edema A complete review of systems was performed. Pertinent positives are noted above. All other systems are negative. Vital Signs Last 8 Hrs Date Time Temp Pulse Resp B/P Pulse Ox O2 Delivery O2 Flow Rate FiO2 06/14/16 06:52 36.6 76 18 174/87 96 Nasal Cannula 2.0 I & O 24-Hour Column 06/14/16 08:00 Intake Total 400 ml Output Total 1760 ml Balance -1360 ml Last Recorded Weight Weight (Kilograms): 56.400 Physical Exam General Appearance: + thin (frail, chronically ill appearing) Head: atraumatic (temporal muscle wasting) Eyes: PERRL, EOMI Neck: no adenopathy Respiratory/Chest: lungs clear Cardiovascular: regular rate, rhythm Abdomen/GI: non tender, soft Extremities/Musculoskelatal: no pedal edema, + pertinent finding (L upper arm AVF + bruit) Neurologic/Psych: alert, oriented x 3 Family History Cancer Heart disease Social History Smoking Status: Never smoker Smokeless Tobacco Use: No Alcohol Use: socially Drug Use: none Marital Status: (in [place]; has 2 kids ) Housing Status: lives with family 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[email or web address]; 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) Laboratory Results Past 24 Hours 06/14/16 05:50 06/14/16 05:50 Test 06/14/16 05:50 Red Blood Count 3.37 M/uL (4.2-5.4) Mean Corpuscular Volume 105.3 fL (80-100) Mean Corpuscular Hemoglobin 32.0 pg (25-34) Mean Corpuscular Hemoglobin Concent 30.4 g/dl (32-36) RDW Standard Deviation 52.9 fL (36.4-46.3) RDW Coefficient of Variation 14.0 % (11.5-14.5) Mean Platelet Volume 10.0 fL (7.4-10.4) Anion Gap 8.0 mmol/L (3-11) Est Creatinine Clear Calc Drug Dose 12.0 ml/min Estimated GFR () 12.5 Estimated GFR (Non- 10.8 BUN/Creatinine Ratio 6.7 (10-20) Calcium Level 10.0 mg/dl (8.5-10.1) Allergies Coded Allergies: Penicillins (Verified Allergy, Intermediate, RASH, 06/04/16) Erythromycin (Verified Allergy, Mild, RASH, 06/04/16) Surgical Lubricant (Verified Allergy, Unknown, ITCHY, 06/04/16) Carbamazepine (Verified Adverse Reaction, Severe, TOXIC BLOOD POISONING, ) TOXIC BLOOD POISONING Metoclopramide (Verified Adverse Reaction, Severe, SEIZURES, 06/04/16) SEIZURES Corticosteroids (Verified Adverse Reaction, Intermediate, NAUSEA, 06/04/16) PATIENT STATES ON ALLERGY SHEET "ABSOLUTELY NONE" Dicyclomine (Verified Adverse Reaction, Intermediate, HALLUCINATIONS, 06/04) HALLUCINATIONS Ketorolac (Verified Adverse Reaction, Intermediate, NAUSEATED, 06/04/16) Pregabalin (Verified Adverse Reaction, Intermediate, CONFUSION, 06/04/16) Quinolones (Verified Adverse Reaction, Intermediate, LEVAQUIN-NAUSEA, CHRONIC HEARTBURN, 06/04/16) levaquin =NAUSEA, CHRONIC HEARTBURN. PT SAID SHE WILL NOT TAKE 12/06/08 Azithromycin (Verified Adverse Reaction, Mild, n&v, 06/04/16) Cephalexin (Verified Adverse Reaction, Mild, NAUSEA, 06/04/16) Cephalosporins (Verified Adverse Reaction, Mild, KEFLEX = NAUSEA, 06/04/16) Codeine (Verified Adverse Reaction, Mild, NAUSEA, 06/04/16) Gabapentin (Verified Adverse Reaction, Mild, NAUSEA, 06/04/16) NAUSEA Levofloxacin (Verified Adverse Reaction, Mild, NAUSEA, 06/04/16) Naproxen (Verified Adverse Reaction, Mild, NAUSEA, 06/04/16) Nitrofurantoin (Verified Adverse Reaction, Mild, NAUSEA, 06/04/16) Oxycodone (Verified Adverse Reaction, Mild, PRC/TYLOX = NAUSEA, 06/04/16) NAUSEA Phenobarbital (Verified Adverse Reaction, Mild, NAUSEA, 06/04/16) Prednisolone (Verified Adverse Reaction, Mild, IRRITATION, 06/04/16) Promethazine (Verified Adverse Reaction, Mild, DIARRHEA, 06/04/16) Sertraline (Verified Adverse Reaction, Mild, NAUSEA, 06/04/16) Adhesives (Verified Adverse Reaction, Unknown, UNKNOWN, 06/04/16) Mirtazapine (Verified Adverse Reaction, Unknown, HEARS VOICES, 06/04/16) Propoxyphene (Verified Adverse Reaction, Unknown, NAUSEA, 06/04/16) NAUSEA Tramadol (Verified Adverse Reaction, Unknown, DEPRESSION, 06/04/16) DEPRESSION Medications Current Inpatient Medications Medications (Trade) Dose Ordered Sig/Ayaka Route Start Time Stop Time Status Last Admin Dose Admin Acetaminophen (Tylenol Tab) 650 mg Q4H PRN PO 06/04/16 13:15 07/04/16 13:14 06/13/16 22:29 650 MG Ondansetron HCl (Zofran Inj) 4 mg Q6H PRN IV 06/04/16 13:15 07/04/16 13:14 06/13/16 03:06 4 MG Nitroglycerin (Nitrostat Tab) 0.4 mg UD PRN SL 06/04/16 13:15 07/04/16 13:14 Alprazolam (Xanax Tab) 0.5 mg Q4H PRN JT 06/04/16 13:15 07/04/16 13:14 06/14/16 08:42 0.5 MG Calcium Acetate (Phoslo Cap) 1,334 mg QDB PO 06/05/16 07:30 07/05/16 07:59 06/14/16 08:44 1,334 MG Calcium Acetate (Phoslo Cap) 2,001 mg TID PRN PO 06/04/16 13:15 07/04/16 13:14 Calcium Acetate (Phoslo Cap) 2,001 mg 1130,1645 PO 06/04/16 19:00 07/04/16 18:59 06/13/16 18:01 2,001 MG Citalopram Hydrobromide (celeXA TAB) 20 mg QAM JT 06/05/16 09:00 07/05/16 08:59 06/14/16 08:47 20 MG Furosemide (Lasix Tab) 80 mg MoWeFr@0900 PO 06/05/16 09:00 07/05/16 08:59 06/12/16 08:34 80 MG Hydromorphone HCl (Dilaudid Tab) 8 mg Q4 PRN JT 06/04/16 13:15 06/18/16 13:14 06/14/16 08:42 8 MG Mycophenolate Mofetil (Cellcept Susp) 500 mg QAM JT 06/05/16 09:00 07/05/16 08:59 06/14/16 08:49 500 MG Lansoprazole (Prevacid Solutab) 30 mg BID NG 06/04/16 21:00 07/04/16 20:59 06/14/16 08:49 30 MG Simvastatin (Zocor Tab) 10 mg HS JT 06/04/16 21:00 07/04/16 20:59 06/13/16 21:02 10 MG Triamcinolone Acetonide (Nasacort Allergy 24hr) 2 sprays DAILY PRN AMRIT 06/04/16 13:15 07/04/16 13:14 Calcitriol (Rocaltrol Cap) 0.25 mcg QAM JT 06/05/16 09:00 07/05/16 08:59 06/14/16 08:48 0.25 MCG Miscellaneous Information (Order Awaiting Action) 1 ea QS N/A 06/04/16 16:00 07/04/16 15:59 Tacrolimus (Prograf Cap) 6 mg HS JT 06/04/16 21:00 07/04/16 20:59 06/13/16 21:01 6 MG Tacrolimus (Prograf Cap) 8 mg QAM JT 06/05/16 09:00 07/05/16 08:59 06/14/16 08:48 8 MG Ranitidine HCl (zANTac TAB) 300 mg BID PO 06/04/16 21:00 07/04/16 20:59 06/14/16 08:47 300 MG Heparin Sodium (Porcine) (Heparin 100 Unit/ml 5ml Flush) 5 ml PRN PRN IV 06/05/16 03:15 07/05/16 03:14 06/14/16 05:48 5 ML Docusate Sodium (coLACE CAP) 100 mg BID PO 06/06/16 21:00 07/06/16 20:59 06/14/16 08:47 100 MG Polyethylene (Miralax Powder Packet) 17 gm DAILY PO 06/07/16 09:00 07/07/16 08:59 06/14/16 08:44 17 GM Lisinopril (Zestril Tab) 20 mg QAM PO 06/12/16 08:00 07/12/16 07:59 06/14/16 08:48 20 MG Impression (1) ESRD (end stage renal disease) on dialysis (2) Diabetes mellitus type 1 (3) 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 Medical history is notable for DM 1 for which she underwent pancreas transplant at [facility]. She was admitted for evaluation of lethargy. Patient reports progressive weakness. No acute cardiac etiology identified. Infectious evaluation has been negative. There are several potential contributing medications include the regular use of hydromorphone. Recommendations ESRD: -- Volume status and electrolyte balance are acceptable this morning. No acute indication for HD at this time. -- Renal diet PANCREAS TRANSPLANT: -- Continue current immunosuppressive regimen ANEMIA: -- H&H trending up. Will monitor. Epogen administered w/ HD yesterday OTHER: -- Await transfer to [facility] for ongoing physical therapy
[2016-06-14] MEDS: ACETAMINOPHEN 325 MG TAB PO PRN (11:38)
[2016-06-14] MEDS ORDERED: SOAP SUDS ENEMA PR PRN (14:00)
--- NOTE | 2016-06-14 14:01 | Progress Note ---
Subjective Date of Service: June 14, 2016. Subjective Pt evaluation today including: conversation w/ patient, physical exam, chart review, lab review, review of studies, review of inpatient medication list Pt resting comfortably in bed Eating breakffst States occasional joint pain most notably in neck and right shoulder but not present at this time Tolerating dialysis, no other active issues present Problem List Medical Problems: (1) Acute head injury Status: Acute (2) Chronic pain syndrome Status: Chronic (3) Depression with anxiety Status: Chronic (4) Dyslipidemia Status: Chronic (5) End stage renal disease on dialysis Status: Chronic (6) Episode of syncope Status: Acute (7) GERD (gastroesophageal reflux disease) Status: Chronic (8) GI bleed Status: Acute (9) HTN (hypertension) Status: Chronic (10) Narcotic dependence Status: Chronic (11) Osteoporosis Status: Chronic (12) Right arm pain Status: Acute (13) Right orbital fracture Status: Acute Review of Systems Constitutional: No chills, No fever Respiratory: No cough, No dyspnea on exertion, No shortness of breath, No sputum, No wheezing Cardiac: No chest pain, No orthopnea Abdomen: No constipation, No diarrhea, No nausea, No pain, No vomiting Musculoskeletal: + joint pain, + muscle pain Female : No dysuria, No urinary frequency Objective Vital Signs Date Time Temp Pulse Resp B/P Pulse Ox O2 Delivery O2 Flow Rate FiO2 06/14/16 08:00 Nasal Cannula 2.0 06/14/16 06:52 36.6 76 18 174/87 96 Nasal Cannula 2.0 06/14/16 01:00 Nasal Cannula 2.0 06/13/16 22:55 36.6 85 18 153/74 95 Nasal Cannula 2.0 06/13/16 16:00 93 Room Air 2.0 06/13/16 14:56 87 96 06/13/16 14:51 36.9 87 18 124/77 93 2.0 Physical Exam General Appearance: WD/WN, no apparent distress Neck: supple, no adenopathy Respiratory/Chest: lungs clear, normal breath sounds Cardiovascular: no edema, no gallop Abdomen: non tender, soft Neurologic/Psychiatric: alert, oriented x 3 Laboratory Results Last 24 Hours Test 06/14/16 05:50 White Blood Count 5.32 K/uL Red Blood Count 3.37 M/uL Hemoglobin 10.8 g/dL Hematocrit 35.5 % Mean Corpuscular Volume 105.3 fL Mean Corpuscular Hemoglobin 32.0 pg Mean Corpuscular Hemoglobin Concent 30.4 g/dl RDW Standard Deviation 52.9 fL RDW Coefficient of Variation 14.0 % Platelet Count 203 K/uL Mean Platelet Volume 10.0 fL Sodium Level 140 mmol/L Potassium Level 3.7 mmol/L Chloride Level 100 mmol/L Carbon Dioxide Level 32 mmol/L Anion Gap 8.0 mmol/L Blood Urea Nitrogen 27 mg/dl Creatinine 4.00 mg/dl Est Creatinine Clear Calc Drug Dose 12.0 ml/min Estimated GFR () 12.5 Estimated GFR (Non- 10.8 BUN/Creatinine Ratio 6.7 Random Glucose 149 mg/dl Calcium Level 10.0 mg/dl Assessment and Plan SYNCOPE/WEAKNESS Patient found to be with change of mental status and transferred to emergency room for further evaluation treatment on 06/04/16 Question of whether patient was dehydrated secondary to multiple episodes of diarrhea No further episodes since admission No evidence of sepsis Echocardiogram shows elev pulm pressures, EF 55-60%, diastolic dysfunction No significant arrhythmia on telemetry Carotid US unremarkable for any significant stenosis Orthostatics negative Awaiting SNF placement END-STAGE RENAL DISEASE Follows with Dr. Hollis Continue hemodialysis Wednesday//Wednesday Awaiting placement PANCREATIC TRANSPLANT [facility] in 2003 Continue Prograf DIARRHEA Controlled - patient reports no further diarrhea again today CHRONIC PAIN SYNDROME Continue dilaudid (patient has taken for years), likely metabolites contributing to weakness Mycophenolic acid, MPA glucuronide, and tacrolimus levels obtained Discussed possibility of patient following with pain clinic HYPERTENSION Restart metoprolol as BP uncontrolled Continue [id number] mg PO MWF Continued hemodialysis HEME POSITIVE STOOL No sergio blood per patient report No bowel movement since admission Continue ranitidine and lansoprazole DVT PROPHYLAXIS Chemical prophylaxis held for macrocytic anemia and question of heme positive stool Continue HILLARY hose and SCDs as tolerated DISPOSITION Awaiting placement at this time, will need SNF, pt denied at [facility] Will need facility that can take dialysis pt and provide transportation for dialysis Continued [facility] stay due to: other Discharge planning: uncertain
[2016-06-14 14:41] VITALS: BP 110/67; PULSE 74; TEMP 36.6; O2SAT 90
[2016-06-14] MEDS: METOPROLOL TARTRATE 100 MG TAB JT SCH (20:22)
[2016-06-14] MEDS: SIMVASTATIN 10 MG TAB JT SCH (22:07)
[2016-06-14 23:11] VITALS: BP 149/83; PULSE 80; TEMP 36.9; O2SAT 92
[2016-06-15 05:24] LABS: HEMATOCRIT 34.2 % (37-47); MEAN CELL VOLUME 106.5 fL (80-100); MEAN CORPUSCULAR HEMOGLOBIN 32.1 pg (25-34); MEAN CORPUSCULAR HGB CONC 30.1 g/dl (32-36); MEAN PLATELET VOLUME 10.2 fL (7.4-10.4); PLATELET COUNT 197 K/uL (130-400); RED BLOOD COUNT 3.21 M/uL (4.2-5.4)
[2016-06-15 06:24] LABS: BUN/CREATININE RATIO 7.3 (10-20); CALCIUM 9.9 mg/dl (8.5-10.1); CREATININE 5.3 mg/dl (0.60-1.20); POTASSIUM 3.9 mmol/L (3.5-5.1)
[2016-06-15 06:50] VITALS: BP 167/92; PULSE 71; TEMP 36.7; O2SAT 97
[2016-06-15] MEDS: CALCIUM ACETATE 667MG GELCAP PO SCH ×2 (07:44→12:00)
[2016-06-15] MEDS: DOCUSATE SODIUM 100 MG CAP PO SCH (07:44)
[2016-06-15] MEDS: LISINOPRIL 20 MG TAB PO SCH (07:44)
[2016-06-15] MEDS: CITALOPRAM 20 MG TAB JT SCH (07:44)
[2016-06-15] MEDS: RANITIDINE HCL 150 MG TAB PO SCH (07:44)
[2016-06-15] MEDS: CALCITRIOL 0.25 MCG CAP JT SCH (07:45)
[2016-06-15] MEDS: LANSOPRAZOLE SOLUTAB 30 MG NG SCH (07:46)
[2016-06-15] MEDS: FUROSEMIDE 80 MG TAB PO SCH (07:46)
[2016-06-15] MEDS: METOPROLOL TARTRATE 100 MG TAB JT SCH (07:46)
[2016-06-15] MEDS: POLYETHYLENE (MIRALAX) 17 GM PACK PO SCH (07:47)
[2016-06-15] MEDS: MYCOPHENOLATE SUSP 200 MG/1 ML JT SCH (07:47)
[2016-06-15] MEDS: TACROLIMUS 1 MG CAP JT SCH (08:07)
--- NOTE | 2016-06-15 08:54 | Nephrology Progress Note ---
Nephrology Progress Note Date of Service June 15, 2016. Chief Complaint Follow up evaluation of this patient with ESRD on HD admitted for evaluation of lethargy Subjective Mrs. Guillen was seen & examined in her hospital room this morning. She received Miralax yesterday. She reports that she has had two bowel movements and her constipation has resolved. She is tolerating an oral diet. Patient was dialyzed on Wednesday. She currently denies dyspnea, angina or nausea. Mrs. Guillen complains of weakness. She reports difficulty ambulating. She is anxious to begin outpatient physical therapy Review of Systems Constitutional: No fever Cardiovascular: No chest pain Respiratory: No dyspnea at rest Abdomen: No nausea, No pain, No vomiting Extremities: No leg edema A complete review of systems was performed. Pertinent positives are noted above. All other systems are negative. Vital Signs Last 8 Hrs Date Time Temp Pulse Resp B/P Pulse Ox O2 Delivery O2 Flow Rate FiO2 06/15/16 06:50 36.7 71 20 167/92 97 Nasal Cannula 2.0 I & O 24-Hour Column 06/15/16 07:59 Intake Total 275 ml Output Total 50 ml Balance 225 ml Last Recorded Weight Weight (Kilograms): 56.800 Physical Exam General Appearance: no apparent distress, + thin (frail, chronically ill appearing) Head: atraumatic, + pertinent finding (temporal muscle wasting) Eyes: PERRL, EOMI Neck: no adenopathy Respiratory/Chest: lungs clear, no respiratory distress Cardiovascular: regular rate, rhythm Abdomen/GI: non tender, soft, + pertinent finding (G-tube in place) Extremities/Musculoskelatal: no calf tenderness, no pedal edema, + pertinent finding (left upper arm AVF + bruit) Neurologic/Psych: alert, oriented x 3 Family History Cancer Heart disease Social History Smoking Status: Never smoker Smokeless Tobacco Use: No Alcohol Use: socially Drug Use: none Marital Status: (in [place]; has 2 kids ) Housing Status: lives with family 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[employer]; 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) Laboratory Results Past 24 Hours 06/15/16 05:15 06/15/16 05:15 Test 06/14/16 14:20 06/15/16 05:15 Magnesium Level 2.4 mg/dl (1.8-2.4) Red Blood Count 3.21 M/uL (4.2-5.4) Mean Corpuscular Volume 106.5 fL (80-100) Mean Corpuscular Hemoglobin 32.1 pg (25-34) Mean Corpuscular Hemoglobin Concent 30.1 g/dl (32-36) RDW Standard Deviation 55.2 fL (36.4-46.3) RDW Coefficient of Variation 14.3 % (11.5-14.5) Mean Platelet Volume 10.2 fL (7.4-10.4) Anion Gap 5.0 mmol/L (3-11) Est Creatinine Clear Calc Drug Dose 9.0 ml/min Estimated GFR () 8.9 Estimated GFR (Non- 7.7 BUN/Creatinine Ratio 7.3 (10-20) Calcium Level 9.9 mg/dl (8.5-10.1) Allergies Coded Allergies: Penicillins (Verified Allergy, Intermediate, RASH, 06/04/16) Erythromycin (Verified Allergy, Mild, RASH, 06/04/16) Surgical Lubricant (Verified Allergy, Unknown, ITCHY, 06/04/16) Carbamazepine (Verified Adverse Reaction, Severe, TOXIC BLOOD POISONING, ) TOXIC BLOOD POISONING Metoclopramide (Verified Adverse Reaction, Severe, SEIZURES, 06/04/16) SEIZURES Corticosteroids (Verified Adverse Reaction, Intermediate, NAUSEA, 06/04/16) PATIENT STATES ON ALLERGY SHEET "ABSOLUTELY NONE" Dicyclomine (Verified Adverse Reaction, Intermediate, HALLUCINATIONS, 06/04) HALLUCINATIONS Ketorolac (Verified Adverse Reaction, Intermediate, NAUSEATED, 06/04/16) Pregabalin (Verified Adverse Reaction, Intermediate, CONFUSION, 06/04/16) Quinolones (Verified Adverse Reaction, Intermediate, LEVAQUIN-NAUSEA, CHRONIC HEARTBURN, 06/04/16) levaquin =NAUSEA, CHRONIC HEARTBURN. PT SAID SHE WILL NOT TAKE 12/06/08 Azithromycin (Verified Adverse Reaction, Mild, n&v, 06/04/16) Cephalexin (Verified Adverse Reaction, Mild, NAUSEA, 06/04/16) Cephalosporins (Verified Adverse Reaction, Mild, KEFLEX = NAUSEA, 06/04/16) Codeine (Verified Adverse Reaction, Mild, NAUSEA, 06/04/16) Gabapentin (Verified Adverse Reaction, Mild, NAUSEA, 06/04/16) NAUSEA Levofloxacin (Verified Adverse Reaction, Mild, NAUSEA, 06/04/16) Naproxen (Verified Adverse Reaction, Mild, NAUSEA, 06/04/16) Nitrofurantoin (Verified Adverse Reaction, Mild, NAUSEA, 06/04/16) Oxycodone (Verified Adverse Reaction, Mild, PRC/TYLOX = NAUSEA, 06/04/16) NAUSEA Phenobarbital (Verified Adverse Reaction, Mild, NAUSEA, 06/04/16) Prednisolone (Verified Adverse Reaction, Mild, IRRITATION, 06/04/16) Promethazine (Verified Adverse Reaction, Mild, DIARRHEA, 06/04/16) Sertraline (Verified Adverse Reaction, Mild, NAUSEA, 06/04/16) Adhesives (Verified Adverse Reaction, Unknown, UNKNOWN, 06/04/16) Mirtazapine (Verified Adverse Reaction, Unknown, HEARS VOICES, 06/04/16) Propoxyphene (Verified Adverse Reaction, Unknown, NAUSEA, 06/04/16) NAUSEA Tramadol (Verified Adverse Reaction, Unknown, DEPRESSION, 06/04/16) DEPRESSION Medications Current Inpatient Medications Medications (Trade) Dose Ordered Sig/Ayaka Route Start Time Stop Time Status Last Admin Dose Admin Acetaminophen (Tylenol Tab) 650 mg Q4H PRN PO 06/04/16 13:15 07/04/16 13:14 06/14/16 11:38 650 MG Ondansetron HCl (Zofran Inj) 4 mg Q6H PRN IV 06/04/16 13:15 07/04/16 13:14 06/13/16 03:06 4 MG Nitroglycerin (Nitrostat Tab) 0.4 mg UD PRN SL 06/04/16 13:15 07/04/16 13:14 Alprazolam (Xanax Tab) 0.5 mg Q4H PRN JT 06/04/16 13:15 07/04/16 13:14 06/14/16 23:18 0.5 MG Calcium Acetate (Phoslo Cap) 1,334 mg QDB PO 06/05/16 07:30 07/05/16 07:59 06/15/16 07:44 1,334 MG Calcium Acetate (Phoslo Cap) 2,001 mg TID PRN PO 06/04/16 13:15 07/04/16 13:14 Calcium Acetate (Phoslo Cap) 2,001 mg 1130,1645 PO 06/04/16 19:00 07/04/16 18:59 06/14/16 16:23 2,001 MG Citalopram Hydrobromide (celeXA TAB) 20 mg QAM JT 06/05/16 09:00 07/05/16 08:59 06/15/16 07:44 20 MG Furosemide (Lasix Tab) 80 mg MoWeFr@0900 PO 06/05/16 09:00 07/05/16 08:59 06/15/16 07:46 80 MG Hydromorphone HCl (Dilaudid Tab) 8 mg Q4 PRN JT 06/04/16 13:15 06/18/16 13:14 06/14/16 23:18 8 MG Mycophenolate Mofetil (Cellcept Susp) 500 mg QAM JT 06/05/16 09:00 07/05/16 08:59 06/15/16 07:47 500 MG Lansoprazole (Prevacid Solutab) 30 mg BID NG 06/04/16 21:00 07/04/16 20:59 06/15/16 07:46 30 MG Simvastatin (Zocor Tab) 10 mg HS JT 06/04/16 21:00 07/04/16 20:59 06/14/16 22:07 10 MG Triamcinolone Acetonide (Nasacort Allergy 24hr) 2 sprays DAILY PRN AMRIT 06/04/16 13:15 07/04/16 13:14 Calcitriol (Rocaltrol Cap) 0.25 mcg QAM JT 06/05/16 09:00 07/05/16 08:59 06/15/16 07:45 0.25 MCG Miscellaneous Information (Order Awaiting Action) 1 ea QS N/A 06/04/16 16:00 07/04/16 15:59 Tacrolimus (Prograf Cap) 6 mg HS JT 06/04/16 21:00 07/04/16 20:59 06/14/16 22:06 6 MG Tacrolimus (Prograf Cap) 8 mg QAM JT 06/05/16 09:00 07/05/16 08:59 06/15/16 08:07 8 MG Ranitidine HCl (zANTac TAB) 300 mg BID PO 06/04/16 21:00 07/04/16 20:59 06/15/16 07:44 300 MG Heparin Sodium (Porcine) (Heparin 100 Unit/ml 5ml Flush) 5 ml PRN PRN IV 06/05/16 03:15 07/05/16 03:14 06/15/16 05:12 5 ML Docusate Sodium (coLACE CAP) 100 mg BID PO 06/06/16 21:00 07/06/16 20:59 06/15/16 07:44 100 MG Polyethylene (Miralax Powder Packet) 17 gm DAILY PO 06/07/16 09:00 07/07/16 08:59 06/15/16 07:47 17 GM Lisinopril (Zestril Tab) 20 mg QAM PO 06/12/16 08:00 07/12/16 07:59 06/15/16 07:44 20 MG Miscellaneous (Soap Suds Enema) 1 ea DAILY PRN DE 06/14/16 14:00 07/14/16 13:59 Metoprolol Tartrate (Lopressor Tab) 100 mg BID JT 06/14/16 20:00 07/14/16 19:59 06/15/16 07:46 100 MG Impression (1) ESRD (end stage renal disease) on dialysis (2) Diabetes mellitus type 1 (3) 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 Medical history is notable for DM 1 for which she underwent pancreas transplant at [facility]. She was admitted for evaluation of lethargy. Patient reports progressive weakness. No acute cardiac etiology identified. Infectious evaluation has been negative. There are several potential contributing medications include the regular use of hydromorphone. Recommendations ESRD: -- Volume status and electrolyte balance are acceptable this morning. No acute indication for HD at this time. -- Will provide inpatient HD tomorrow am. If patient is transferred to [facility] today then she will resume outpatient HD at the [facility] HD unit -- Renal diet PANCREAS TRANSPLANT: -- Continue current immunosuppressive regimen ANEMIA: -- H&H trending up. Will monitor. OTHER: -- Await transfer to [facility] for ongoing physical therapy
[2016-06-15] MEDS: ALPRAZOLAM 0.5 MG TAB JT PRN (09:50)
[2016-06-15 14:21] VITALS: BP 167/92; PULSE 71; TEMP 36.7; O2SAT 97
[2016-06-15] MEDS ORDERED: ALPR-411 JT (14:43)
[2016-06-15] MEDS ORDERED: ZINC40OI13 TOP (14:43)
[2016-06-15] MEDS ORDERED: HYDR8TAB29 JT (14:43)
[2016-06-15] MEDS ORDERED: LSN20 PO (14:43)
[2016-06-15] MEDS ORDERED: MRLP17 PO (14:43)
--- NOTE | 2016-06-15 14:45 | Discharge Instructions ---
Discharge Instructions Admission Admission Date: Jun 04, 2016 at 13:12 Admission Diagnosis: Syncope. Discharge Care Plan - Problem: Medical Problems: (1) Episode of syncope (2) GI bleed Care Plan - Goal(s): Improve function Care Plan - Instructions: Activity Recommendations: no limitations Recommended Home Diet: 2000 Arthur Wt Reduction, Renal, Soft Low Fiber VTE Core Measure Inpt VTE Proph given/why not?: Unfractionated heparin SQ Follow Up Follow-Up: Follow up with gastro entrologist in 1-2 weeks for PEG tube malfunction Aly Harper Recommendations: Call your doctor if: * Temperature above 101 degrees * Pain not relieved by pain medicine ordered * There is increased drainage or redness from any incision * You have any unanswered questions or concerns. Your Doctors Instructions noted above were prepared by provider Primo Chang.
--- NOTE | 2016-06-15 15:00 | Discharge Summary ---
Discharge Summary Date of Service June 15, 2016. Discharge Summary Admission Date: Jun 04, 2016 at 13:12 Discharge Date: June 15, 2016 Discharge Disposition: assisted facility Principal Diagnosis: SYNCOPE/WEAKNESS Problems/Secondary Diagnoses: (1) Chronic pain syndrome Status: Chronic (2) Depression with anxiety Status: Chronic (3) Dyslipidemia Status: Chronic (4) End stage renal disease on dialysis Status: Chronic (5) GERD (gastroesophageal reflux disease) Status: Chronic (6) HTN (hypertension) Status: Chronic (7) Narcotic dependence Status: Chronic (8) Osteoporosis Status: Chronic Immunizations: Have You Had Influenza Vaccine: Yes Influenza Vaccine Date: Nov 20, 2011 History of Tetanus Vaccine?: Yes Tetanus Immunization Date: June 21, 2004 History of Pneumococcal: Yes Pneumococcal Date: June 20, 1999 History of Hepatitis B Vaccine: Yes Hepatitis Immunization Date: Apr 10, 2003 Discharge Exam Review of Systems: Constitutional: No chills, No fatigue, No fever, No problem reported, No sweats, No weakness, No weight loss Eyes: No diplopia, No discharge, No eye pain, No problem reported, No redness, No worsening of vision ENT: No dental problems, No hearing loss, No nasal symptoms, No problem reported, No sore throat, No tinnitus, No trouble swallowing, No unusual epistaxis Respiratory: No cough, No dyspnea at rest, No dyspnea on exertion, No hemoptysis, No problem reported, No shortness of breath, No sputum, No wheezing Cardiovascular: No PND, No chest pain, No claudication, No edema, No orthopnea, No palpitations, No problem reported Abdomen: No GI bleeding, No constipation, No diarrhea, No nausea, No pain, No problem reported, No vomiting Musculoskeletal: No calf pain, No joint pain, No muscle pain, No problem reported, No swelling Neurologic: No balance problems, No memory loss, No numbness/tingling, No paralysis, No problem reported, No vertigo, No weakness Psychiatric: No anhedonism, No anxiety, No depression symptoms, No insomnia , No problem reported, No substance abuse Hematologic / Lymphatic: No abnormal bleeding/bruising, No clotting problems , No night sweats, No problem reported, No swollen lymph nodes Integumentary: + rash Physical Exam: General Appearance: no apparent distress Eyes: normal inspection, EOMI ENT: normal ENT inspection, hearing grossly normal Neck: supple Respiratory/Chest: chest non-tender, lungs clear, normal breath sounds, no respiratory distress, no accessory muscle use Cardiovascular: regular rate, rhythm, no edema, no gallop, no JVD, no murmur Abdomen / GI: normal bowel sounds, non tender, soft, + pertinent finding ( excuriation and inflammation of skin at the PEG tube inserion site) Extremities: normal inspection, no calf tenderness, normal capillary refill 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 Hollis, while inpatient she Continued hemodialysis Wednesday/ /Wednesday restarted blood pressure meds cleared for discharge today Total Time Spent: Greater than 30 minutes This includes examination of the patient, discharge planning, medication reconciliation, and communication with other providers. Discharge Instructions Please refer to the electronic Patient Visit Report (Discharge Instructions) for additional information.
[2016-06-16] MEDS ORDERED: EPOETIN ALFA 10,000 UNITS/ML VIAL IV. ONE (06:00)
[2016-06-16] MEDS ORDERED: EPOETIN ALFA INJ 5,000 UNITS in SYRINGE 0 ML IV. SCH (08:00)
--- NOTE | 2016-06-17 07:49 | EDITING REQUIRED CODING QUERY ---
CODING QUERY To promote full compliance with coding requirements relating to patient care, provider participation is requested in all cases of academic program specialist uncertainty. Please assist us with the question(s) below: Coding Question(s): Patient admitted with syncope, etiology unclear on admission. Pt had missed 2 days of dialysis treatments before admission. Please document , if known or suspected, the etiology of the syncope. Thanks for your help! Connor Lazaro PERINATAL SPECIALIST [facility] Physician's Response(s): Primary diagnosis is syncope likely secondary to dehydration and vasovagal response Principal Diagnosis: "_that condition established after study, to be chiefly responsible for occasioning the admission of the patient to the hospital for care." Co-Existing Principal Diagnosis: "_when two or more diagnoses equally meet the criteria for principal diagnosis as determined by the circumstances of admission, diagnostic work up, and/or therapy provided, and the Alphabetic Index, Tabular List, or another coding guideline does not provide sequencing direction, any one of the diagnoses may be sequenced first." "When the physician has documented what appears to be a current diagnosis in the body of the record, but has not included the diagnosis in the final diagnostic statement, the physician should be asked whether the diagnosis should be added." (Source Coding Clinic 2 QTR90. p3-4)
[2016-07-22] MEDS ORDERED: [UNRECOGNIZED DRUG - CODE] PO (08:44)
== END 2016-06-15 15:15 | DRG 640 ==
LOC: ENRESERVDT → ENRESERVTM → EDBD 09:41 → C.EDB 09:42 → C.2T 13:12 → EDBEDREQ 06-08 13:44 → C.MS4W 06-08 16:15
PROVIDERS: ADMIT Internal Medicine; ATTEND Internal Medicine
PROC: 5A1D60Z (ICD-10-PCS; principal; 2016-06-04)
DX: E86.0 Dehydration (principal); N18.6 End stage renal disease; K92.2 Gastrointestinal hemorrhage, unspecified; Z94.83 Pancreas transplant status; I12.0 Hypertensive chronic kidney disease with stage 5 chronic kidney disease or end stage renal disease; F11.20 Opioid dependence, uncomplicated; Z99.2 Dependence on renal dialysis; G89.4 Chronic pain syndrome; E10.21 Type 1 diabetes mellitus with diabetic nephropathy; E78.5 Hyperlipidemia, unspecified; R55 Syncope and collapse; E10.43 Type 1 diabetes mellitus with diabetic autonomic (poly)neuropathy; K21.9 Gastro-esophageal reflux disease without esophagitis; Z93.4 Other artificial openings of gastrointestinal tract status; Z96.649 Presence of unspecified artificial hip joint; M41.9 Scoliosis, unspecified; Z88.0 Allergy status to penicillin; D69.6 Thrombocytopenia, unspecified; I27.2 Other secondary pulmonary hypertension; K59.00 Constipation, unspecified

== ENCOUNTER 2016-08-05 12:47 | Inpatient (IN) | payer BC, OTHER ==
[~2016-08-05] VITALS: Ht 152.4 cm; Wt 57.1 kg
[2016-08-05] VITALS (23 sets, daily range): BP systolic 124–177; BP diastolic 77–98; PULSE 70–76; TEMP 36.7–37.2; O2SAT 81–93; Ht 152.4 cm; Wt 57.1 kg
[~2016-08-05 12:47] MED LIST changes: -DOCU-94 JT; +MYCO200S JT; -MYCO500T4 JT; -PROGRAFT PO; +SPTL JT; -SULF1SUS4 JT; +ZINC40OI11 TOP; +[UNRECOGNIZED DRUG - CODE] PO
[2016-08-05] MEDS ORDERED: ASPIRIN 81 MG CHEW PO STA (12:57)
[2016-08-05] MEDS ORDERED: NITROGLYCERIN 0.4 MG SL PER TAB CHARGE SL PRN ×2 (13:00→16:15)
[2016-08-05 13:35] LABS: BASO % 0.2 %; BASO ABS # 0.02 K/uL (0-0.2); COMPLETE YES; EOS % 1.3 %; HEMATOCRIT 43.2 % (37-47); IG% 0.1 %; LYMPH % 5.8 %; MEAN CELL VOLUME 105.6 fL (80-100); MEAN CORPUSCULAR HEMOGLOBIN 31.1 pg (25-34); MEAN CORPUSCULAR HGB CONC 29.4 g/dl (32-36); MEAN PLATELET VOLUME 11.4 fL (7.4-10.4); MONO % 12.5 %; NEUT % 80.1 %; PLATELET COUNT 136 K/uL (130-400); RED BLOOD COUNT 4.09 M/uL (4.2-5.4); WHITE BLOOD COUNT 10.39 K/uL (4.8-10.8)
[2016-08-05 14:06] LABS: BLOOD UREA NITROGEN 80 mg/dl (7-18); CALCIUM 8.8 mg/dl (8.5-10.1); CARBON DIOXIDE 28 mmol/L (21-32); CHLORIDE 99 mmol/L (98-107); CKMB/CK RATIO 3.3 (0-3.0); GLUCOSE 171 mg/dl (70-99); POTASSIUM 4.3 mmol/L (3.5-5.1); SODIUM 138 mmol/L (136-145)
[2016-08-05] MEDS ORDERED: PANT40TA PO (14:33)
[2016-08-05] MEDS ORDERED: HYDR4TAB78 PO (14:33)
[2016-08-05] MEDS ORDERED: METO50TA7 PO (14:33)
[2016-08-05] MEDS ORDERED: [UNRECOGNIZED DRUG - CODE] PO (14:33)
[2016-08-05] MEDS ORDERED: CINA60TA PO (14:33)
[2016-08-05] MEDS ORDERED: DOCU-94 PO (14:33)
[2016-08-05] MEDS ORDERED: B COCAP3 (14:33)
--- NOTE | 2016-08-05 14:45 | DIAGNOSTIC IMAGING REPORT ---
CT ANGIOGRAM OF THE CHEST CLINICAL HISTORY: Atypical chest pain. Dyspnea. COMPARISON STUDY: Chest x-ray dated 08/05/2016. Chest CT dated 09/30/2013. TECHNIQUE: Following the IV administration of 72 cc of Optiray 320, CT angiogram of the chest was performed from the upper abdomen to the thoracic inlet utilizing the pulmonary embolus protocol. Images are reviewed in the axial, sagittal, and coronal planes. 3-D MIPS images are created and assessed. IV contrast was administered without complication. The examination is significantly degraded by motion artifact, as well as by streak artifact from the patient's arms which could not be elevated above the chest. CT DOSE: 231.67 mGy.cm FINDINGS: Thyroid: Imaged portions of the thyroid gland are normal in size and attenuation. Subcentimeter low-attenuation thyroid nodules are seen bilaterally. Thoracic aorta: The thoracic aorta is normal in caliber and demonstrates standard 3-vessel arch anatomy. No dissection is seen. A left internal jugular central venous infusion port is in place. A dialysis fistula is questioned in the left upper extremity. Pulmonary vasculature: The pulmonary trunk is dilated, measuring 3.2 cm in transverse diameter. This suggests pulmonary artery hypertension. There are no filling defects identified in main, lobar, or segmental pulmonary branches to suggest pulmonary embolus. Heart: The heart is markedly enlarged and there is a small pericardial effusion. The coronary arteries are densely calcified. Reflux of contrast into the IVC and hepatic veins suggests cardiac dysfunction. Lungs and pleural spaces: There are moderate left greater than right pleural effusions with associated bibasilar consolidation. Diffuse intralobular septal thickening is noted and there is multifocal groundglass change. Apical scarring is observed. No pneumothorax is seen. The trachea and central airways are patent. Mediastinum: There are mildly enlarged mediastinal lymph nodes. A pretracheal node on image #165 measures 1.4 cm in short axis. Symone: Clear. Axillae: There is no axillary lymphadenopathy. Upper abdomen: Partially visualized upper abdominal viscera is within normal limits. A catheter is noted in the left upper quadrant of the abdomen. Skeletal structures: The skeletal structures are osteopenic. Degenerative change and scoliosis are noted in the thoracic spine. There are moderate compression deformities of T10 and T11. No lytic or blastic bony lesions are clearly seen. There is a bifid right anterior lower rib. IMPRESSION: 1. Significantly streak and motion artifact degraded examination. 2. There is no evidence of pulmonary embolus in the main, lobar, or segmental pulmonary arteries. 3. Cardiomegaly with evidence of pulmonary artery hypertension and congestive failure. 4. Diffuse groundglass change likely represents interstitial edema. Correlate clinically for evidence of superimposed pneumonia or pulmonary hemorrhage. 5. Moderate pleural effusions with bibasilar consolidation. 6. Mildly enlarged mediastinal lymph nodes are nonspecific and may be on a reactive basis. 7. Additional changes as above. Electronically signed by: Brandon Madden M.D. 08/05/2016 2:44 PM Dictated Date/Time: 08/05/2016 2:37 PM
--- NOTE | 2016-08-05 14:47 | DIAGNOSTIC IMAGING REPORT ---
SINGLE VIEW CHEST CLINICAL HISTORY: Dyspnea. Atypical chest pain. FINDINGS: An AP, portable, upright chest radiograph is compared to study dated 06/04/2016. The examination is significantly degraded by portable technique and patient rotation. A left internal jugular central venous infusion port is unchanged in position. The heart is enlarged and there is atherosclerotic calcification of the thoracic order. There is pulmonary vascular congestion and interstitial edema. There are layering pleural effusions with bibasilar consolidation. No pneumothorax is seen. The skeletal structures are osteopenic. Degenerative change and scoliosis are noted in the thoracic spine. IMPRESSION: 1. Cardiomegaly with evidence of congestive failure and interstitial edema. 2. Layering pleural effusions with bibasilar consolidation. This likely represents atelectasis. Clinical correlation will be required. Electronically signed by: Brandon Madden M.D. 08/05/2016 2:46 PM Dictated Date/Time: 08/05/2016 2:45 PM
--- NOTE | 2016-08-05 15:17 | DIAGNOSTIC IMAGING REPORT ---
RIGHT SHOULDER MIN 2 VIEWS ROUTINE CLINICAL HISTORY: r shoulder pain Right COMPARISON: None. DISCUSSION: Generalized degenerative change. No acute bony abnormality. Diffuse parenchymal fibrotic change. There is no evidence for soft tissue swelling. IMPRESSION: Degenerative change. No acute process. Electronically signed by: Jose F Hutchins M.D. 08/05/2016 3:15 PM Dictated Date/Time: 08/05/2016 3:12 PM
[2016-08-05 15:34] LABS: VEN BLD GAS O2 SATURATION 65.2 %; VEN BLOOD GAS BASE EXCESS -0.7 mmol/L
[2016-08-05] MEDS ORDERED: TRIAMCINOLONE ACET NASAL SPRAY 10.8ML BTL NAE PRN (15:45)
[2016-08-05] MEDS ORDERED: CALCIUM ACETATE 667MG GELCAP PO PRN (16:00)
[2016-08-05] MEDS ORDERED: ONDANSETRON INJ 2 MG/ML 2 ML VIAL IV PRN (16:15)
[2016-08-05] MEDS ORDERED: MAGNESIUM HYDROXIDE SUSP 30 ML UDC PO PRN (16:15)
[2016-08-05] MEDS ORDERED: MoRPHine SULFATE 2 MG/ML CARP IV PRN (16:15)
--- NOTE | 2016-08-05 16:19 | History and Physical ---
History & Physical Date & Time of Service: Aug 05, 2016 at 16:12 Chief Complaint: Shoulder Pain Primary Care Physician: Pedro Pablo Hollis M.D. History of Present Illness 66-year-old chronically ill female who presents with pleuritic chest pain and shoulder pain. The patient has had both of these issues before but today she felt they were worse. The patient stated just moving in bed she felt a pop in her shoulder and then developed chest pain which was sharp in nature which radiated to her central chest and was worse with a deep breath. The patient is a chronic dialysis patient who missed her dialysis treatment on the . The patient in the emergency department was found to be hypoxic on room air (she usually only wears oxygen at night), a CT angiogram was performed to rule out pulmonary embolism which was ruled out however she was found to be with pulmonary edema likely from diastolic heart failure and skipping her dialysis treatments. There were no elevation of her biomarkers regarding her chest pain nor were there any EKG changes consistent with pericarditis or ischemic or infarction. The patient is benign unit overnight serial cardiac enzymes drawn and dialysis will be performed on the Currently the patient has a resolution of her discomfort Past Medical/Surgical History Medical Problems: (1) Chest wall pain Status: Resolved (2) Chronic pain syndrome Status: Chronic (3) Depression with anxiety Status: Chronic (4) Diabetes Status: Chronic (5) Drop foot gait Status: Chronic (6) Dyslipidemia Status: Chronic (7) End stage kidney disease Status: Chronic (8) End stage renal disease on dialysis Status: Chronic (9) Fall Status: Resolved (10) Gastroparesis Status: Chronic (11) GERD (gastroesophageal reflux disease) Status: Chronic (12) HTN (hypertension) Status: Chronic (13) Intractable back pain Status: Resolved (14) Jejunostomy tube present Status: Chronic (15) Narcotic dependence Status: Chronic (16) Osteoporosis Status: Chronic (17) Port-a-cath in place Status: Resolved Surgical Problems: (1) H/O pancreas transplant Status: Chronic (2) H/O total hip arthroplasty Status: Chronic Family History Cancer Heart disease Social History Smoking Status: Never Smoker Drug Use: none Marital Status: Housing status: lives with family Occupational Status: retired Immunizations History of Influenza Vaccine: Yes Influenza Vaccine Date: Nov 20, 2011 History of Tetanus Vaccine?: Yes Tetanus Immunization Date: June 21, 2004 History of Pneumococcal: Yes Pneumococcal Date: June 20, 1999 History of Hepatitis B Vaccine: Yes Hepatitis Immunization Date: Apr 10, 2003 Multi-Drug Resistant Organisms History of MDRO: No Allergies Coded Allergies: Penicillins (Verified Allergy, Intermediate, RASH, 08/05/16) Erythromycin (Verified Allergy, Mild, RASH, 08/05/16) Acetaminophen (Unverified Allergy, Unknown, ., 08/05/16) Surgical Lubricant (Verified Allergy, Unknown, ITCHY, 08/05/16) Carbamazepine (Verified Adverse Reaction, Severe, TOXIC BLOOD POISONING, ) TOXIC BLOOD POISONING Metoclopramide (Verified Adverse Reaction, Severe, SEIZURES, 08/05/16) SEIZURES Corticosteroids (Verified Adverse Reaction, Intermediate, NAUSEA, 08/05/16) PATIENT STATES ON ALLERGY SHEET "ABSOLUTELY NONE" Dicyclomine (Verified Adverse Reaction, Intermediate, HALLUCINATIONS, 08/05) HALLUCINATIONS Ketorolac (Verified Adverse Reaction, Intermediate, NAUSEATED, 08/05/16) Pregabalin (Verified Adverse Reaction, Intermediate, CONFUSION, 08/05/16) Quinolones (Verified Adverse Reaction, Intermediate, LEVAQUIN-NAUSEA, CHRONIC HEARTBURN, 08/05/16) levaquin =NAUSEA, CHRONIC HEARTBURN. PT SAID SHE WILL NOT TAKE 12/06/08 Azithromycin (Verified Adverse Reaction, Mild, n&v, 08/05/16) Cephalexin (Verified Adverse Reaction, Mild, NAUSEA, 08/05/16) Cephalosporins (Verified Adverse Reaction, Mild, KEFLEX = NAUSEA, 08/05/16) Codeine (Verified Adverse Reaction, Mild, NAUSEA, 08/05/16) Gabapentin (Verified Adverse Reaction, Mild, NAUSEA, 08/05/16) NAUSEA Levofloxacin (Verified Adverse Reaction, Mild, NAUSEA, 08/05/16) Naproxen (Verified Adverse Reaction, Mild, NAUSEA, 08/05/16) Nitrofurantoin (Verified Adverse Reaction, Mild, NAUSEA, 08/05/16) Oxycodone (Verified Adverse Reaction, Mild, PRC/TYLOX = NAUSEA, 08/05/16) NAUSEA Phenobarbital (Verified Adverse Reaction, Mild, NAUSEA, 08/05/16) Prednisolone (Verified Adverse Reaction, Mild, IRRITATION, 08/05/16) Promethazine (Verified Adverse Reaction, Mild, DIARRHEA, 08/05/16) Sertraline (Verified Adverse Reaction, Mild, NAUSEA, 08/05/16) Adhesives (Verified Adverse Reaction, Unknown, UNKNOWN, 08/05/16) Mirtazapine (Verified Adverse Reaction, Unknown, HEARS VOICES, 08/05/16) Propoxyphene (Verified Adverse Reaction, Unknown, NAUSEA, 08/05/16) NAUSEA Tramadol (Verified Adverse Reaction, Unknown, DEPRESSION, 08/05/16) DEPRESSION Home Medications Scheduled B Complex W/ C (Vitamin B Complex-C), 1 CAP DAILY Calcium Acetate (Phoslo 667 Mg), 2 CAP JT BREAKFAST Calcium Acetate (Phoslo 667 Mg), 3 CAP JT UD Calcium Acetate (Phoslo 667 Mg), 3 CAP JT SNACKS Cinecalcet (Sensipar), 30 MG JT QAM Cinecalcet (Sensipar), 60 MG PO DAILY Citalopram Hydrobromide (Celexa), 20 MG JT QAM Furosemide (Lasix), 80 MG JT BID Metoprolol Succ (Toprol Xl) (Toprol-Xl), 50 MG PO BID Metoprolol Tartrate (Lopressor) (Lopressor), 100 MG JT BID Mycophenolate Mofetil (Cellcept), 500 MG JT QAM Nutritional Supplements (Nutren 2.0), 2 DOSE GJT DAILY Pantoprazole (Protonix), 40 MG PO BID Ranitidine (Zantac), 300 MG JT BID Simvastatin (Zocor), 10 MG JT HS Tacrolimus (Prograf), 6 ML PO QPM Tacrolimus (Prograf), 8 MG PO QAM Trimethoprim/Sulfamethoxazole Susp (Bactrim 200/40MG 5ML), 2.5 ML JT MoWeFr Scheduled PRN Alprazolam (Xanax), 0.5 MG JT Q4H PRN for Anxiety Docusate Sodium (Colace), 100 MG PO BID PRN for Constipation Hydromorphone Hcl (Dilaudid), 8 MG PO Q4H PRN for Pain Triamcinolone Acetonide (Nasal (Nasacort Allergy 24Hr), 2 SPRAY AMRIT DAILY PRN for CONGSTION Review of Systems ROS: Chronically ill-appearing No facial trauma she's had history of the same PERRL EOMI Sclera normal Neck JVD, no adenopathy, trachea midline Car is regular without murmur Lungs are clear no focal air loss, no cough, the pain is reproduced with deep breaths Abd is soft non tender normal bowel sounds, her G-tube site is irritated and erythematous with a dark brown drainage crusting around the tube Extremity, no edema no cyanosis, she has plantar corns present and poor nail hygiene Skin she is evidence of chronic venous stasis changes Neuro Alert and oriented X3 no focal loss of strength or sensation upper or lower extremity Psyche no anxiety or depression Physical Exam Vital Signs Date Time Temp Pulse Resp B/P (MAP) Pulse Ox O2 Delivery O2 Flow Rate FiO2 08/05/16 13:28 97 Nasal Cannula 4.0 08/05/16 13:27 50 Room Air 08/05/16 13:24 36.7 79 16 175/107 50 Room Air 08/05/16 13:04 78 General Appearance: + mild distress, + thin Head: normocephalic, atraumatic Eyes: PERRL, EOMI ENT: hearing grossly normal, pharynx normal Neck: supple, trachea midline Respiratory/Chest: + decreased breath sounds, + accessory muscle use Cardiovascular: regular rate, rhythm, + systolic murmur Abdomen/GI: normal bowel sounds, non tender, soft, + pertinent finding (G-tube present central abdomen with irritated skin surrounding it and crusting dark discharge) Back: + pertinent finding (this patient has scoliosis and has some minor skin irritation along her back there is no palpable pain) Extremities/Musculoskelatal: no pedal edema, + pertinent finding Neurologic/Psych: alert (she has some distal changes of skin consistent with venous stasis and she has corns on the plantar aspect of both feet), oriented x 3 Skin: normal color, warm/dry, no rash Diagnostics Laboratory Results Results Past 24 Hours Test 08/05/16 12:56 08/05/16 13:12 08/05/16 15:26 Range/Units Bedside Glucose 157 70-90 mg/dl White Blood Count 10.39 4.8-10.8 K/uL Red Blood Count 4.09 4.2-5.4 M/uL Hemoglobin 12.7 12.0-16.0 g/dL Hematocrit 43.2 37-47 % Mean Corpuscular Volume 105.6 80-100 fL Mean Corpuscular Hemoglobin 31.1 25-34 pg Mean Corpuscular Hemoglobin Concent 29.4 32-36 g/dl Platelet Count 136 130-400 K/uL Mean Platelet Volume 11.4 7.4-10.4 fL Neutrophils (%) (Auto) 80.1 % Lymphocytes (%) (Auto) 5.8 % Monocytes (%) (Auto) 12.5 % Eosinophils (%) (Auto) 1.3 % Basophils (%) (Auto) 0.2 % Neutrophils # (Auto) 8.33 1.4-6.5 K/uL Lymphocytes # (Auto) 0.60 1.2-3.4 K/uL Monocytes # (Auto) 1.30 0.11-0.59 K/uL Eosinophils # (Auto) 0.13 0-0.5 K/uL Basophils # (Auto) 0.02 0-0.2 K/uL RDW Standard Deviation 54.1 36.4-46.3 fL RDW Coefficient of Variation 14.1 11.5-14.5 % Immature Granulocyte % (Auto) 0.1 % Immature Granulocyte # (Auto) 0.01 0.00-0.02 K/uL D-Dimer 1400 0-500 ug/L FEU Sodium Level 138 136-145 mmol/L Potassium Level 4.3 3.5-5.1 mmol/L Chloride Level 99 98-107 mmol/L Carbon Dioxide Level 28 21-32 mmol/L Anion Gap 11.0 3-11 mmol/L Blood Urea Nitrogen 80 7-18 mg/dl Creatinine 8.00 0.60-1.20 mg/dl Est Creatinine Clear Calc Drug Dose 5.3 ml/min Estimated GFR () 5.4 Estimated GFR (Non- 4.7 BUN/Creatinine Ratio 10.0 10-20 Random Glucose 171 70-99 mg/dl Calcium Level 8.8 8.5-10.1 mg/dl Total Creatine Kinase 51 26-192 U/L Creatine Kinase MB 1.7 0.5-3.6 ng/ml Creatine Kinase MB Ratio 3.3 0-3.0 Troponin I < 0.015 0-0.045 ng/ml Venous Blood pH 7.31 7.36-7.41 Venous Blood Partial Pressure CO2 53 38.0-50.0 mmHg Venous Blood Partial Pressure O2 36 mmHg Venous Blood HCO3 26 mmol/L Venous Blood Oxygen Saturation 65.2 % Venous Blood Base Excess -0.7 mmol/L Diagnostic Radiology CT angiogram shows no pulmonary embolism other (chest x-ray and CTA are consistent with volume overload there is an implanted Port-A-Cath visible) Normal EKG Impression Assessment and Plan 58-year-old female with chronic end-stage renal disease on dialysis who missed her dialysis treatment. Chest with pleuritic chest pain. The patient in the telemetry unit with serial cardiac enzymes. She'll echocardiogram in May 2016 which showed an EF of 50-60% with diastolic 75 to moderate mitral regurgitation. The acute hepatic respiratory failure is likely based on diastolic heart failure from volume overload of renal failure and diastolic dysfunction will maintain her on Lasix therapy with urgent dialysis being performed in with Dr. howe and Dr. Arzate's oversight Regarding her pancreatic transplant will maintain her antidepressant medications with tacrolimus and Prograf will continue her renal failure medications of Sensipar and PhosLo Regarding her diabetes this is been controlled since her pancreatic transplant follow-up glucoses on his serologic labs in the morning DVT prevention be renal dosed heparin This patient is a full code Advanced Directives Existing Living Will: No Existing Power of Pneumatic Press Hand: No VTE Prophylaxis VTE Risk Assessment Done? Y/N: Yes Risk Level: Moderate Given or contraindicated: Unfractionated heparin SQ
--- NOTE | 2016-08-05 18:10 | Nephrology Consultation ---
Nephrology Consultation Date & Providers Date of Consultation: Aug 05, 2016. Primary Care Provider: Pedro Pablo Hollis M.D. Referring Provider: Reason for Consultation Evaluation and management for end-stage renal disease on hemodialysis. History of Present Illness Suni Guillen is a 66 year old female with PMH significant for ESRD on HD T,T, S at [facility] admitted with frequent fall. Nephrology consult was requested for management of hemodialysis and immunosuppression. Electronic medical record including labs and imaging personally reviewed. uSni presented to the ED as she has been having right shoulder pain and chest pain. Right shoulder x-ray in the ED showed no fracture or other acute finding. Initial troponin was negative. She has no history of coronary artery disease, has normal ejection fraction. EKG was otherwise unremarkable. She had CTA which was negative for pulmonary embolism but has pulmonary congestion. Currently her short of breath improved and chest pain resolved. she uses nasal cannula oxygen 2 L chronically. She missed her dialysis yesterday. 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 Suni has long-standing history of diabetes complicated by diabetic nephropathy , neuropathy and gastroparesis. Her end-stage renal disease is secondary to diabetic nephropathy and has been on hemodialysis since August 2010 via a left brachiocephalic AV fistula. She is on dialysis Wednesday, , Wednesday at [facility] and she missed dialysis yesterday. She has gastroparesis and has a J-tube in place. Has history of pancreas transplant in 2003 for diabetes and on immunosuppression currently with tacrolimus and CellCept. She denies episode of fever or chills. No syncope, loss of consciousness, headache, dizziness or lightheadedness. Allergies Coded Allergies: Penicillins (Verified Allergy, Intermediate, RASH, 08/05/16) Erythromycin (Verified Allergy, Mild, RASH, 08/05/16) Acetaminophen (Unverified Allergy, Unknown, ., 08/05/16) Surgical Lubricant (Verified Allergy, Unknown, ITCHY, 08/05/16) Carbamazepine (Verified Adverse Reaction, Severe, TOXIC BLOOD POISONING, ) TOXIC BLOOD POISONING Metoclopramide (Verified Adverse Reaction, Severe, SEIZURES, 08/05/16) SEIZURES Corticosteroids (Verified Adverse Reaction, Intermediate, NAUSEA, 08/05/16) PATIENT STATES ON ALLERGY SHEET "ABSOLUTELY NONE" Dicyclomine (Verified Adverse Reaction, Intermediate, HALLUCINATIONS, 08/05) HALLUCINATIONS Ketorolac (Verified Adverse Reaction, Intermediate, NAUSEATED, 08/05/16) Pregabalin (Verified Adverse Reaction, Intermediate, CONFUSION, 08/05/16) Quinolones (Verified Adverse Reaction, Intermediate, LEVAQUIN-NAUSEA, CHRONIC HEARTBURN, 08/05/16) levaquin =NAUSEA, CHRONIC HEARTBURN. PT SAID SHE WILL NOT TAKE 12/06/08 Azithromycin (Verified Adverse Reaction, Mild, n&v, 08/05/16) Cephalexin (Verified Adverse Reaction, Mild, NAUSEA, 08/05/16) Cephalosporins (Verified Adverse Reaction, Mild, KEFLEX = NAUSEA, 08/05/16) Codeine (Verified Adverse Reaction, Mild, NAUSEA, 08/05/16) Gabapentin (Verified Adverse Reaction, Mild, NAUSEA, 08/05/16) NAUSEA Levofloxacin (Verified Adverse Reaction, Mild, NAUSEA, 08/05/16) Naproxen (Verified Adverse Reaction, Mild, NAUSEA, 08/05/16) Nitrofurantoin (Verified Adverse Reaction, Mild, NAUSEA, 08/05/16) Oxycodone (Verified Adverse Reaction, Mild, PRC/TYLOX = NAUSEA, 08/05/16) NAUSEA Phenobarbital (Verified Adverse Reaction, Mild, NAUSEA, 08/05/16) Prednisolone (Verified Adverse Reaction, Mild, IRRITATION, 08/05/16) Promethazine (Verified Adverse Reaction, Mild, DIARRHEA, 08/05/16) Sertraline (Verified Adverse Reaction, Mild, NAUSEA, 08/05/16) Adhesives (Verified Adverse Reaction, Unknown, UNKNOWN, 08/05/16) Mirtazapine (Verified Adverse Reaction, Unknown, HEARS VOICES, 08/05/16) Propoxyphene (Verified Adverse Reaction, Unknown, NAUSEA, 08/05/16) NAUSEA Tramadol (Verified Adverse Reaction, Unknown, DEPRESSION, 08/05/16) DEPRESSION Inpatient Medications Current Inpatient Medications Medications (Trade) Dose Ordered Sig/Ayaka Route Start Time Stop Time Status Last Admin Dose Admin Alprazolam (Xanax Tab) 0.5 mg Q4H PRN JT 08/05/16 15:45 09/04/16 15:44 Calcium Acetate (Phoslo Cap) 1,334 mg QDB PO 08/06/16 08:00 09/05/16 07:59 Calcium Acetate (Phoslo Cap) 2,001 mg QDL PO 08/06/16 11:00 09/05/16 10:59 Citalopram Hydrobromide (celeXA TAB) 20 mg QAM JT 08/06/16 09:00 09/05/16 08:59 Docusate Sodium (coLACE SYRUP) 100 mg BID PRN PO 08/05/16 15:45 09/04/16 15:44 Furosemide (Lasix Tab) 80 mg BID17 PO 08/05/16 21:00 09/04/16 20:59 Hydromorphone HCl (Dilaudid Tab) 8 mg Q4H PRN PO 08/05/16 15:45 08/19/16 15:44 UNV Metoprolol Succinate (Toprol Xl Tab) 50 mg BID PO 08/05/16 21:00 09/04/16 20:59 UNV Metoprolol Tartrate (Lopressor Tab) 100 mg BID JT 08/05/16 21:00 09/04/16 20:59 UNV Mycophenolate Mofetil (Cellcept Susp) 500 mg QAM JT 08/06/16 09:00 09/05/16 08:59 Pantoprazole Sodium (Protonix Tab) 40 mg BID PO 08/05/16 21:00 09/04/16 20:59 Simvastatin (Zocor Tab) 10 mg HS JT 08/05/16 21:00 09/04/16 20:59 Triamcinolone Acetonide (Nasacort Allergy 24hr) 2 sprays DAILY PRN AMRIT 08/05/16 15:45 09/04/16 15:44 Vitamin B Complex (Vitamin B Complex) 1 tab DAILY PO 08/06/16 09:00 09/05/16 08:59 Non-Formulary Medication (Cinecalcet (Sensipar)) 30 mg QAM JT 08/06/16 09:00 09/05/16 08:59 UNV Non-Formulary Medication (Cinecalcet (Sensipar)) 60 mg DAILY PO 08/06/16 09:00 09/05/16 08:59 UNV Ranitidine HCl (zANTac SYRUP) 300 mg BID GT 08/05/16 21:00 09/04/16 20:59 Tacrolimus (Prograf Cap) 6 mg QPM PO 08/05/16 21:00 09/04/16 20:59 Tacrolimus (Prograf Cap) 8 mg QAM PO 08/06/16 09:00 09/05/16 08:59 Trimethoprim/ Sulfamethoxazole (Septra Susp) 2 ml MoWeFr@0900 PO 08/07/16 09:00 09/06/16 08:59 Calcium Acetate (Phoslo Cap) 667 mg UD PO 08/05/16 16:00 09/04/16 15:59 UNV Calcium Acetate (Phoslo Cap) 2,001 mg QDD PO 08/05/16 18:00 09/04/16 17:59 Family History Cancer Heart disease Social History Smoking Status: Never Smoker Drug Use: none Marital Status: Housing Status: lives with family Occupation: retired Review of Systems A complete review of systems was performed. Pertinent positives are noted above. All other systems are negative. Physical Exam Date Time Temp Pulse Resp B/P (MAP) Pulse Ox O2 Delivery O2 Flow Rate FiO2 08/05/16 15:22 90 Nasal Cannula 4.0 08/05/16 15:10 74 18 162/91 90 Room Air 08/05/16 13:28 97 Nasal Cannula 4.0 08/05/16 13:27 50 Room Air 08/05/16 13:24 36.7 79 16 175/107 50 Room Air 08/05/16 13:04 78 GENERAL: Middle-aged female, AAA x 3, chronically ill-appearing, not in any distress. HEENT: Atraumatic, normocephalic. NECK: Supple, no JVD, no carotid bruit appreciated. ENT: No sinus tenderness MOUTH and THROAT: Moist oral mucosa, no oral ulcer or pharyngeal erythema RESPIRATORY: Rales bilaterally CARDIOVASCULAR: S1, S2 normal, rate rhythm regular. ABDOMEN: Soft, nontender, positive bowel sound. J tube in place MUSCULOSKELETAL: No CVA tenderness. No joint swelling, erythema or tenderness. Normal range of motion. SKIN: No skin rash EXTREMITY: No lower extremity edema NEURO: No gross focal neurological deficit, speech fluent. PSYCHIATRY: Normal mood and judgment Laboratory Results Last 24 Hours Test 08/05/16 12:56 08/05/16 13:12 08/05/16 15:26 Bedside Glucose 157 mg/dl White Blood Count 10.39 K/uL Red Blood Count 4.09 M/uL Hemoglobin 12.7 g/dL Hematocrit 43.2 % Mean Corpuscular Volume 105.6 fL Mean Corpuscular Hemoglobin 31.1 pg Mean Corpuscular Hemoglobin Concent 29.4 g/dl Platelet Count 136 K/uL Mean Platelet Volume 11.4 fL Neutrophils (%) (Auto) 80.1 % Lymphocytes (%) (Auto) 5.8 % Monocytes (%) (Auto) 12.5 % Eosinophils (%) (Auto) 1.3 % Basophils (%) (Auto) 0.2 % Neutrophils # (Auto) 8.33 K/uL Lymphocytes # (Auto) 0.60 K/uL Monocytes # (Auto) 1.30 K/uL Eosinophils # (Auto) 0.13 K/uL Basophils # (Auto) 0.02 K/uL RDW Standard Deviation 54.1 fL RDW Coefficient of Variation 14.1 % Immature Granulocyte % (Auto) 0.1 % Immature Granulocyte # (Auto) 0.01 K/uL D-Dimer 1400 ug/L FEU Sodium Level 138 mmol/L Potassium Level 4.3 mmol/L Chloride Level 99 mmol/L Carbon Dioxide Level 28 mmol/L Anion Gap 11.0 mmol/L Blood Urea Nitrogen 80 mg/dl Creatinine 8.00 mg/dl Est Creatinine Clear Calc Drug Dose 5.3 ml/min Estimated GFR () 5.4 Estimated GFR (Non- 4.7 BUN/Creatinine Ratio 10.0 Random Glucose 171 mg/dl Calcium Level 8.8 mg/dl Total Creatine Kinase 51 U/L Creatine Kinase MB 1.7 ng/ml Creatine Kinase MB Ratio 3.3 Troponin I < 0.015 ng/ml Venous Blood pH 7.31 Venous Blood Partial Pressure CO2 53 mmHg Venous Blood Partial Pressure O2 36 mmHg Venous Blood HCO3 26 mmol/L Venous Blood Oxygen Saturation 65.2 % Venous Blood Base Excess -0.7 mmol/L Jenna Guillen is a 66-year-old female with past medical history significant for end-stage renal disease secondary to diabetic nephropathy on hemodialysis, history of pancreas transplant currently on immunosuppression, gastroparesis secondary to diabetes neuropathy. She was admitted to the hospital with chest and shoulder pain as well as SOB. Her regular dialysis days are Wednesday, , Wednesday in however she missed dialysis yesterday and currently she seems to be volume overloaded. Electrolyte and blood pressure acceptable. CTA on admission was negative for PE but had pulmonary edema. Initial troponin was negative. No history of coronary artery disease, has normal ejection fraction. History of pancreatic transplant on immunosuppression. Has gastroparesis with diabetes and has J tube in place Recommendations --will schedule for urgent dialysis now with 3 K bath and UF as tolerated to reach her estimated dry weight. --We will keep on schedule for dialysis tomorrow as her regular schedule --avoid IV fluid, continue on renal vitamin. --Dose medications for GFR less than 10 --Avoid nephrotoxic medications --Continue on current dose of Prograf and cellcept --Continue Sensipar and phosphate binder. --will hold erythropoietin stimulating agents as Hb >11 Thank you for the consultation. It was a pleasure to see Suni. This chart was completed utilizing [id number] Speech and voice recognition software. Grammatical errors, random word insertions, pronoun errors and incomplete sentences are occasional consequences of this system. Any questions or concerns about the content, text or information contained within the body of this dictation should be addressed directly to the physician for clarification.
[2016-08-05] MEDS: CALCIUM ACETATE 667MG GELCAP PO SCH (18:21)
--- NOTE | 2016-08-05 19:46 | EMERGENCY ROOM VISIT NOTE ---
History Report prepared by Diane: Sanjay Fofana Under the Supervision of: Dr. [place] Alarcon D.O. First contact with patient: 12:48 Stated Complaint: SHOULDER PAIN History of Present Illness The patient is a 66 year old female with a history of diabetes and ESRD who presents to the Emergency Room with complaints of improving right shoulder pain that started earlier today. The patient heard a "pop" in the right shoulder and began to experience severe pain that has improved somewhat. She has baseline numbness secondary to diabetes. The patient was also experiencing middle chest tightness and shortness of breath. The patient still feels "achy" when she takes a deep breath. Per daughter, the patient has had pain before but never the "squeezing" chest pain. The patient has been receiving dialysis for 6-7 years, and she missed it yesterday. She has had a port for a long time. She has had a JG tube since 1994. She is s/p pancreatic transplant and takes antirejection medications. The patient wears oxygen at night. The patient does not have known history of CAD. Patient denies headache, change in vision, fevers , nausea, vomiting, diarrhea, pain with urination, and melena. Past medical records reviewed. She is s/p pancreatic transplant from [place] in 2003. She has an EF of 55%. She is on 2L of oxygen chronically at night. She receives dialysis for ESRD. Source of History: patient, family, other (past medical records) Onset: today Position: shoulder (right) Symptom Intensity: severe Timing: other (improving) Associated Symptoms: + chest pain, + SOB, No fevers, No headache, No nausea , No vomiting, No melena, No diarrhea, No urinary symptoms Review of Systems See HPI for pertinent positives & negatives. A total of 10 systems reviewed and were otherwise negative. Past Medical & Surgical Medical Problems: (1) Acute anterior epistaxis (2) Anemia (3) Anxiety (4) Chest wall pain (5) Chronic pain syndrome (6) Depression (7) Depression with anxiety (8) Diabetes (9) Diabetes mellitus type 1 (10) Drop foot gait (11) Dyslipidemia (12) End stage kidney disease (13) End stage renal disease on dialysis (14) ESRD (end stage renal disease) on dialysis (15) Fall (16) Gastroparesis (17) GERD (gastroesophageal reflux disease) (18) HTN (hypertension) (19) Immunosuppression (20) Intractable back pain (21) Jejunostomy tube present (22) Narcotic dependence (23) Orbital floor fracture (24) Osteoporosis (25) Port-a-cath in place (26) Scoliosis (27) Secondary hyperparathyroidism of renal origin (28) Syncope Surgical Problems: (1) H/O pancreas transplant (2) H/O total hip arthroplasty (3) Pancreas replaced by transplant (4) Pancreas transplant status Family History Cancer Heart disease Social History Smoking Status: Never Smoker Alcohol Use: none Drug Use: none Marital Status: Housing Status: lives with family Occupation Status: retired Current/Historical Medications Scheduled B Complex W/ C (Vitamin B Complex-C), 1 CAP DAILY Calcium Acetate (Phoslo 667 Mg), 2 CAP JT BREAKFAST Calcium Acetate (Phoslo 667 Mg), 3 CAP JT UD Calcium Acetate (Phoslo 667 Mg), 3 CAP JT SNACKS Cinecalcet (Sensipar), 30 MG JT QAM Cinecalcet (Sensipar), 60 MG PO DAILY Citalopram Hydrobromide (Celexa), 20 MG JT QAM Furosemide (Lasix), 80 MG JT BID Metoprolol Tartrate (Lopressor) (Lopressor), 100 MG JT BID Mycophenolate Mofetil (Cellcept), 500 MG JT QAM Nutritional Supplements (Nutren 2.0), 2 DOSE GJT DAILY Pantoprazole (Protonix), 40 MG PO BID Ranitidine (Zantac), 300 MG JT BID Simvastatin (Zocor), 10 MG JT HS Tacrolimus (Prograf), 6 ML PO QPM Tacrolimus (Prograf), 8 MG PO QAM Trimethoprim/Sulfamethoxazole Susp (Bactrim 200/40MG 5ML), 2.5 ML JT MoWeFr Scheduled PRN Alprazolam (Xanax), 0.5 MG JT Q4H PRN for Anxiety Docusate Sodium (Colace), 100 MG PO BID PRN for Constipation Hydromorphone Hcl (Dilaudid), 8 MG PO Q4H PRN for Pain Triamcinolone Acetonide (Nasal (Nasacort Allergy 24Hr), 2 SPRAY AMRIT DAILY PRN for CONGSTION Allergies Coded Allergies: Penicillins (Verified Allergy, Intermediate, RASH, 6/28/17) Erythromycin (Verified Allergy, Mild, RASH, 08/05/16) Acetaminophen (Unverified Allergy, Unknown, ., 08/05/16) Surgical Lubricant (Verified Allergy, Unknown, ITCHY, 08/05/16) Carbamazepine (Verified Adverse Reaction, Severe, TOXIC BLOOD POISONING, ) TOXIC BLOOD POISONING Metoclopramide (Verified Adverse Reaction, Severe, SEIZURES, 08/05/16) SEIZURES Corticosteroids (Verified Adverse Reaction, Intermediate, NAUSEA, 08/05/16) PATIENT STATES ON ALLERGY SHEET "ABSOLUTELY NONE" Dicyclomine (Verified Adverse Reaction, Intermediate, HALLUCINATIONS, 08/05) HALLUCINATIONS Ketorolac (Verified Adverse Reaction, Intermediate, NAUSEATED, 08/05/16) Pregabalin (Verified Adverse Reaction, Intermediate, CONFUSION, 08/05/16) Quinolones (Verified Adverse Reaction, Intermediate, LEVAQUIN-NAUSEA, CHRONIC HEARTBURN, 08/05/16) levaquin =NAUSEA, CHRONIC HEARTBURN. PT SAID SHE WILL NOT TAKE 12/06/08 Azithromycin (Verified Adverse Reaction, Mild, n&v, 08/05/16) Cephalexin (Verified Adverse Reaction, Mild, NAUSEA, 08/05/16) Cephalosporins (Verified Adverse Reaction, Mild, KEFLEX = NAUSEA, 08/05/16) Codeine (Verified Adverse Reaction, Mild, NAUSEA, 08/05/16) Gabapentin (Verified Adverse Reaction, Mild, NAUSEA, 08/05/16) NAUSEA Levofloxacin (Verified Adverse Reaction, Mild, NAUSEA, 08/05/16) Naproxen (Verified Adverse Reaction, Mild, NAUSEA, 08/05/16) Nitrofurantoin (Verified Adverse Reaction, Mild, NAUSEA, 08/05/16) Oxycodone (Verified Adverse Reaction, Mild, PRC/TYLOX = NAUSEA, 08/05/16) NAUSEA Phenobarbital (Verified Adverse Reaction, Mild, NAUSEA, 08/05/16) Prednisolone (Verified Adverse Reaction, Mild, IRRITATION, 08/05/16) Promethazine (Verified Adverse Reaction, Mild, DIARRHEA, 08/05/16) Sertraline (Verified Adverse Reaction, Mild, NAUSEA, 08/05/16) Adhesives (Verified Adverse Reaction, Unknown, UNKNOWN, 08/05/16) Mirtazapine (Verified Adverse Reaction, Unknown, HEARS VOICES, 08/05/16) Propoxyphene (Verified Adverse Reaction, Unknown, NAUSEA, 08/05/16) NAUSEA Tramadol (Verified Adverse Reaction, Unknown, DEPRESSION, 08/05/16) DEPRESSION Physical Exam Vital Signs Date Time Temp Pulse Resp B/P (MAP) Pulse Ox O2 Delivery O2 Flow Rate FiO2 08/05/16 15:22 90 Nasal Cannula 4.0 08/05/16 15:10 74 18 162/91 90 Room Air 08/05/16 13:28 97 Nasal Cannula 4.0 08/05/16 13:27 50 Room Air 08/05/16 13:24 36.7 79 16 175/107 50 Room Air 08/05/16 13:04 78 Physical Exam GENERAL: Chronically ill-appearing, sitting up in bed, disheveled. EYE EXAM: normal conjunctiva. OROPHARYNX: no exudate, no erythema, lips, buccal mucosa, and tongue normal and mucous membranes are moist NECK: supple, no nuchal rigidity, no adenopathy, non-tender CHEST: Port located along the left chest wall. LUNGS: Clear to auscultation. Normal chest wall mechanics HEART: no murmurs, S1 normal and S2 normal ABDOMEN: Distended, abdomen soft, non-tender, normo-active bowel sounds, no masses, no rebound or guarding, GJ tube located in the mid abdomen. BACK: Back is symmetrical on inspection and there is no deformity, no midline tenderness, no CVA tenderness. SKIN: no rashes and no bruising UPPER EXTREMITIES: Left upper extremity with dialysis fistula present with positive thrill and bruit. LOWER EXTREMITIES: No pitting edema. NEURO EXAM: Normal sensorium, cranial nerves II-XII grossly intact, normal speech, no gross weakness of arms, no gross weakness of legs. Gross sensation intact. Medical Decision & Procedures ER Provider Diagnostic Interpretation: Radiology results as stated below per my review and the radiologist's interpretation: RIGHT SHOULDER MIN 2 VIEWS ROUTINE CLINICAL HISTORY: r shoulder pain Right COMPARISON: None. DISCUSSION: Generalized degenerative change. No acute bony abnormality. Diffuse parenchymal fibrotic change. There is no evidence for soft tissue swelling. IMPRESSION: Degenerative change. No acute process. Electronically signed by: Jose F Hutchins M.D. 08/05/2016 3:15 PM Dictated Date/Time: 08/05/2016 3:[address] ANGIOGRAM OF THE CHEST CLINICAL HISTORY: Atypical chest pain. Dyspnea. COMPARISON STUDY: Chest x-ray dated 08/05/2016. Chest CT dated 09/30/2013. TECHNIQUE: Following the IV administration of 72 cc of Optiray 320, CT angiogram of the chest was performed from the upper abdomen to the thoracic inlet utilizing the pulmonary embolus protocol. Images are reviewed in the axial, sagittal, and coronal planes. 3-D MIPS images are created and assessed. IV contrast was administered without complication. The examination is significantly degraded by motion artifact, as well as by streak artifact from the patient's arms which could not be elevated above the chest. CT DOSE: 231.67 mGy.cm FINDINGS: Thyroid: Imaged portions of the thyroid gland are normal in size and attenuation. Subcentimeter low-attenuation thyroid nodules are seen bilaterally. Thoracic aorta: The thoracic aorta is normal in caliber and demonstrates standard 3-vessel arch anatomy. No dissection is seen. A left internal jugular central venous infusion port is in place. A dialysis fistula is questioned in the left upper extremity. Pulmonary vasculature: The pulmonary trunk is dilated, measuring 3.2 cm in transverse diameter. This suggests pulmonary artery hypertension. There are no filling defects identified in main, lobar, or segmental pulmonary branches to suggest pulmonary embolus. Heart: The heart is markedly enlarged and there is a small pericardial effusion. The coronary arteries are densely calcified. Reflux of contrast into the IVC and hepatic veins suggests cardiac dysfunction. Lungs and pleural spaces: There are moderate left greater than right pleural effusions with associated bibasilar consolidation. Diffuse intralobular septal thickening is noted and there is multifocal groundglass change. Apical scarring is observed. No pneumothorax is seen. The trachea and central airways are patent. Mediastinum: There are mildly enlarged mediastinal lymph nodes. A pretracheal node on image #165 measures 1.4 cm in short axis. Symone: Clear. Axillae: There is no axillary lymphadenopathy. Upper abdomen: Partially visualized upper abdominal viscera is within normal limits. A catheter is noted in the left upper quadrant of the abdomen. Skeletal structures: The skeletal structures are osteopenic. Degenerative change and scoliosis are noted in the thoracic spine. There are moderate compression deformities of T10 and T11. No lytic or blastic bony lesions are clearly seen. There is a bifid right anterior lower rib. IMPRESSION: 1. Significantly streak and motion artifact degraded examination. 2. There is no evidence of pulmonary embolus in the main, lobar, or segmental pulmonary arteries. 3. Cardiomegaly with evidence of pulmonary artery hypertension and congestive failure. 4. Diffuse groundglass change likely represents interstitial edema. Correlate clinically for evidence of superimposed pneumonia or pulmonary hemorrhage. 5. Moderate pleural effusions with bibasilar consolidation. 6. Mildly enlarged mediastinal lymph nodes are nonspecific and may be on a reactive basis. 7. Additional changes as above. Electronically signed by: Brandon Madden M.D. 08/05/2016 2:44 PM Dictated Date/Time: 08/05/2016 2:37 PM SINGLE VIEW CHEST CLINICAL HISTORY: Dyspnea. Atypical chest pain. FINDINGS: An AP, portable, upright chest radiograph is compared to study dated 06/04/2016. The examination is significantly degraded by portable technique and patient rotation. A left internal jugular central venous infusion port is unchanged in position. The heart is enlarged and there is atherosclerotic calcification of the thoracic order. There is pulmonary vascular congestion and interstitial edema. There are layering pleural effusions with bibasilar consolidation. No pneumothorax is seen. The skeletal structures are osteopenic. Degenerative change and scoliosis are noted in the thoracic spine. IMPRESSION: 1. Cardiomegaly with evidence of congestive failure and interstitial edema. 2. Layering pleural effusions with bibasilar consolidation. This likely represents atelectasis. Clinical correlation will be required. Electronically signed by: Brandon Madden M.D. 08/05/2016 2:46 PM Dictated Date/Time: 08/05/2016 2:45 PM Laboratory Results 08/05/16 13:12 Red Blood Count 4.09, Mean Corpuscular Volume 105.6, Mean Corpuscular Hemoglobin 31.1, Mean Corpuscular Hemoglobin Concent 29.4, Mean Platelet Volume 11.4, Neutrophils (%) (Auto) 80.1, Lymphocytes (%) (Auto) 5.8, Monocytes (%) ( Auto) 12.5, Eosinophils (%) (Auto) 1.3, Basophils (%) (Auto) 0.2, Neutrophils # (Auto) 8.33, Lymphocytes # (Auto) 0.60, Monocytes # (Auto) 1.30, Eosinophils # ( Auto) 0.13, Basophils # (Auto) 0.02 08/05/16 13:12 Test 08/05/16 12:56 08/05/16 13:12 08/05/16 15:26 Bedside Glucose 157 mg/dl (70-90) White Blood Count 10.39 K/uL (4.8-10.8) Red Blood Count 4.09 M/uL (4.2-5.4) Hemoglobin 12.7 g/dL (12.0-16.0) Hematocrit 43.2 % (37-47) Mean Corpuscular Volume 105.6 fL (80-100) Mean Corpuscular Hemoglobin 31.1 pg (25-34) Mean Corpuscular Hemoglobin Concent 29.4 g/dl (32-36) Platelet Count 136 K/uL (130-400) Mean Platelet Volume 11.4 fL (7.4-10.4) Neutrophils (%) (Auto) 80.1 % Lymphocytes (%) (Auto) 5.8 % Monocytes (%) (Auto) 12.5 % Eosinophils (%) (Auto) 1.3 % Basophils (%) (Auto) 0.2 % Neutrophils # (Auto) 8.33 K/uL (1.4-6.5) Lymphocytes # (Auto) 0.60 K/uL (1.2-3.4) Monocytes # (Auto) 1.30 K/uL (0.11-0.59) Eosinophils # (Auto) 0.13 K/uL (0-0.5) Basophils # (Auto) 0.02 K/uL (0-0.2) RDW Standard Deviation 54.1 fL (36.4-46.3) RDW Coefficient of Variation 14.1 % (11.5-14.5) Immature Granulocyte % (Auto) 0.1 % Immature Granulocyte # (Auto) 0.01 K/uL (0.00-0.02) D-Dimer 1400 ug/L FEU (0-500) Anion Gap 11.0 mmol/L (3-11) Est Creatinine Clear Calc Drug Dose 5.3 ml/min Estimated GFR () 5.4 Estimated GFR (Non- 4.7 BUN/Creatinine Ratio 10.0 (10-20) Calcium Level 8.8 mg/dl (8.5-10.1) Total Creatine Kinase 51 U/L (26-192) Creatine Kinase MB 1.7 ng/ml (0.5-3.6) Creatine Kinase MB Ratio 3.3 (0-3.0) Troponin I < 0.015 ng/ml (0-0.045) Venous Blood pH 7.31 (7.36-7.41) Venous Blood Partial Pressure CO2 53 mmHg (38.0-50.0) Venous Blood Partial Pressure O2 36 mmHg Venous Blood HCO3 26 mmol/L Venous Blood Oxygen Saturation 65.2 % Venous Blood Base Excess -0.7 mmol/L Laboratory results per my review. Medications Administered Medications (Trade) Dose Ordered Sig/Ayaka Route Start Time Stop Time Status Last Admin Dose Admin Aspirin (Aspirin Chew) 324 mg NOW STAT PO 08/05/16 12:57 08/05/16 12:59 DC 08/05/16 13:43 324 MG ECG Indication: chest pain Rate (beats per minute): 78 Rhythm: sinus rhythm Findings: nonspecific-ST abn (Inferior), other (early R wave progression) Comparison ECG Date: 04 June 2016 Change: no significant change ED Course ED COURSE: Vital signs were reviewed and showed hypertension. The patients medical record was reviewed The above diagnostic studies were performed and reviewed. ED treatments and interventions as stated above. 1250: The patient was evaluated in room A10. A complete history and physical examination was performed. 1257: Aspirin 324 mg PO. 1300: Nitrostat 0.4 mg SL. 1318: Rechecked the patient. She was hypoxic. She denies history of asthma or COPD. 1455: The patient is doing fine. Medicine was paged. 1500: Discussed the case with Dr. Haskins, [facility] Hospitalist. The patient will be evaluated. 1510: Upon reevaluation, the patient is doing fine.I discussed my findings with the patient and she understands and agrees with the treatment plan. Based on the patients age, coexisting illnesses, exam and lab findings the decision to treat as an inpatient was made. The patient remained stable while under my care. The patient will be evaluated for further management. Medical Decision Differential diagnoses includes but is not limited to acute coronary syndrome, myocardial infarction, pericarditis, pulmonary embolus, aortic dissection, pneumonia, pneumothorax, musculoskeletal, shingles, esophageal. Medication Reconciliation: I attest that I have personally reviewed the patient' s current medication list. Blood pressure screening: Patient was found to have an elevated blood pressure and was referred to their primary doctor for recheck and further treatment. Patient is a 66-year-old female who presents the ER for right shoulder pain associated with chest pain shortness of breath. Upon presentation she is found be hypoxic on room air at 70%. She wears 2 L at night only. Patient is on dialysis. She does have a pancreas transplant. CBC was unremarkable. Creatinine is elevated at 8. Troponin was negative. D-dimer positive and CT PE shows bilateral pleural effusions. No PEs. VBG shows pH of 7.31. Patient was updated at bedside and admitted to internal medicine for further workup of her hypoxia. Consults Time Called: 1450 Consulting Physician: Dr. Haskins, [facility] Hospitalist. Returned Call: 1500 The patient will be evaluated. Impression Primary Impression: Hypoxia Additional Impression: Substernal precordial chest pain Scribe Attestation The scribe's documentation has been prepared under my direction and personally reviewed by me in its entirety. I confirm that the note above accurately reflects all work, treatment, procedures, and medical decision making performed by me. Departure Information Dispostion Being Evaluated By Hospitalist Referrals Pedro Pablo Hollis M.D. (PCP) Problem Qualifiers
[2016-08-05] MEDS ORDERED: METOPROLOL SUCC 50MG EXT REL TAB PO SCH (21:00)
[2016-08-05] MEDS: METOPROLOL TARTRATE 100 MG TAB JT SCH (21:00)
[2016-08-05] MEDS: HEPARIN SOD 5000 UNIT/0.5 ML CARP SQ SCH (21:00)
[2016-08-05] MEDS: SIMVASTATIN 10 MG TAB JT SCH (21:10)
[2016-08-05] MEDS: TACROLIMUS 1 MG CAP PO SCH (21:10)
[2016-08-05] MEDS: RANITIDINE HCL SYRUP 150 MG/10 ML 480ML GT SCH (21:10)
[2016-08-05] MEDS: PANTOprazole SOD 40 MG TAB PO SCH (21:11)
[2016-08-05] MEDS: FUROSEMIDE 80 MG TAB PO SCH (21:11)
[2016-08-05] MEDS: ALPRAZOLAM 0.5 MG TAB JT PRN (21:14)
[2016-08-06] VITALS (9 sets, daily range): BP systolic 140–162; BP diastolic 79–91; PULSE 74–81; TEMP 36.5–37.6; O2SAT 84–99
[2016-08-06 01:03] LABS: CKMB/CK RATIO 2.9 (0-3.0)
[2016-08-06 05:09] LABS: HEMATOCRIT 41.3 % (37-47); MEAN CELL VOLUME 104.3 fL (80-100); MEAN CORPUSCULAR HEMOGLOBIN 32.3 pg (25-34); MEAN PLATELET VOLUME 11.3 fL (7.4-10.4); PLATELET COUNT 119 K/uL (130-400); RED BLOOD COUNT 3.96 M/uL (4.2-5.4); WHITE BLOOD COUNT 13.59 K/uL (4.8-10.8)
[2016-08-06] MEDS: ALPRAZOLAM 0.5 MG TAB JT PRN ×4 (05:44→21:47)
[2016-08-06 05:51] LABS: BLOOD UREA NITROGEN 27 mg/dl (7-18); BUN/CREATININE RATIO 6.7 (10-20); CARBON DIOXIDE 33 mmol/L (21-32); CHLORIDE 98 mmol/L (98-107); CKMB/CK RATIO 3.2 (0-3.0); GLUCOSE 166 mg/dl (70-99); POTASSIUM 4.3 mmol/L (3.5-5.1); SODIUM 138 mmol/L (136-145)
[2016-08-06 06:02] LABS: CALCIUM 9.4 mg/dl (8.5-10.1)
[2016-08-06] MEDS: FUROSEMIDE 80 MG TAB PO SCH ×2 (07:32→17:31)
[2016-08-06] MEDS: CALCIUM ACETATE 667MG GELCAP PO SCH ×3 (07:32→16:49)
[2016-08-06] MEDS: RANITIDINE HCL SYRUP 150 MG/10 ML 480ML GT SCH ×2 (07:32→21:02)
[2016-08-06] MEDS: CITALOPRAM 20 MG TAB JT SCH (07:32)
[2016-08-06] MEDS: METOPROLOL TARTRATE 100 MG TAB JT SCH ×2 (07:32→21:03)
[2016-08-06] MEDS: PANTOprazole SOD 40 MG TAB PO SCH ×2 (07:33→21:04)
[2016-08-06] MEDS: VITAMIN B COMPLEX TAB PO SCH (07:33)
[2016-08-06] MEDS: TACROLIMUS 1 MG CAP PO SCH ×2 (07:33→21:02)
[2016-08-06] MEDS: MYCOPHENOLATE SUSP 200 MG/1 ML JT SCH (07:43)
[2016-08-06] MEDS: HEPARIN SOD 5000 UNIT/0.5 ML CARP SQ SCH ×2 (07:56→21:00)
[2016-08-06] MEDS ORDERED: CINACALCET 60 MG PO SCH (09:00)
--- NOTE | 2016-08-06 10:55 | Clinical Documentation Query ---
CLINICAL DOCUMENTATION QUERY Dr. ORTEGA, In your clinical opinion is this patient being managed for: ( x ) Acute diastolic CHF ( ) Other explanation of clinical findings (Please Explain) ( ) Unable to determine (Please Define) ( ) Need to Discuss ( ) Not Agree The medical record reflects the following clinical findings, treatment, and risk factors. Clinical Indicators: 66 yo female presenting with acute hypoxic respiratory failure likely based on diastolic heart failure. Pt missed dialysis on 08/04 Treatment:nephrology consult for urgent dialysis, tele, serial cardiac enzymes, continue home lasix and lopressor Risk Factors: missed dialysis treatment/ESRD, DM, HTN Please clarify and document your clinical opinion in the progress notes and discharge summary. Terms such as "probable", "suspected", "likely", "questionable", "possible", or "still to be ruled out" are acceptable. IF IN AGREEMENT, YOU MUST DOCUMENT ABOVE DIAGNOSTIC STATEMENT IN DAILY PROGRESS NOTES AND DISCHARGE SUMMARY. This document is not part of the patient's record. Thank You, Renée Merrill, LAURA [phone]
--- NOTE | 2016-08-06 11:02 | Nephrology Progress Note ---
Nephrology Progress Note Date of Service Aug 06, 2016. Subjective Generally feels better but admits breathing not quite back to normal. This AM felt a "crack" in her right shoulder then pain radiating down her right arm to the hand then back up to the elbow. Pain then went to the neck bilaterally then resolved. No other associated sx. She says she has been having a chest tightness at home lasting for about 2 hours at a time with some associated SOB.She says that the air feels "heavy." No tother sx. of uremia or volume overload at this time. She tolerated her dialysis yesterday with 2.5L of fluid removed. Review of Systems Constitutional: + problem reported Cardiovascular: + problem reported Respiratory: + problem reported A complete review of systems was performed. Pertinent positives are noted above. All other systems are negative. Vital Signs Last 8 Hrs Date Time Temp Pulse Resp B/P (MAP) Pulse Ox O2 Delivery O2 Flow Rate FiO2 08/06/16 09:02 95 Nasal Cannula 2.0 08/06/16 08:21 37.6 76 20 140/79 (99) 84 Room Air 08/06/16 08:01 94 Room Air 08/06/16 04:00 Nasal Cannula 2.0 08/06/16 04:00 36.5 81 20 147/85 (105) 94 Nasal Cannula 2.0 Last Recorded Weight Weight (Kilograms): 53.100 Physical Exam Appears comfortable with O2 at 2L/min. BP: 140/76 P: 77 reg R: 18 Pulse Ox = 100 % with 2L of O2 via nasal canula Skin: Normal turgor. Scars from prior surgery. Some scratches and appearance of mottling of lower extremities No adenopathy HEENT: Unremarkable except for poor dentition. Oral mucous membranes are moist. Neck: JVD to angle of the jaw at 45 degrees Chest: Clear to auscultation Cor: RSR. Soft ANT at the base. No gallop or rub ABD: Non-tender. GJ tube exits in the LUQ Ext' No edema. Decreased ROM of the left shoulder Neuro: No focal signs Family History Cancer Heart disease Social History Smoking Status: Never smoker Drug Use: none Marital Status: Housing Status: lives with family Occupation: retired Laboratory Results Past 24 Hours 08/05/16 13:12 Red Blood Count 4.09, Mean Corpuscular Volume 105.6, Mean Corpuscular Hemoglobin 31.1, Mean Corpuscular Hemoglobin Concent 29.4, Mean Platelet Volume 11.4, Neutrophils (%) (Auto) 80.1, Lymphocytes (%) (Auto) 5.8, Monocytes (%) ( Auto) 12.5, Eosinophils (%) (Auto) 1.3, Basophils (%) (Auto) 0.2, Neutrophils # (Auto) 8.33, Lymphocytes # (Auto) 0.60, Monocytes # (Auto) 1.30, Eosinophils # ( Auto) 0.13, Basophils # (Auto) 0.02 08/06/16 04:45 08/05/16 13:12 08/06/16 04:45 Test 08/05/16 12:56 08/05/16 13:12 08/05/16 15:26 08/06/16 00:22 Bedside Glucose 157 mg/dl (70-90) White Blood Count 10.39 K/uL (4.8-10.8) Red Blood Count 4.09 M/uL (4.2-5.4) Hemoglobin 12.7 g/dL (12.0-16.0) Hematocrit 43.2 % (37-47) Mean Corpuscular Volume 105.6 fL (80-100) Mean Corpuscular Hemoglobin 31.1 pg (25-34) Mean Corpuscular Hemoglobin Concent 29.4 g/dl (32-36) Platelet Count 136 K/uL (130-400) Mean Platelet Volume 11.4 fL (7.4-10.4) Neutrophils (%) (Auto) 80.1 % Lymphocytes (%) (Auto) 5.8 % Monocytes (%) (Auto) 12.5 % Eosinophils (%) (Auto) 1.3 % Basophils (%) (Auto) 0.2 % Neutrophils # (Auto) 8.33 K/uL (1.4-6.5) Lymphocytes # (Auto) 0.60 K/uL (1.2-3.4) Monocytes # (Auto) 1.30 K/uL (0.11-0.59) Eosinophils # (Auto) 0.13 K/uL (0-0.5) Basophils # (Auto) 0.02 K/uL (0-0.2) RDW Standard Deviation 54.1 fL (36.4-46.3) RDW Coefficient of Variation 14.1 % (11.5-14.5) Immature Granulocyte % (Auto) 0.1 % Immature Granulocyte # (Auto) 0.01 K/uL (0.00-0.02) D-Dimer 1400 ug/L FEU (0-500) Anion Gap 11.0 mmol/L (3-11) Est Creatinine Clear Calc Drug Dose 5.3 ml/min Estimated GFR () 5.4 Estimated GFR (Non- 4.7 BUN/Creatinine Ratio 10.0 (10-20) Calcium Level 8.8 mg/dl (8.5-10.1) Total Creatine Kinase 51 U/L (26-192) 34 U/L (26-192) Creatine Kinase MB 1.7 ng/ml (0.5-3.6) 1.0 ng/ml (0.5-3.6) Creatine Kinase MB Ratio 3.3 (0-3.0) 2.9 (0-3.0) Troponin I < 0.015 ng/ml (0-0.045) < 0.015 ng/ml (0-0.045) Venous Blood pH 7.31 (7.36-7.41) Venous Blood Partial Pressure CO2 53 mmHg (38.0-50.0) Venous Blood Partial Pressure O2 36 mmHg Venous Blood HCO3 26 mmol/L Venous Blood Oxygen Saturation 65.2 % Venous Blood Base Excess -0.7 mmol/L Test 08/06/16 04:45 Red Blood Count 3.96 M/uL (4.2-5.4) Mean Corpuscular Volume 104.3 fL (80-100) Mean Corpuscular Hemoglobin 32.3 pg (25-34) Mean Corpuscular Hemoglobin Concent 31.0 g/dl (32-36) RDW Standard Deviation 54.7 fL (36.4-46.3) RDW Coefficient of Variation 14.3 % (11.5-14.5) Mean Platelet Volume 11.3 fL (7.4-10.4) Anion Gap 7.0 mmol/L (3-11) Est Creatinine Clear Calc Drug Dose 9.7 ml/min Estimated GFR () 12.5 Estimated GFR (Non- 10.8 BUN/Creatinine Ratio 6.7 (10-20) Calcium Level 9.4 mg/dl (8.5-10.1) Total Creatine Kinase 25 U/L (26-192) Creatine Kinase MB 0.8 ng/ml (0.5-3.6) Creatine Kinase MB Ratio 3.2 (0-3.0) Troponin I < 0.015 ng/ml (0-0.045) Date/Time Source Procedure Growth Status 08/05/16 17:30 Nasal MRSA DNA Surveillance Screen - Final Specimen Negative for MRSA by DNA Probe Complete Allergies Coded Allergies: Penicillins (Verified Allergy, Intermediate, RASH, 08/05/16) Erythromycin (Verified Allergy, Mild, RASH, 08/05/16) Acetaminophen (Unverified Allergy, Unknown, ., 08/05/16) Surgical Lubricant (Verified Allergy, Unknown, ITCHY, 08/05/16) Carbamazepine (Verified Adverse Reaction, Severe, TOXIC BLOOD POISONING, ) TOXIC BLOOD POISONING Metoclopramide (Verified Adverse Reaction, Severe, SEIZURES, 08/05/16) SEIZURES Corticosteroids (Verified Adverse Reaction, Intermediate, NAUSEA, 08/05/16) PATIENT STATES ON ALLERGY SHEET "ABSOLUTELY NONE" Dicyclomine (Verified Adverse Reaction, Intermediate, HALLUCINATIONS, 08/05) HALLUCINATIONS Ketorolac (Verified Adverse Reaction, Intermediate, NAUSEATED, 08/05/16) Pregabalin (Verified Adverse Reaction, Intermediate, CONFUSION, 08/05/16) Quinolones (Verified Adverse Reaction, Intermediate, LEVAQUIN-NAUSEA, CHRONIC HEARTBURN, 08/05/16) levaquin =NAUSEA, CHRONIC HEARTBURN. PT SAID SHE WILL NOT TAKE 12/06/08 Azithromycin (Verified Adverse Reaction, Mild, n&v, 08/05/16) Cephalexin (Verified Adverse Reaction, Mild, NAUSEA, 08/05/16) Cephalosporins (Verified Adverse Reaction, Mild, KEFLEX = NAUSEA, 08/05/16) Codeine (Verified Adverse Reaction, Mild, NAUSEA, 08/05/16) Gabapentin (Verified Adverse Reaction, Mild, NAUSEA, 08/05/16) NAUSEA Levofloxacin (Verified Adverse Reaction, Mild, NAUSEA, 08/05/16) Naproxen (Verified Adverse Reaction, Mild, NAUSEA, 08/05/16) Nitrofurantoin (Verified Adverse Reaction, Mild, NAUSEA, 08/05/16) Oxycodone (Verified Adverse Reaction, Mild, PRC/TYLOX = NAUSEA, 08/05/16) NAUSEA Phenobarbital (Verified Adverse Reaction, Mild, NAUSEA, 08/05/16) Prednisolone (Verified Adverse Reaction, Mild, IRRITATION, 08/05/16) Promethazine (Verified Adverse Reaction, Mild, DIARRHEA, 08/05/16) Sertraline (Verified Adverse Reaction, Mild, NAUSEA, 08/05/16) Adhesives (Verified Adverse Reaction, Unknown, UNKNOWN, 08/05/16) Mirtazapine (Verified Adverse Reaction, Unknown, HEARS VOICES, 08/05/16) Propoxyphene (Verified Adverse Reaction, Unknown, NAUSEA, 08/05/16) NAUSEA Tramadol (Verified Adverse Reaction, Unknown, DEPRESSION, 08/05/16) DEPRESSION Medications Current Inpatient Medications Medications (Trade) Dose Ordered Sig/Ayaka Route Start Time Stop Time Status Last Admin Dose Admin Alprazolam (Xanax Tab) 0.5 mg Q4H PRN JT 08/05/16 15:45 09/04/16 15:44 08/06/16 05:44 0.5 MG Calcium Acetate (Phoslo Cap) 1,334 mg QDB PO 08/06/16 07:30 09/05/16 07:59 08/06/16 07:32 1,334 MG Calcium Acetate (Phoslo Cap) 2,001 mg QDL PO 08/06/16 11:00 09/05/16 10:59 Citalopram Hydrobromide (celeXA TAB) 20 mg QAM JT 08/06/16 09:00 09/05/16 08:59 08/06/16 07:32 20 MG Docusate Sodium (coLACE SYRUP) 100 mg BID PRN PO 08/05/16 15:45 09/04/16 15:44 Furosemide (Lasix Tab) 80 mg BID17 PO 08/05/16 21:00 09/04/16 20:59 08/06/16 07:32 80 MG Hydromorphone HCl (Dilaudid Tab) 8 mg Q4H PRN PO 08/05/16 15:45 08/19/16 15:44 08/06/16 09:32 8 MG Metoprolol Tartrate (Lopressor Tab) 100 mg BID JT 08/05/16 21:00 09/04/16 20:59 08/06/16 07:32 100 MG Mycophenolate Mofetil (Cellcept Susp) 500 mg QAM JT 08/06/16 09:00 09/05/16 08:59 08/06/16 07:43 500 MG Pantoprazole Sodium (Protonix Tab) 40 mg BID PO 08/05/16 21:00 09/04/16 20:59 08/05/16 21:11 40 MG Simvastatin (Zocor Tab) 10 mg HS JT 08/05/16 21:00 09/04/16 20:59 08/05/16 21:10 10 MG Triamcinolone Acetonide (Nasacort Allergy 24hr) 2 sprays DAILY PRN AMRIT 08/05/16 15:45 09/04/16 15:44 Vitamin B Complex (Vitamin B Complex) 1 tab DAILY PO 08/06/16 09:00 09/05/16 08:59 08/06/16 07:33 1 TAB Miscellaneous Information (Order Awaiting Action) 1 ea QS N/A 08/06/16 00:00 09/05/16 00:00 Ranitidine HCl (zANTac SYRUP) 300 mg BID GT 08/05/16 21:00 09/04/16 20:59 08/06/16 07:32 300 MG Tacrolimus (Prograf Cap) 6 mg QPM PO 08/05/16 21:00 09/04/16 20:59 08/05/16 21:10 6 MG Tacrolimus (Prograf Cap) 8 mg QAM PO 08/06/16 09:00 09/05/16 08:59 08/06/16 07:33 8 MG Trimethoprim/ Sulfamethoxazole (Septra Susp) 2 ml MoWeFr@0900 PO 08/07/16 09:00 09/06/16 08:59 Calcium Acetate (Phoslo Cap) 2,001 mg TID PRN PO 08/05/16 16:00 09/04/16 15:59 Calcium Acetate (Phoslo Cap) 2,001 mg QDD PO 08/05/16 17:07 09/04/16 17:59 08/05/16 18:21 2,001 MG Heparin Sodium (Porcine) (Heparin Sq 5000 Unit/0.5ml) 5,000 unit Q12 SQ 08/05/16 21:00 09/04/16 20:59 08/06/16 07:56 5,000 UNIT Magnesium Hydroxide (Milk Of Magnesia Susp) 30 ml Q12H PRN PO 08/05/16 16:15 09/04/16 16:14 Ondansetron HCl (Zofran Inj) 4 mg Q6H PRN IV 08/05/16 16:15 09/04/16 16:14 Nitroglycerin (Nitrostat Tab) 0.4 mg UD PRN SL 08/05/16 16:15 09/04/16 16:14 Morphine Sulfate (MoRPHine SULFATE INJ) 2 mg Q30M PRN IV 08/05/16 16:15 08/19/16 16:14 Impression Improved as far as SOB. Still likely mildly volume overloaded. Recent chest discomfort. Poor compliance with attendence of dialysis treatments likely contributed to immediate problem. Recommendations No immediate changes. Will schedule hemodialysis for tomorrow. Would suggest an echocardiogram.
[2016-08-06] MEDS ORDERED: SODIUM CHLORIDE 0.9% 1000ML 1,000 ML IV PRN (11:12)
--- NOTE | 2016-08-06 13:24 | Hospitalist Progress Note ---
Hospitalist Progress Note Date of Service Aug 06, 2016. Subjective Pt evaluation today including: conversation w/ patient, physical exam, chart review, lab review, review of studies, review of inpatient medication list Patient seen and evaluated. Was dialyzed yesterday on 08/05 and plan for dialysis tomorrow per Dr. Hollis. She reports she feels improved from admission but still has some L shoulder pain and stiffness Reports her baseline O2 is 2 L only at night. She ambulates with a walker for short distances and a wheelchair if going longer distances Fluid balance is - 2505. He was hypoxic at 87% this AM and remains on NC. Constitutional: No fever, No chills ENT: No nasal symptoms, No sore throat, No trouble swallowing Respiratory: + cough (intermittent), + dyspnea at rest (mild but improving) , No sputum Cardiovascular: No chest pain, No palpitations Abdomen: No pain, No nausea, No vomiting Musculoskeletal: + joint pain (L shoulder) Neurologic: + memory loss Medications Current Inpatient Medications Medications (Trade) Dose Ordered Sig/Ayaka Route Start Time Stop Time Status Last Admin Dose Admin Alprazolam (Xanax Tab) 0.5 mg Q4H PRN JT 08/05/16 15:45 09/04/16 15:44 08/06/16 05:44 0.5 MG Calcium Acetate (Phoslo Cap) 1,334 mg QDB PO 08/06/16 07:30 09/05/16 07:59 08/06/16 07:32 1,334 MG Calcium Acetate (Phoslo Cap) 2,001 mg QDL PO 08/06/16 11:00 09/05/16 10:59 08/06/16 11:00 2,001 MG Citalopram Hydrobromide (celeXA TAB) 20 mg QAM JT 08/06/16 09:00 09/05/16 08:59 08/06/16 07:32 20 MG Docusate Sodium (coLACE SYRUP) 100 mg BID PRN PO 08/05/16 15:45 09/04/16 15:44 Furosemide (Lasix Tab) 80 mg BID17 PO 08/05/16 21:00 09/04/16 20:59 08/06/16 07:32 80 MG Hydromorphone HCl (Dilaudid Tab) 8 mg Q4H PRN PO 08/05/16 15:45 08/19/16 15:44 08/06/16 09:32 8 MG Metoprolol Tartrate (Lopressor Tab) 100 mg BID JT 08/05/16 21:00 09/04/16 20:59 08/06/16 07:32 100 MG Mycophenolate Mofetil (Cellcept Susp) 500 mg QAM JT 08/06/16 09:00 09/05/16 08:59 08/06/16 07:43 500 MG Pantoprazole Sodium (Protonix Tab) 40 mg BID PO 08/05/16 21:00 09/04/16 20:59 08/05/16 21:11 40 MG Simvastatin (Zocor Tab) 10 mg HS JT 08/05/16 21:00 09/04/16 20:59 08/05/16 21:10 10 MG Triamcinolone Acetonide (Nasacort Allergy 24hr) 2 sprays DAILY PRN AMRIT 08/05/16 15:45 09/04/16 15:44 Vitamin B Complex (Vitamin B Complex) 1 tab DAILY PO 08/06/16 09:00 09/05/16 08:59 08/06/16 07:33 1 TAB Miscellaneous Information (Order Awaiting Action) 1 ea QS N/A 08/06/16 00:00 09/05/16 00:00 Ranitidine HCl (zANTac SYRUP) 300 mg BID GT 08/05/16 21:00 09/04/16 20:59 08/06/16 07:32 300 MG Tacrolimus (Prograf Cap) 6 mg QPM PO 08/05/16 21:00 09/04/16 20:59 08/05/16 21:10 6 MG Tacrolimus (Prograf Cap) 8 mg QAM PO 08/06/16 09:00 09/05/16 08:59 08/06/16 07:33 8 MG Trimethoprim/ Sulfamethoxazole (Septra Susp) 2 ml MoWeFr@0900 PO 08/07/16 09:00 09/06/16 08:59 Calcium Acetate (Phoslo Cap) 2,001 mg TID PRN PO 08/05/16 16:00 09/04/16 15:59 Calcium Acetate (Phoslo Cap) 2,001 mg QDD PO 08/05/16 17:07 09/04/16 17:59 08/05/16 18:21 2,001 MG Heparin Sodium (Porcine) (Heparin Sq 5000 Unit/0.5ml) 5,000 unit Q12 SQ 08/05/16 21:00 09/04/16 20:59 08/06/16 07:56 5,000 UNIT Magnesium Hydroxide (Milk Of Magnesia Susp) 30 ml Q12H PRN PO 08/05/16 16:15 09/04/16 16:14 Ondansetron HCl (Zofran Inj) 4 mg Q6H PRN IV 08/05/16 16:15 09/04/16 16:14 Nitroglycerin (Nitrostat Tab) 0.4 mg UD PRN SL 08/05/16 16:15 09/04/16 16:14 Morphine Sulfate (MoRPHine SULFATE INJ) 2 mg Q30M PRN IV 08/05/16 16:15 08/19/16 16:14 Sodium Chloride 1,000 ml @ 0 mls/hr Q0M PRN IV 08/06/16 11:12 08/06/16 23:11 Heparin Sodium (Porcine) (No Heparin In Dialysis) 1 ea 1200 N/A 08/06/16 12:00 08/06/16 16:00 Objective Vital Signs Date Time Temp Pulse Resp B/P (MAP) Pulse Ox O2 Delivery O2 Flow Rate FiO2 08/06/16 12:29 94 Room Air 08/06/16 11:10 37.1 74 20 162/91 (114) 98 Nasal Cannula 2.0 08/06/16 09:02 95 Nasal Cannula 2.0 08/06/16 08:21 37.6 76 20 140/79 (99) 84 Room Air 08/06/16 08:01 94 Room Air 08/06/16 04:00 Nasal Cannula 2.0 08/06/16 04:00 36.5 81 20 147/85 (105) 94 Nasal Cannula 2.0 08/06/16 00:00 37.6 77 18 141/82 (101) 97 Nasal Cannula 2.0 08/05/16 23:59 Nasal Cannula 2.0 08/05/16 23:26 36.8 76 159/91 (113) 08/05/16 22:30 74 153/83 08/05/16 22:15 70 134/80 08/05/16 22:00 74 148/82 08/05/16 21:45 74 153/93 08/05/16 21:30 76 177/98 08/05/16 21:15 75 171/91 08/05/16 21:00 74 163/90 08/05/16 20:45 75 163/95 08/05/16 20:30 74 172/92 08/05/16 20:15 74 156/83 08/05/16 20:00 75 157/93 08/05/16 20:00 Nasal Cannula 2.0 08/05/16 19:45 74 151/91 08/05/16 19:43 37.2 74 24 132/91 (105) 91 Nasal Cannula 2.0 08/05/16 19:41 81 Room Air 08/05/16 19:30 74 132/91 08/05/16 19:15 74 143/92 08/05/16 19:00 74 124/77 08/05/16 18:45 73 134/79 08/05/16 18:39 74 140/85 08/05/16 18:30 36.7 74 142/80 (100) 08/05/16 17:00 36.7 74 20 168/87 (114) 93 Nasal Cannula 2.0 08/05/16 16:53 75 20 157/90 99 Nasal Cannula 2.0 08/05/16 15:22 90 Nasal Cannula 4.0 08/05/16 15:10 74 18 162/91 90 Room Air 08/05/16 13:28 97 Nasal Cannula 4.0 08/05/16 13:27 50 Room Air 08/05/16 13:24 36.7 79 16 175/107 50 Room Air 08/05/16 13:04 78 Physical Exam General Appearance: no apparent distress, + thin Eyes: sclerae normal ENT: hearing grossly normal Neck: supple, trachea midline, + JVD Respiratory/Chest: lungs clear, normal breath sounds, no respiratory distress, no accessory muscle use Cardiovascular: regular rate, rhythm, no gallop, no murmur Abdomen: normal bowel sounds, non tender, soft, + pertinent finding (G tube with mild erythema around insertion site with small superficial skin tears without purulent drainage) Extremities: + pertinent finding (Limited ROM of L shoudler 2/2 pain) Neurologic/Psychiatric: alert Skin: normal color, warm/dry Laboratory Results Last 24 Hours Test 6/28/17 13:12 08/05/16 15:26 08/06/16 00:22 08/06/16 04:45 White Blood Count 10.39 K/uL 13.59 K/uL Red Blood Count 4.09 M/uL 3.96 M/uL Hemoglobin 12.7 g/dL 12.8 g/dL Hematocrit 43.2 % 41.3 % Mean Corpuscular Volume 105.6 fL 104.3 fL Mean Corpuscular Hemoglobin 31.1 pg 32.3 pg Mean Corpuscular Hemoglobin Concent 29.4 g/dl 31.0 g/dl Platelet Count 136 K/uL 119 K/uL Mean Platelet Volume 11.4 fL 11.3 fL Neutrophils (%) (Auto) 80.1 % Lymphocytes (%) (Auto) 5.8 % Monocytes (%) (Auto) 12.5 % Eosinophils (%) (Auto) 1.3 % Basophils (%) (Auto) 0.2 % Neutrophils # (Auto) 8.33 K/uL Lymphocytes # (Auto) 0.60 K/uL Monocytes # (Auto) 1.30 K/uL Eosinophils # (Auto) 0.13 K/uL Basophils # (Auto) 0.02 K/uL RDW Standard Deviation 54.1 fL 54.7 fL RDW Coefficient of Variation 14.1 % 14.3 % Immature Granulocyte % (Auto) 0.1 % Immature Granulocyte # (Auto) 0.01 K/uL D-Dimer 1400 ug/L FEU Sodium Level 138 mmol/L 138 mmol/L Potassium Level 4.3 mmol/L 4.3 mmol/L Chloride Level 99 mmol/L 98 mmol/L Carbon Dioxide Level 28 mmol/L 33 mmol/L Anion Gap 11.0 mmol/L 7.0 mmol/L Blood Urea Nitrogen 80 mg/dl 27 mg/dl Creatinine 8.00 mg/dl 4.00 mg/dl Est Creatinine Clear Calc Drug Dose 5.3 ml/min 9.7 ml/min Estimated GFR () 5.4 12.5 Estimated GFR (Non- 4.7 10.8 BUN/Creatinine Ratio 10.0 6.7 Random Glucose 171 mg/dl 166 mg/dl Calcium Level 8.8 mg/dl 9.4 mg/dl Total Creatine Kinase 51 U/L 34 U/L 25 U/L Creatine Kinase MB 1.7 ng/ml 1.0 ng/ml 0.8 ng/ml Creatine Kinase MB Ratio 3.3 2.9 3.2 Troponin I < 0.015 ng/ml < 0.015 ng/ml < 0.015 ng/ml Venous Blood pH 7.31 Venous Blood Partial Pressure CO2 53 mmHg Venous Blood Partial Pressure O2 36 mmHg Venous Blood HCO3 26 mmol/L Venous Blood Oxygen Saturation 65.2 % Venous Blood Base Excess -0.7 mmol/L Assessment and Plan 58-year-old female with chronic end-stage renal disease on dialysis who missed her dialysis treatment. Chest with pleuritic chest pain. Acute on Chronic Diastolic CHF 2/2 Dialysis Non-Compliance: - Echo (May 2016) - EF 50-60% with diastolic dysfunction grade II; R ventricular systolic pressure elevated and mild-mod MR - Furosemide 80 mg BID - Lopressor 100 mg BID Acute Respiratory Failure 2/2 Above: - Plan to wean O2 as necessary with home diuretics and dialysis ESRD on HD: - Dialyzed on 08/05 and plan for dialysis tomorrow - Phoslo with meals and snacks; Sensipar is non-formulary Diabetes S/P Pancreatic Transplant (2003): Transplantation in [place] - Glucose controlled since transplantation - will monitor with routine labs - Cellcept 500 mg daily and Prograf 8 mg AM and 6 mg PM DVT Prophylaxis: Heparin 5000 units SC Q12H Code Status: FULL RESUSCITATION Disposition: Dialysis tomorrow and goal to return to home O2 use of only 2 L HS Continued [facility] stay due to: multiple IV medications needed
[2016-08-06] MEDS: SIMVASTATIN 10 MG TAB JT SCH (21:03)
[2016-08-07] VITALS (27 sets, daily range): BP systolic 97–131; BP diastolic 55–78; PULSE 66–82; TEMP 36.4–37.2; O2SAT 91–100
[2016-08-07] MEDS: ALPRAZOLAM 0.5 MG TAB JT PRN ×4 (03:05→21:55)
[2016-08-07 06:05] LABS: ESTIMATED AVERAGE GLUCOSE 140 mg/dl; HA1C FLAG Normal (Normal)
[2016-08-07 06:37] LABS: BUN/CREATININE RATIO 8.6 (10-20); CALCIUM 9.5 mg/dl (8.5-10.1); CREATININE 5.4 mg/dl (0.60-1.20); POTASSIUM 4.4 mmol/L (3.5-5.1)
[2016-08-07] MEDS ORDERED: SULFAMETHOXAZOLE/TRIMETHOPRIM 200MG/40MG/5ML SUSP PO SCH (09:00)
[2016-08-07] MEDS: RANITIDINE HCL SYRUP 150 MG/10 ML 480ML GT SCH ×2 (10:47→21:43)
[2016-08-07] MEDS: CITALOPRAM 20 MG TAB JT SCH (10:47)
[2016-08-07] MEDS: DOCUSATE SODIUM 100 MG/10 ML UDC PO PRN (10:47)
[2016-08-07] MEDS: CALCIUM ACETATE 667MG GELCAP PO SCH ×4 (10:47→17:48)
[2016-08-07] MEDS: FUROSEMIDE 80 MG TAB PO SCH ×2 (10:48→17:49)
[2016-08-07] MEDS: METOPROLOL TARTRATE 100 MG TAB JT SCH ×2 (10:48→21:40)
[2016-08-07] MEDS: PANTOprazole SOD 40 MG TAB PO SCH ×2 (10:48→21:00)
[2016-08-07] MEDS: SULFAMETHOXAZOLE/TRIMETHOPRIM 200MG/40MG/5ML SUSP PO SCH (10:48)
[2016-08-07] MEDS: VITAMIN B COMPLEX TAB PO SCH (10:48)
[2016-08-07] MEDS: TACROLIMUS 1 MG CAP PO SCH ×2 (10:49→21:37)
[2016-08-07] MEDS: HEPARIN SOD 5000 UNIT/0.5 ML CARP SQ SCH ×2 (10:50→21:41)
--- NOTE | 2016-08-07 10:52 | Nephrology Progress Note ---
Nephrology Progress Note Date of Service Aug 07, 2016. Subjective Seen at the end of her dialysis treatment.She says she had a "horrible" treatment. She was bothered by pain in her left shoulder. Was holding it still because of her AVF. She also developed hypotension with ultrafiltration. Was OOB yesterday without unusual SOB. Denies chest pain. No other sx. of uremia or volume overload. No diarrhea. No other complaints other than musculoskeletal aches and pains. Review of Systems Cardiovascular: + problem reported Respiratory: + problem reported Musculoskeletal: + problem reported A complete review of systems was performed. Pertinent positives are noted above. All other systems are negative. Vital Signs Last 8 Hrs Date Time Temp Pulse Resp B/P (MAP) Pulse Ox O2 Delivery O2 Flow Rate FiO2 08/07/16 10:16 36.4 77 115/59 (77) 08/07/16 10:00 71 105/69 08/07/16 09:45 69 111/76 08/07/16 09:30 73 102/70 08/07/16 09:15 76 99/69 08/07/16 09:00 73 101/55 08/07/16 08:45 70 110/68 08/07/16 08:30 66 105/60 08/07/16 08:15 66 102/57 08/07/16 08:00 70 114/59 08/07/16 07:45 69 110/76 08/07/16 07:30 70 114/71 08/07/16 07:15 69 110/60 08/07/16 07:00 70 98/57 08/07/16 06:45 69 109/60 08/07/16 06:30 75 107/58 08/07/16 06:15 36.5 74 116/69 (85) 08/07/16 04:00 98 Nasal Cannula 3.0 08/07/16 04:00 37.0 74 14 131/74 (93) 98 Nasal Cannula 3.0 I & O 24-Hour Column 08/08/16 08:00 Output Total 2400 ml Balance -2400 ml Last Recorded Weight Weight (Kilograms): 56.300 Physical Exam Skin: deminished turgor. Scars from prion surgeries. Lymphatics: No adenopathy or lymphangitis HEENT: Unremarkable. Oral mucous membranes moist. Neck: No JVD at 60 degrees. Chest:m Clear ton auscultation Cor: Regular rhythm. Grade 2/6 ANT at the base and left sternal border. Abd: GJ tube in place. Soft. Not tender. Fullness LLQ from pancreas transplant. Ext: No edema. Scratches and scrapes. No focal or lateralizing signs. Family History Cancer Heart disease Social History Smoking Status: Never smoker Drug Use: none Marital Status: Housing Status: lives with family Occupation: retired Laboratory Results Past 24 Hours 08/07/16 04:52 Test 08/07/16 04:52 Anion Gap 10.0 mmol/L (3-11) Est Creatinine Clear Calc Drug Dose 7.8 ml/min Estimated GFR () 8.7 Estimated GFR (Non- 7.5 BUN/Creatinine Ratio 8.6 (10-20) Estimated Average Glucose 140 mg/dl Hemoglobin A1c 6.5 % (4.5-5.6) Calcium Level 9.5 mg/dl (8.5-10.1) Allergies Coded Allergies: Penicillins (Verified Allergy, Intermediate, RASH, 08/05/16) Erythromycin (Verified Allergy, Mild, RASH, 08/05/16) Acetaminophen (Unverified Allergy, Unknown, ., 08/05/16) Surgical Lubricant (Verified Allergy, Unknown, ITCHY, 08/05/16) Carbamazepine (Verified Adverse Reaction, Severe, TOXIC BLOOD POISONING, ) TOXIC BLOOD POISONING Metoclopramide (Verified Adverse Reaction, Severe, SEIZURES, 08/05/16) SEIZURES Corticosteroids (Verified Adverse Reaction, Intermediate, NAUSEA, 08/05/16) PATIENT STATES ON ALLERGY SHEET "ABSOLUTELY NONE" Dicyclomine (Verified Adverse Reaction, Intermediate, HALLUCINATIONS, 08/05) HALLUCINATIONS Ketorolac (Verified Adverse Reaction, Intermediate, NAUSEATED, 08/05/16) Pregabalin (Verified Adverse Reaction, Intermediate, CONFUSION, 08/05/16) Quinolones (Verified Adverse Reaction, Intermediate, LEVAQUIN-NAUSEA, CHRONIC HEARTBURN, 08/05/16) levaquin =NAUSEA, CHRONIC HEARTBURN. PT SAID SHE WILL NOT TAKE 12/06/08 Azithromycin (Verified Adverse Reaction, Mild, n&v, 08/05/16) Cephalexin (Verified Adverse Reaction, Mild, NAUSEA, 08/05/16) Cephalosporins (Verified Adverse Reaction, Mild, KEFLEX = NAUSEA, 08/05/16) Codeine (Verified Adverse Reaction, Mild, NAUSEA, 08/05/16) Gabapentin (Verified Adverse Reaction, Mild, NAUSEA, 08/05/16) NAUSEA Levofloxacin (Verified Adverse Reaction, Mild, NAUSEA, 08/05/16) Naproxen (Verified Adverse Reaction, Mild, NAUSEA, 08/05/16) Nitrofurantoin (Verified Adverse Reaction, Mild, NAUSEA, 08/05/16) Oxycodone (Verified Adverse Reaction, Mild, PRC/TYLOX = NAUSEA, 08/05/16) NAUSEA Phenobarbital (Verified Adverse Reaction, Mild, NAUSEA, 08/05/16) Prednisolone (Verified Adverse Reaction, Mild, IRRITATION, 08/05/16) Promethazine (Verified Adverse Reaction, Mild, DIARRHEA, 08/05/16) Sertraline (Verified Adverse Reaction, Mild, NAUSEA, 08/05/16) Adhesives (Verified Adverse Reaction, Unknown, UNKNOWN, 08/05/16) Mirtazapine (Verified Adverse Reaction, Unknown, HEARS VOICES, 08/05/16) Propoxyphene (Verified Adverse Reaction, Unknown, NAUSEA, 08/05/16) NAUSEA Tramadol (Verified Adverse Reaction, Unknown, DEPRESSION, 08/05/16) DEPRESSION Medications Current Inpatient Medications Medications (Trade) Dose Ordered Sig/Ayaka Route Start Time Stop Time Status Last Admin Dose Admin Alprazolam (Xanax Tab) 0.5 mg Q4H PRN JT 08/05/16 15:45 09/04/16 15:44 08/07/16 07:55 0.5 MG Calcium Acetate (Phoslo Cap) 1,334 mg QDB PO 08/06/16 07:30 09/05/16 07:59 08/06/16 07:32 1,334 MG Calcium Acetate (Phoslo Cap) 2,001 mg QDL PO 08/06/16 11:00 09/05/16 10:59 08/06/16 11:00 2,001 MG Citalopram Hydrobromide (celeXA TAB) 20 mg QAM JT 08/06/16 09:00 09/05/16 08:59 08/06/16 07:32 20 MG Docusate Sodium (coLACE SYRUP) 100 mg BID PRN PO 08/05/16 15:45 09/04/16 15:44 Furosemide (Lasix Tab) 80 mg BID17 PO 08/05/16 21:00 09/04/16 20:59 08/06/16 17:31 80 MG Hydromorphone HCl (Dilaudid Tab) 8 mg Q4H PRN PO 08/05/16 15:45 08/19/16 15:44 08/07/16 07:55 8 MG Metoprolol Tartrate (Lopressor Tab) 100 mg BID JT 08/05/16 21:00 09/04/16 20:59 08/06/16 21:03 100 MG Mycophenolate Mofetil (Cellcept Susp) 500 mg QAM JT 08/06/16 09:00 09/05/16 08:59 08/06/16 07:43 500 MG Pantoprazole Sodium (Protonix Tab) 40 mg BID PO 08/05/16 21:00 09/04/16 20:59 08/06/16 21:04 40 MG Simvastatin (Zocor Tab) 10 mg HS JT 08/05/16 21:00 09/04/16 20:59 08/06/16 21:03 10 MG Triamcinolone Acetonide (Nasacort Allergy 24hr) 2 sprays DAILY PRN AMRIT 08/05/16 15:45 09/04/16 15:44 Vitamin B Complex (Vitamin B Complex) 1 tab DAILY PO 08/06/16 09:00 09/05/16 08:59 08/06/16 07:33 1 TAB Miscellaneous Information (Order Awaiting Action) 1 ea QS N/A 08/06/16 00:00 09/05/16 00:00 Ranitidine HCl (zANTac SYRUP) 300 mg BID GT 08/05/16 21:00 09/04/16 20:59 08/06/16 21:02 300 MG Tacrolimus (Prograf Cap) 6 mg QPM PO 08/05/16 21:00 09/04/16 20:59 08/06/16 21:02 6 MG Tacrolimus (Prograf Cap) 8 mg QAM PO 08/06/16 09:00 09/05/16 08:59 08/06/16 07:33 8 MG Calcium Acetate (Phoslo Cap) 2,001 mg TID PRN PO 08/05/16 16:00 09/04/16 15:59 Calcium Acetate (Phoslo Cap) 2,001 mg QDD PO 08/05/16 17:07 09/04/16 17:59 08/06/16 16:49 2,001 MG Heparin Sodium (Porcine) (Heparin Sq 5000 Unit/0.5ml) 5,000 unit Q12 SQ 08/05/16 21:00 09/04/16 20:59 08/06/16 21:00 5,000 UNIT Magnesium Hydroxide (Milk Of Magnesia Susp) 30 ml Q12H PRN PO 08/05/16 16:15 09/04/16 16:14 Ondansetron HCl (Zofran Inj) 4 mg Q6H PRN IV 08/05/16 16:15 09/04/16 16:14 Nitroglycerin (Nitrostat Tab) 0.4 mg UD PRN SL 08/05/16 16:15 09/04/16 16:14 Morphine Sulfate (MoRPHine SULFATE INJ) 2 mg Q30M PRN IV 08/05/16 16:15 08/19/16 16:14 Trimethoprim/ Sulfamethoxazole (Septra Susp) 10 ml MoWeFr@0900 PO 08/07/16 09:00 09/06/16 08:59 Impression Improved as far as SOB. Appears to be euvolemic at this time. Nom uremic sx. Stable from the ESRD standpoint. Havem not seen results of echocardiogram. If otherwise stable, should be OK for d/c on usual meds. I discussed compliance with outpatient treatments with her. Recommendations No immediate changes. D/C if otherwise stable on usual meds. Next outpatient dialysis is 08/11. PLEASE NOTE: Dose of Tacrolimus should be 3mgm qAM and 4mgm qPM.
[2016-08-07] MEDS: MYCOPHENOLATE SUSP 200 MG/1 ML JT SCH (10:53)
[2016-08-07] MEDS ORDERED: TACR1CAP PO ×2 (11:47)
--- NOTE | 2016-08-07 15:22 | Progress Note ---
Subjective Date of Service: Aug 07, 2016. Subjective Pt evaluation today including: conversation w/ patient, physical exam, lab review, conversation w/ it consultant, review of inpatient medication list Pain: pain nearly resolved PO Intake: poor Voiding: no voiding problems had HD today, tolerated well she feels weak her chest pain nearly gone, breathing better discussed discharge, she feels weak, suggested we get therapy evaluations, try for d/c tomorrow she agreed with this plan reviewed labs transfer to medical Problem List Medical Problems: (1) Acute head injury Status: Acute (2) Chronic pain syndrome Status: Chronic (3) Depression with anxiety Status: Chronic (4) Dyslipidemia Status: Chronic (5) End stage renal disease on dialysis Status: Chronic (6) Episode of syncope Status: Acute (7) GERD (gastroesophageal reflux disease) Status: Chronic (8) HTN (hypertension) Status: Chronic (9) Hypoxia Status: Acute (10) Narcotic dependence Status: Chronic (11) Osteoporosis Status: Chronic (12) Right arm pain Status: Acute (13) Right orbital fracture Status: Acute (14) Substernal precordial chest pain Status: Acute Review of Systems Constitutional: + weakness, + fatigue Respiratory: + dyspnea on exertion Abdomen: + problem reported (poor appetite) All Other Systems: Reviewed and Negative Medications Current Inpatient Medications Medications (Trade) Dose Ordered Sig/Ayaka Route Start Time Stop Time Status Last Admin Dose Admin Alprazolam (Xanax Tab) 0.5 mg Q4H PRN JT 08/05/16 15:45 09/04/16 15:44 08/07/16 07:55 0.5 MG Calcium Acetate (Phoslo Cap) 1,334 mg QDB PO 08/06/16 07:30 09/05/16 07:59 08/07/16 10:47 1,334 MG Calcium Acetate (Phoslo Cap) 2,001 mg QDL PO 08/06/16 11:00 09/05/16 10:59 08/06/16 11:00 2,001 MG Citalopram Hydrobromide (celeXA TAB) 20 mg QAM JT 08/06/16 09:00 09/05/16 08:59 08/07/16 10:47 20 MG Docusate Sodium (coLACE SYRUP) 100 mg BID PRN PO 08/05/16 15:45 09/04/16 15:44 08/07/16 10:47 100 MG Furosemide (Lasix Tab) 80 mg BID17 PO 08/05/16 21:00 09/04/16 20:59 08/07/16 10:48 80 MG Hydromorphone HCl (Dilaudid Tab) 8 mg Q4H PRN PO 08/05/16 15:45 08/19/16 15:44 08/07/16 07:55 8 MG Metoprolol Tartrate (Lopressor Tab) 100 mg BID JT 08/05/16 21:00 09/04/16 20:59 08/07/16 10:48 100 MG Mycophenolate Mofetil (Cellcept Susp) 500 mg QAM JT 08/06/16 09:00 09/05/16 08:59 08/07/16 10:53 500 MG Pantoprazole Sodium (Protonix Tab) 40 mg BID PO 08/05/16 21:00 09/04/16 20:59 08/07/16 10:48 40 MG Simvastatin (Zocor Tab) 10 mg HS JT 08/05/16 21:00 09/04/16 20:59 08/06/16 21:03 10 MG Triamcinolone Acetonide (Nasacort Allergy 24hr) 2 sprays DAILY PRN AMRIT 08/05/16 15:45 09/04/16 15:44 Vitamin B Complex (Vitamin B Complex) 1 tab DAILY PO 08/06/16 09:00 09/05/16 08:59 08/07/16 10:48 1 TAB Miscellaneous Information (Order Awaiting Action) 1 ea QS N/A 08/06/16 00:00 09/05/16 00:00 Ranitidine HCl (zANTac SYRUP) 300 mg BID GT 08/05/16 21:00 09/04/16 20:59 08/07/16 10:47 300 MG Calcium Acetate (Phoslo Cap) 2,001 mg TID PRN PO 08/05/16 16:00 09/04/16 15:59 Calcium Acetate (Phoslo Cap) 2,001 mg QDD PO 08/05/16 17:07 09/04/16 17:59 08/06/16 16:49 2,001 MG Heparin Sodium (Porcine) (Heparin Sq 5000 Unit/0.5ml) 5,000 unit Q12 SQ 08/05/16 21:00 09/04/16 20:59 08/07/16 10:50 5,000 UNIT Magnesium Hydroxide (Milk Of Magnesia Susp) 30 ml Q12H PRN PO 08/05/16 16:15 09/04/16 16:14 Ondansetron HCl (Zofran Inj) 4 mg Q6H PRN IV 08/05/16 16:15 09/04/16 16:14 Nitroglycerin (Nitrostat Tab) 0.4 mg UD PRN SL 08/05/16 16:15 09/04/16 16:14 Morphine Sulfate (MoRPHine SULFATE INJ) 2 mg Q30M PRN IV 08/05/16 16:15 08/19/16 16:14 Trimethoprim/ Sulfamethoxazole (Septra Susp) 10 ml MoWeFr@0900 PO 08/07/16 09:00 09/06/16 08:59 08/07/16 10:48 10 ML Tacrolimus (Prograf Cap) 3 mg QPM PO 08/07/16 21:00 09/04/16 20:59 Tacrolimus (Prograf Cap) 4 mg QAM PO 08/08/16 09:00 09/05/16 08:59 Objective Vital Signs Date Time Temp Pulse Resp B/P (MAP) Pulse Ox O2 Delivery O2 Flow Rate FiO2 08/07/16 12:35 37.1 75 20 114/62 (79) 94 Nasal Cannula 2.0 08/07/16 12:00 100 Nasal Cannula 1.5 08/07/16 10:37 76 114/64 (81) 100 Nasal Cannula 1.5 08/07/16 10:16 36.4 77 115/59 (77) 08/07/16 10:00 71 105/69 08/07/16 09:45 69 111/76 08/07/16 09:30 73 102/70 08/07/16 09:15 76 99/69 08/07/16 09:00 73 101/55 08/07/16 08:45 70 110/68 08/07/16 08:30 66 105/60 08/07/16 08:15 66 102/57 08/07/16 08:00 70 114/59 08/07/16 07:45 69 110/76 08/07/16 07:30 70 114/71 08/07/16 07:15 69 110/60 08/07/16 07:00 70 98/57 08/07/16 06:45 69 109/60 08/07/16 06:30 75 107/58 08/07/16 06:15 36.5 74 116/69 (85) 08/07/16 04:00 98 Nasal Cannula 3.0 08/07/16 04:00 37.0 74 14 131/74 (93) 98 Nasal Cannula 3.0 08/07/16 00:00 97 Nasal Cannula 2.0 08/07/16 00:00 36.6 73 121/72 (88) 97 Nasal Cannula 08/06/16 20:10 Room Air 08/06/16 19:47 37.1 77 16 144/86 (105) 97 Nasal Cannula 2.0 08/06/16 16:00 Room Air 08/06/16 15:19 37.4 76 20 157/88 (111) 99 Nasal Cannula 2.0 Physical Exam General Appearance: no apparent distress, + thin Neck: supple, no adenopathy, no JVD, trachea midline Respiratory/Chest: chest non-tender, normal breath sounds, no respiratory distress, no accessory muscle use, + decreased breath sounds (bases) Cardiovascular: regular rate, rhythm, no edema, no gallop, no JVD, no murmur Abdomen: normal bowel sounds, non tender, soft, no organomegaly Extremities: normal range of motion, non-tender, normal inspection, no pedal edema, no calf tenderness, pelvis stable 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, alert, normal mood/affect, oriented x 3, + motor weakness (generalized) Skin: normal color, warm/dry, no rash Laboratory Results Last 24 Hours Test 08/07/16 04:52 Sodium Level 137 mmol/L Potassium Level 4.4 mmol/L Chloride Level 97 mmol/L Carbon Dioxide Level 30 mmol/L Anion Gap 10.0 mmol/L Blood Urea Nitrogen 46 mg/dl Creatinine 5.40 mg/dl Est Creatinine Clear Calc Drug Dose 7.8 ml/min Estimated GFR () 8.7 Estimated GFR (Non- 7.5 BUN/Creatinine Ratio 8.6 Random Glucose 128 mg/dl Estimated Average Glucose 140 mg/dl Hemoglobin A1c 6.5 % Calcium Level 9.5 mg/dl Assessment and Plan 58-year-old female with chronic end-stage renal disease on dialysis who missed her dialysis treatment. Chest with pleuritic chest pain. Acute on Chronic Diastolic CHF 2/2 Dialysis Non-Compliance: - acute component resolved with UF via dialysis - Echo (May 2016) - EF 50-60% with diastolic dysfunction grade II; R ventricular systolic pressure elevated and mild-mod MR repeat echo ordered and results still pending, will follow up - Furosemide 80 mg BID - Lopressor 100 mg BID Acute Respiratory Failure 2/2 Above: - try to wean oxygen off today - needs to sit up in chair, ambulate therapy consulted ESRD on HD: - Dialyzed on 08/05 and 08/07, tolerated well - Phoslo with meals and snacks; Sensipar is non-formulary Diabetes S/P Pancreatic Transplant (2003): Transplantation in [place] - Glucose controlled since transplantation - will monitor with routine labs - Cellcept 500 mg daily and Prograf 4 mg AM and 3 mg PM DVT Prophylaxis: Heparin 5000 units SC Q12H Code Status: FULL RESUSCITATION Plan: transfer to medical, PT/OT evaluations, try to d/c tomorrow Continued [facility] stay due to: multiple IV medications needed
--- NOTE | 2016-08-07 17:16 | ECHOCARDIOGRAM REPORT ---
*NOTICE TO RECEIVING [employer]UTION [employer]Y AGENCY This information is strictly Confidential and protected under [place] law. [place] law prohibits you from making any further disclosure of this information unless further disclosure is expressly permitted by the written consent of the person to whom it pertains or is authorized by law. A general authorization for the release of medical or other information is not sufficient for this purpose. Hospital accepts no responsibility if the information is made available to any other person, INCLUDING THE PATIENT. Interpretation Summary * Name: DENISHA MOREAU V Study Date: 08/07/2016 03:44 PM BP: 117/69 mmHg * Patient Location: .2E\S\E211\S\1 HR: 75 * : 1950 (M/d/yyyy) Gender: Female Height: 60 in * Age: 66 yrs Ethnicity: [place] Weight: 117 lb * Ordering Physician: Shorty Otoole * Referring Physician: Self, Referred * Performed By: Jenna Frankel RDCS * * Reason For Study: CHF * BSA: 1.5 m2 * -- Conclusions -- * Left ventricular systolic function is normal. * No regional wall motion abnormalities noted. * Ejection Fraction = 55-60%. * There is mild mitral regurgitation. * There is mild tricuspid regurgitation. Procedure Details * A complete two-dimensional transthoracic echocardiogram was performed (2D, M-mode, Doppler and color flow Doppler). Left Ventricle * The left ventricle is normal in size. * There is normal left ventricular wall thickness. * Ejection Fraction = 55-60%. * Left ventricular systolic function is normal. * No regional wall motion abnormalities noted. Right Ventricle * The right ventricle is grossly normal size. * The right ventricular systolic function is normal as assessed by tricuspid annular plane systolic excursion (TAPSE) (normal >1.5 cm). Atria * The left atrium is mildly dilated. * The right atrium is mildly dilated. * There is no evidence of atrial septal defect, but resolution does not allow assessment for a patent foramen ovale. Mitral Valve * The mitral valve is grossly normal. * There is no mitral valve stenosis. * There is mild mitral regurgitation. Tricuspid Valve * The tricuspid valve is not well visualized, but is grossly normal. * There is mild tricuspid regurgitation. Aortic Valve * The aortic valve is not well visualized. * The aortic valve opens well. * No hemodynamically significant valvular aortic stenosis. * There is no significant aortic regurgitation. Pulmonic Valve * The pulmonary valve is not well seen, but the Doppler examination is normal without significant regurgitation or stenosis. Great Vessels * The aortic root is normal size. * The pulmonary is not well visualized. Pericardium/Pleural * Trivial pericardial effusion. * Small left pleural effusion. Great Vessels * IVC not well visualized. MMode 2D Measurements and Calculations IVSd 0.95 cm LVIDd 4.1 cm LVIDs 2.9 cm LVPWd 1.2 cm IVS/LVPW 0.79 FS 30.4 % EDV(Teich) 74.8 ml ESV(Teich) 31.2 ml EF(Teich) 58.3 % EDV(cubed) 69.6 ml ESV(cubed) 23.5 ml EF(cubed) 66.3 % LV mass(C)d 147.5 grams LV mass(C)dI 99.2 grams/m\S\2 SV(Teich) 43.6 ml SI(Teich) 29.3 ml/m\S\2 SV(cubed) 46.1 ml SI(cubed) 31.0 ml/m\S\2 Ao root diam 2.8 cm Ao root area 6.1 cm\S\2 ACS 1.6 cm LA dimension 3.9 cm asc Aorta Diam 2.2 cm LA/Ao 1.4 LVOT diam 2.0 cm LVOT area 3.0 cm\S\2 LVAd ap4 23.0 cm\S\2 LVLd ap4 6.8 cm EDV(MOD-sp4) 63.7 ml EDV(sp4-el) 66.1 ml LVAs ap4 14.3 cm\S\2 LVLs ap4 5.8 cm ESV(MOD-sp4) 30.3 ml ESV(sp4-el) 29.7 ml EF(MOD-sp4) 52.4 % EF(sp4-el) 55.0 % LVAd ap2 25.0 cm\S\2 LVLd ap2 7.4 cm EDV(MOD-sp2) 70.9 ml EDV(sp2-el) 71.9 ml LVAs ap2 15.3 cm\S\2 LVLs ap2 6.4 cm ESV(MOD-sp2) 30.9 ml ESV(sp2-el) 31.3 ml EF(MOD-sp2) 56.4 % EF(sp2-el) 56.5 % LVLd %diff 7.4 % EDV(MOD-bp) 70.2 ml LVLs %diff 8.6 % ESV(MOD-bp) 32.0 ml EF(MOD-bp) 54.3 % SV(MOD-sp4) 33.4 ml SI(MOD-sp4) 22.5 ml/m\S\2 SV(MOD-sp2) 40.0 ml SI(MOD-sp2) 26.9 ml/m\S\2 SV(MOD-bp) 38.1 ml SI(MOD-bp) 25.7 ml/m\S\2 SV(sp4-el) 36.4 ml SI(sp4-el) 24.5 ml/m\S\2 SV(sp2-el) 40.6 ml SI(sp2-el) 27.3 ml/m\S\2 Doppler Measurements and Calculations MV E max mckayla 86.8 cm/sec MV A max mckayla 97.0 cm/sec MV E/A 0.90 MV dec time 0.28 sec Ao V2 max 156.9 cm/sec Ao max PG 9.8 mmHg Ao max PG (full) 7.7 mmHg OMARI(V,A) 1.4 cm\S\2 OMARI(V,D) 1.4 cm\S\2 LV V1 max PG 2.1 mmHg LV V1 max 73.2 cm/sec PA V2 max 78.7 cm/sec PA max PG 2.5 mmHg PA acc slope 261.2 cm/sec\S\2 PA acc time 0.17 sec TR max mckayla 275.5 cm/sec PA pr(Accel) 2.9 mmHg
[2016-08-07] MEDS: SIMVASTATIN 10 MG TAB JT SCH (21:39)
[2016-08-08 06:10] LABS: HEMATOCRIT 39.7 % (37-47); MEAN CELL VOLUME 103.9 fL (80-100); MEAN CORPUSCULAR HEMOGLOBIN 30.9 pg (25-34); MEAN CORPUSCULAR HGB CONC 29.7 g/dl (32-36); MEAN PLATELET VOLUME 11.9 fL (7.4-10.4); PLATELET COUNT 133 K/uL (130-400); RED BLOOD COUNT 3.82 M/uL (4.2-5.4); WHITE BLOOD COUNT 8.17 K/uL (4.8-10.8)
[2016-08-08 06:36] LABS: BUN/CREATININE RATIO 8.5 (10-20); CALCIUM 9.4 mg/dl (8.5-10.1); CREATININE 4.3 mg/dl (0.60-1.20); POTASSIUM 4.1 mmol/L (3.5-5.1)
[2016-08-08 07:40] LABS: FK506 TACROLIMUS HIGHLY SENS 4.2 MCG/L (5-20)
[2016-08-08 07:57] VITALS: BP 142/78; PULSE 81; TEMP 36.8; O2SAT 91
[2016-08-08] MEDS: CALCIUM ACETATE 667MG GELCAP PO SCH ×4 (08:00→16:37)
--- NOTE | 2016-08-08 08:01 | Hospitalist Progress Note ---
Hospitalist Progress Note Date of Service Aug 08, 2016. Subjective Pt evaluation today including: conversation w/ patient, physical exam, chart review, lab review, review of studies, conversation w/ advertising sales consultant (Gen Surg - Dr. Salgado), review of inpatient medication list Patient seen and evaluated. Patient's GJ tube dislodged overnight. Will place Diamond catheter in stoma to keep site open until re-insertion. Consult placed to Gen Surg. Discussed with Dr. Salgado - will place as large of a Diamond as possible to keep stoma open. Patient reports has placed her tube in the past. She normally goes to [place] for reinsertion. She was seen in our ED in 2014 for dislodgement and a temporary G tube was placed and was referred to [place]. Patient reports that she has now pain at site. Stoma visualized. Mild erythema around stoma site which looks improved from previous day. Purulent drainage at stoma opening. Does report feeling improved. Currently oxygenating well on RA. Continues to report neck and L shoulder pain. Patient has significant curvature of spine. She has never seen orthopedics for musculoskeletal problems. LUE fistula with + thrill +bruit Verbalizes no other needs at this time. Constitutional: No fever, No chills Respiratory: No shortness of breath Cardiovascular: No chest pain Abdomen: No pain, No nausea, No vomiting, No diarrhea, No constipation Musculoskeletal: + joint pain (L shoulder) Medications Current Inpatient Medications Medications (Trade) Dose Ordered Sig/Ayaka Route Start Time Stop Time Status Last Admin Dose Admin Alprazolam (Xanax Tab) 0.5 mg Q4H PRN JT 08/05/16 15:45 09/04/16 15:44 08/07/16 21:55 0.5 MG Calcium Acetate (Phoslo Cap) 1,334 mg QDB PO 08/06/16 07:30 09/05/16 07:59 08/07/16 10:47 1,334 MG Calcium Acetate (Phoslo Cap) 2,001 mg QDL PO 08/06/16 11:00 09/05/16 10:59 08/06/16 11:00 2,001 MG Citalopram Hydrobromide (celeXA TAB) 20 mg QAM JT 08/06/16 09:00 09/05/16 08:59 08/07/16 10:47 20 MG Docusate Sodium (coLACE SYRUP) 100 mg BID PRN PO 08/05/16 15:45 09/04/16 15:44 08/07/16 10:47 100 MG Furosemide (Lasix Tab) 80 mg BID17 PO 08/05/16 21:00 09/04/16 20:59 08/07/16 17:49 80 MG Hydromorphone HCl (Dilaudid Tab) 8 mg Q4H PRN PO 08/05/16 15:45 08/19/16 15:44 08/07/16 21:55 8 MG Metoprolol Tartrate (Lopressor Tab) 100 mg BID JT 08/05/16 21:00 09/04/16 20:59 08/07/16 21:40 100 MG Mycophenolate Mofetil (Cellcept Susp) 500 mg QAM JT 08/06/16 09:00 09/05/16 08:59 08/07/16 10:53 500 MG Pantoprazole Sodium (Protonix Tab) 40 mg BID PO 08/05/16 21:00 09/04/16 20:59 08/07/16 10:48 40 MG Simvastatin (Zocor Tab) 10 mg HS JT 08/05/16 21:00 09/04/16 20:59 08/07/16 21:39 10 MG Triamcinolone Acetonide (Nasacort Allergy 24hr) 2 sprays DAILY PRN AMRIT 08/05/16 15:45 09/04/16 15:44 Vitamin B Complex (Vitamin B Complex) 1 tab DAILY PO 08/06/16 09:00 09/05/16 08:59 08/07/16 10:48 1 TAB Miscellaneous Information (Order Awaiting Action) 1 ea QS N/A 08/06/16 00:00 09/05/16 00:00 Ranitidine HCl (zANTac SYRUP) 300 mg BID GT 08/05/16 21:00 09/04/16 20:59 08/07/16 21:43 300 MG Calcium Acetate (Phoslo Cap) 2,001 mg TID PRN PO 08/05/16 16:00 09/04/16 15:59 Calcium Acetate (Phoslo Cap) 2,001 mg QDD PO 08/05/16 17:07 09/04/16 17:59 08/07/16 17:48 2,001 MG Heparin Sodium (Porcine) (Heparin Sq 5000 Unit/0.5ml) 5,000 unit Q12 SQ 08/05/16 21:00 09/04/16 20:59 08/07/16 21:41 5,000 UNIT Magnesium Hydroxide (Milk Of Magnesia Susp) 30 ml Q12H PRN PO 08/05/16 16:15 09/04/16 16:14 Ondansetron HCl (Zofran Inj) 4 mg Q6H PRN IV 08/05/16 16:15 09/04/16 16:14 Nitroglycerin (Nitrostat Tab) 0.4 mg UD PRN SL 08/05/16 16:15 09/04/16 16:14 Morphine Sulfate (MoRPHine SULFATE INJ) 2 mg Q30M PRN IV 08/05/16 16:15 08/19/16 16:14 Trimethoprim/ Sulfamethoxazole (Septra Susp) 10 ml MoWeFr@0900 PO 08/07/16 09:00 09/06/16 08:59 08/07/16 10:48 10 ML Tacrolimus (Prograf Cap) 3 mg QPM PO 08/07/16 21:00 09/04/16 20:59 08/07/16 21:37 3 MG Tacrolimus (Prograf Cap) 4 mg QAM PO 08/08/16 09:00 09/05/16 08:59 Heparin Sodium (Porcine) (Heparin 100 Unit/ml 5ml Flush) 5 ml PRN PRN IV 08/08/16 00:45 09/07/16 00:44 08/08/16 05:27 5 ML Objective Vital Signs Date Time Temp Pulse Resp B/P (MAP) Pulse Ox O2 Delivery O2 Flow Rate FiO2 08/08/16 00:00 Nasal Cannula 2.0 08/07/16 23:12 36.8 82 16 97/60 (72) 91 Room Air 08/07/16 16:55 36.9 81 18 111/78 (89) 95 Nasal Cannula 2.0 08/07/16 16:50 93 Nasal Cannula 2.0 08/07/16 16:28 37.2 75 22 93 2.0 08/07/16 15:28 37.2 75 22 117/69 (85) 93 Nasal Cannula 2.0 08/07/16 12:35 37.1 75 20 114/62 (79) 94 Nasal Cannula 2.0 08/07/16 12:00 100 Nasal Cannula 1.5 08/07/16 10:37 76 114/64 (81) 100 Nasal Cannula 1.5 08/07/16 10:16 36.4 77 115/59 (77) 08/07/16 10:00 71 105/69 08/07/16 09:45 69 111/76 08/07/16 09:30 73 102/70 08/07/16 09:15 76 99/69 08/07/16 09:00 73 101/55 08/07/16 08:45 70 110/68 08/07/16 08:30 66 105/60 08/07/16 08:15 66 102/57 08/07/16 08:00 70 114/59 Physical Exam General Appearance: no apparent distress, + thin Eyes: sclerae normal ENT: hearing grossly normal Neck: supple, no JVD, trachea midline Respiratory/Chest: lungs clear, normal breath sounds, no respiratory distress, no accessory muscle use Cardiovascular: regular rate, rhythm, + systolic murmur Abdomen: normal bowel sounds, non tender, soft, + pertinent finding (GJ site stoma with mild erythema and purulent drainage from opening) Extremities: no pedal edema, no calf tenderness, + pertinent finding ( tenderness to palpation of neck and shoulder; ROM limited due to pain) Neurologic/Psychiatric: alert, oriented x 3 Skin: normal color, warm/dry Laboratory Results Last 24 Hours Test 08/08/16 05:30 White Blood Count 8.17 K/uL Red Blood Count 3.82 M/uL Hemoglobin 11.8 g/dL Hematocrit 39.7 % Mean Corpuscular Volume 103.9 fL Mean Corpuscular Hemoglobin 30.9 pg Mean Corpuscular Hemoglobin Concent 29.7 g/dl RDW Standard Deviation 53.9 fL RDW Coefficient of Variation 14.3 % Platelet Count 133 K/uL Mean Platelet Volume 11.9 fL Sodium Level 138 mmol/L Potassium Level 4.1 mmol/L Chloride Level 100 mmol/L Carbon Dioxide Level 32 mmol/L Anion Gap 6.0 mmol/L Blood Urea Nitrogen 37 mg/dl Creatinine 4.30 mg/dl Est Creatinine Clear Calc Drug Dose 9.8 ml/min Estimated GFR () 11.5 Estimated GFR (Non- 9.9 BUN/Creatinine Ratio 8.5 Random Glucose 168 mg/dl Calcium Level 9.4 mg/dl Assessment and Plan 58-year-old female with chronic end-stage renal disease on dialysis who missed her dialysis treatment. Chest with pleuritic chest pain. GJ Tube Dislodgement: - Place Diamond catheter in stoma to keep open and await more permanent placement of active tube - will only place to length of gastric tube to keep track open - Consult Gen Surg - discussed with Dr. Salgado - agreed with above plan and he will evaluate patient Acute on Chronic Diastolic CHF 2/2 Dialysis Non-Compliance: RESOLVED - Echo - EF 55-60% with mild MR and TR - Furosemide 80 mg BID - Lopressor 100 mg BID Acute Respiratory Failure 2/2 Above: RESOLVED - Adequately oxygenating on RA - Recommend up in chair and ambulation ESRD on HD: STABLE - Dialyzed on 08/05 and 08/07 with no issue - Phoslo with meals and snacks; Sensipar is non-formulary Diabetes S/P Pancreatic Transplant (2003): Transplantation in [place] - Glucose controlled since transplantation - will monitor with routine labs - Cellcept 500 mg daily and Prograf 4 mg AM and 3 mg PM DVT Prophylaxis: Heparin 5000 units SC Q12H Code Status: FULL RESUSCITATION Disposition: - GJ tube replacement - PT/OT evaluations - evaluate for D/C needs Continued [facility] stay due to: other (GJ tube displacement) Discharge planning: uncertain
[2016-08-08] MEDS: CITALOPRAM 20 MG TAB JT SCH ×2 (08:25→11:57)
[2016-08-08] MEDS: MYCOPHENOLATE SUSP 200 MG/1 ML JT SCH ×2 (08:25→10:03)
[2016-08-08] MEDS: METOPROLOL TARTRATE 100 MG TAB JT SCH ×3 (08:25→21:05)
[2016-08-08] MEDS: RANITIDINE HCL SYRUP 150 MG/10 ML 480ML GT SCH ×2 (08:25→21:06)
[2016-08-08] MEDS: TACROLIMUS 1 MG CAP PO SCH ×3 (08:26→21:06)
[2016-08-08] MEDS: FUROSEMIDE 80 MG TAB PO SCH ×3 (08:26→16:37)
[2016-08-08] MEDS: HEPARIN SOD 5000 UNIT/0.5 ML CARP SQ SCH ×2 (08:27→21:12)
[2016-08-08] MEDS: PANTOprazole SOD 40 MG TAB PO SCH ×2 (08:27→21:05)
[2016-08-08] MEDS: VITAMIN B COMPLEX TAB PO SCH (08:27)
[2016-08-08] MEDS: LORAZEPAM INJ 0.5 MG in SYRINGE 0.25 ML IV PRN ×2 (10:03→17:18)
[2016-08-08] MEDS: HYDROmorphone INJ 1 MG/ML SYR IV PRN ×2 (10:07→17:19)
--- NOTE | 2016-08-08 10:39 | Nephrology Progress Note ---
Nephrology Progress Note Date of Service Aug 08, 2016. Chief Complaint Follow up evaluation of this patient w/ ESRD on HD Subjective Mrs. Guillen was seen & examined in her hospital room this morning. She complains of weakness. She denies chest or shoulder discomfort. Unfortunately she dislodged her G-J tube overnight. She is awaiting surgical evaluation this morning. Mrs. Guillen was last dialyzed yesterday. HD RN notes reviewed today. Patient dialyzed for 3.5 hours. 2.4 L UF obtained. AVF functioned without complication. SBP was 90 - 100 mm HG throughout treatment. Review of Systems Constitutional: No fever Cardiovascular: No chest pain Respiratory: No dyspnea at rest Abdomen: No pain, No nausea Extremities: No leg edema A complete review of systems was performed. Pertinent positives are noted above. All other systems are negative. Vital Signs Last 8 Hrs Date Time Temp Pulse Resp B/P (MAP) Pulse Ox O2 Delivery O2 Flow Rate FiO2 08/08/16 07:57 36.8 81 17 142/78 (99) 91 Room Air Last Recorded Weight Weight (Kilograms): 56.300 Physical Exam General Appearance: no apparent distress Head: atraumatic Eyes: PERRL, EOMI Neck: no adenopathy Respiratory/Chest: lungs clear, no respiratory distress Cardiovascular: regular rate, rhythm Abdomen/GI: non tender, soft Extremities/Musculoskelatal: no pedal edema, + pertinent finding (AVF + bruit) Neurologic/Psych: alert, oriented x 3 Family History Cancer Heart disease Social History Smoking Status: Never smoker Drug Use: none Marital Status: Housing Status: lives with family Occupation: retired Laboratory Results Past 24 Hours 08/08/16 05:30 08/08/16 05:30 Test 08/08/16 05:30 Red Blood Count 3.82 M/uL (4.2-5.4) Mean Corpuscular Volume 103.9 fL (80-100) Mean Corpuscular Hemoglobin 30.9 pg (25-34) Mean Corpuscular Hemoglobin Concent 29.7 g/dl (32-36) RDW Standard Deviation 53.9 fL (36.4-46.3) RDW Coefficient of Variation 14.3 % (11.5-14.5) Mean Platelet Volume 11.9 fL (7.4-10.4) Anion Gap 6.0 mmol/L (3-11) Est Creatinine Clear Calc Drug Dose 9.8 ml/min Estimated GFR () 11.5 Estimated GFR (Non- 9.9 BUN/Creatinine Ratio 8.5 (10-20) Calcium Level 9.4 mg/dl (8.5-10.1) Allergies Coded Allergies: Penicillins (Verified Allergy, Intermediate, RASH, 08/05/16) Erythromycin (Verified Allergy, Mild, RASH, 08/05/16) Acetaminophen (Unverified Allergy, Unknown, ., 08/05/16) Surgical Lubricant (Verified Allergy, Unknown, ITCHY, 08/05/16) Carbamazepine (Verified Adverse Reaction, Severe, TOXIC BLOOD POISONING, ) TOXIC BLOOD POISONING Metoclopramide (Verified Adverse Reaction, Severe, SEIZURES, 08/05/16) SEIZURES Corticosteroids (Verified Adverse Reaction, Intermediate, NAUSEA, 08/05/16) PATIENT STATES ON ALLERGY SHEET "ABSOLUTELY NONE" Dicyclomine (Verified Adverse Reaction, Intermediate, HALLUCINATIONS, 08/05) HALLUCINATIONS Ketorolac (Verified Adverse Reaction, Intermediate, NAUSEATED, 08/05/16) Pregabalin (Verified Adverse Reaction, Intermediate, CONFUSION, 08/05/16) Quinolones (Verified Adverse Reaction, Intermediate, LEVAQUIN-NAUSEA, CHRONIC HEARTBURN, 08/05/16) levaquin =NAUSEA, CHRONIC HEARTBURN. PT SAID SHE WILL NOT TAKE 12/06/08 Azithromycin (Verified Adverse Reaction, Mild, n&v, 08/05/16) Cephalexin (Verified Adverse Reaction, Mild, NAUSEA, 08/05/16) Cephalosporins (Verified Adverse Reaction, Mild, KEFLEX = NAUSEA, 08/05/16) Codeine (Verified Adverse Reaction, Mild, NAUSEA, 08/05/16) Gabapentin (Verified Adverse Reaction, Mild, NAUSEA, 08/05/16) NAUSEA Levofloxacin (Verified Adverse Reaction, Mild, NAUSEA, 08/05/16) Naproxen (Verified Adverse Reaction, Mild, NAUSEA, 08/05/16) Nitrofurantoin (Verified Adverse Reaction, Mild, NAUSEA, 08/05/16) Oxycodone (Verified Adverse Reaction, Mild, PRC/TYLOX = NAUSEA, 08/05/16) NAUSEA Phenobarbital (Verified Adverse Reaction, Mild, NAUSEA, 08/05/16) Prednisolone (Verified Adverse Reaction, Mild, IRRITATION, 08/05/16) Promethazine (Verified Adverse Reaction, Mild, DIARRHEA, 08/05/16) Sertraline (Verified Adverse Reaction, Mild, NAUSEA, 08/05/16) Adhesives (Verified Adverse Reaction, Unknown, UNKNOWN, 08/05/16) Mirtazapine (Verified Adverse Reaction, Unknown, HEARS VOICES, 08/05/16) Propoxyphene (Verified Adverse Reaction, Unknown, NAUSEA, 08/05/16) NAUSEA Tramadol (Verified Adverse Reaction, Unknown, DEPRESSION, 08/05/16) DEPRESSION Medications Current Inpatient Medications Medications (Trade) Dose Ordered Sig/Ayaka Route Start Time Stop Time Status Last Admin Dose Admin Alprazolam (Xanax Tab) 0.5 mg Q4H PRN JT 08/05/16 15:45 09/04/16 15:44 08/07/16 21:55 0.5 MG Calcium Acetate (Phoslo Cap) 1,334 mg QDB PO 08/06/16 07:30 09/05/16 07:59 08/08/16 10:02 1,334 MG Calcium Acetate (Phoslo Cap) 2,001 mg QDL PO 08/06/16 11:00 09/05/16 10:59 08/06/16 11:00 2,001 MG Citalopram Hydrobromide (celeXA TAB) 20 mg QAM JT 08/06/16 09:00 09/05/16 08:59 08/07/16 10:47 20 MG Docusate Sodium (coLACE SYRUP) 100 mg BID PRN PO 08/05/16 15:45 09/04/16 15:44 08/07/16 10:47 100 MG Furosemide (Lasix Tab) 80 mg BID17 PO 08/05/16 21:00 09/04/16 20:59 08/07/16 17:49 80 MG Hydromorphone HCl (Dilaudid Tab) 8 mg Q4H PRN PO 08/05/16 15:45 08/19/16 15:44 08/07/16 21:55 8 MG Metoprolol Tartrate (Lopressor Tab) 100 mg BID JT 08/05/16 21:00 09/04/16 20:59 08/07/16 21:40 100 MG Mycophenolate Mofetil (Cellcept Susp) 500 mg QAM JT 08/06/16 09:00 09/05/16 08:59 08/08/16 10:03 500 MG Pantoprazole Sodium (Protonix Tab) 40 mg BID PO 08/05/16 21:00 09/04/16 20:59 08/07/16 10:48 40 MG Simvastatin (Zocor Tab) 10 mg HS JT 08/05/16 21:00 09/04/16 20:59 08/07/16 21:39 10 MG Triamcinolone Acetonide (Nasacort Allergy 24hr) 2 sprays DAILY PRN AMRIT 08/05/16 15:45 09/04/16 15:44 Vitamin B Complex (Vitamin B Complex) 1 tab DAILY PO 08/06/16 09:00 09/05/16 08:59 08/07/16 10:48 1 TAB Miscellaneous Information (Order Awaiting Action) 1 ea QS N/A 08/06/16 00:00 09/05/16 00:00 Ranitidine HCl (zANTac SYRUP) 300 mg BID GT 08/05/16 21:00 09/04/16 20:59 08/07/16 21:43 300 MG Calcium Acetate (Phoslo Cap) 2,001 mg TID PRN PO 08/05/16 16:00 09/04/16 15:59 Calcium Acetate (Phoslo Cap) 2,001 mg QDD PO 08/05/16 17:07 09/04/16 17:59 08/07/16 17:48 2,001 MG Heparin Sodium (Porcine) (Heparin Sq 5000 Unit/0.5ml) 5,000 unit Q12 SQ 08/05/16 21:00 09/04/16 20:59 08/07/16 21:41 5,000 UNIT Magnesium Hydroxide (Milk Of Magnesia Susp) 30 ml Q12H PRN PO 08/05/16 16:15 09/04/16 16:14 Ondansetron HCl (Zofran Inj) 4 mg Q6H PRN IV 08/05/16 16:15 09/04/16 16:14 Nitroglycerin (Nitrostat Tab) 0.4 mg UD PRN SL 08/05/16 16:15 09/04/16 16:14 Morphine Sulfate (MoRPHine SULFATE INJ) 2 mg Q30M PRN IV 08/05/16 16:15 08/19/16 16:14 Trimethoprim/ Sulfamethoxazole (Septra Susp) 10 ml MoWeFr@0900 PO 08/07/16 09:00 09/06/16 08:59 08/07/16 10:48 10 ML Tacrolimus (Prograf Cap) 3 mg QPM PO 08/07/16 21:00 09/04/16 20:59 08/07/16 21:37 3 MG Tacrolimus (Prograf Cap) 4 mg QAM PO 08/08/16 09:00 09/05/16 08:59 08/08/16 10:03 4 MG Heparin Sodium (Porcine) (Heparin 100 Unit/ml 5ml Flush) 5 ml PRN PRN IV 08/08/16 00:45 09/07/16 00:44 08/08/16 05:27 5 ML Hydromorphone HCl (Dilaudid Inj) 1 mg Q4H PRN IV 08/08/16 09:45 08/22/16 09:44 08/08/16 10:07 1 MG Lorazepam 0.5 mg/ Syringe 0.5 ml @ 0.5 mls/min Q4H PRN IV 08/08/16 09:45 09/07/16 09:44 08/08/16 10:03 0.5 MLS/MIN Impression (1) ESRD (end stage renal disease) on dialysis (2) Diabetes (3) Gastroparesis Mrs. Guillen was admitted to the hospital for evaluation of chest and shoulder discomfort. Cardiac evaluation was negative for acute ischemia. Echocardiogram shows preserved LVEF without WMA. Patient has ESRD due to diabetic nephropathy. She dialyzes TTS at [facility]. She has diabetic gastroparesis. Unfortunately she dislodged her G-J tube last night. Recommendations -- Volume status and electrolyte balance are currently acceptable. AVF has + bruit. No acute indication for HD today. Will monitor -- Await general surgery evaluation of G-J tube. Patient has required transfer to [facility] to have this corrected in the past -- Tacrolimus dose has been adjusted according to recommendations yesterday
--- NOTE | 2016-08-08 10:59 | Surgery Consultation ---
Consultation Date of Consultation: Aug 08, 2016. Attending Physician: Shorty Otoole D.O. Reason for Consultation: G-J tube came out History of Present Illness I've asked by Dr. Otoole to see this 66-year-old female who presented with a complaint of chest pain is being evaluated. She also has a GJ tube that has been in place for quite some time. She reports a history of gastroparesis. The tube came out earlier today. There was replaced immediately with a Diamond catheter. The patient states that she needs the jejunostomy portion of the tube as she has gastroparesis. She is able to eat certain foods but she takes her medicine through the GJ tube as she has difficulty swallowing pills. She denies abdominal pain. She has not had any change in her bowel habits. There is no melena or hematochezia. Past Medical/Surgical History Medical Problems: (1) Acute head injury Status: Acute (2) Chronic pain syndrome Status: Chronic (3) Depression with anxiety Status: Chronic (4) Dyslipidemia Status: Chronic (5) End stage renal disease on dialysis Status: Chronic (6) Episode of syncope Status: Acute (7) GERD (gastroesophageal reflux disease) Status: Chronic (8) HTN (hypertension) Status: Chronic (9) Hypoxia Status: Acute (10) Narcotic dependence Status: Chronic (11) Osteoporosis Status: Chronic (12) Right arm pain Status: Acute (13) Right orbital fracture Status: Acute (14) Substernal precordial chest pain Status: Acute Family History Cancer Heart disease Social History Smoking Status: Never Smoker Drug Use: none Marital Status: Housing Status: lives with family Occupation Status: retired Allergies Coded Allergies: Penicillins (Verified Allergy, Intermediate, RASH, 08/05/16) Erythromycin (Verified Allergy, Mild, RASH, 08/05/16) Acetaminophen (Unverified Allergy, Unknown, ., 08/05/16) Surgical Lubricant (Verified Allergy, Unknown, ITCHY, 08/05/16) Carbamazepine (Verified Adverse Reaction, Severe, TOXIC BLOOD POISONING, ) TOXIC BLOOD POISONING Metoclopramide (Verified Adverse Reaction, Severe, SEIZURES, 08/05/16) SEIZURES Corticosteroids (Verified Adverse Reaction, Intermediate, NAUSEA, 08/05/16) PATIENT STATES ON ALLERGY SHEET "ABSOLUTELY NONE" Dicyclomine (Verified Adverse Reaction, Intermediate, HALLUCINATIONS, 08/05) HALLUCINATIONS Ketorolac (Verified Adverse Reaction, Intermediate, NAUSEATED, 08/05/16) Pregabalin (Verified Adverse Reaction, Intermediate, CONFUSION, 08/05/16) Quinolones (Verified Adverse Reaction, Intermediate, LEVAQUIN-NAUSEA, CHRONIC HEARTBURN, 08/05/16) levaquin =NAUSEA, CHRONIC HEARTBURN. PT SAID SHE WILL NOT TAKE 12/06/08 Azithromycin (Verified Adverse Reaction, Mild, n&v, 08/05/16) Cephalexin (Verified Adverse Reaction, Mild, NAUSEA, 08/05/16) Cephalosporins (Verified Adverse Reaction, Mild, KEFLEX = NAUSEA, 08/05/16) Codeine (Verified Adverse Reaction, Mild, NAUSEA, 08/05/16) Gabapentin (Verified Adverse Reaction, Mild, NAUSEA, 08/05/16) NAUSEA Levofloxacin (Verified Adverse Reaction, Mild, NAUSEA, 08/05/16) Naproxen (Verified Adverse Reaction, Mild, NAUSEA, 08/05/16) Nitrofurantoin (Verified Adverse Reaction, Mild, NAUSEA, 08/05/16) Oxycodone (Verified Adverse Reaction, Mild, PRC/TYLOX = NAUSEA, 08/05/16) NAUSEA Phenobarbital (Verified Adverse Reaction, Mild, NAUSEA, 08/05/16) Prednisolone (Verified Adverse Reaction, Mild, IRRITATION, 08/05/16) Promethazine (Verified Adverse Reaction, Mild, DIARRHEA, 08/05/16) Sertraline (Verified Adverse Reaction, Mild, NAUSEA, 08/05/16) Adhesives (Verified Adverse Reaction, Unknown, UNKNOWN, 08/05/16) Mirtazapine (Verified Adverse Reaction, Unknown, HEARS VOICES, 08/05/16) Propoxyphene (Verified Adverse Reaction, Unknown, NAUSEA, 08/05/16) NAUSEA Tramadol (Verified Adverse Reaction, Unknown, DEPRESSION, 08/05/16) DEPRESSION Home Medications Scheduled B Complex W/ C (Vitamin B Complex-C), 1 CAP DAILY Calcium Acetate (Phoslo 667 Mg), 2 CAP JT BREAKFAST Calcium Acetate (Phoslo 667 Mg), 3 CAP JT UD Calcium Acetate (Phoslo 667 Mg), 3 CAP JT SNACKS Cinecalcet (Sensipar), 30 MG JT QAM Cinecalcet (Sensipar), 60 MG PO DAILY Citalopram Hydrobromide (Celexa), 20 MG JT QAM Furosemide (Lasix), 80 MG JT BID Metoprolol Tartrate (Lopressor) (Lopressor), 100 MG JT BID Mycophenolate Mofetil (Cellcept), 500 MG JT QAM Nutritional Supplements (Nutren 2.0), 2 DOSE GJT DAILY Pantoprazole (Protonix), 40 MG PO BID Ranitidine (Zantac), 300 MG JT BID Simvastatin (Zocor), 10 MG JT HS Tacrolimus (Prograf), 3 MG PO QPM Tacrolimus (Prograf), 4 MG PO QAM Trimethoprim/Sulfamethoxazole Susp (Bactrim 200/40MG 5ML), 2.5 ML JT MoWeFr Scheduled PRN Alprazolam (Xanax), 0.5 MG JT Q4H PRN for Anxiety Docusate Sodium (Colace), 100 MG PO BID PRN for Constipation Hydromorphone Hcl (Dilaudid), 8 MG PO Q4H PRN for Pain Triamcinolone Acetonide (Nasal (Nasacort Allergy 24Hr), 2 SPRAY AMRIT DAILY PRN for CONGSTION Current Inpatient Medications Current Inpatient Medications Medications (Trade) Dose Ordered Sig/Ayaka Route Start Time Stop Time Status Last Admin Dose Admin Alprazolam (Xanax Tab) 0.5 mg Q4H PRN JT 08/05/16 15:45 09/04/16 15:44 08/07/16 21:55 0.5 MG Calcium Acetate (Phoslo Cap) 1,334 mg QDB PO 08/06/16 07:30 09/05/16 07:59 08/08/16 10:02 1,334 MG Calcium Acetate (Phoslo Cap) 2,001 mg QDL PO 08/06/16 11:00 09/05/16 10:59 08/06/16 11:00 2,001 MG Citalopram Hydrobromide (celeXA TAB) 20 mg QAM JT 08/06/16 09:00 09/05/16 08:59 08/07/16 10:47 20 MG Docusate Sodium (coLACE SYRUP) 100 mg BID PRN PO 08/05/16 15:45 09/04/16 15:44 08/07/16 10:47 100 MG Furosemide (Lasix Tab) 80 mg BID17 PO 08/05/16 21:00 09/04/16 20:59 08/07/16 17:49 80 MG Hydromorphone HCl (Dilaudid Tab) 8 mg Q4H PRN PO 08/05/16 15:45 08/19/16 15:44 08/07/16 21:55 8 MG Metoprolol Tartrate (Lopressor Tab) 100 mg BID JT 08/05/16 21:00 09/04/16 20:59 08/07/16 21:40 100 MG Mycophenolate Mofetil (Cellcept Susp) 500 mg QAM JT 08/06/16 09:00 09/05/16 08:59 08/08/16 10:03 500 MG Pantoprazole Sodium (Protonix Tab) 40 mg BID PO 08/05/16 21:00 09/04/16 20:59 08/07/16 10:48 40 MG Simvastatin (Zocor Tab) 10 mg HS JT 08/05/16 21:00 09/04/16 20:59 08/07/16 21:39 10 MG Triamcinolone Acetonide (Nasacort Allergy 24hr) 2 sprays DAILY PRN AMRIT 08/05/16 15:45 09/04/16 15:44 Vitamin B Complex (Vitamin B Complex) 1 tab DAILY PO 08/06/16 09:00 09/05/16 08:59 08/07/16 10:48 1 TAB Miscellaneous Information (Order Awaiting Action) 1 ea QS N/A 08/06/16 00:00 09/05/16 00:00 Ranitidine HCl (zANTac SYRUP) 300 mg BID GT 08/05/16 21:00 09/04/16 20:59 08/07/16 21:43 300 MG Calcium Acetate (Phoslo Cap) 2,001 mg TID PRN PO 08/05/16 16:00 09/04/16 15:59 Calcium Acetate (Phoslo Cap) 2,001 mg QDD PO 08/05/16 17:07 09/04/16 17:59 08/07/16 17:48 2,001 MG Heparin Sodium (Porcine) (Heparin Sq 5000 Unit/0.5ml) 5,000 unit Q12 SQ 08/05/16 21:00 7/28/17 20:59 08/07/16 21:41 5,000 UNIT Magnesium Hydroxide (Milk Of Magnesia Susp) 30 ml Q12H PRN PO 08/05/16 16:15 09/04/16 16:14 Ondansetron HCl (Zofran Inj) 4 mg Q6H PRN IV 08/05/16 16:15 09/04/16 16:14 Nitroglycerin (Nitrostat Tab) 0.4 mg UD PRN SL 08/05/16 16:15 09/04/16 16:14 Morphine Sulfate (MoRPHine SULFATE INJ) 2 mg Q30M PRN IV 08/05/16 16:15 08/19/16 16:14 Trimethoprim/ Sulfamethoxazole (Septra Susp) 10 ml MoWeFr@0900 PO 08/07/16 09:00 09/06/16 08:59 08/07/16 10:48 10 ML Tacrolimus (Prograf Cap) 3 mg QPM PO 08/07/16 21:00 09/04/16 20:59 08/07/16 21:37 3 MG Tacrolimus (Prograf Cap) 4 mg QAM PO 08/08/16 09:00 09/05/16 08:59 08/08/16 10:03 4 MG Heparin Sodium (Porcine) (Heparin 100 Unit/ml 5ml Flush) 5 ml PRN PRN IV 08/08/16 00:45 09/07/16 00:44 08/08/16 05:27 5 ML Hydromorphone HCl (Dilaudid Inj) 1 mg Q4H PRN IV 08/08/16 09:45 08/22/16 09:44 08/08/16 10:07 1 MG Lorazepam 0.5 mg/ Syringe 0.5 ml @ 0.5 mls/min Q4H PRN IV 08/08/16 09:45 09/07/16 09:44 08/08/16 10:03 0.5 MLS/MIN Physical Exam Date Time Temp Pulse Resp B/P (MAP) Pulse Ox O2 Delivery O2 Flow Rate FiO2 08/08/16 07:57 36.8 81 17 142/78 (99) 91 Room Air 08/08/16 00:00 Nasal Cannula 2.0 08/07/16 23:12 36.8 82 16 97/60 (72) 91 Room Air 08/07/16 16:55 36.9 81 18 111/78 (89) 95 Nasal Cannula 2.0 08/07/16 16:50 93 Nasal Cannula 2.0 08/07/16 16:28 37.2 75 22 93 2.0 08/07/16 15:28 37.2 75 22 117/69 (85) 93 Nasal Cannula 2.0 08/07/16 12:35 37.1 75 20 114/62 (79) 94 Nasal Cannula 2.0 08/07/16 12:00 100 Nasal Cannula 1.5 General Appearance: no apparent distress, + thin Head: normocephalic Abdomen/GI: normal bowel sounds, non tender, soft, + pertinent finding (Diamond catheter is in place through the gastrostomy site. There is some drainage around it. There is some mild irritation of the skin but no erythema.) Laboratory Results Last 24 Hours Test 08/08/16 05:30 White Blood Count 8.17 K/uL Red Blood Count 3.82 M/uL Hemoglobin 11.8 g/dL Hematocrit 39.7 % Mean Corpuscular Volume 103.9 fL Mean Corpuscular Hemoglobin 30.9 pg Mean Corpuscular Hemoglobin Concent 29.7 g/dl RDW Standard Deviation 53.9 fL RDW Coefficient of Variation 14.3 % Platelet Count 133 K/uL Mean Platelet Volume 11.9 fL Sodium Level 138 mmol/L Potassium Level 4.1 mmol/L Chloride Level 100 mmol/L Carbon Dioxide Level 32 mmol/L Anion Gap 6.0 mmol/L Blood Urea Nitrogen 37 mg/dl Creatinine 4.30 mg/dl Est Creatinine Clear Calc Drug Dose 9.8 ml/min Estimated GFR () 11.5 Estimated GFR (Non- 9.9 BUN/Creatinine Ratio 8.5 Random Glucose 168 mg/dl Calcium Level 9.4 mg/dl Assessment & Plan This patient has a chronic GJ tube that came out. The site is being maintained with a Diamond catheter. I recommended a slightly larger Diamond catheter in order to try to reduce the amount of drainage from around it. I will discuss with gastroenterology whether they would be willing to try to direct the jejunostomy portion of another tube into her small bowel. There is no indication for immediate surgical intervention. Thank you for allowing me to see this patient and participate in her care.
[2016-08-08] MEDS ORDERED: METOPROLOL TARTRATE 1 MG/ML VIAL IV PRN (11:00)
[2016-08-08] MEDS ORDERED: FUROSEMIDE INJ 40 MG in SYRINGE 0 ML IV SCH (11:00)
[2016-08-08 11:59] VITALS: BP 122/71; PULSE 84
[2016-08-08 15:31] VITALS: BP 117/66; PULSE 78; TEMP 36.7; O2SAT 90
[2016-08-08 21:03] VITALS: BP 137/72; PULSE 83
[2016-08-08] MEDS: SIMVASTATIN 10 MG TAB JT SCH (21:05)
[2016-08-08 23:06] VITALS: BP 143/78; PULSE 78; TEMP 37; O2SAT 94
[2016-08-09] MEDS: LORAZEPAM INJ 0.5 MG in SYRINGE 0.25 ML IV PRN (05:13)
[2016-08-09] MEDS: HYDROmorphone INJ 1 MG/ML SYR IV PRN (05:13)
[2016-08-09 07:26] VITALS: BP 144/87; PULSE 77; TEMP 36.8; O2SAT 91
[2016-08-09] MEDS: CALCIUM ACETATE 667MG GELCAP PO SCH ×3 (08:08→16:22)
[2016-08-09] MEDS: RANITIDINE HCL SYRUP 150 MG/10 ML 480ML GT SCH ×2 (08:10→20:43)
[2016-08-09] MEDS: CITALOPRAM 20 MG TAB JT SCH (08:11)
[2016-08-09] MEDS: METOPROLOL TARTRATE 100 MG TAB JT SCH ×2 (08:14→20:42)
[2016-08-09] MEDS: VITAMIN B COMPLEX TAB PO SCH (08:15)
[2016-08-09] MEDS: FUROSEMIDE 80 MG TAB PO SCH ×2 (08:15→16:21)
[2016-08-09] MEDS: HEPARIN SOD 5000 UNIT/0.5 ML CARP SQ SCH ×2 (08:16→20:44)
[2016-08-09] MEDS: TACROLIMUS 1 MG CAP PO SCH ×2 (08:18→20:42)
[2016-08-09] MEDS: DOCUSATE SODIUM 100 MG/10 ML UDC PO PRN (08:19)
[2016-08-09] MEDS: MYCOPHENOLATE SUSP 200 MG/1 ML JT SCH (08:20)
[2016-08-09] MEDS: PANTOprazole SOD 40 MG TAB PO SCH ×2 (08:20→20:28)
[2016-08-09 08:54] LABS: BUN/CREATININE RATIO 10.2 (10-20); CALCIUM 9.7 mg/dl (8.5-10.1); CREATININE 6.2 mg/dl (0.60-1.20)
[2016-08-09 09:26] LABS: POTASSIUM 4.8 mmol/L (3.5-5.1)
[2016-08-09] MEDS: ALPRAZOLAM 0.5 MG TAB JT PRN ×2 (09:35→20:42)
[2016-08-09] MEDS: HYDROmorphone HCL 2 MG TAB PO PRN ×2 (09:36→20:43)
--- NOTE | 2016-08-09 11:22 | Nephrology Progress Note ---
Nephrology Progress Note Date of Service Aug 09, 2016. Chief Complaint Follow up evaluation of this patient w/ ESRD on HD Subjective Patient seen & examined in her hospital room this morning. She feels "rough" but denies fever, angina, dyspnea or nausea. Patient had surgical evaluation yesterday. They are consulting with GI as to whether a new G-J tube can be placed at our facility. Review of Systems Constitutional: No fever Cardiovascular: No chest pain Respiratory: No dyspnea at rest Abdomen: No pain, No nausea, No vomiting Extremities: No leg edema A complete review of systems was performed. Pertinent positives are noted above. All other systems are negative. Vital Signs Last 8 Hrs Date Time Temp Pulse Resp B/P (MAP) Pulse Ox O2 Delivery O2 Flow Rate FiO2 08/09/16 07:26 36.8 77 17 144/87 (106) 91 Room Air Last Recorded Weight Weight (Kilograms): 56.300 Physical Exam General Appearance: no apparent distress Head: normocephalic, atraumatic Eyes: PERRL Neck: no adenopathy Respiratory/Chest: lungs clear Cardiovascular: regular rate, rhythm Abdomen/GI: normal bowel sounds, non tender Extremities/Musculoskelatal: no pedal edema, + pertinent finding (L upper arm AVF + bruit) Neurologic/Psych: alert, oriented x 3 Family History Cancer Heart disease Social History Smoking Status: Never smoker Drug Use: none Marital Status: Housing Status: lives with family Occupation: retired Laboratory Results Past 24 Hours 08/09/16 07:39 Test 08/09/16 07:39 Anion Gap 9.0 mmol/L (3-11) Est Creatinine Clear Calc Drug Dose 6.8 ml/min Estimated GFR () 7.4 Estimated GFR (Non- 6.4 BUN/Creatinine Ratio 10.2 (10-20) Calcium Level 9.7 mg/dl (8.5-10.1) Allergies Coded Allergies: Penicillins (Verified Allergy, Intermediate, RASH, 08/05/16) Erythromycin (Verified Allergy, Mild, RASH, 08/05/16) Acetaminophen (Unverified Allergy, Unknown, ., 08/05/16) Surgical Lubricant (Verified Allergy, Unknown, ITCHY, 08/05/16) Carbamazepine (Verified Adverse Reaction, Severe, TOXIC BLOOD POISONING, ) TOXIC BLOOD POISONING Metoclopramide (Verified Adverse Reaction, Severe, SEIZURES, 08/05/16) SEIZURES Corticosteroids (Verified Adverse Reaction, Intermediate, NAUSEA, 08/05/16) PATIENT STATES ON ALLERGY SHEET "ABSOLUTELY NONE" Dicyclomine (Verified Adverse Reaction, Intermediate, HALLUCINATIONS, 08/05) HALLUCINATIONS Ketorolac (Verified Adverse Reaction, Intermediate, NAUSEATED, 08/05/16) Pregabalin (Verified Adverse Reaction, Intermediate, CONFUSION, 08/05/16) Quinolones (Verified Adverse Reaction, Intermediate, LEVAQUIN-NAUSEA, CHRONIC HEARTBURN, 08/05/16) levaquin =NAUSEA, CHRONIC HEARTBURN. PT SAID SHE WILL NOT TAKE 12/06/08 Azithromycin (Verified Adverse Reaction, Mild, n&v, 08/05/16) Cephalexin (Verified Adverse Reaction, Mild, NAUSEA, 08/05/16) Cephalosporins (Verified Adverse Reaction, Mild, KEFLEX = NAUSEA, 08/05/16) Codeine (Verified Adverse Reaction, Mild, NAUSEA, 08/05/16) Gabapentin (Verified Adverse Reaction, Mild, NAUSEA, 08/05/16) NAUSEA Levofloxacin (Verified Adverse Reaction, Mild, NAUSEA, 08/05/16) Naproxen (Verified Adverse Reaction, Mild, NAUSEA, 08/05/16) Nitrofurantoin (Verified Adverse Reaction, Mild, NAUSEA, 08/05/16) Oxycodone (Verified Adverse Reaction, Mild, PRC/TYLOX = NAUSEA, 08/05/16) NAUSEA Phenobarbital (Verified Adverse Reaction, Mild, NAUSEA, 08/05/16) Prednisolone (Verified Adverse Reaction, Mild, IRRITATION, 08/05/16) Promethazine (Verified Adverse Reaction, Mild, DIARRHEA, 08/05/16) Sertraline (Verified Adverse Reaction, Mild, NAUSEA, 08/05/16) Adhesives (Verified Adverse Reaction, Unknown, UNKNOWN, 08/05/16) Mirtazapine (Verified Adverse Reaction, Unknown, HEARS VOICES, 08/05/16) Propoxyphene (Verified Adverse Reaction, Unknown, NAUSEA, 08/05/16) NAUSEA Tramadol (Verified Adverse Reaction, Unknown, DEPRESSION, 08/05/16) DEPRESSION Medications Current Inpatient Medications Medications (Trade) Dose Ordered Sig/Ayaka Route Start Time Stop Time Status Last Admin Dose Admin Alprazolam (Xanax Tab) 0.5 mg Q4H PRN JT 08/05/16 15:45 09/04/16 15:44 08/09/16 09:35 0.5 MG Calcium Acetate (Phoslo Cap) 1,334 mg QDB PO 08/06/16 07:30 09/05/16 07:59 08/09/16 08:08 1,334 MG Calcium Acetate (Phoslo Cap) 2,001 mg QDL PO 08/06/16 11:00 09/05/16 10:59 08/08/16 11:55 2,001 MG Citalopram Hydrobromide (celeXA TAB) 20 mg QAM JT 08/06/16 09:00 09/05/16 08:59 08/09/16 08:11 20 MG Docusate Sodium (coLACE SYRUP) 100 mg BID PRN PO 08/05/16 15:45 09/04/16 15:44 08/09/16 08:19 100 MG Furosemide (Lasix Tab) 80 mg BID17 PO 08/05/16 21:00 09/04/16 20:59 08/09/16 08:15 80 MG Metoprolol Tartrate (Lopressor Tab) 100 mg BID JT 08/05/16 21:00 09/04/16 20:59 08/09/16 08:14 100 MG Mycophenolate Mofetil (Cellcept Susp) 500 mg QAM JT 08/06/16 09:00 09/05/16 08:59 08/09/16 08:20 500 MG Pantoprazole Sodium (Protonix Tab) 40 mg BID PO 08/05/16 21:00 09/04/16 20:59 08/09/16 08:20 40 MG Simvastatin (Zocor Tab) 10 mg HS JT 08/05/16 21:00 09/04/16 20:59 08/08/16 21:05 10 MG Triamcinolone Acetonide (Nasacort Allergy 24hr) 2 sprays DAILY PRN AMRIT 08/05/16 15:45 09/04/16 15:44 Vitamin B Complex (Vitamin B Complex) 1 tab DAILY PO 08/06/16 09:00 09/05/16 08:59 08/09/16 08:15 1 TAB Miscellaneous Information (Order Awaiting Action) 1 ea QS N/A 08/06/16 00:00 09/05/16 00:00 Ranitidine HCl (zANTac SYRUP) 300 mg BID GT 08/05/16 21:00 09/04/16 20:59 08/09/16 08:10 300 MG Calcium Acetate (Phoslo Cap) 2,001 mg TID PRN PO 08/05/16 16:00 09/04/16 15:59 Calcium Acetate (Phoslo Cap) 2,001 mg QDD PO 08/05/16 17:07 09/04/16 17:59 08/08/16 16:37 2,001 MG Heparin Sodium (Porcine) (Heparin Sq 5000 Unit/0.5ml) 5,000 unit Q12 SQ 08/05/16 21:00 09/04/16 20:59 08/09/16 08:16 5,000 UNIT Magnesium Hydroxide (Milk Of Magnesia Susp) 30 ml Q12H PRN PO 08/05/16 16:15 09/04/16 16:14 Ondansetron HCl (Zofran Inj) 4 mg Q6H PRN IV 08/05/16 16:15 09/04/16 16:14 Nitroglycerin (Nitrostat Tab) 0.4 mg UD PRN SL 08/05/16 16:15 09/04/16 16:14 Morphine Sulfate (MoRPHine SULFATE INJ) 2 mg Q30M PRN IV 08/05/16 16:15 08/19/16 16:14 Trimethoprim/ Sulfamethoxazole (Septra Susp) 10 ml MoWeFr@0900 PO 08/07/16 09:00 09/06/16 08:59 08/07/16 10:48 10 ML Tacrolimus (Prograf Cap) 3 mg QPM PO 08/07/16 21:00 09/04/16 20:59 08/08/16 21:06 3 MG Tacrolimus (Prograf Cap) 4 mg QAM PO 08/08/16 09:00 09/05/16 08:59 08/09/16 08:18 4 MG Heparin Sodium (Porcine) (Heparin 100 Unit/ml 5ml Flush) 5 ml PRN PRN IV 08/08/16 00:45 09/07/16 00:44 08/09/16 05:39 5 ML Metoprolol Tartrate (Lopressor Iv) 5 mg Q6 PRN IV 08/08/16 11:00 09/07/16 10:59 Hydromorphone HCl (Dilaudid Tab) 8 mg Q4H PRN PO 08/09/16 09:30 08/23/16 09:29 08/09/16 09:36 8 MG Impression (1) ESRD (end stage renal disease) on dialysis (2) Diabetes (3) Gastroparesis Mrs. Guillen was admitted to the hospital for evaluation of chest and shoulder discomfort. Cardiac evaluation was negative for acute ischemia. Echocardiogram shows preserved LVEF without WMA. Patient has ESRD due to diabetic nephropathy. She dialyzes TTS at [facility]. She has diabetic gastroparesis. Unfortunately she dislodged her G-J tube. Surgery has been consulted to assess whether a new G-J tube can be placed at our facility Recommendations -- Volume status and electrolyte balance are currently acceptable. AVF has + bruit. No acute indication for HD today. -- Await gastroenterology evaluation of G-J tube. Patient has required transfer to [facility] to have this corrected in the past -- Tacrolimus dose has been adjusted according to recommendations 08/07/16
--- NOTE | 2016-08-09 12:44 | Hospitalist Progress Note ---
Hospitalist Progress Note Date of Service Aug 09, 2016. Subjective Pt evaluation today including: conversation w/ patient, physical exam, chart review, lab review, review of studies, conversation w/ institutional nutrition consultant (Dr. Salgado ), review of inpatient medication list Patient seen and evaluated. Had hypoxic episode yesterday after Dilaudid and Xanax administration. Patient and adamant about combining these medications She reports that she had some pain this morning in the L shoulder but currently resolved. Actually better ROM witnessed this afternoon. Has refused PT today. Explained the importance of participation. She says she has been progressing at home with PT and home services. Emphasized that this hospitalization can easily set her back and she needs to do physical therapy and she is in agreement. Discussed inpatient rehab and currently refusing. She would like to return home with home PT services. She reports her legs a still weak but improving from baseline. Awaiting GI evaluation for GJ tube placement vs temporary G tube until referral to [facility]. I question if this tube is really ever in the jejunum elizabeth. since patient reporting will replace if becomes dislodged. She mainly feeds orally and likely the benefits in regards to her gastroparesis are limited. Discussed the importance of not missing her dialysis appointments as she has missed them in the past. Explained that her breathing was related to this. She expressed that when she gets sick like how she was when she came in that it sets her back therapy [place]. Bluntly explained that her feeling sick was largely from the missed dialysis and these events can be largely avoided and she verbalized understanding. Constitutional: No fever, No chills Respiratory: No shortness of breath Cardiovascular: No chest pain Abdomen: No pain, No nausea, No vomiting, No diarrhea, No constipation Musculoskeletal: No joint pain, No swelling, No calf pain Female : No dysuria Medications Current Inpatient Medications Medications (Trade) Dose Ordered Sig/Ayaka Route Start Time Stop Time Status Last Admin Dose Admin Alprazolam (Xanax Tab) 0.5 mg Q4H PRN JT 08/05/16 15:45 09/04/16 15:44 08/09/16 09:35 0.5 MG Calcium Acetate (Phoslo Cap) 1,334 mg QDB PO 08/06/16 07:30 09/05/16 07:59 08/09/16 08:08 1,334 MG Calcium Acetate (Phoslo Cap) 2,001 mg QDL PO 08/06/16 11:00 09/05/16 10:59 08/09/16 12:07 2,001 MG Citalopram Hydrobromide (celeXA TAB) 20 mg QAM JT 08/06/16 09:00 09/05/16 08:59 08/09/16 08:11 20 MG Docusate Sodium (coLACE SYRUP) 100 mg BID PRN PO 08/05/16 15:45 09/04/16 15:44 08/09/16 08:19 100 MG Furosemide (Lasix Tab) 80 mg BID17 PO 08/05/16 21:00 09/04/16 20:59 08/09/16 08:15 80 MG Metoprolol Tartrate (Lopressor Tab) 100 mg BID JT 08/05/16 21:00 09/04/16 20:59 08/09/16 08:14 100 MG Mycophenolate Mofetil (Cellcept Susp) 500 mg QAM JT 08/06/16 09:00 09/05/16 08:59 08/09/16 08:20 500 MG Pantoprazole Sodium (Protonix Tab) 40 mg BID PO 08/05/16 21:00 09/04/16 20:59 08/09/16 08:20 40 MG Simvastatin (Zocor Tab) 10 mg HS JT 08/05/16 21:00 09/04/16 20:59 08/08/16 21:05 10 MG Triamcinolone Acetonide (Nasacort Allergy 24hr) 2 sprays DAILY PRN AMRIT 08/05/16 15:45 09/04/16 15:44 Vitamin B Complex (Vitamin B Complex) 1 tab DAILY PO 08/06/16 09:00 09/05/16 08:59 08/09/16 08:15 1 TAB Miscellaneous Information (Order Awaiting Action) 1 ea QS N/A 08/06/16 00:00 09/05/16 00:00 Ranitidine HCl (zANTac SYRUP) 300 mg BID GT 08/05/16 21:00 09/04/16 20:59 08/09/16 08:10 300 MG Calcium Acetate (Phoslo Cap) 2,001 mg TID PRN PO 08/05/16 16:00 09/04/16 15:59 Calcium Acetate (Phoslo Cap) 2,001 mg QDD PO 08/05/16 17:07 09/04/16 17:59 08/08/16 16:37 2,001 MG Heparin Sodium (Porcine) (Heparin Sq 5000 Unit/0.5ml) 5,000 unit Q12 SQ 08/05/16 21:00 09/04/16 20:59 08/09/16 08:16 5,000 UNIT Magnesium Hydroxide (Milk Of Magnesia Susp) 30 ml Q12H PRN PO 08/05/16 16:15 09/04/16 16:14 Ondansetron HCl (Zofran Inj) 4 mg Q6H PRN IV 08/05/16 16:15 09/04/16 16:14 Nitroglycerin (Nitrostat Tab) 0.4 mg UD PRN SL 08/05/16 16:15 09/04/16 16:14 Morphine Sulfate (MoRPHine SULFATE INJ) 2 mg Q30M PRN IV 08/05/16 16:15 08/19/16 16:14 Trimethoprim/ Sulfamethoxazole (Septra Susp) 10 ml MoWeFr@0900 PO 08/07/16 09:00 09/06/16 08:59 08/07/16 10:48 10 ML Tacrolimus (Prograf Cap) 3 mg QPM PO 08/07/16 21:00 09/04/16 20:59 08/08/16 21:06 3 MG Tacrolimus (Prograf Cap) 4 mg QAM PO 08/08/16 09:00 09/05/16 08:59 08/09/16 08:18 4 MG Heparin Sodium (Porcine) (Heparin 100 Unit/ml 5ml Flush) 5 ml PRN PRN IV 08/08/16 00:45 09/07/16 00:44 08/09/16 05:39 5 ML Metoprolol Tartrate (Lopressor Iv) 5 mg Q6 PRN IV 08/08/16 11:00 09/07/16 10:59 Hydromorphone HCl (Dilaudid Tab) 8 mg Q4H PRN PO 08/09/16 09:30 08/23/16 09:29 08/09/16 09:36 8 MG Objective Vital Signs Date Time Temp Pulse Resp B/P (MAP) Pulse Ox O2 Delivery O2 Flow Rate FiO2 08/09/16 08:00 Room Air 08/09/16 07:26 36.8 77 17 144/87 (106) 91 Room Air 08/09/16 00:00 Nasal Cannula 2.0 08/08/16 23:06 37.0 78 20 143/78 (99) 94 Nasal Cannula 2.0 08/08/16 21:03 83 137/72 (93) 08/08/16 20:00 Nasal Cannula 2.0 08/08/16 16:30 Room Air 08/08/16 15:31 36.7 78 16 117/66 (83) 90 Physical Exam General Appearance: no apparent distress, + thin Eyes: sclerae normal ENT: hearing grossly normal Neck: supple, no JVD, trachea midline Respiratory/Chest: lungs clear, normal breath sounds, no respiratory distress, no accessory muscle use Cardiovascular: regular rate, rhythm, + systolic murmur Abdomen: normal bowel sounds, non tender, soft, + pertinent finding (Diamond catheter placed in GJ tube site with minimal erythema and minimal purulent drainage) Extremities: no pedal edema, no calf tenderness Neurologic/Psychiatric: alert, oriented x 3 Skin: normal color, warm/dry Laboratory Results Last 24 Hours Test 08/09/16 07:39 Sodium Level 138 mmol/L Potassium Level 4.8 mmol/L Chloride Level 100 mmol/L Carbon Dioxide Level 29 mmol/L Anion Gap 9.0 mmol/L Blood Urea Nitrogen 63 mg/dl Creatinine 6.20 mg/dl Est Creatinine Clear Calc Drug Dose 6.8 ml/min Estimated GFR () 7.4 Estimated GFR (Non- 6.4 BUN/Creatinine Ratio 10.2 Random Glucose 148 mg/dl Calcium Level 9.7 mg/dl Assessment and Plan 58-year-old female with chronic end-stage renal disease on dialysis who missed her dialysis treatment. Chest with pleuritic chest pain. GJ Tube Dislodgement: - Place Diamond catheter in stoma to keep open and await more permanent placement of active tube - will only place to length of gastric tube to keep tract open -- May give medications through tube - Consult Gen Surg - discussed with Dr. Salgado - agreed with above plan and recommend referral for GI - Consult GI - placed to on-call [facility] GI - was evaluated by Dr. Salmeron in the past - unsure if anyone can place in jejunum vs temporary G tube until outpatient referral to [facility] -- GJ is for gastroparesis but patient largely eats orally but takes meds through tube - has placed tube in the past when dislodged..question how often this tube is actually truly in the jejunum Acute on Chronic Diastolic CHF 2/2 Dialysis Non-Compliance: RESOLVED - Echo - EF 55-60% with mild MR and TR - Furosemide 80 mg BID - Lopressor 100 mg BID Acute Respiratory Failure 2/2 Above: RESOLVED - Adequately oxygenating on RA - Recommend up in chair and ambulation ESRD on HD: STABLE - No need for dialysis today - nephrology following - hopefully can transition to outpatient schedule - Phoslo with meals and snacks; Sensipar is non-formulary Diabetes S/P Pancreatic Transplant (2003): Transplantation in [place] - Glucose controlled since transplantation - will monitor with routine labs - Cellcept 500 mg daily and Prograf 4 mg AM and 3 mg PM DVT Prophylaxis: Heparin 5000 units SC Q12H Code Status: FULL RESUSCITATION Disposition: - GJ tube replacement - PT/OT evaluations - OT recommending rehab; patient keeps declining PT - discussed with patient -- At this point she would like to return home with [facility] and home PT/OT Continued [facility] stay due to: multiple IV medications needed Discharge planning: uncertain
--- NOTE | 2016-08-09 14:38 | Medical Consult ---
Consultation Note Date of Service Aug 09, 2016. Consultation Note Gastroenterology Note: I was asked to replace G-J tube that has been in place from [facility] for gastroparesis and chronic GI issues; the tube became dislodged. The nurse secured the site with a Diamond placement. The gastroenterology service her does not place G/J tubes ( we do not have the equipment or interventional radiology back up. Since the site is secure and patient can receive medication and fluids through the Diamond, I would have the patient follow up at [facility] (or another high level tertiary [facility]) to have it replaced. Hira Pizarro M.D.
[2016-08-09 16:00] VITALS: BP 122/68; PULSE 78; TEMP 36.6; O2SAT 90
[2016-08-09] MEDS: SIMVASTATIN 10 MG TAB JT SCH (20:42)
[2016-08-09 22:54] VITALS: BP 126/73; PULSE 78; TEMP 37.3; O2SAT 91
[2016-08-10] VITALS (21 sets, daily range): BP systolic 76–149; BP diastolic 48–82; PULSE 71–87; TEMP 36.5–37.3; O2SAT 90–93
[2016-08-10 05:56] LABS: HEMATOCRIT 40.9 % (37-47); MEAN CELL VOLUME 102.3 fL (80-100); MEAN CORPUSCULAR HEMOGLOBIN 31.5 pg (25-34); MEAN CORPUSCULAR HGB CONC 30.8 g/dl (32-36); MEAN PLATELET VOLUME 11.5 fL (7.4-10.4); PLATELET COUNT 148 K/uL (130-400); WHITE BLOOD COUNT 5.69 K/uL (4.8-10.8)
[2016-08-10 06:47] LABS: BUN/CREATININE RATIO 11.5 (10-20); CALCIUM 9.8 mg/dl (8.5-10.1); CREATININE 7.2 mg/dl (0.60-1.20)
[2016-08-10] MEDS: CALCIUM ACETATE 667MG GELCAP PO SCH ×3 (08:30→16:57)
[2016-08-10] MEDS: TACROLIMUS 1 MG CAP PO SCH ×2 (08:32→20:40)
[2016-08-10] MEDS: PANTOprazole SOD 40 MG TAB PO SCH ×2 (08:33→20:34)
[2016-08-10] MEDS: MYCOPHENOLATE SUSP 200 MG/1 ML JT SCH (09:15)
[2016-08-10] MEDS: RANITIDINE HCL SYRUP 150 MG/10 ML 480ML GT SCH ×2 (09:16→20:42)
[2016-08-10] MEDS: CITALOPRAM 20 MG TAB JT SCH (09:16)
[2016-08-10] MEDS: HEPARIN SOD 5000 UNIT/0.5 ML CARP SQ SCH ×2 (09:17→20:44)
[2016-08-10] MEDS: ALPRAZOLAM 0.5 MG TAB JT PRN ×2 (09:17→20:33)
[2016-08-10] MEDS: VITAMIN B COMPLEX TAB PO SCH (09:18)
[2016-08-10] MEDS: HYDROmorphone HCL 2 MG TAB PO PRN ×2 (09:19→20:34)
[2016-08-10] MEDS: SULFAMETHOXAZOLE/TRIMETHOPRIM 200MG/40MG/5ML SUSP PO SCH (09:19)
[2016-08-10] MEDS ORDERED: SODIUM CHLORIDE 0.9% 1000ML 1,000 ML IV PRN (10:05)
--- NOTE | 2016-08-10 10:36 | Nephrology Progress Note ---
Nephrology Progress Note Date of Service Aug 10, 2016. Subjective Generally feeling better. Less in the way of aches and pains. Has not spent much time OOB. Denies chest pain or SOB. Appetite OK. Over them weekend her GJ, tube came out. Apparently, the dressing stuck to her blanket. When she pulled off the blanket, the tube came with it. We do not have the resources to replace the tube here. She will have to go to [facility] where the tube has been placed, replaced and cared for. No other sx. of uremia or volume overload. Dialysis today. Review of Systems Respiratory: + problem reported Abdomen: + problem reported Musculoskeletal: + problem reported A complete review of systems was performed. Pertinent positives are noted above. All other systems are negative. Vital Signs Last 8 Hrs Date Time Temp Pulse Resp B/P (MAP) Pulse Ox O2 Delivery O2 Flow Rate FiO2 08/10/16 07:49 36.8 71 16 148/82 (104) 90 Room Air Last Recorded Weight Weight (Kilograms): 56.300 Physical Exam Appears comfortable in bed. Skin: Normal turgor. Multiple scars as previously noted. Lymphatics: No adenopathy. HEENT: Poor dentition. Oral mucous membranes moist. Neck: Tilted to the left but supple. JVD to the angle of the jaw at 30 degrees. No carotid bruit. No thyromegaly or neck mass. Chest: Clear to auscultation. Cor: Regular rhythm. S4, S1, S2. Grade 2/6 ANT at base ans left sternal border. Abdomen: Apparent Diamond catheter replacing GJ tube exiting in them left upper quadrant. Abdomen otherwise soft and not tender. Fullness in the RLQ at site of pancreas transplant. Ext: No cyanosis clubbing or edema. Muscle atrophy in the limb girdle muscles. Neuro: No focal or lateralizing signs. Globally weak. Family History Cancer Heart disease Social History Smoking Status: Never smoker Drug Use: none Marital Status: Housing Status: lives with family Occupation: retired Laboratory Results Past 24 Hours 08/10/16 05:20 08/10/16 05:20 Test 08/10/16 05:20 Red Blood Count 4.00 M/uL (4.2-5.4) Mean Corpuscular Volume 102.3 fL (80-100) Mean Corpuscular Hemoglobin 31.5 pg (25-34) Mean Corpuscular Hemoglobin Concent 30.8 g/dl (32-36) RDW Standard Deviation 51.8 fL (36.4-46.3) RDW Coefficient of Variation 13.8 % (11.5-14.5) Mean Platelet Volume 11.5 fL (7.4-10.4) Anion Gap 12.0 mmol/L (3-11) Est Creatinine Clear Calc Drug Dose 5.9 ml/min Estimated GFR () 6.2 Estimated GFR (Non- 5.3 BUN/Creatinine Ratio 11.5 (10-20) Calcium Level 9.8 mg/dl (8.5-10.1) Allergies Coded Allergies: Penicillins (Verified Allergy, Intermediate, RASH, 08/05/16) Erythromycin (Verified Allergy, Mild, RASH, 08/05/16) Acetaminophen (Unverified Allergy, Unknown, ., 08/05/16) Surgical Lubricant (Verified Allergy, Unknown, ITCHY, 08/05/16) Carbamazepine (Verified Adverse Reaction, Severe, TOXIC BLOOD POISONING, ) TOXIC BLOOD POISONING Metoclopramide (Verified Adverse Reaction, Severe, SEIZURES, 08/05/16) SEIZURES Corticosteroids (Verified Adverse Reaction, Intermediate, NAUSEA, 08/05/16) PATIENT STATES ON ALLERGY SHEET "ABSOLUTELY NONE" Dicyclomine (Verified Adverse Reaction, Intermediate, HALLUCINATIONS, 08/05) HALLUCINATIONS Ketorolac (Verified Adverse Reaction, Intermediate, NAUSEATED, 08/05/16) Pregabalin (Verified Adverse Reaction, Intermediate, CONFUSION, 08/05/16) Quinolones (Verified Adverse Reaction, Intermediate, LEVAQUIN-NAUSEA, CHRONIC HEARTBURN, 08/05/16) levaquin =NAUSEA, CHRONIC HEARTBURN. PT SAID SHE WILL NOT TAKE 12/06/08 Azithromycin (Verified Adverse Reaction, Mild, n&v, 08/05/16) Cephalexin (Verified Adverse Reaction, Mild, NAUSEA, 08/05/16) Cephalosporins (Verified Adverse Reaction, Mild, KEFLEX = NAUSEA, 08/05/16) Codeine (Verified Adverse Reaction, Mild, NAUSEA, 08/05/16) Gabapentin (Verified Adverse Reaction, Mild, NAUSEA, 08/05/16) NAUSEA Levofloxacin (Verified Adverse Reaction, Mild, NAUSEA, 08/05/16) Naproxen (Verified Adverse Reaction, Mild, NAUSEA, 08/05/16) Nitrofurantoin (Verified Adverse Reaction, Mild, NAUSEA, 08/05/16) Oxycodone (Verified Adverse Reaction, Mild, PRC/TYLOX = NAUSEA, 08/05/16) NAUSEA Phenobarbital (Verified Adverse Reaction, Mild, NAUSEA, 08/05/16) Prednisolone (Verified Adverse Reaction, Mild, IRRITATION, 08/05/16) Promethazine (Verified Adverse Reaction, Mild, DIARRHEA, 08/05/16) Sertraline (Verified Adverse Reaction, Mild, NAUSEA, 08/05/16) Adhesives (Verified Adverse Reaction, Unknown, UNKNOWN, 08/05/16) Mirtazapine (Verified Adverse Reaction, Unknown, HEARS VOICES, 08/05/16) Propoxyphene (Verified Adverse Reaction, Unknown, NAUSEA, 08/05/16) NAUSEA Tramadol (Verified Adverse Reaction, Unknown, DEPRESSION, 08/05/16) DEPRESSION Medications Current Inpatient Medications Medications (Trade) Dose Ordered Sig/Ayaka Route Start Time Stop Time Status Last Admin Dose Admin Alprazolam (Xanax Tab) 0.5 mg Q4H PRN JT 08/05/16 15:45 09/04/16 15:44 08/10/16 09:17 0.5 MG Calcium Acetate (Phoslo Cap) 1,334 mg QDB PO 08/06/16 07:30 09/05/16 07:59 08/10/16 08:30 1,334 MG Calcium Acetate (Phoslo Cap) 2,001 mg QDL PO 08/06/16 11:00 09/05/16 10:59 08/09/16 12:07 2,001 MG Citalopram Hydrobromide (celeXA TAB) 20 mg QAM JT 08/06/16 09:00 09/05/16 08:59 08/10/16 09:16 20 MG Docusate Sodium (coLACE SYRUP) 100 mg BID PRN PO 08/05/16 15:45 09/04/16 15:44 08/09/16 08:19 100 MG Furosemide (Lasix Tab) 80 mg BID17 PO 08/05/16 21:00 09/04/16 20:59 08/09/16 16:21 80 MG Metoprolol Tartrate (Lopressor Tab) 100 mg BID JT 08/05/16 21:00 09/04/16 20:59 08/09/16 20:42 100 MG Mycophenolate Mofetil (Cellcept Susp) 500 mg QAM JT 08/06/16 09:00 09/05/16 08:59 08/10/16 09:15 500 MG Pantoprazole Sodium (Protonix Tab) 40 mg BID PO 08/05/16 21:00 09/04/16 20:59 08/09/16 08:20 40 MG Simvastatin (Zocor Tab) 10 mg HS JT 08/05/16 21:00 09/04/16 20:59 08/09/16 20:42 10 MG Triamcinolone Acetonide (Nasacort Allergy 24hr) 2 sprays DAILY PRN AMRIT 08/05/16 15:45 09/04/16 15:44 Vitamin B Complex (Vitamin B Complex) 1 tab DAILY PO 08/06/16 09:00 09/05/16 08:59 08/10/16 09:18 1 TAB Miscellaneous Information (Order Awaiting Action) 1 ea QS N/A 08/06/16 00:00 09/05/16 00:00 Ranitidine HCl (zANTac SYRUP) 300 mg BID GT 08/05/16 21:00 09/04/16 20:59 08/10/16 09:16 300 MG Calcium Acetate (Phoslo Cap) 2,001 mg TID PRN PO 08/05/16 16:00 09/04/16 15:59 Calcium Acetate (Phoslo Cap) 2,001 mg QDD PO 08/05/16 17:07 09/04/16 17:59 08/09/16 16:22 2,001 MG Heparin Sodium (Porcine) (Heparin Sq 5000 Unit/0.5ml) 5,000 unit Q12 SQ 08/05/16 21:00 09/04/16 20:59 08/10/16 09:17 5,000 UNIT Magnesium Hydroxide (Milk Of Magnesia Susp) 30 ml Q12H PRN PO 08/05/16 16:15 09/04/16 16:14 Ondansetron HCl (Zofran Inj) 4 mg Q6H PRN IV 08/05/16 16:15 09/04/16 16:14 Nitroglycerin (Nitrostat Tab) 0.4 mg UD PRN SL 08/05/16 16:15 09/04/16 16:14 Morphine Sulfate (MoRPHine SULFATE INJ) 2 mg Q30M PRN IV 08/05/16 16:15 08/19/16 16:14 Trimethoprim/ Sulfamethoxazole (Septra Susp) 10 ml MoWeFr@0900 PO 08/07/16 09:00 09/06/16 08:59 08/10/16 09:19 10 ML Tacrolimus (Prograf Cap) 3 mg QPM PO 08/07/16 21:00 09/04/16 20:59 08/09/16 20:42 3 MG Tacrolimus (Prograf Cap) 4 mg QAM PO 08/08/16 09:00 09/05/16 08:59 08/10/16 08:32 4 MG Heparin Sodium (Porcine) (Heparin 100 Unit/ml 5ml Flush) 5 ml PRN PRN IV 08/08/16 00:45 09/07/16 00:44 08/10/16 05:15 5 ML Metoprolol Tartrate (Lopressor Iv) 5 mg Q6 PRN IV 08/08/16 11:00 09/07/16 10:59 Hydromorphone HCl (Dilaudid Tab) 8 mg Q4H PRN PO 08/09/16 09:30 08/23/16 09:29 08/10/16 09:19 8 MG Impression (1) ESRD (end stage renal disease) on dialysis (2) Diabetes (3) Gastroparesis Clinically stable. Dialysis today. May be mildly volume overloaded given he JVD. Otherwise stable. Will have to go to [facility] in [place] for the GJ tube to be replaced. Recommendations Hemodialysis today. Will attempt to remove 3L assuming she tolerates it. D/C plans need to be arranged. She should be able to return home if she is moderately ambulatory using herm walker. If d/c'd, she should go on her usual diet an medication program. Weekly dose of calcitriol written for for today.
[2016-08-10] MEDS ORDERED: CALCITRIOL 0.25 MCG CAP PO ONE (11:00)
--- NOTE | 2016-08-10 13:06 | Discharge Instructions ---
Discharge Instructions Date of Service Aug 10, 2016. Admission Reason for Admission: Chest Wall Pain Discharge Discharge Diagnosis / Problem: atypical chest pain dislodged J/G tube Discharge Goals Goal(s): Therapeutic intervention (Placement of J/G tube that is dislodged) Activity Recommendations Activity Limitations: resume your previous activity . Instructions / Follow-Up Instructions / Follow-Up Primary care physician in 1 week Current Hospital Diet Patient's current hospital diet: Renal Diet Discharge Diet Recommended Diet: Diabetes Type 2 Diet Pending Studies Studies pending at discharge: no Laboratory Results Hemoglobin A1c Test 08/07/16 04:52 Range/Units Estimated Average Glucose 140 mg/dl Hemoglobin A1c 6.5 H 4.5-5.6 % Medical Emergencies . Who to Call and When: Medical Emergencies: If at any time you feel your situation is an emergency, please call 911 immediately. . Non-Emergent Contact Non-Emergency issues call your: Primary Care Provider . Past History Medical & Surgical History: (1) Jejunostomy tube present (2) Gastroparesis (3) H/O pancreas transplant (4) End stage kidney disease (5) Substernal precordial chest pain . "Provider Documentation" section prepared by Lawson Munguia. . Tree Doctor Recommendations Tree Doctor Recommendations: Pain specialist for chronic pain Palliative Care GI for replacement of J/G tube VTE Core Measure Inpt VTE Proph given/why not?: Unfractionated heparin SQ
[2016-08-10] MEDS: METOPROLOL TARTRATE 100 MG TAB JT SCH ×2 (14:54→20:39)
[2016-08-10] MEDS: FUROSEMIDE 80 MG TAB PO SCH ×2 (14:55→16:57)
[2016-08-10] MEDS: SIMVASTATIN 10 MG TAB JT SCH (20:39)
[2016-08-11] VITALS: O2SAT 93
[2016-08-11] MEDS: ALPRAZOLAM 0.5 MG TAB JT PRN ×3 (04:56→21:38)
[2016-08-11] MEDS: HYDROmorphone HCL 2 MG TAB PO PRN ×3 (04:58→21:38)
[2016-08-11 07:12] VITALS: BP 153/82; PULSE 75; TEMP 36.8; O2SAT 95
[2016-08-11] MEDS: CALCIUM ACETATE 667MG GELCAP PO SCH ×3 (08:21→17:10)
[2016-08-11] MEDS: FUROSEMIDE 80 MG TAB PO SCH ×2 (08:22→17:10)
[2016-08-11] MEDS: TACROLIMUS 1 MG CAP PO SCH ×2 (08:22→21:41)
[2016-08-11] MEDS: PANTOprazole SOD 40 MG TAB PO SCH ×2 (08:22→21:42)
[2016-08-11] MEDS: VITAMIN B COMPLEX TAB PO SCH (08:23)
[2016-08-11] MEDS: METOPROLOL TARTRATE 100 MG TAB JT SCH ×2 (08:25→21:43)
[2016-08-11] MEDS: MYCOPHENOLATE SUSP 200 MG/1 ML JT SCH (08:25)
[2016-08-11] MEDS: RANITIDINE HCL SYRUP 150 MG/10 ML 480ML GT SCH ×2 (08:26→21:39)
[2016-08-11] MEDS: CITALOPRAM 20 MG TAB JT SCH (08:26)
[2016-08-11] MEDS: HEPARIN SOD 5000 UNIT/0.5 ML CARP SQ SCH ×2 (08:28→21:45)
--- NOTE | 2016-08-11 12:44 | Nephrology Progress Note ---
Nephrology Progress Note Date of Service Aug 11, 2016. Chief Complaint F/U for end-stage renal disease on hemodialysis. Subjective Monica was seen and examined in her room this morning. She has been otherwise feeling well, denies any shortness of breath, chest pain. Blood pressure, volume status and electrolyte acceptable. Review of Systems A complete review of systems was performed. Pertinent positives are noted above. All other systems are negative. Vital Signs Last 8 Hrs Date Time Temp Pulse Resp B/P (MAP) Pulse Ox O2 Delivery O2 Flow Rate FiO2 08/11/16 08:00 Nasal Cannula 2.0 08/11/16 07:12 36.8 75 20 153/82 (105) 95 Nasal Cannula 2.0 Last Recorded Weight Weight (Kilograms): 53.300 Physical Exam GENERAL: elderly female, AAA x 3, pleasant, not in any distress. NECK: Supple, no JVD. RESPIRATORY: Normal breathing efforts, no accessory muscle use, clear to auscultation bilaterally, no wheezes or rales. CARDIOVASCULAR: S1, S2 normal, rate rhythm regular. EXTREMITY: No lower extremity edema, left brachiocephalic AV fistula with thrill and bruit. NEURO: speech fluent. PSYCHIATRY: Normal mood and judgment Family History Cancer Heart disease Social History Smoking Status: Never smoker Drug Use: none Marital Status: Housing Status: lives with family Occupation: retired Allergies Coded Allergies: Penicillins (Verified Allergy, Intermediate, RASH, 08/05/16) Erythromycin (Verified Allergy, Mild, RASH, 08/05/16) Acetaminophen (Unverified Allergy, Unknown, ., 08/05/16) Surgical Lubricant (Verified Allergy, Unknown, ITCHY, 08/05/16) Carbamazepine (Verified Adverse Reaction, Severe, TOXIC BLOOD POISONING, ) TOXIC BLOOD POISONING Metoclopramide (Verified Adverse Reaction, Severe, SEIZURES, 08/05/16) SEIZURES Corticosteroids (Verified Adverse Reaction, Intermediate, NAUSEA, 08/05/16) PATIENT STATES ON ALLERGY SHEET "ABSOLUTELY NONE" Dicyclomine (Verified Adverse Reaction, Intermediate, HALLUCINATIONS, 08/05) HALLUCINATIONS Ketorolac (Verified Adverse Reaction, Intermediate, NAUSEATED, 08/05/16) Pregabalin (Verified Adverse Reaction, Intermediate, CONFUSION, 08/05/16) Quinolones (Verified Adverse Reaction, Intermediate, LEVAQUIN-NAUSEA, CHRONIC HEARTBURN, 08/05/16) levaquin =NAUSEA, CHRONIC HEARTBURN. PT SAID SHE WILL NOT TAKE 12/06/08 Azithromycin (Verified Adverse Reaction, Mild, n&v, 08/05/16) Cephalexin (Verified Adverse Reaction, Mild, NAUSEA, 08/05/16) Cephalosporins (Verified Adverse Reaction, Mild, KEFLEX = NAUSEA, 08/05/16) Codeine (Verified Adverse Reaction, Mild, NAUSEA, 08/05/16) Gabapentin (Verified Adverse Reaction, Mild, NAUSEA, 08/05/16) NAUSEA Levofloxacin (Verified Adverse Reaction, Mild, NAUSEA, 08/05/16) Naproxen (Verified Adverse Reaction, Mild, NAUSEA, 08/05/16) Nitrofurantoin (Verified Adverse Reaction, Mild, NAUSEA, 08/05/16) Oxycodone (Verified Adverse Reaction, Mild, PRC/TYLOX = NAUSEA, 08/05/16) NAUSEA Phenobarbital (Verified Adverse Reaction, Mild, NAUSEA, 08/05/16) Prednisolone (Verified Adverse Reaction, Mild, IRRITATION, 08/05/16) Promethazine (Verified Adverse Reaction, Mild, DIARRHEA, 08/05/16) Sertraline (Verified Adverse Reaction, Mild, NAUSEA, 08/05/16) Adhesives (Verified Adverse Reaction, Unknown, UNKNOWN, 08/05/16) Mirtazapine (Verified Adverse Reaction, Unknown, HEARS VOICES, 08/05/16) Propoxyphene (Verified Adverse Reaction, Unknown, NAUSEA, 08/05/16) NAUSEA Tramadol (Verified Adverse Reaction, Unknown, DEPRESSION, 08/05/16) DEPRESSION Medications Current Inpatient Medications Medications (Trade) Dose Ordered Sig/Ayaka Route Start Time Stop Time Status Last Admin Dose Admin Alprazolam (Xanax Tab) 0.5 mg Q4H PRN JT 08/05/16 15:45 09/04/16 15:44 08/11/16 12:19 0.5 MG Calcium Acetate (Phoslo Cap) 1,334 mg QDB PO 08/06/16 07:30 09/05/16 07:59 08/11/16 08:21 1,334 MG Calcium Acetate (Phoslo Cap) 2,001 mg QDL PO 08/06/16 11:00 09/05/16 10:59 08/11/16 12:05 2,001 MG Citalopram Hydrobromide (celeXA TAB) 20 mg QAM JT 08/06/16 09:00 09/05/16 08:59 08/11/16 08:26 20 MG Docusate Sodium (coLACE SYRUP) 100 mg BID PRN PO 08/05/16 15:45 09/04/16 15:44 08/09/16 08:19 100 MG Furosemide (Lasix Tab) 80 mg BID17 PO 08/05/16 21:00 09/04/16 20:59 08/11/16 08:22 80 MG Metoprolol Tartrate (Lopressor Tab) 100 mg BID JT 08/05/16 21:00 09/04/16 20:59 08/11/16 08:25 100 MG Mycophenolate Mofetil (Cellcept Susp) 500 mg QAM JT 08/06/16 09:00 09/05/16 08:59 08/11/16 08:25 500 MG Pantoprazole Sodium (Protonix Tab) 40 mg BID PO 08/05/16 21:00 09/04/16 20:59 08/09/16 08:20 40 MG Simvastatin (Zocor Tab) 10 mg HS JT 08/05/16 21:00 09/04/16 20:59 08/10/16 20:39 10 MG Triamcinolone Acetonide (Nasacort Allergy 24hr) 2 sprays DAILY PRN AMRIT 08/05/16 15:45 09/04/16 15:44 Vitamin B Complex (Vitamin B Complex) 1 tab DAILY PO 08/06/16 09:00 09/05/16 08:59 08/11/16 08:23 1 TAB Miscellaneous Information (Order Awaiting Action) 1 ea QS N/A 08/06/16 00:00 09/05/16 00:00 Ranitidine HCl (zANTac SYRUP) 300 mg BID GT 08/05/16 21:00 09/04/16 20:59 08/11/16 08:26 300 MG Calcium Acetate (Phoslo Cap) 2,001 mg TID PRN PO 08/05/16 16:00 09/04/16 15:59 Calcium Acetate (Phoslo Cap) 2,001 mg QDD PO 08/05/16 17:07 09/04/16 17:59 08/10/16 16:57 2,001 MG Heparin Sodium (Porcine) (Heparin Sq 5000 Unit/0.5ml) 5,000 unit Q12 SQ 08/05/16 21:00 09/04/16 20:59 08/11/16 08:28 5,000 UNIT Magnesium Hydroxide (Milk Of Magnesia Susp) 30 ml Q12H PRN PO 08/05/16 16:15 09/04/16 16:14 Ondansetron HCl (Zofran Inj) 4 mg Q6H PRN IV 08/05/16 16:15 09/04/16 16:14 Nitroglycerin (Nitrostat Tab) 0.4 mg UD PRN SL 08/05/16 16:15 09/04/16 16:14 Morphine Sulfate (MoRPHine SULFATE INJ) 2 mg Q30M PRN IV 08/05/16 16:15 08/19/16 16:14 Trimethoprim/ Sulfamethoxazole (Septra Susp) 10 ml MoWeFr@0900 PO 08/07/16 09:00 09/06/16 08:59 08/10/16 09:19 10 ML Tacrolimus (Prograf Cap) 3 mg QPM PO 08/07/16 21:00 09/04/16 20:59 08/10/16 20:40 3 MG Tacrolimus (Prograf Cap) 4 mg QAM PO 08/08/16 09:00 09/05/16 08:59 08/11/16 08:22 4 MG Heparin Sodium (Porcine) (Heparin 100 Unit/ml 5ml Flush) 5 ml PRN PRN IV 08/08/16 00:45 09/07/16 00:44 08/11/16 08:06 5 ML Metoprolol Tartrate (Lopressor Iv) 5 mg Q6 PRN IV 08/08/16 11:00 09/07/16 10:59 Hydromorphone HCl (Dilaudid Tab) 8 mg Q4H PRN PO 08/09/16 09:30 08/23/16 09:29 08/11/16 12:06 8 MG Impression (1) ESRD (end stage renal disease) on dialysis (2) Diabetes (3) Gastroparesis Clinically stable. Dialysis today. May be mildly volume overloaded given he JVD. Otherwise stable. Will have to go to [facility] in [place] for the GJ tube to be replaced. Recommendations -- Had hemodialysis yesterday, was uneventful. Currently volume status, blood pressure and electrolyte acceptable. -- she is waiting for arrangement to be discharged to [facility] to reinsert J tube --avoid IV fluid --Plan for dialysis tomorrow
[2016-08-11 15:19] VITALS: BP 120/70; PULSE 69; TEMP 36.6; O2SAT 92
--- NOTE | 2016-08-11 20:00 | Hospitalist Progress Note ---
Hospitalist Progress Note Date of Service Aug 10, 2016. Subjective Pt evaluation today including: conversation w/ patient Patient was seen during dialysis. She agrees to transfer to the [facility] for the placement of a new G/J-tube. She has no complaints at this time Objective Vital Signs Date Time Temp Pulse Resp B/P (MAP) Pulse Ox O2 Delivery O2 Flow Rate FiO2 08/11/16 16:00 Nasal Cannula 2.0 08/11/16 15:19 36.6 69 16 120/70 (87) 92 Room Air 08/11/16 08:00 Nasal Cannula 2.0 08/11/16 07:12 36.8 75 20 153/82 (105) 95 Nasal Cannula 2.0 08/11/16 00:00 93 Nasal Cannula 2.0 08/10/16 23:34 37.3 76 18 117/71 (86) 93 Nasal Cannula 2.0 08/10/16 20:35 87 144/71 (95) Physical Exam General Appearance: no apparent distress ENT: hearing grossly normal Respiratory/Chest: lungs clear Cardiovascular: regular rate, rhythm Abdomen: normal bowel sounds Neurologic/Psychiatric: oriented x 3 Assessment and Plan 58-year-old female with chronic end-stage renal disease on dialysis who missed her dialysis treatment. Chest with pleuritic chest pain. 1. GJ Tube Dislodgement: - Place Diamond catheter in stoma to keep open and await more permanent placement of active tube - will only place to length of gastric tube to keep tract open -- May give medications through tube - Consult Gen Surg - discussed with Dr. Salgado - agreed with above plan and recommend referral for GI - Consult GI - [facility] - was evaluated by Dr. Salmeron in the past - unsure if anyone can place in jejunum vs temporary G tube until outpatient referral to [place] -- GJ is for gastroparesis but patient largely eats orally but takes meds through tube - has placed tube in the past when dislodged..question how often this tube is actually truly in the jejunum The patient's agreement I contacted the [facility] and the patient has been accepted for transfer once a bed is available by Dr. Qureshi 2. Acute on Chronic Diastolic CHF 2/2 Dialysis Non-Compliance: RESOLVED - Echo - EF 55-60% with mild MR and TR - Furosemide 80 mg BID - Lopressor 100 mg BID 3. Acute Respiratory Failure 2/2 Above: RESOLVED - Adequately oxygenating on RA - Recommend up in chair and ambulation 4. ESRD on HD: STABLE - dialysis today - nephrology following - hopefully can transition to outpatient schedule - Phoslo with meals and snacks; Sensipar is non-formulary 5. Diabetes S/P Pancreatic Transplant (2003): Transplantation in [place] - Glucose controlled since transplantation - will monitor with routine labs - Cellcept 500 mg daily and Prograf 4 mg AM and 3 mg PM 6. DVT Prophylaxis: Heparin 5000 units SC Q12H 7. Code Status: FULL RESUSCITATION Disposition: Transfer to [facility] for GJ replacement - GJ tube replacement - PT/OT evaluations - OT recommending rehab; patient keeps declining PT - discussed with patient -- At this point she would like to return home with [facility] and home PT/OT Continued [facility] stay due to: multiple IV medications needed Discharge planning: When bed available
[2016-08-11 20:16] VITALS: BP 115/65; PULSE 77; TEMP 36.7; O2SAT 86
[2016-08-11] MEDS: SIMVASTATIN 10 MG TAB JT SCH (21:40)
[2016-08-11] MEDS: DOCUSATE SODIUM 100 MG/10 ML UDC PO PRN (21:40)
[2016-08-11 23:37] VITALS: BP 133/76; PULSE 77; TEMP 37; O2SAT 95
[2016-08-12] VITALS (26 sets, daily range): BP systolic 71–154; BP diastolic 42–85; PULSE 71–82; TEMP 36.9–37.5; O2SAT 91–95
[2016-08-12 05:23] LABS: HEMATOCRIT 38.3 % (37-47); MEAN CELL VOLUME 101.9 fL (80-100); MEAN CORPUSCULAR HEMOGLOBIN 31.1 pg (25-34); MEAN CORPUSCULAR HGB CONC 30.5 g/dl (32-36); MEAN PLATELET VOLUME 11.5 fL (7.4-10.4); PLATELET COUNT 149 K/uL (130-400); RED BLOOD COUNT 3.76 M/uL (4.2-5.4)
[2016-08-12 06:14] LABS: BUN/CREATININE RATIO 10.8 (10-20); CALCIUM 9.9 mg/dl (8.5-10.1); CREATININE 6.1 mg/dl (0.60-1.20); POTASSIUM 4.9 mmol/L (3.5-5.1)
[2016-08-12] MEDS: CALCIUM ACETATE 667MG GELCAP PO SCH ×3 (07:28→16:25)
[2016-08-12] MEDS: RANITIDINE HCL SYRUP 150 MG/10 ML 480ML GT SCH ×2 (07:29→21:53)
[2016-08-12] MEDS: CITALOPRAM 20 MG TAB JT SCH (07:29)
[2016-08-12] MEDS: SULFAMETHOXAZOLE/TRIMETHOPRIM 200MG/40MG/5ML SUSP PO SCH (07:30)
[2016-08-12] MEDS: TACROLIMUS 1 MG CAP PO SCH ×2 (07:30→21:56)
[2016-08-12] MEDS: PANTOprazole SOD 40 MG TAB PO SCH ×2 (07:30→21:00)
[2016-08-12] MEDS: MYCOPHENOLATE SUSP 200 MG/1 ML JT SCH (07:31)
[2016-08-12] MEDS: VITAMIN B COMPLEX TAB PO SCH (07:31)
[2016-08-12] MEDS: HYDROmorphone HCL 2 MG TAB PO PRN ×2 (07:31→20:13)
[2016-08-12] MEDS: METOPROLOL TARTRATE 100 MG TAB JT SCH ×2 (07:33→22:00)
[2016-08-12] MEDS: FUROSEMIDE 80 MG TAB PO SCH ×2 (07:33→16:26)
[2016-08-12] MEDS: HEPARIN SOD 5000 UNIT/0.5 ML CARP SQ SCH ×2 (07:34→21:52)
--- NOTE | 2016-08-12 10:38 | Nephrology Progress Note ---
Nephrology Progress Note Date of Service Aug 12, 2016. Subjective No significant change. Denies SOB. Denies chest pain. Appetite OK. Seen during dialysis and tolerating her treatment despite a relatively lowm blood pressure. Blood sugars up slightly. Has pancreas transplant and hyperglycemia has not been a major issue since. Denies excessive thirst. No pain over pancreas transplant in the right lower quadrant. Transfer to [facility] is being planned apparently for today but record does not indicate that transfer has been confirmed. Review of Systems Constitutional: + problem reported Cardiovascular: + problem reported Respiratory: + problem reported Abdomen: + problem reported A complete review of systems was performed. Pertinent positives are noted above. All other systems are negative. Vital Signs Last 8 Hrs Date Time Temp Pulse Resp B/P (MAP) Pulse Ox O2 Delivery O2 Flow Rate FiO2 08/12/16 09:10 74 102/65 08/12/16 07:20 36.9 77 16 149/78 (101) 93 Room Air Last Recorded Weight Weight (Kilograms): 53.300 Physical Exam Physically appears as a chronically ill woman younger than her stated age. Skin: Scars from prior surgery including her right upper arm AVF, her RLQ pancreas transplant and both hips. Normal skin turgor. Nom rash. Has tube present exiting in the left upper quadrant. No lymphadenopathy HEENT: Unremarkable except form very poor dentition. Oral mucous membranes moist. Neck: Tilted marlene the right, as usual, but supple. Slight dilitation of jugular veins at 45 degrees. No carotid bruit. Chest: Clear marlene auscultation. Cor: Regular rhythm. S1, S2. Atrial gallop. Gr.2/6 ANT at them base and upper left sternal border. Abd: Non-tender. Fullness in them right lower quadrant at the site of her pancreas transplant. Diamond cath (replacing GJ tube) exits in the left upper quadrant. Bowel sounds present. No peripheral edema. No lateralizing neuro findings. Family History Cancer Heart disease Social History Smoking Status: Never smoker Drug Use: none Marital Status: Housing Status: lives with family Occupation: retired Laboratory Results Past 24 Hours 08/12/16 05:10 08/12/16 05:10 Test 08/12/16 05:10 Red Blood Count 3.76 M/uL (4.2-5.4) Mean Corpuscular Volume 101.9 fL (80-100) Mean Corpuscular Hemoglobin 31.1 pg (25-34) Mean Corpuscular Hemoglobin Concent 30.5 g/dl (32-36) RDW Standard Deviation 51.4 fL (36.4-46.3) RDW Coefficient of Variation 13.8 % (11.5-14.5) Mean Platelet Volume 11.5 fL (7.4-10.4) Anion Gap 8.0 mmol/L (3-11) Est Creatinine Clear Calc Drug Dose 6.3 ml/min Estimated GFR () 7.5 Estimated GFR (Non- 6.5 BUN/Creatinine Ratio 10.8 (10-20) Calcium Level 9.9 mg/dl (8.5-10.1) Allergies Coded Allergies: Penicillins (Verified Allergy, Intermediate, RASH, 08/05/16) Erythromycin (Verified Allergy, Mild, RASH, 08/05/16) Acetaminophen (Unverified Allergy, Unknown, ., 08/05/16) Surgical Lubricant (Verified Allergy, Unknown, ITCHY, 08/05/16) Carbamazepine (Verified Adverse Reaction, Severe, TOXIC BLOOD POISONING, ) TOXIC BLOOD POISONING Metoclopramide (Verified Adverse Reaction, Severe, SEIZURES, 08/05/16) SEIZURES Corticosteroids (Verified Adverse Reaction, Intermediate, NAUSEA, 08/05/16) PATIENT STATES ON ALLERGY SHEET "ABSOLUTELY NONE" Dicyclomine (Verified Adverse Reaction, Intermediate, HALLUCINATIONS, 08/05) HALLUCINATIONS Ketorolac (Verified Adverse Reaction, Intermediate, NAUSEATED, 08/05/16) Pregabalin (Verified Adverse Reaction, Intermediate, CONFUSION, 08/05/16) Quinolones (Verified Adverse Reaction, Intermediate, LEVAQUIN-NAUSEA, CHRONIC HEARTBURN, 08/05/16) levaquin =NAUSEA, CHRONIC HEARTBURN. PT SAID SHE WILL NOT TAKE 12/06/08 Azithromycin (Verified Adverse Reaction, Mild, n&v, 08/05/16) Cephalexin (Verified Adverse Reaction, Mild, NAUSEA, 08/05/16) Cephalosporins (Verified Adverse Reaction, Mild, KEFLEX = NAUSEA, 08/05/16) Codeine (Verified Adverse Reaction, Mild, NAUSEA, 08/05/16) Gabapentin (Verified Adverse Reaction, Mild, NAUSEA, 08/05/16) NAUSEA Levofloxacin (Verified Adverse Reaction, Mild, NAUSEA, 08/05/16) Naproxen (Verified Adverse Reaction, Mild, NAUSEA, 08/05/16) Nitrofurantoin (Verified Adverse Reaction, Mild, NAUSEA, 08/05/16) Oxycodone (Verified Adverse Reaction, Mild, PRC/TYLOX = NAUSEA, 08/05/16) NAUSEA Phenobarbital (Verified Adverse Reaction, Mild, NAUSEA, 08/05/16) Prednisolone (Verified Adverse Reaction, Mild, IRRITATION, 08/05/16) Promethazine (Verified Adverse Reaction, Mild, DIARRHEA, 08/05/16) Sertraline (Verified Adverse Reaction, Mild, NAUSEA, 08/05/16) Adhesives (Verified Adverse Reaction, Unknown, UNKNOWN, 08/05/16) Mirtazapine (Verified Adverse Reaction, Unknown, HEARS VOICES, 08/05/16) Propoxyphene (Verified Adverse Reaction, Unknown, NAUSEA, 08/05/16) NAUSEA Tramadol (Verified Adverse Reaction, Unknown, DEPRESSION, 08/05/16) DEPRESSION Medications Current Inpatient Medications Medications (Trade) Dose Ordered Sig/Ayaka Route Start Time Stop Time Status Last Admin Dose Admin Alprazolam (Xanax Tab) 0.5 mg Q4H PRN JT 08/05/16 15:45 09/04/16 15:44 08/11/16 21:38 0.5 MG Calcium Acetate (Phoslo Cap) 1,334 mg QDB PO 08/06/16 07:30 09/05/16 07:59 08/12/16 07:28 1,334 MG Calcium Acetate (Phoslo Cap) 2,001 mg QDL PO 08/06/16 11:00 09/05/16 10:59 08/11/16 12:05 2,001 MG Citalopram Hydrobromide (celeXA TAB) 20 mg QAM JT 08/06/16 09:00 09/05/16 08:59 08/12/16 07:29 20 MG Docusate Sodium (coLACE SYRUP) 100 mg BID PRN PO 08/05/16 15:45 09/04/16 15:44 08/11/16 21:40 100 MG Furosemide (Lasix Tab) 80 mg BID17 PO 08/05/16 21:00 09/04/16 20:59 08/12/16 07:33 80 MG Metoprolol Tartrate (Lopressor Tab) 100 mg BID JT 08/05/16 21:00 09/04/16 20:59 08/12/16 07:33 100 MG Mycophenolate Mofetil (Cellcept Susp) 500 mg QAM JT 08/06/16 09:00 09/05/16 08:59 08/12/16 07:31 500 MG Pantoprazole Sodium (Protonix Tab) 40 mg BID PO 08/05/16 21:00 09/04/16 20:59 08/12/16 07:30 40 MG Simvastatin (Zocor Tab) 10 mg HS JT 08/05/16 21:00 09/04/16 20:59 08/11/16 21:40 10 MG Triamcinolone Acetonide (Nasacort Allergy 24hr) 2 sprays DAILY PRN AMRIT 08/05/16 15:45 09/04/16 15:44 Vitamin B Complex (Vitamin B Complex) 1 tab DAILY PO 08/06/16 09:00 09/05/16 08:59 08/12/16 07:31 1 TAB Miscellaneous Information (Order Awaiting Action) 1 ea QS N/A 08/06/16 00:00 09/05/16 00:00 Ranitidine HCl (zANTac SYRUP) 300 mg BID GT 08/05/16 21:00 09/04/16 20:59 08/12/16 07:29 300 MG Calcium Acetate (Phoslo Cap) 2,001 mg TID PRN PO 08/05/16 16:00 09/04/16 15:59 Calcium Acetate (Phoslo Cap) 2,001 mg QDD PO 08/05/16 17:07 09/04/16 17:59 08/11/16 17:10 2,001 MG Heparin Sodium (Porcine) (Heparin Sq 5000 Unit/0.5ml) 5,000 unit Q12 SQ 08/05/16 21:00 09/04/16 20:59 08/12/16 07:34 5,000 UNIT Magnesium Hydroxide (Milk Of Magnesia Susp) 30 ml Q12H PRN PO 08/05/16 16:15 09/04/16 16:14 Ondansetron HCl (Zofran Inj) 4 mg Q6H PRN IV 08/05/16 16:15 09/04/16 16:14 Nitroglycerin (Nitrostat Tab) 0.4 mg UD PRN SL 08/05/16 16:15 09/04/16 16:14 Morphine Sulfate (MoRPHine SULFATE INJ) 2 mg Q30M PRN IV 08/05/16 16:15 08/19/16 16:14 Trimethoprim/ Sulfamethoxazole (Septra Susp) 10 ml MoWeFr@0900 PO 08/07/16 09:00 09/06/16 08:59 08/12/16 07:30 10 ML Tacrolimus (Prograf Cap) 3 mg QPM PO 08/07/16 21:00 09/04/16 20:59 08/11/16 21:41 3 MG Tacrolimus (Prograf Cap) 4 mg QAM PO 08/08/16 09:00 09/05/16 08:59 08/12/16 07:30 4 MG Heparin Sodium (Porcine) (Heparin 100 Unit/ml 5ml Flush) 5 ml PRN PRN IV 08/08/16 00:45 09/07/16 00:44 08/12/16 08:45 5 ML Metoprolol Tartrate (Lopressor Iv) 5 mg Q6 PRN IV 08/08/16 11:00 09/07/16 10:59 Hydromorphone HCl (Dilaudid Tab) 8 mg Q4H PRN PO 08/09/16 09:30 08/23/16 09:29 08/12/16 07:31 8 MG Impression (1) ESRD (end stage renal disease) on dialysis (2) Diabetes (3) Gastroparesis Clinically stable. Dialysis today. Transfer marlene [facility] in [place] when bed available or for out-patient replacement of GJ tube. Recommendations No change in therapy. Hemodialysis this AM. Awaiting transfer to [facility] form replacement of GJ tube. D/C meds should be the same as well as her diet (renal with CHO limitations). Had discussion with the patient regarding compliance with diet and alsom with attendance for scheduled dialysis treatments.
[2016-08-12] MEDS: ALPRAZOLAM 0.5 MG TAB JT PRN (20:13)
[2016-08-12] MEDS: SIMVASTATIN 10 MG TAB JT SCH (22:00)
[2016-08-13] MEDS: ALPRAZOLAM 0.5 MG TAB JT PRN ×2 (03:06→07:44)
[2016-08-13] MEDS: HYDROmorphone HCL 2 MG TAB PO PRN ×2 (03:06→07:35)
[2016-08-13 07:05] VITALS: BP 126/74; PULSE 76; TEMP 37; O2SAT 95
[2016-08-13] MEDS: FUROSEMIDE 80 MG TAB PO SCH (07:22)
[2016-08-13] MEDS: VITAMIN B COMPLEX TAB PO SCH (07:22)
[2016-08-13] MEDS: TACROLIMUS 1 MG CAP PO SCH (07:22)
[2016-08-13] MEDS: CALCIUM ACETATE 667MG GELCAP PO SCH (07:22)
[2016-08-13] MEDS: MYCOPHENOLATE SUSP 200 MG/1 ML JT SCH (07:23)
[2016-08-13] MEDS: RANITIDINE HCL SYRUP 150 MG/10 ML 480ML GT SCH (07:23)
[2016-08-13] MEDS: PANTOprazole SOD 40 MG TAB PO SCH (07:23)
[2016-08-13] MEDS: CITALOPRAM 20 MG TAB JT SCH (07:23)
[2016-08-13] MEDS: METOPROLOL TARTRATE 100 MG TAB JT SCH (07:24)
[2016-08-13 08:00] VITALS: O2SAT 95
[2016-08-13] MEDS: HEPARIN SOD 5000 UNIT/0.5 ML CARP SQ SCH (09:00)
--- NOTE | 2016-08-30 21:59 | Discharge Summary ---
Discharge Summary Date of Service Aug 30, 2016. Discharge Summary Admission Date: Aug 05, 2016 at 16:09 Discharge Date: Aug 13, 2016 Discharge Disposition: Acute care facility ([facility]) Principal Diagnosis: atypical chest pain, dislodged J/G-tube Problems/Secondary Diagnoses: (1) Chronic pain syndrome Status: Chronic (2) Depression with anxiety Status: Chronic (3) Dyslipidemia Status: Chronic (4) End stage renal disease on dialysis Status: Chronic (5) GERD (gastroesophageal reflux disease) Status: Chronic (6) HTN (hypertension) Status: Chronic (7) Narcotic dependence Status: Chronic (8) Osteoporosis Status: Chronic Immunizations: Have You Had Influenza Vaccine: Yes Influenza Vaccine Date: Nov 20, 2011 History of Tetanus Vaccine?: Yes Tetanus Immunization Date: June 21, 2004 History of Pneumococcal: Yes Pneumococcal Date: June 20, 1999 History of Hepatitis B Vaccine: Yes Hepatitis Immunization Date: Apr 10, 2003 Medication Reconciliation Continued Medications: Alprazolam (Xanax) 0.5 Mg Tab 0.5 MG JT Q4H PRN for Anxiety for 30 Days, #120 TAB B Complex W/ C (Vitamin B Complex-C) 1 Cap Cap 1 CAP DAILY Calcium Acetate (Phoslo 667 Mg) 667 Mg Cap 2 CAP JT BREAKFAST Calcium Acetate (Phoslo 667 Mg) 667 Mg Cap 3 CAP JT UD WITH LUNCH AND DINNER Calcium Acetate (Phoslo 667 Mg) 667 Mg Cap 3 CAP JT SNACKS Cinecalcet (Sensipar) 60 Mg Tab 30 MG JT QAM Cinecalcet (Sensipar) 60 Mg Tab 60 MG PO DAILY, TAB Citalopram Hydrobromide (Celexa) 20 Mg Tab 20 MG JT QAM, TAB Docusate Sodium (Colace) 100 Mg Cap 100 MG PO BID PRN for Constipation Furosemide (Lasix) 80 Mg Tab 80 MG JT BID Hydromorphone Hcl (Dilaudid) 4 Mg Tab 8 MG PO Q4H PRN for Pain, TAB Metoprolol Tartrate (Lopressor) (Lopressor) 100 Mg Tab 100 MG JT BID Mycophenolate Mofetil (Cellcept) 200 Mg/Ml Adela 500 MG JT QAM Nutritional Supplements (Nutren 2.0) 1 Liq Liq 2 DOSE GJT DAILY for PRN Pantoprazole (Protonix) 40 Mg Tab 40 MG PO BID, #30 TAB Ranitidine (Zantac) 300 Mg Tab 300 MG JT BID, TAB Simvastatin (Zocor) 10 Mg Tab 10 MG JT HS Tacrolimus (Prograf) 1 Mg Cap 3 MG PO QPM, CAP Tacrolimus (Prograf) 1 Mg Cap 4 MG PO QAM, CAP Triamcinolone Acetonide (Nasal (Nasacort Allergy 24Hr) 55 Mcg/Act Spr 2 SPRAY AMRIT DAILY PRN for CONGSTION Trimethoprim/Sulfamethoxazole Susp (Bactrim 200/40MG 5ML) Susp 2.5 ML JT [facility] [place] 58-year-old female with chronic end-stage renal disease on dialysis who missed her dialysis treatment. Chest with pleuritic chest pain. 1. GJ Tube Dislodgement: - Place Diamond catheter in stoma to keep open and await more permanent placement of active tube - will only place to length of gastric tube to keep tract open -- May give medications through tube - Consult Gen Surg - discussed with Dr. Salgado - agreed with above plan and recommend referral for GI - Consult GI - [facility] - was evaluated by Dr. Salmeron in the past - unsure if anyone can place in jejunum vs temporary G tube until outpatient referral to [place] -- GJ is for gastroparesis but patient largely eats orally but takes meds through tube - has placed tube in the past when dislodged..question how often this tube is actually truly in the jejunum The patient's agreement I contacted the [facility] and the patient has been accepted for transfer once a bed is available by Dr. Qureshi 2. Acute on Chronic Diastolic CHF 2/2 Dialysis Non-Compliance: RESOLVED - Echo - EF 55-60% with mild MR and TR - Furosemide 80 mg BID - Lopressor 100 mg BID 3. Acute Respiratory Failure 2/2 Above: RESOLVED - Adequately oxygenating on RA - Recommend up in chair and ambulation 4. ESRD on HD: STABLE - dialysis today - nephrology following - hopefully can transition to outpatient schedule - Phoslo with meals and snacks; Sensipar is non-formulary 5. Diabetes S/P Pancreatic Transplant (2003): Transplantation in [place] - Glucose controlled since transplantation - will monitor with routine labs - Cellcept 500 mg daily and Prograf 4 mg AM and 3 mg PM 6. DVT Prophylaxis: Heparin 5000 units SC Q12H 7. Code Status: FULL RESUSCITATION Disposition: Transfer to [facility] for GJ replacement - GJ tube replacement - PT/OT evaluations - OT recommending rehab; patient keeps declining PT - discussed with patient -- At this point she would like to return home with [facility] and home PT/OT Continued [facility] stay due to: multiple IV medications needed Discharge planning: When bed available Total Time Spent: Greater than 30 minutes This includes examination of the patient, discharge planning, medication reconciliation, and communication with other providers. Discharge Instructions Please refer to the electronic Patient Visit Report (Discharge Instructions) for additional information.
== END 2016-08-13 07:50 | disposition short-term general hospital (02) | DRG 291 ==
LOC: EDBD 12:47 → C.EDA 12:48 → C.2E 16:09 → ENRESERV 16:31 → C.MS2W 08-07 15:17 → ENRESERV 08-07 15:45
PROVIDERS: ADMIT Internal Medicine; ATTEND Internal Medicine
DX: I13.2 Hypertensive heart and chronic kidney disease with heart failure and with stage 5 chronic kidney disease, or end stage renal disease (principal); N18.6 End stage renal disease; I50.33 Acute on chronic diastolic (congestive) heart failure; J96.00 Acute respiratory failure, unspecified whether with hypoxia or hypercapnia; F19.20 Other psychoactive substance dependence, uncomplicated; Z94.83 Pancreas transplant status; K94.13 Enterostomy malfunction; Z91.15 Patient's noncompliance with renal dialysis; Z99.2 Dependence on renal dialysis; Z41.8 Encounter for other procedures for purposes other than remedying health state; E11.22 Type 2 diabetes mellitus with diabetic chronic kidney disease; G89.4 Chronic pain syndrome; M21.379 Foot drop, unspecified foot; E11.43 Type 2 diabetes mellitus with diabetic autonomic (poly)neuropathy; K31.84 Gastroparesis; E78.5 Hyperlipidemia, unspecified; K21.9 Gastro-esophageal reflux disease without esophagitis; E11.40 Type 2 diabetes mellitus with diabetic neuropathy, unspecified; M10.9 Gout, unspecified; Z51.5 Encounter for palliative care; Z96.649 Presence of unspecified artificial hip joint; M81.0 Age-related osteoporosis without current pathological fracture; Z88.3 Allergy status to other anti-infective agents; Z88.8 Allergy status to other drugs, medicaments and biological substances; Z88.0 Allergy status to penicillin; Z88.5 Allergy status to narcotic agent; Z91.048 Other nonmedicinal substance allergy status; Z88.6 Allergy status to analgesic agent; Z79.899 Other long term (current) drug therapy; Z80.9 Family history of malignant neoplasm, unspecified; Z82.49 Family history of ischemic heart disease and other diseases of the circulatory system

== ENCOUNTER 2017-01-26 14:47 | Inpatient (IN) | payer BC, OTHER ==
[~2017-01-26] VITALS: Ht 160 cm; Wt 52.7 kg
[~2017-01-26 14:47] MED LIST changes: +B COCAP3; -B-CO-34 JT; -CALC667C4 JT; +CALC667C4 PO; -CINA60TA JT; +CINA60TA PO; +DOCU-94 PO; -EPGI10M IV; +HYDR4TAB78 PO; -HYDR8TAB29 JT; +PANT40TA PO; +TACR1CAP PO; -ZINC40OI11 TOP; -[UNRECOGNIZED DRUG - CODE] PO
[2017-01-26] MEDS ORDERED: SODIUM CHLORIDE 0.9% 500ML 500 ML IV STA (15:14)
--- NOTE | 2017-01-26 15:21 | EMERGENCY ROOM VISIT NOTE ---
History Report prepared by Kyleibkin: Navarro Rojas Under the Supervision of: Dr. [place] Alarcon D.O. First contact with patient: 15:06 Chief Complaint: OTHER COMPLAINT Stated Complaint: ESRD, INCOHERRENT History of Present Illness The patient is a 66 year old female who presents to the Emergency Room with complaints of increased confusion. She admits to a headache that resolved. Denies chest pain, nausea, vomiting, and dysuria. notes that recently she has had upper respiratory symptoms associated with a new productive cough. Patient did receive a full course of dialysis. Patient gets dialysis on Wednesday , and Wednesday. Per the , the patient has had a yellow and green productive cough for the past 1 week. Patient is that she still makes some urine intermittently. No fevers. Source of History: patient, EMS History Limited By: AMS Onset: prior to arrival Position: other (general) Quality: other (confusion) Timing: constant Associated Symptoms: + fevers, + headache (resolved), + cough (yellow green productive), No chest pain, No nausea, No vomiting, No urinary symptoms Review of Systems See HPI for pertinent positives & negatives. A total of 10 systems reviewed and were otherwise negative. Past Medical & Surgical Medical Problems: (1) Acute anterior epistaxis (2) Anemia (3) Anxiety (4) Chest wall pain (5) Chronic pain syndrome (6) Delirium due to another medical condition (7) Depression (8) Depression with anxiety (9) Diabetes (10) Diabetes mellitus type 1 (11) Drop foot gait (12) Dyslipidemia (13) End stage kidney disease (14) End stage renal disease on dialysis (15) ESRD (end stage renal disease) on dialysis (16) Fall (17) Gastroparesis (18) GERD (gastroesophageal reflux disease) (19) HTN (hypertension) (20) Immunosuppression (21) Intractable back pain (22) Jejunostomy tube present (23) Narcotic dependence (24) Orbital floor fracture (25) Osteoporosis (26) Port-a-cath in place (27) Scoliosis (28) Secondary hyperparathyroidism of renal origin (29) Syncope (30) UTI (urinary tract infection) Surgical Problems: (1) H/O pancreas transplant (2) H/O total hip arthroplasty (3) Pancreas replaced by transplant (4) Pancreas transplant status Family History Cancer Heart disease Social History Smoking Status: Never Smoker Alcohol Use: none Drug Use: none Marital Status: Housing Status: lives with family Occupation Status: retired Current/Historical Medications Scheduled Alprazolam (Alprazolam), 0.5 MG PO Q4 B Complex W/ C (Vitamin B Complex-C), 1 CAP DAILY Calcium Acetate (Phoslo 667 Mg), 2 CAP PO BREAKFAST Calcium Acetate ([place] 667 Mg), 3 CAP PO UD Calcium Acetate (Phoslo 667 Mg), 3 CAP PO SNACKS Cinecalcet (Sensipar), 30 MG JT BID Citalopram Hydrobromide (Celexa), 20 MG JT QAM Furosemide (Lasix), 80 MG JT BID Hydromorphone Hcl (Dilaudid), 8 MG PO Q4H Metoprolol Tartrate (Lopressor) (Lopressor), 100 MG JT BID Mycophenolate Mofetil (Cellcept), 500 MG JT QAM Ranitidine (Zantac), 300 MG JT BID Simvastatin (Zocor), 10 MG JT HS Tacrolimus (Prograf), 3 MG PO QPM Tacrolimus (Prograf), 4 MG PO QAM Trimethoprim/Sulfamethoxazole (Bactrim 400MG/80MG), 1 TAB PO MWF Scheduled PRN Docusate Sodium (Colace), 100 MG PO BID PRN for Constipation Allergies Coded Allergies: Penicillins (Verified Allergy, Intermediate, RASH, 08/05/16) Erythromycin (Verified Allergy, Mild, RASH, 08/05/16) Acetaminophen (Unverified Allergy, Unknown, ., 08/05/16) Surgical Lubricant (Verified Allergy, Unknown, ITCHY, 08/05/16) Carbamazepine (Verified Adverse Reaction, Severe, TOXIC BLOOD POISONING, ) TOXIC BLOOD POISONING Metoclopramide (Verified Adverse Reaction, Severe, SEIZURES, 08/05/16) SEIZURES Corticosteroids (Verified Adverse Reaction, Intermediate, NAUSEA, 08/05/16) PATIENT STATES ON ALLERGY SHEET "ABSOLUTELY NONE" Dicyclomine (Verified Adverse Reaction, Intermediate, HALLUCINATIONS, 08/05) HALLUCINATIONS Ketorolac (Verified Adverse Reaction, Intermediate, NAUSEATED, 08/05/16) Pregabalin (Verified Adverse Reaction, Intermediate, CONFUSION, 08/05/16) Quinolones (Verified Adverse Reaction, Intermediate, LEVAQUIN-NAUSEA, CHRONIC HEARTBURN, 08/05/16) levaquin =NAUSEA, CHRONIC HEARTBURN. PT SAID SHE WILL NOT TAKE 12/06/08 Azithromycin (Verified Adverse Reaction, Mild, n&v, 08/05/16) Cephalexin (Verified Adverse Reaction, Mild, NAUSEA, 08/05/16) Cephalosporins (Verified Adverse Reaction, Mild, KEFLEX = NAUSEA, 08/05/16) Codeine (Verified Adverse Reaction, Mild, NAUSEA, 08/05/16) Gabapentin (Verified Adverse Reaction, Mild, NAUSEA, 08/05/16) NAUSEA Levofloxacin (Verified Adverse Reaction, Mild, NAUSEA, 08/05/16) Naproxen (Verified Adverse Reaction, Mild, NAUSEA, 08/05/16) Nitrofurantoin (Verified Adverse Reaction, Mild, NAUSEA, 08/05/16) Oxycodone (Verified Adverse Reaction, Mild, PRC/TYLOX = NAUSEA, 08/05/16) NAUSEA Phenobarbital (Verified Adverse Reaction, Mild, NAUSEA, 08/05/16) Prednisolone (Verified Adverse Reaction, Mild, IRRITATION, 08/05/16) Promethazine (Verified Adverse Reaction, Mild, DIARRHEA, 08/05/16) Sertraline (Verified Adverse Reaction, Mild, NAUSEA, 08/05/16) Adhesives (Verified Adverse Reaction, Unknown, UNKNOWN, 08/05/16) Mirtazapine (Verified Adverse Reaction, Unknown, HEARS VOICES, 08/05/16) Propoxyphene (Verified Adverse Reaction, Unknown, NAUSEA, 08/05/16) NAUSEA Tramadol (Verified Adverse Reaction, Unknown, DEPRESSION, 08/05/16) DEPRESSION Physical Exam Vital Signs Date Time Temp Pulse Resp B/P (MAP) Pulse Ox O2 Delivery O2 Flow Rate FiO2 01/26/17 17:00 70 16 141/81 92 Room Air 01/26/17 16:35 70 01/26/17 15:05 94 Room Air 01/26/17 14:59 37.0 110 18 131/67 99 Room Air Physical Exam GENERAL: Sitting up in bed, alert, well appearing, malnourished, no distress, non-toxic, confused EYE EXAM: normal conjunctiva. PERRL and EOM's grossly intact. OROPHARYNX: no exudate, no erythema, lips, buccal mucosa, and tongue normal and mucous membranes are moist NECK: supple, no nuchal rigidity, no adenopathy, non-tender LUNGS: Clear to auscultation. Normal chest wall mechanics HEART: S1 normal and S2 normal, systolic injection murmur ABDOMEN: abdomen soft, non-tender, normo-active bowel sounds, no masses, no rebound or guarding; GJ tube in mid abdomen appears clean, dry, and intact. BACK: Back is symmetrical on inspection and there is no deformity, no midline tenderness, no CVA tenderness. SKIN: no rashes; bruising on left boles UPPER EXTREMITIES: Left upper extremity fistula; positive thrill. LOWER EXTREMITIES: No pitting edema. NEURO EXAM: Normal sensorium, cranial nerves II-XII grossly intact, normal speech of falling asleep during exam, no gross weakness of arms, no gross weakness of legs. Gross sensation intact. Medical Decision & Procedures ER Provider Diagnostic Interpretation: Radiology results as stated below per my review and the radiologist's interpretation: CHEST ONE VIEW PORTABLE CLINICAL HISTORY: Altered mental status. COMPARISON STUDY: Chest radiograph and chest CT August 05, 2016. FINDINGS: A left internal jugular [id number] is in place. There is no pneumothorax. No pleural effusion is identified. There is no lobar consolidation. There is pulmonary vascular congestion without overt pulmonary edema. Mild bibasilar opacities are present. IMPRESSION: 1. Cardiomegaly with pulmonary vascular congestion. 2. Mild bibasilar opacities which favor atelectasis. Pneumonia could appear similar although is considered less likely. Electronically signed by: Karthik Kahn M.D. 01/26/2017 3:42 PM HEAD WITHOUT CONTRAST (CT) CLINICAL HISTORY: 66 years-old Female presenting with AMS. TECHNIQUE: Multidetector CT imaging of the head was performed without the use of intravenous contrast. IV contrast: None. A dose lowering technique was used consistent with the principles of ALARA (as low as reasonably achievable). COMPARISON: 02/21/2015. CT DOSE (mGy.cm): The estimated cumulative dose is 1375.95 mGy.cm. 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 Ventricles and sulci normal in size. Brain parenchyma normal in appearance with preserved mcdonough-white differentiation. No mass effect or midline shift. No hemorrhage or acute territorial infarct. No extra-axial fluid collection. Mucosal thickening in the right maxillary sinus and fluid in the right mastoid air cells. [place] lenses are absent. IMPRESSION: 1. No acute intracranial abnormality. 2. Fluid noted in the right mastoid air cells. Electronically signed by: Kevin Calderon M.D. 01/26/2017 4:33 PM Laboratory Results 01/26/17 15:30 Red Blood Count 3.83, Mean Corpuscular Volume 102.3, Mean Corpuscular Hemoglobin 32.4, Mean Corpuscular Hemoglobin Concent 31.6, Mean Platelet Volume 11.2, Neutrophils (%) (Auto) 69.9, Lymphocytes (%) (Auto) 16.6, Monocytes (%) ( Auto) 10.6, Eosinophils (%) (Auto) 2.4, Basophils (%) (Auto) 0.3, Neutrophils # (Auto) 4.43, Lymphocytes # (Auto) 1.05, Monocytes # (Auto) 0.67, Eosinophils # ( Auto) 0.15, Basophils # (Auto) 0.02 01/26/17 15:30 Test 01/26/17 15:30 01/26/17 16:25 White Blood Count 6.33 K/uL (4.8-10.8) Red Blood Count 3.83 M/uL (4.2-5.4) Hemoglobin 12.4 g/dL (12.0-16.0) Hematocrit 39.2 % (37-47) Mean Corpuscular Volume 102.3 fL (80-100) Mean Corpuscular Hemoglobin 32.4 pg (25-34) Mean Corpuscular Hemoglobin Concent 31.6 g/dl (32-36) Platelet Count 115 K/uL (130-400) Mean Platelet Volume 11.2 fL (7.4-10.4) Neutrophils (%) (Auto) 69.9 % Lymphocytes (%) (Auto) 16.6 % Monocytes (%) (Auto) 10.6 % Eosinophils (%) (Auto) 2.4 % Basophils (%) (Auto) 0.3 % Neutrophils # (Auto) 4.43 K/uL (1.4-6.5) Lymphocytes # (Auto) 1.05 K/uL (1.2-3.4) Monocytes # (Auto) 0.67 K/uL (0.11-0.59) Eosinophils # (Auto) 0.15 K/uL (0-0.5) Basophils # (Auto) 0.02 K/uL (0-0.2) RDW Standard Deviation 51.4 fL (36.4-46.3) RDW Coefficient of Variation 13.7 % (11.5-14.5) Immature Granulocyte % (Auto) 0.2 % Immature Granulocyte # (Auto) 0.01 K/uL (0.00-0.02) Prothrombin Time 11.2 SECONDS (9.0-12.0) Prothromb Time International Ratio 1.1 (0.9-1.1) Activated Partial Thromboplast Time 34.2 SECONDS (21.0-31.0) Partial Thromboplastin Ratio 1.3 Anion Gap 9.0 mmol/L (3-11) Estimated GFR () 7.4 Estimated GFR (Non- 6.4 BUN/Creatinine Ratio 7.7 (10-20) Calcium Level 8.3 mg/dl (8.5-10.1) Total Bilirubin 0.5 mg/dl (0.2-1) Direct Bilirubin 0.2 mg/dl (0-0.2) Aspartate Amino Transf (AST/SGOT) 12 U/L (15-37) Alanine Aminotransferase (ALT/SGPT) 17 U/L (12-78) Alkaline Phosphatase 198 U/L (45-117) Troponin I < 0.015 ng/ml (0-0.045) Total Protein 7.6 gm/dl (6.4-8.2) Albumin 3.6 gm/dl (3.4-5.0) Urine Color DK YELLOW Urine Appearance CLEAR (CLEAR) Urine pH 5.0 (4.5-7.5) Urine Specific [place] 1.016 (1.000-1.030) Urine Protein 2+ (NEG) Urine Glucose (UA) NEG (NEG) Urine Ketones NEG (NEG) Urine Occult Blood 1+ (NEG) Urine Nitrite NEG (NEG) Urine Bilirubin NEG (NEG) Urine Urobilinogen NEG (NEG) Urine Leukocyte Esterase MODERATE (NEG) Urine WBC (Auto) 5-10 /hpf (0-5) Urine RBC (Auto) 0-4 /hpf (0-4) Urine Hyaline Casts (Auto) 0 /lpf (0-5) Urine Epithelial Cells (Auto) 0-5 /lpf (0-5) Urine Bacteria (Auto) 1+ (NEG) Urine Yeast (Auto) (NONE PRSENT) Laboratory results per my review. Medications Administered Medications (Trade) Dose Ordered Sig/Ayaka Route Start Time Stop Time Status Last Admin Dose Admin Sodium Chloride 500 ml @ 999 mls/hr Q31M STAT IV 01/26/17 15:14 01/26/17 15:44 DC 01/26/17 15:35 999 MLS/HR Cefepime HCl 1000 mg/Dextrose 111 ml @ 200 mls/hr NOW STAT IV 01/26/17 16:47 01/26/17 17:20 DC 01/26/17 18:37 200 MLS/HR Levofloxacin (Levaquin / D5W) 500 mg NOW ONCE IV 01/26/17 17:00 01/26/17 17:01 DC 01/26/17 17:31 500 MG ED Course ED COURSE: Vital signs were reviewed and showed tachycardia. The patients medical record was reviewed The above diagnostic studies were performed and reviewed. ED treatments and interventions as stated above. uSni Guillen V: The patient was evaluated in room C9. A complete history and physical examination was performed. Upon reevaluation, the patient is stable.I discussed my findings with the patient and family understands and agrees with the treatment plan. Based on the patients age, coexisting illnesses, exam and lab findings the decision to treat as an inpatient was made. The patient remained stable while under my care. The patient will be evaluated for further management. Medical Decision Differential diagnoses includes but is not limited to toxic, metabolic, infectious, traumatic, cardiac, neurologic, hematologic, psychiatric and inflammatory etiologies. Patient is a 58-year-old female who presents to ER for altered mental status. This has been waxing and waning all day. Patient has no complaint at this point. She admits that her headache has resolved. CBC was fairly unremarkable. ENT shows a creatinine of 6. This is expected with dialysis. Bilirubin all LFTs, troponin was unremarkable. UA with leukocytes and a small amount of white cells. ABG shows elevated CO2. CT head was unremarkable. Chest x-ray shows atelectasis. I did cover the patient with Levaquin and cefepime for possible pneumonia with her upper respiratory symptoms. This would also cover her UA. Medication Reconcilliation Current Medication List: was personally reviewed by me Blood Pressure Screening Patient's blood pressure: Normal blood pressure Impression Primary Impression: Altered mental status Additional Impression: Pneumonia Scribe Attestation The scribe's documentation has been prepared under my direction and personally reviewed by me in its entirety. I confirm that the note above accurately reflects all work, treatment, procedures, and medical decision making performed by me. Departure Information Referrals Pedro Pablo Hollis M.D. (PCP) Patient Instructions My [facility] Problem Qualifiers Primary Impression: Altered mental status Altered mental status type: unspecified Qualified Codes: R41.82 - Altered mental status, unspecified Additional Impression: Pneumonia Pneumonia type: due to unspecified organism Laterality: unspecified laterality Lung location: unspecified part of lung Qualified Codes: J18.9 - Pneumonia, unspecified organism
[2017-01-26] MEDS ORDERED: CINA60TA JT (15:28)
[2017-01-26] MEDS ORDERED: ALPR-411 PO (15:40)
[2017-01-26] MEDS ORDERED: SULF1TAB92 PO (15:43)
--- NOTE | 2017-01-26 15:43 | DIAGNOSTIC IMAGING REPORT ---
CHEST ONE VIEW PORTABLE CLINICAL HISTORY: Altered mental status. COMPARISON STUDY: Chest radiograph and chest CT August 05, 2016. FINDINGS: A left internal jugular [id number] is in place. There is no pneumothorax. No pleural effusion is identified. There is no lobar consolidation. There is pulmonary vascular congestion without overt pulmonary edema. Mild bibasilar opacities are present. IMPRESSION: 1. Cardiomegaly with pulmonary vascular congestion. 2. Mild bibasilar opacities which favor atelectasis. Pneumonia could appear similar although is considered less likely. Electronically signed by: Karthik Kahn M.D. 01/26/2017 3:42 PM Dictated Date/Time: 01/26/2017 3:40 PM
[2017-01-26 15:51] LABS: BASO % 0.3 %; BASO ABS # 0.02 K/uL (0-0.2); COMPLETE YES; EOS % 2.4 %; HEMATOCRIT 39.2 % (37-47); IG% 0.2 %; LYMPH % 16.6 %; LYMPH ABS # 1.05 K/uL (1.2-3.4); MEAN CELL VOLUME 102.3 fL (80-100); MEAN CORPUSCULAR HEMOGLOBIN 32.4 pg (25-34); MEAN CORPUSCULAR HGB CONC 31.6 g/dl (32-36); MEAN PLATELET VOLUME 11.2 fL (7.4-10.4); MONO % 10.6 %; NEUT % 69.9 %; PLATELET COUNT 115 K/uL (130-400); RED BLOOD COUNT 3.83 M/uL (4.2-5.4); WHITE BLOOD COUNT 6.33 K/uL (4.8-10.8)
[2017-01-26 16:00] LABS: INR 1.1 (0.9-1.1); PARTIAL THROMBOPLASTIN RATIO 1.3; PROTHROMBIN TIME (PATIENT) 11.2 SECONDS (9.0-12.0)
--- NOTE | 2017-01-26 16:34 | DIAGNOSTIC IMAGING REPORT ---
HEAD WITHOUT CONTRAST (CT) CLINICAL HISTORY: 66 years-old Female presenting with AMS. TECHNIQUE: Multidetector CT imaging of the head was performed without the use of intravenous contrast. IV contrast: None. A dose lowering technique was used consistent with the principles of ALARA (as low as reasonably achievable). COMPARISON: 02/21/2015. CT DOSE (mGy.cm): The estimated cumulative dose is 1375.95 mGy.cm. 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 Ventricles and sulci normal in size. Brain parenchyma normal in appearance with preserved mcdonough-white differentiation. No mass effect or midline shift. No hemorrhage or acute territorial infarct. No extra-axial fluid collection. Mucosal thickening in the right maxillary sinus and fluid in the right mastoid air cells. [place] lenses are absent. IMPRESSION: 1. No acute intracranial abnormality. 2. Fluid noted in the right mastoid air cells. Electronically signed by: Kevin Calderon M.D. 01/26/2017 4:33 PM Dictated Date/Time: 01/26/2017 4:11 PM
[2017-01-26 16:37] LABS: URINE APPEARANCE CLEAR (CLEAR); URINE BILIRUBIN NEG (NEG); URINE COLOR DK YELLOW; URINE EPITHELIAL CELL AUTO 0-5 /lpf (0-5); URINE NITRITE NEG (NEG); URINE SPECIFIC GRAVITY 1.016 (1.000-1.030); UROBILINOGEN NEG (NEG)
[2017-01-26 16:47] LABS: MANUAL MICROSCOPIC REQUIRED? NO; REVIEW REQ? YES
[2017-01-26] MEDS ORDERED: CEFEPIME IV 1,000 MG in DEXTROSE 5% 100ML 100 ML IV STA (16:47)
[2017-01-26 16:48] LABS: ZZURINE CULT IF INDIC CATH YES
[2017-01-26 16:54] LABS: ALKALINE PHOSPHATASE 198 U/L (45-117); ALT/SGPT 17 U/L (12-78); AST/SGOT 12 U/L (15-37); BLOOD UREA NITROGEN 47 mg/dl (7-18); BUN/CREATININE RATIO 7.7 (10-20); CALCIUM 8.3 mg/dl (8.5-10.1); CARBON DIOXIDE 31 mmol/L (21-32); CHLORIDE 96 mmol/L (98-107); CREATININE 6.17 mg/dl (0.60-1.20); GLUCOSE 196 mg/dl (70-99); POTASSIUM 4.1 mmol/L (3.5-5.1); SODIUM 136 mmol/L (136-145)
[2017-01-26] MEDS ORDERED: LEVAQUIN 500MG / 100ML D5W IV ONE (17:00)
--- NOTE | 2017-01-26 18:43 | History and Physical ---
History & Physical Date & Time of Service: Jan 26, 2017 at 17:37 Chief Complaint: Esrd, Incoher[place] Primary Care Physician: Pedro Pablo Hollis M.D. History of Present Illness Ms. Guillen woke up confused this morning but got better and went to dialysis however during dialysis became confused again. Normally she has short term memory loss, says this is twice as bad as her usual. It's the second or third time this has happened with the last episode two months ago which cleared on its own and the time before that she came to the ED but there was no reason for the behaviors found. She has had shaking at times over the week which looks like shivering. She had a fever of 100.2 at dialysis. She is oliguric and has not noticed any change. She is eating and drinking, no vomiting, no nausea. She normally goes between diarrhea and constipation. Her head slumps to the side and states this is usual posture for her, they have tried neck bracing at night in the past. ROS Constitutional: no chills, aches, sweats or fever Respiratory: no sob,cough, sputum, or wheezing Cardiac: no chest pain, palpitations, edema, orthopnea or lightheadedness GI: see HPI : see HPI Extremities: no joint pain or weakness Skin: no rash Other systems reviewed and negative Past Medical/Surgical History Medical Problems: (1) Chest wall pain Status: Resolved (2) Chronic pain syndrome Status: Chronic (3) Depression with anxiety Status: Chronic (4) Diabetes Status: Chronic (5) Drop foot gait Status: Chronic (6) Dyslipidemia Status: Chronic (7) End stage kidney disease Status: Chronic (8) End stage renal disease on dialysis Status: Chronic (9) Fall Status: Resolved (10) Gastroparesis Status: Chronic (11) GERD (gastroesophageal reflux disease) Status: Chronic (12) HTN (hypertension) Status: Chronic (13) Intractable back pain Status: Resolved (14) Jejunostomy tube present Status: Chronic (15) Narcotic dependence Status: Chronic (16) Osteoporosis Status: Chronic (17) Port-a-cath in place Status: Resolved Surgical Problems: (1) H/O pancreas transplant Status: Chronic (2) H/O total hip arthroplasty Status: Chronic Family History Cancer Heart disease Social History Smoking Status: Never Smoker Smokeless Tobacco Use: No Alcohol Use: none Drug Use: none Marital Status: Housing status: lives with significant other Occupational Status: retired Immunizations History of Influenza Vaccine: Yes Influenza Vaccine Date: Nov 20, 2011 History of Tetanus Vaccine?: Yes Tetanus Immunization Date: June 21, 2004 History of Pneumococcal: Yes Pneumococcal Date: June 20, 1999 History of Hepatitis B Vaccine: Yes Hepatitis Immunization Date: Apr 10, 2003 Multi-Drug Resistant Organisms History of MDRO: No Allergies Coded Allergies: Penicillins (Verified Allergy, Intermediate, RASH, 08/05/16) Erythromycin (Verified Allergy, Mild, RASH, 08/05/16) Acetaminophen (Unverified Allergy, Unknown, ., 08/05/16) Surgical Lubricant (Verified Allergy, Unknown, ITCHY, 08/05/16) Carbamazepine (Verified Adverse Reaction, Severe, TOXIC BLOOD POISONING, ) TOXIC BLOOD POISONING Metoclopramide (Verified Adverse Reaction, Severe, SEIZURES, 08/05/16) SEIZURES Corticosteroids (Verified Adverse Reaction, Intermediate, NAUSEA, 08/05/16) PATIENT STATES ON ALLERGY SHEET "ABSOLUTELY NONE" Dicyclomine (Verified Adverse Reaction, Intermediate, HALLUCINATIONS, 08/05) HALLUCINATIONS Ketorolac (Verified Adverse Reaction, Intermediate, NAUSEATED, 08/05/16) Pregabalin (Verified Adverse Reaction, Intermediate, CONFUSION, 08/05/16) Quinolones (Verified Adverse Reaction, Intermediate, LEVAQUIN-NAUSEA, CHRONIC HEARTBURN, 08/05/16) levaquin =NAUSEA, CHRONIC HEARTBURN. PT SAID SHE WILL NOT TAKE 12/06/08 Azithromycin (Verified Adverse Reaction, Mild, n&v, 08/05/16) Cephalexin (Verified Adverse Reaction, Mild, NAUSEA, 08/05/16) Cephalosporins (Verified Adverse Reaction, Mild, KEFLEX = NAUSEA, 08/05/16) Codeine (Verified Adverse Reaction, Mild, NAUSEA, 08/05/16) Gabapentin (Verified Adverse Reaction, Mild, NAUSEA, 08/05/16) NAUSEA Levofloxacin (Verified Adverse Reaction, Mild, NAUSEA, 08/05/16) Naproxen (Verified Adverse Reaction, Mild, NAUSEA, 08/05/16) Nitrofurantoin (Verified Adverse Reaction, Mild, NAUSEA, 08/05/16) Oxycodone (Verified Adverse Reaction, Mild, PRC/TYLOX = NAUSEA, 08/05/16) NAUSEA Phenobarbital (Verified Adverse Reaction, Mild, NAUSEA, 08/05/16) Prednisolone (Verified Adverse Reaction, Mild, IRRITATION, 08/05/16) Promethazine (Verified Adverse Reaction, Mild, DIARRHEA, 08/05/16) Sertraline (Verified Adverse Reaction, Mild, NAUSEA, 08/05/16) Adhesives (Verified Adverse Reaction, Unknown, UNKNOWN, 08/05/16) Mirtazapine (Verified Adverse Reaction, Unknown, HEARS VOICES, 08/05/16) Propoxyphene (Verified Adverse Reaction, Unknown, NAUSEA, 08/05/16) NAUSEA Tramadol (Verified Adverse Reaction, Unknown, DEPRESSION, 08/05/16) DEPRESSION Home Medications Scheduled Alprazolam (Alprazolam), 0.5 MG PO Q4 B Complex W/ C (Vitamin B Complex-C), 1 CAP DAILY Calcium Acetate (Phoslo 667 Mg), 2 CAP PO BREAKFAST Calcium Acetate (Phoslo 667 Mg), 3 CAP PO UD Calcium Acetate (Phoslo 667 Mg), 3 CAP PO SNACKS Cinecalcet (Sensipar), 30 MG JT BID Citalopram Hydrobromide (Celexa), 20 MG JT QAM Furosemide (Lasix), 80 MG JT BID Hydromorphone Hcl (Dilaudid), 8 MG PO Q4H Metoprolol Tartrate (Lopressor) (Lopressor), 100 MG JT BID Mycophenolate Mofetil (Cellcept), 500 MG JT QAM Ranitidine (Zantac), 300 MG JT BID Simvastatin (Zocor), 10 MG JT HS Tacrolimus (Prograf), 3 MG PO QPM Tacrolimus (Prograf), 4 MG PO QAM Trimethoprim/Sulfamethoxazole (Bactrim 400MG/80MG), 1 TAB PO MWF Scheduled PRN Docusate Sodium (Colace), 100 MG PO BID PRN for Constipation Physical Exam Vital Signs Date Time Temp Pulse Resp B/P (MAP) Pulse Ox O2 Delivery O2 Flow Rate FiO2 01/26/17 17:00 70 16 141/81 92 Room Air 01/26/17 16:35 70 01/26/17 15:05 94 Room Air 01/26/17 14:59 37.0 110 18 131/67 99 Room Air General: no distress Eyes: normal inspection, PERLL Respiratory: chest non tender, clear to auscultation, normal breath sounds, no respiratory distress, no accessory muscle use Cardiac: regular rate and rhythm, no rub or gallop, 2/6 systolic murmur RUSB, no edema, no jvd GI/: active bowel sounds, no abd pain or tenderness, soft, non distended Extremities: normal range of motion, normal strength, non tender Neuro/Psych: drowsy and oriented to person and place, normal mood and affect Skin: normal color, dry Diagnostics Laboratory Results Results Past 24 Hours Test 01/26/17 15:30 01/26/17 16:25 01/26/17 17:02 Range/Units White Blood Count 6.33 4.8-10.8 K/uL Red Blood Count 3.83 4.2-5.4 M/uL Hemoglobin 12.4 12.0-16.0 g/dL Hematocrit 39.2 37-47 % Mean Corpuscular Volume 102.3 80-100 fL Mean Corpuscular Hemoglobin 32.4 25-34 pg Mean Corpuscular Hemoglobin Concent 31.6 32-36 g/dl Platelet Count 115 130-400 K/uL Mean Platelet Volume 11.2 7.4-10.4 fL Neutrophils (%) (Auto) 69.9 % Lymphocytes (%) (Auto) 16.6 % Monocytes (%) (Auto) 10.6 % Eosinophils (%) (Auto) 2.4 % Basophils (%) (Auto) 0.3 % Neutrophils # (Auto) 4.43 1.4-6.5 K/uL Lymphocytes # (Auto) 1.05 1.2-3.4 K/uL Monocytes # (Auto) 0.67 0.11-0.59 K/uL Eosinophils # (Auto) 0.15 0-0.5 K/uL Basophils # (Auto) 0.02 0-0.2 K/uL RDW Standard Deviation 51.4 36.4-46.3 fL RDW Coefficient of Variation 13.7 11.5-14.5 % Immature Granulocyte % (Auto) 0.2 % Immature Granulocyte # (Auto) 0.01 0.00-0.02 K/uL Prothrombin Time 11.2 9.0-12.0 SECONDS Prothromb Time International Ratio 1.1 0.9-1.1 Activated Partial Thromboplast Time 34.2 21.0-31.0 SECONDS Partial Thromboplastin Ratio 1.3 Sodium Level 136 136-145 mmol/L Potassium Level 4.1 3.5-5.1 mmol/L Chloride Level 96 98-107 mmol/L Carbon Dioxide Level 31 21-32 mmol/L Anion Gap 9.0 3-11 mmol/L Blood Urea Nitrogen 47 7-18 mg/dl Creatinine 6.17 0.60-1.20 mg/dl Estimated GFR () 7.4 Estimated GFR (Non- 6.4 BUN/Creatinine Ratio 7.7 10-20 Random Glucose 196 70-99 mg/dl Calcium Level 8.3 8.5-10.1 mg/dl Total Bilirubin 0.5 0.2-1 mg/dl Direct Bilirubin 0.2 0-0.2 mg/dl Aspartate Amino Transf (AST/SGOT) 12 15-37 U/L Alanine Aminotransferase (ALT/SGPT) 17 12-78 U/L Alkaline Phosphatase 198 45-117 U/L Troponin I < 0.015 0-0.045 ng/ml Total Protein 7.6 6.4-8.2 gm/dl Albumin 3.6 3.4-5.0 gm/dl Urine Color DK YELLOW Urine Appearance CLEAR CLEAR Urine pH 5.0 4.5-7.5 Urine Specific [place] 1.016 1.000-1.030 Urine Protein 2+ NEG Urine Glucose (UA) NEG NEG Urine Ketones NEG NEG Urine Occult Blood 1+ NEG Urine Nitrite NEG NEG Urine Bilirubin NEG NEG Urine Urobilinogen NEG NEG Urine Leukocyte Esterase MODERATE NEG Urine WBC (Auto) 5-10 0-5 /hpf Urine RBC (Auto) 0-4 0-4 /hpf Urine Hyaline Casts (Auto) 0 0-5 /lpf Urine Epithelial Cells (Auto) 0-5 0-5 /lpf Urine Bacteria (Auto) 1+ NEG Urine Yeast (Auto) NONE PRSENT Microbiology Results 01/26/17 Urine Culture, Received Pending Diagnostic Radiology CHEST ONE VIEW PORTABLE CLINICAL HISTORY: Altered mental status. COMPARISON STUDY: Chest radiograph and chest CT August 05, 2016. FINDINGS: A left internal jugular [id number] is in place. There is no pneumothorax. No pleural effusion is identified. There is no lobar consolidation. There is pulmonary vascular congestion without overt pulmonary edema. Mild bibasilar opacities are present. IMPRESSION: 1. Cardiomegaly with pulmonary vascular congestion. 2. Mild bibasilar opacities which favor atelectasis. Pneumonia could appear similar although is considered less likely. HEAD WITHOUT CONTRAST (CT) CLINICAL HISTORY: 66 years-old Female presenting with AMS. TECHNIQUE: Multidetector CT imaging of the head was performed without the use of intravenous contrast. IV contrast: None. A dose lowering technique was used consistent with the principles of ALARA (as low as reasonably achievable). COMPARISON: 02/21/2015. CT DOSE (mGy.cm): The estimated cumulative dose is 1375.95 mGy.cm. FINDINGS: Self Sealing [employer] topogram: Unremarkable. Ventricles and sulci normal in size. Brain parenchyma normal in appearance with preserved mcdonough-white differentiation. No mass effect or midline shift. No hemorrhage or acute territorial infarct. No extra-axial fluid collection. Mucosal thickening in the right maxillary sinus and fluid in the right mastoid air cells. Nikolski lenses are absent. IMPRESSION: 1. No acute intracranial abnormality. 2. Fluid noted in the right mastoid air cells. EKG Normal sinus rhythm Possible Left atrial enlargement Nonspecific ST and T wave abnormality Abnormal ECG When compared with ECG of 07-AUG-2016 13:14, No significant change was found Confirmed by Trevor Rich ([id number]) on 01/26/2017 4:58:45 PM Impression Assessment and Plan Ms. Guillen is a 66 year old woman here for delirium secondary to UTI Delirium/UTI - admit med/surg - Levaquin renal dosing - urine culture pending - cbc, prp am ESRD - consult nephrology - dialysis T,, - renally dose medications - discussed availability of palliative care while here, patient's stated that they have not ever discussed goals of care or had in depth discussion about code status or the patient's wishes as her disease progresses. stated he would consider it. Diabetes S/P Pancreatic Transplant (2003): Transplantation in [place] - Glucose controlled since transplantation - will monitor with routine labs - continue Cellcept and Prograf HTN - continue metoprolol GERD - continue ranitidine Advanced Directives Existing Advance Directive: No Existing Living Will: No Existing Power of Digital Commentator: No Existing Health Care Proxy: No Resuscitation Status FULL RESUSCITATION VTE Prophylaxis VTE Risk Assessment Done? Y/N: Yes Risk Level: Moderate Given or contraindicated: Unfractionated heparin SQ Social Service Consult None Apply
[2017-01-26 19:58] VITALS: BP 135/83; PULSE 72; TEMP 36.8; O2SAT 93
[2017-01-26] MEDS ORDERED: ALPRAZOLAM 0.5 MG TAB PO SCH (20:00)
[2017-01-26 20:38] VITALS: BP 135/83; PULSE 72; TEMP 36.8; O2SAT 93; Ht 160 cm; Wt 52.7 kg
[2017-01-26] MEDS ORDERED: LEVOFLOXACIN CONSULT ACTIVE PRN (21:45)
[2017-01-26] MEDS: METOPROLOL TARTRATE 100 MG TAB JT SCH (22:11)
[2017-01-26] MEDS: TACROLIMUS 1 MG CAP PO SCH (22:12)
[2017-01-26] MEDS: RANITIDINE HCL 150 MG TAB PO SCH (22:12)
[2017-01-26] MEDS: FUROSEMIDE 80 MG TAB PO SCH (22:12)
[2017-01-26] MEDS: SIMVASTATIN 10 MG TAB JT SCH (22:13)
[2017-01-26] MEDS: HEPARIN SOD 5000 UNIT/0.5 ML CARP SQ SCH (22:20)
[2017-01-27] VITALS (7 sets, daily range): BP systolic 120–158; BP diastolic 66–76; PULSE 64–74; TEMP 36.7–37.6; O2SAT 91–95
[2017-01-27] MEDS ORDERED: HYDROmorphone HCL 2 MG TAB JT ONE (05:30)
[2017-01-27] MEDS ORDERED: NURSING DECISION MEDICATION ORDER SCH ×2 (05:30→20:15)
[2017-01-27 06:00] LABS: HEMATOCRIT 41.9 % (37-47); MEAN CELL VOLUME 102.9 fL (80-100); MEAN CORPUSCULAR HEMOGLOBIN 31.9 pg (25-34); PLATELET COUNT 122 K/uL (130-400); RED BLOOD COUNT 4.07 M/uL (4.2-5.4); WHITE BLOOD COUNT 6.77 K/uL (4.8-10.8)
[2017-01-27 06:43] LABS: BUN/CREATININE RATIO 8.3 (10-20); CALCIUM 9.4 mg/dl (8.5-10.1); CREATININE 7.1 mg/dl (0.60-1.20); POTASSIUM 4.5 mmol/L (3.5-5.1)
[2017-01-27] MEDS: SENSIPAR~ORDER AWAITING ACTION SCH ×3 (07:39→16:00)
[2017-01-27] MEDS: CALCIUM ACETATE 667MG GELCAP PO SCH ×3 (07:43→16:26)
[2017-01-27] MEDS: CITALOPRAM 20 MG TAB JT SCH (07:43)
[2017-01-27] MEDS: VITAMIN B COMPLEX TAB PEG SCH (07:44)
[2017-01-27] MEDS: METOPROLOL TARTRATE 100 MG TAB JT SCH ×2 (07:44→20:38)
[2017-01-27] MEDS: RANITIDINE HCL 150 MG TAB PO SCH ×2 (07:44→20:35)
[2017-01-27] MEDS: MYCOPHENOLATE SUSP 200 MG/1 ML JT SCH (07:45)
[2017-01-27] MEDS: FUROSEMIDE 80 MG TAB PO SCH ×2 (07:45→20:36)
[2017-01-27] MEDS: ALPRAZOLAM 0.5 MG TAB PO SCH ×4 (07:46→20:39)
[2017-01-27] MEDS: HEPARIN SOD 5000 UNIT/0.5 ML CARP SQ SCH ×2 (07:46→20:41)
[2017-01-27] MEDS: DOCUSATE SODIUM 100 MG/10 ML UDC JT PRN (07:58)
[2017-01-27] MEDS: TACROLIMUS 1 MG CAP PO SCH ×2 (08:38→20:35)
--- NOTE | 2017-01-27 08:48 | Hospitalist Progress Note ---
Hospitalist Progress Note Date of Service Jan 27, 2017. (Cheryl Solis PA-C) Subjective Pt evaluation today including: conversation w/ patient, physical exam, chart review, lab review, review of studies Pain: R shoulder and neck pain, chronic PO Intake: Good Voiding: no voiding problems The patient was seen and examined this morning. Pt reports she feels good today. Her main complaint today is that her R shoulder and neck have been hurting although this has been going on for years and is better when she wears a neck brace. She has tried pt/ot and different medications which dont seem to make much difference. She didn't sleep well overnight due to waking up in excruciating pain, per nursing this happens frequently and she requires combination of low dose dilaudid and xanax for relief. Pt is being treated for a possible UTI with levaquin renally dosed. . ROS: 6 point ROS reviewed and otherwise negative. (Cheryl Solis PA-C) Objective Vital Signs Date Time Temp Pulse Resp B/P (MAP) Pulse Ox O2 Delivery O2 Flow Rate FiO2 01/27/17 07:23 37.6 70 16 158/72 (100) 95 Room Air 01/27/17 00:00 95 Nasal Cannula 2.0 01/27/17 00:00 36.9 74 18 127/66 (86) 95 Nasal Cannula 2.0 01/26/17 20:38 36.8 72 18 135/83 93 Room Air 01/26/17 19:58 36.8 72 18 135/83 (100) 93 Room Air 01/26/17 18:40 70 16 128/73 93 Room Air 01/26/17 17:00 70 16 141/81 92 Room Air 01/26/17 16:35 70 01/26/17 15:05 94 Room Air 01/26/17 14:59 37.0 110 18 131/67 99 Room Air (Cheryl Solis PA-C) Physical Exam General Appearance: WD/WN, no apparent distress, + pertinent finding (neck is bent to the right shoulder throughout exam) Eyes: PERRL, EOMI ENT: hearing grossly normal, pharynx normal, + pertinent finding (poor dentition, MMM) Neck: supple, no JVD Respiratory/Chest: lungs clear, no respiratory distress, no accessory muscle use Cardiovascular: regular rate, rhythm, no murmur Abdomen: normal bowel sounds, non tender, soft, + pertinent finding (JG tube in place, white sustance has been molded to the outside of the tubing per pt due to a crack) Extremities: non-tender, no pedal edema, no calf tenderness Neurologic/Psychiatric: alert, oriented x 3 Skin: normal color, warm/dry (Cheryl Solis, MARLEEN) Laboratory Results Last 24 Hours Test 01/26/17 15:30 01/26/17 16:25 01/26/17 18:33 01/26/17 20:05 White Blood Count 6.33 K/uL Red Blood Count 3.83 M/uL Hemoglobin 12.4 g/dL Hematocrit 39.2 % Mean Corpuscular Volume 102.3 fL Mean Corpuscular Hemoglobin 32.4 pg Mean Corpuscular Hemoglobin Concent 31.6 g/dl Platelet Count 115 K/uL Mean Platelet Volume 11.2 fL Neutrophils (%) (Auto) 69.9 % Lymphocytes (%) (Auto) 16.6 % Monocytes (%) (Auto) 10.6 % Eosinophils (%) (Auto) 2.4 % Basophils (%) (Auto) 0.3 % Neutrophils # (Auto) 4.43 K/uL Lymphocytes # (Auto) 1.05 K/uL Monocytes # (Auto) 0.67 K/uL Eosinophils # (Auto) 0.15 K/uL Basophils # (Auto) 0.02 K/uL RDW Standard Deviation 51.4 fL RDW Coefficient of Variation 13.7 % Immature Granulocyte % (Auto) 0.2 % Immature Granulocyte # (Auto) 0.01 K/uL Prothrombin Time 11.2 SECONDS Prothromb Time International Ratio 1.1 Activated Partial Thromboplast Time 34.2 SECONDS Partial Thromboplastin Ratio 1.3 Sodium Level 136 mmol/L Potassium Level 4.1 mmol/L Chloride Level 96 mmol/L Carbon Dioxide Level 31 mmol/L Anion Gap 9.0 mmol/L Blood Urea Nitrogen 47 mg/dl Creatinine 6.17 mg/dl Estimated GFR () 7.4 Estimated GFR (Non- 6.4 BUN/Creatinine Ratio 7.7 Random Glucose 196 mg/dl Calcium Level 8.3 mg/dl Total Bilirubin 0.5 mg/dl Direct Bilirubin 0.2 mg/dl Aspartate Amino Transf (AST/SGOT) 12 U/L Alanine Aminotransferase (ALT/SGPT) 17 U/L Alkaline Phosphatase 198 U/L Troponin I < 0.015 ng/ml Total Protein 7.6 gm/dl Albumin 3.6 gm/dl Urine Color DK YELLOW Urine Appearance CLEAR Urine pH 5.0 Urine Specific [place] 1.016 Urine Protein 2+ Urine Glucose (UA) NEG Urine Ketones NEG Urine Occult Blood 1+ Urine Nitrite NEG Urine Bilirubin NEG Urine Urobilinogen NEG Urine Leukocyte Esterase MODERATE Urine WBC (Auto) 5-10 /hpf Urine RBC (Auto) 0-4 /hpf Urine Hyaline Casts (Auto) 0 /lpf Urine Epithelial Cells (Auto) 0-5 /lpf Urine Bacteria (Auto) 1+ Urine Yeast (Auto) Venous Blood pH 7.35 Venous Blood Partial Pressure CO2 57 mmHg Venous Blood Partial Pressure O2 33 mmHg Venous Blood HCO3 31 mmol/L Venous Blood Oxygen Saturation 60.0 % Venous Blood Base Excess 4.0 mEq/L Bedside Glucose 108 mg/dl Test 01/27/17 05:47 White Blood Count 6.77 K/uL Red Blood Count 4.07 M/uL Hemoglobin 13.0 g/dL Hematocrit 41.9 % Mean Corpuscular Volume 102.9 fL Mean Corpuscular Hemoglobin 31.9 pg Mean Corpuscular Hemoglobin Concent 31.0 g/dl RDW Standard Deviation 50.6 fL RDW Coefficient of Variation 13.5 % Platelet Count 122 K/uL Mean Platelet Volume 11.0 fL Sodium Level 134 mmol/L Potassium Level 4.5 mmol/L Chloride Level 97 mmol/L Carbon Dioxide Level 29 mmol/L Anion Gap 8.0 mmol/L Blood Urea Nitrogen 60 mg/dl Creatinine 7.10 mg/dl Est Creatinine Clear Calc Drug Dose 6.3 ml/min Estimated GFR () 6.3 Estimated GFR (Non- 5.4 BUN/Creatinine Ratio 8.3 Random Glucose 138 mg/dl Calcium Level 9.4 mg/dl (Cheryl Soils, PAOlenaC) Assessment and Plan This is a 66 year old woman here for delirium secondary to UTI Delirium/UTI - admit med/surg - Levaquin renal dosing has day # 2 - urine culture pending - cbc, prp am ESRD - consult nephrology - dialysis T,Th, Sa - renally dose medications - discussed availability of palliative care while here, patient's stated that they have not ever discussed goals of care or had in depth discussion about code status or the patient's wishes as her disease progresses. stated he would consider it at time of admission, not in room at time of my visit - will attempt later Diabetes S/P Pancreatic Transplant (2003): Transplantation in [place] - Glucose controlled since transplantation - will monitor with routine labs - continue Cellcept and Prograf - Pt plans to make an appointment for JG tube replacement after this admission. HTN - continue metoprolol GERD - continue ranitidine CODE STATUS: FULL CODE Disposition: From home, lives with , dc likely to home tomorrow pending ucx results and HD tomorrow. (Cheryl Solis, PA-C) Supervising Note DR. TREVIZO I performed a history and physical examination. I reviewed and agree with above note, while also discussing analysis and plan with patient and APC. I answered all of the patient's questions while I was in the room with the patient. My physical exam is below: Physical Exam: General Appearance: WD/WN, no apparent distress ENT: hearing grossly normal Neck: supple, no JVD, trachea midline, pertinent finding (neck is bent to the right shoulder throughout exam) Respiratory/Chest: lungs clear, normal breath sounds, no respiratory distress, no accessory muscle use Cardiovascular: regular rate, rhythm, no gallop, no murmur Abdomen / GI: normal bowel sounds, non tender, soft pertinent finding (JG tube in place, white sustance has been molded to the outside of the tubing per pt due to a crack) Neurologic/Psychiatric: alert, oriented x 3 Skin: normal color, warm/dry (Ezekiel Trevizo M.D.)
[2017-01-27] MEDS ORDERED: SODIUM CHLORIDE 0.9% 1000ML 1,000 ML IV PRN (12:03)
--- NOTE | 2017-01-27 13:09 | NEPHROLOGY CONSULTATION ---
DATE OF CONSULTATION: 01/27/2017 REQUESTING PHYSICIAN: [facility] hospitalist service. SUBJECTIVE: Mrs. Guillen is a 66-year-old woman well known to me. She has end-stage renal disease. She is dialyzed regularly at [facility] [place]. She dialyzes on Tuesdays, and Saturdays. She was admitted yesterday with apparent confusion and generally not feeling well. PROBLEM LIST: 1. History of diabetes mellitus, status post pancreas transplant in 2003 with normal carbohydrate metabolism. 2. Gastroparesis secondary to autonomic neuropathy with chronic nausea and vomiting. 3. End-stage renal disease. 4. Secondary anemia. 5. History of depression. 6. History of hypertension. 7. History of fractured left hip and right femur. 8. History of fractured left radius. 9. History of orbital fracture. 10. History of GI bleeding. As noted, Mrs. Guillen has a history of longstanding insulin-dependent diabetes mellitus complicated by autonomic neuropathy, predominantly manifested by symptoms of gastroparesis. Other complications of her diabetes include presumed diabetic nephropathy associated with hypertension and the ultimate progression to end-stage renal disease. In 2003, Mrs. Guillen underwent a pancreas transplant without any other solid organ transplant. That was done at the [facility]. She has remained immunosuppressed since that time with a combination of Prograf 4 mg in the morning and 6 mg in the evening as well as CellCept 500 mg daily. She has normal carbohydrate metabolism. She is followed regularly with serum amylase and lipase levels, which have remained normal. Despite her normal carbohydrate metabolism since her pancreas transplant, she continued to have sequelae of longstanding diabetes. This was principally manifested by the autonomic nephropathy with gastroparesis as well as peripheral neuropathy and associated left foot drop. Additionally, she had progressive renal insufficiency associated with hypertension. Her renal insufficiency and hypertension frequently resulted in episodes of volume overload and shortness of breath. She was placed on active renal transplant list at the [facility] in 2010. Since that time, she was removed from the list because of multiple comorbidities and a general decline in her health status. She has a G-J tube in place for occasional feedings, but predominantly for the administration of medications. The tube is managed at the [facility]. She continues to have significant difficulties with the tube moving out of position. Additionally, she has a leak around the tube. More recently, she has had a crack in the tube that was repaired by her . In August 2010, Mrs. Guillen was begun on maintenance dialysis because of symptomatic uremia and volume overload. Despite some initial difficulties with vascular access, she has had a functioning left upper arm AV fistula as her vascular access. That was created by Dr. Sanchez. Since being on dialysis, the frequency of medical hospitalizations has decreased dramatically. Usually, her hospitalizations were brought about by falls resulting in some type of trauma or fracture. She has not had regular problems with symptoms of uremia or volume overload. On one admission earlier this year, however, she was significantly hypoxemic, but did respond to volume reduction with dialysis. Also, over the course of the past year she has been missing dialysis treatments on occasion with increasing frequency. She reported that she was having diarrhea. She usually has about 2 bowel movements a day and occasionally three. These have always been brown in color. She has not had any obvious hematochezia nor has she had any obvious melena. On one occasion, it was felt that she likely did have some GI bleeding because of a positive stool for occult blood. Currently, she dialyzes 3 times a week as noted. She is dialyzed with an F160 dialyzer. She does not receive heparin with her dialysis treatments. She will occasionally have some oozing from her AV fistula. Her blood flow rate for dialysis is 350 mL per minute with her dialysis flow rate of 800. She dialyzes with a 2-potassium and 2-calcium bath for 3-1/2 hours. CURRENT MEDICATIONS: At home include Bactrim liquid 200/400 per 5 mL, 2.5 mL on Mondays, Wednesdays and Fridays via her J-tube. She takes calcitriol 25 mcg daily, calcium acetate 667 mg 2 with breakfast, 3 with lunch and dinner and 1 with snacks. She takes Celexa 20 mg via her J-tube and CellCept 500 mg of liquid CellCept via her J-tube on a daily basis. She uses Colace 1 capsule twice a day and Diatx Zn 1 tablet daily. She does take hydromorphone 2 tablets every 4 hours p.r.n. pain. Despite a minimal urine output, she takes Lasix 40 mg twice a day on nondialysis days, which does stimulate her output somewhat. She also takes metoprolol tartrate via her J-tube 100 mg twice daily. She uses Nasacort AQ 2 sniffs each nostril daily. She uses Nutren 2 mg via her J-tube on a daily basis. She takes her Procrit 4 mg in the morning and 3 mg in the afternoon via her J tube. She uses Protonix 40 mg daily in the morning and ranitidine 300 mg daily at night. She is taking Sensipar 60 mg daily. She takes alprazolam 0.5 mg q. 4 hours p.r.n. and simvastatin 10 mg at bedtime. Additional medications given with dialysis include acetaminophen, which she gets 650 mg on a p.r.n. basis, Venofer 50 mg IV weekly, loperamide 4 mg during dialysis treatments p.r.n. diarrhea, and calcitriol 1 mcg during dialysis treatments orally or via her tube. As noted, her current admission was prompted because she has not been feeling well. Apparently, she awakened confused on January 26. However, she seemed to improve and came to the dialysis unit. I did see her prior to her treatment. She had no complaints and her exam seemed to be at its baseline. However, post-treatment, she once again became confused. She was sent to the Emergency Room and subsequently admitted. The only pertinent laboratory work noted included a few white cells and bacteria in her urine. A diagnosis of urinary tract infection was suspected despite other convincing evidence. She denies shaking chills or fevers despite a low-grade fever noted here. She says that she has been more nauseated than usual. She denies having diarrhea or abdominal pain. She has had no chest pains or shortness of breath. ALLERGIES AND DRUG SENSITIVITIES: INCLUDE BENTYL, CODEINE, DARVOCET, ERYTHROMYCIN, KEFLEX, LEVAQUIN, NAPROSYN, NEURONTIN, PENICILLINS, PERCOCET, PHENOBARBITAL, PREDNISOLONE, REGLAN, REMERON, TEGRETOL, TYLOX, ULTRAM AND ZOLOFT. Despite these listed as being allergies or sensitivities, she continues on these frequently. She has had Levaquin already during this hospitalization without any significant sequelae. The remainder of her past medical history, family history, social history and review of systems appears on previous admission notes as well as her current admission note and will not be repeated. OBJECTIVE: GENERAL: On physical exam, at the current time, Mrs. Guillen appears as a chronically ill woman who was in no distress. She was oriented in 3 spheres. She was pleasant and cooperative. However, she is careful with regard to how she answers questions. VITAL SIGNS: Her temperature is 37.4 orally, her blood pressure 120/69, her pulse 67 and regular, respiratory rate 16, her pulse ox 95% on room air. SKIN: Shows normal skin turgor. There is no rash or infiltrative skin disease. She has multiple scars from prior surgical procedures including a right lower quadrant scar from a pancreas transplant and a left arm scar from the creation of her left upper arm AV fistula with multiple dialysis needle tract rajan over the fistula. She has scars over both hips from an orthopedic surgery and a scar over her right shoulder. There is an A-port beneath the distal left clavicle. She has a G-J tube in place in the left upper quadrant of her abdomen. It appears as if the J tube has been repaired. Her dressing is dry at the current time. LYMPHATICS: Show no palpable lymphadenopathy. HEAD: Normal. EYES: Grossly normal. There is no conjunctival injection. She has no conjunctival icterus. Pupils are round, equal and reactive to light. I did not examine the fundi. EARS, NOSE, MOUTH AND THROAT: Are unremarkable other than very poor dentition. She has multiple missing teeth and retained roots. Oral mucous membranes are moist. NECK: Supple. However, it is flexed forward and tilted to the right, which is a usual position for her. There is no jugular venous distention, carotid bruit or thyromegaly. CHEST: Clear to auscultation. I hear no wheezes, rales or rhonchi. CARDIAC: Shows a regular rhythm. S1 and S2 are normal. There is a systolic murmur at the base radiating toward the neck and a harsher systolic murmur at the apex radiating to the axilla. No gallops or rubs are appreciated. She has no extrasystoles. ABDOMEN: Shows the G-J tube. It is essentially soft and nontender. She has no obvious organomegaly or mass. She has a right lower quadrant fullness at the site of her pancreas transplant. EXTREMITIES: Show no cyanosis, clubbing or peripheral edema. There is a left upper arm AV fistula with a good pulse, thrill and bruit. She has scars over both hips and her shoulders as noted. NEUROLOGIC: Shows a decrease in protective sensation in her feet to vibration and light touch. Ankle jerks are absent. Deep tendon reflexes are otherwise unremarkable. Cranial nerves are normal and symmetrical. She is oriented in 3 spheres. She speaks slowly and deliberately. PERTINENT LABORATORY WORK: From today shows a white count of 6770. The differential was not done today, but yesterday, her white cell differential appeared normal. Her hemoglobin is 13.0 with a hematocrit of 41.9, her platelet count is 122,000. Her prothrombin time on admission was 11.2 with an INR of 1.1. Her PTT was 34.2 with a PTTR of 1.3. Her urinalysis showed a specific gravity of 1.016. Her pH was 5. She has dipstick negative for glucose. She has 1+ blood and 2+ protein on dipstick. Her spun sediment showed 5-10 white cells and 0-4 red cells per high power field and 0-5 epithelial cells per low power field. She had 1+ bacteria noted. There were no fungal elements noted in her urine. Clinical chemistries on admission showed a sodium of 136 mmol/L, potassium 4.1 mmol/L, chloride 96 mmol/L, and CO2 content 31 mmol/L. Her BUN is 47, her creatinine is 6.17. Her random blood sugar was 196, but they have varied from 138-196 during this stay. Her total bilirubin is 0.5 with a direct bilirubin of 0.2. Her AST is 12, her ALT is 17, her alkaline phosphatase is 198. Her troponin is less than 0.015. Her total protein 7.6, albumin 3.6. Her BUN, creatinine and electrolytes did not change appreciably from yesterday to today. A CT scan of her head showed no dramatic abnormalities. Her chest x-ray shows cardiomegaly with some pulmonary vascular congestion. She has some minimal basilar opacities consistent with atelectasis. Blood cultures were not done. Urine culture is pending. ASSESSMENT: Mrs. Guillen has end-stage renal disease as a consequence of longstanding insulin-dependent diabetes. Her carbohydrate metabolism has improved considerably since a pancreatic transplant was done in 2003. She is immunosuppressed because of that transplant. She is now admitted with some minimal change in her mental status, although she seems back to baseline at the current time. She had some increase in her chronic symptoms of nausea. She has not had any worsening diarrhea. I believe that her symptoms seem most consistent with a viral illness. Hopefully, if her cultures are negative, her hospitalization will be of a brief period. During her hospitalization, she should remain on her usual outpatient medications. Dialysis orders have been placed for tomorrow. Despite her long list of apparent allergies, I think that most of those items listed represent some side effects or sensitivities that she has had as opposed to true allergic reactions.
[2017-01-27] MEDS ORDERED: MICONAZOLE NITRATE POWDER 43 GM EXT PRN (20:30)
[2017-01-27] MEDS: SIMVASTATIN 10 MG TAB JT SCH (20:35)
[2017-01-27] MEDS: SULFAMETHOXAZOLE/TRIMETHOPRIM 400/80MG TAB PO SCH (20:36)
[2017-01-27] MEDS ORDERED: HYDROmorphone HCL 2 MG TAB PO SCH (21:30)
[2017-01-27] MEDS ORDERED: ALPRAZOLAM 0.5 MG TAB PO SCH (21:30)
[2017-01-27 21:31] LABS: HEPATITIS B AB NEG
[2017-01-28] VITALS (23 sets, daily range): BP systolic 81–162; BP diastolic 45–90; PULSE 67–85; TEMP 36.2–37.4; O2SAT 89–95
[2017-01-28] MEDS: HYDROmorphone INJ 1 MG/ML SYR IV PRN (04:30)
[2017-01-28] MEDS: ALPRAZOLAM 0.5 MG TAB PO PRN (04:37)
[2017-01-28 05:53] LABS: HEMATOCRIT 37.9 % (37-47); MEAN CELL VOLUME 101.9 fL (80-100); MEAN CORPUSCULAR HGB CONC 31.4 g/dl (32-36); PLATELET COUNT 107 K/uL (130-400); RED BLOOD COUNT 3.72 M/uL (4.2-5.4); WHITE BLOOD COUNT 5.77 K/uL (4.8-10.8)
[2017-01-28 06:35] LABS: BUN/CREATININE RATIO 9.8 (10-20); CALCIUM 8.9 mg/dl (8.5-10.1); CREATININE 8.73 mg/dl (0.60-1.20); POTASSIUM 5.1 mmol/L (3.5-5.1)
[2017-01-28] MEDS: METOPROLOL TARTRATE 100 MG TAB JT SCH ×2 (08:00→20:20)
[2017-01-28] MEDS: FUROSEMIDE 80 MG TAB PO SCH ×2 (08:00→20:21)
[2017-01-28] MEDS: SENSIPAR~ORDER AWAITING ACTION SCH ×3 (08:00→15:05)
[2017-01-28] MEDS: ALPRAZOLAM 0.5 MG TAB PO SCH ×4 (08:05→20:21)
[2017-01-28] MEDS: MYCOPHENOLATE SUSP 200 MG/1 ML JT SCH (08:05)
[2017-01-28] MEDS: DOCUSATE SODIUM 100 MG/10 ML UDC JT PRN ×2 (08:05→08:09)
[2017-01-28] MEDS: CITALOPRAM 20 MG TAB JT SCH (08:06)
[2017-01-28] MEDS: VITAMIN B COMPLEX TAB PEG SCH (08:07)
[2017-01-28] MEDS: CALCIUM ACETATE 667MG GELCAP PO SCH ×3 (08:07→17:29)
[2017-01-28] MEDS: RANITIDINE HCL 150 MG TAB PO SCH ×2 (08:07→20:21)
[2017-01-28] MEDS: TACROLIMUS 1 MG CAP PO SCH ×2 (08:07→20:24)
[2017-01-28] MEDS: HEPARIN SOD 5000 UNIT/0.5 ML CARP SQ SCH ×2 (09:32→20:27)
--- NOTE | 2017-01-28 10:12 | NEPHROLOGY PROGRESS NOTE ---
DATE: 01/28/2017 SUBJECTIVE: Mrs. Guillen says that she is feeling better. She does have a positive urine culture; however, she has no lower urinary tract complaints. She has no flank pain. She denies having any significant problems with nausea. She has had a low grade fever, but no shaking chills or sweats. She complains that she has not gotten some of her medications on time. For the most part she has remained at her baseline. OBJECTIVE: GENERAL: On physical exam when seen she appears to be a chronically ill woman who seemed quite comfortable. She is currently afebrile. Her maximum temperature was yesterday at about 4:13 p.m. and was 37.3. Her blood pressure this morning is 128/78, her pulse is 81 and regular, respiratory rate 18, her pulse ox 89-95% on room air. SKIN: shows normal skin turgor. She has a sallow complexion. She has multiple scars from prior surgeries including her AV fistula scar in the left upper arm, scars over both hips, and a right lower quadrant scar from her pancreas transplant. She has no specific rash. LYMPHATICS: Show no palpable adenopathy. HEAD, EARS, NOSE, MOUTH AND THROAT: Unremarkable except for very poor dentition. Oral mucous membranes are moist. NECK: Supple. She tilted somewhat to the right. She has some minimal paracervical tenderness on the right as well. She has no jugular venous distention, carotid bruit or thyromegaly. CHEST: Clear to auscultation. CARDIAC: Shows a regular rhythm. S1 and S2 are normal. She has a soft systolic murmur at the base radiating toward the neck and a harsher systolic murmur at the apex radiating to the axilla. She has no gallops and no rubs. No arrhythmias were noted. ABDOMEN: Shows the GJ tube. It is basically soft and nontender. There is no organomegaly or mass. There is a fullness in the right lower quadrant at the site of her pancreas transplant. The area is nontender. EXTREMITIES: Show no cyanosis, clubbing or peripheral edema. Her left arm AV fistula is functional with a good pulse, thrill and bruit. NEUROLOGIC: Shows a decrease in protective sensation in her feet to vibration and light touch. Ankle jerks are absent. She is oriented in 3 spheres. PERTINENT LABORATORY WORK: Shows a white count of 5770, no differential was done today. Her hemoglobin 11.9, hematocrit 37.9. Red cell indices are slightly macrocytic, her platelet count 107,000. Clinical chemistries from today show a sodium of 133 mmol/L, potassium 5.1 mmol/L, chloride 96 mmol/L, and CO2 content 26 mmol/L. Her BUN is 88, creatinine 8.73. Her serum calcium is 8.9. Blood sugars vary from 146-230. No other imaging studies were done. ASSESSMENT: I suspect Mrs. Guillen's symptoms were related to a viral illness. Despite a positive urine culture I think it is unlikely that she has a significant urinary tract infection causing her current symptoms. She has not had a dramatic fever, although it is somewhat low grade. However, her white count is normal and she has no urinary tract symptoms or problems including no flank pain. RECOMMENDATIONS: Hemodialysis is scheduled for today. However, I think that she can be discharged thereafter for outpatient followup. Given the fact that she does have a positive urine culture and although I believe it is a contaminant I do not see any harm in treating her with a total of 5-7 days with an oral antibiotic to which the organism would be sensitive. To use Levaquin should be fine in the dose of 500 mg every other day for a total of 5-7 days of total therapy.
--- NOTE | 2017-01-28 10:21 | Palliative Care Consultation ---
Consultation Date of Consultation: Jan 28, 2017. Requesting Physician: Dr. Mendes Attending Physician: Dr. Mendes Reason for Consultation: Goals of care History of Present Illness This 66 year old female patient with ESRD on dialysis, s/p pancreatic transplant and others listed below presented to the hospital two days ago with delirium secondary to UTI. Patient has long-standing history of chronic disease with physical deconditioning and poor compliance. She has been on dialysis since 2010 and is now essentially wheelchair-bound and confined to her house. She has chronic pain in her abdomen and generally all over body for which she is chronically on narcotics (PO Dilaudid). Upon admission, patient and both alluded to the fact that they have never had a conversation about goals of care per se. Palliative care is consulted to discuss goals of care. I met with patient in room 459-2. She is awake, alert and oriented. In no distress, has right torticollis. Patient states her goal is to get home and give it "one last try to get stronger," and if she's unable to do so, she is ready to start focusing on comfort. She wishes to continue on with dialysis at this point. She did state that her quality of life is not great given the fact that she is wheelchair-bound and dependent for her care. Her pain is normally well-managed with her PO Dilaudid. At this point, she wishes to remain a full code/full resuscitation level, but certainly would not want any long-term intubation or to be kept alive by machines. Once patient feels she is to the point of no improvement/recovery, she will change her code status. Patient rep will be by later today to complete a living will with her. Past Medical/Surgical History Medical History: ESRD on HD Insulin dependent diabetes S/P pancreatic transplant Chronic pain Gastroparesis GERD Htn JG tube Osteoporosis Torticollis Total hip arthroplasty Social History Smoking Status: Never Smoker History of Alcohol Use: No Drug Use: none Marital Status: Housing Status: lives with significant other Occupation Status: retired Review of Systems Constitutional: + weakness ENT: No trouble swallowing Respiratory: No cough, No shortness of breath, No dyspnea on exertion Cardiac: No chest pain, No edema Abdomen: + pain (occasional), No nausea, No vomiting Female : No problem reported Neurologic: + problem reported (reported some forgetfulness) Psychiatric: No depression symptoms, No anxiety Allergies Coded Allergies: Penicillins (Verified Allergy, Intermediate, RASH, 08/05/16) Erythromycin (Verified Allergy, Mild, RASH, 08/05/16) Acetaminophen (Unverified Allergy, Unknown, ., 08/05/16) Surgical Lubricant (Verified Allergy, Unknown, ITCHY, 08/05/16) Carbamazepine (Verified Adverse Reaction, Severe, TOXIC BLOOD POISONING, ) TOXIC BLOOD POISONING Metoclopramide (Verified Adverse Reaction, Severe, SEIZURES, 08/05/16) SEIZURES Corticosteroids (Verified Adverse Reaction, Intermediate, NAUSEA, 08/05/16) PATIENT STATES ON ALLERGY SHEET "ABSOLUTELY NONE" Dicyclomine (Verified Adverse Reaction, Intermediate, HALLUCINATIONS, 08/05) HALLUCINATIONS Ketorolac (Verified Adverse Reaction, Intermediate, NAUSEATED, 08/05/16) Pregabalin (Verified Adverse Reaction, Intermediate, CONFUSION, 08/05/16) Quinolones (Verified Adverse Reaction, Intermediate, LEVAQUIN-NAUSEA, CHRONIC HEARTBURN, 08/05/16) levaquin =NAUSEA, CHRONIC HEARTBURN. PT SAID SHE WILL NOT TAKE 12/06/08 Azithromycin (Verified Adverse Reaction, Mild, n&v, 08/05/16) Cephalexin (Verified Adverse Reaction, Mild, NAUSEA, 08/05/16) Cephalosporins (Verified Adverse Reaction, Mild, KEFLEX = NAUSEA, 08/05/16) Codeine (Verified Adverse Reaction, Mild, NAUSEA, 08/05/16) Gabapentin (Verified Adverse Reaction, Mild, NAUSEA, 08/05/16) NAUSEA Levofloxacin (Verified Adverse Reaction, Mild, NAUSEA, 08/05/16) Naproxen (Verified Adverse Reaction, Mild, NAUSEA, 08/05/16) Nitrofurantoin (Verified Adverse Reaction, Mild, NAUSEA, 08/05/16) Oxycodone (Verified Adverse Reaction, Mild, PRC/TYLOX = NAUSEA, 08/05/16) NAUSEA Phenobarbital (Verified Adverse Reaction, Mild, NAUSEA, 08/05/16) Prednisolone (Verified Adverse Reaction, Mild, IRRITATION, 08/05/16) Promethazine (Verified Adverse Reaction, Mild, DIARRHEA, 08/05/16) Sertraline (Verified Adverse Reaction, Mild, NAUSEA, 08/05/16) Adhesives (Verified Adverse Reaction, Unknown, UNKNOWN, 08/05/16) Mirtazapine (Verified Adverse Reaction, Unknown, HEARS VOICES, 08/05/16) Propoxyphene (Verified Adverse Reaction, Unknown, NAUSEA, 08/05/16) NAUSEA Tramadol (Verified Adverse Reaction, Unknown, DEPRESSION, 08/05/16) DEPRESSION Medications Current Inpatient Medications Medications (Trade) Dose Ordered Sig/Ayaka Route Start Time Stop Time Status Last Admin Dose Admin Heparin Sodium (Porcine) (Heparin Sq 5000 Unit/0.5ml) 5,000 unit Q12 SQ 01/26/17 21:00 02/25/17 20:59 01/28/17 09:32 5,000 UNIT Calcium Acetate (Phoslo Cap) 1,334 mg DAILYBB PO 01/27/17 06:30 02/26/17 06:29 01/28/17 08:07 1,334 MG Calcium Acetate (Phoslo Cap) 2,001 mg DAILYBL PO 01/27/17 11:00 02/26/17 10:59 01/27/17 12:01 2,001 MG Calcium Acetate (Phoslo Cap) 2,001 mg DAILYBD PO 01/27/17 16:30 02/26/17 16:29 01/27/17 16:26 2,001 MG Citalopram Hydrobromide (celeXA TAB) 20 mg QAM JT 01/27/17 08:00 02/26/17 08:59 01/28/17 08:06 20 MG Docusate Sodium (coLACE SYRUP) 100 mg BID PRN JT 01/26/17 18:15 02/25/17 18:14 01/28/17 08:09 100 MG Furosemide (Lasix Tab) 80 mg BID PO 01/26/17 20:00 02/25/17 20:59 01/27/17 20:36 80 MG Metoprolol Tartrate (Lopressor Tab) 100 mg BID JT 01/26/17 20:00 02/25/17 20:59 01/27/17 20:38 100 MG Mycophenolate Mofetil (Cellcept Susp) 500 mg QAM JT 01/27/17 08:00 02/26/17 08:59 01/28/17 08:05 500 MG Simvastatin (Zocor Tab) 10 mg HS JT 01/26/17 21:00 02/25/17 20:59 01/27/17 20:35 10 MG Tacrolimus (Prograf Cap) 3 mg QPM PO 01/26/17 21:00 02/25/17 20:59 01/27/17 20:35 3 MG Tacrolimus (Prograf Cap) 4 mg QAM PO 01/27/17 08:00 02/26/17 08:59 01/28/17 08:07 4 MG Trimethoprim/ Sulfamethoxazole (Septra 400/80MG Tab) 1 tab MoWeFr@1800 PO 01/27/17 18:00 02/01/17 17:59 01/27/17 20:36 1 TAB Vitamin B Complex (Vitamin B Complex) 1 tab DAILY PEG 01/27/17 08:00 02/26/17 08:59 01/28/17 08:07 1 TAB Miscellaneous Information (Order Awaiting Action) 1 ea QS N/A 01/27/17 00:00 02/26/17 00:00 Ranitidine HCl (zANTac TAB) 300 mg BID PO 01/26/17 20:00 02/25/17 20:59 01/28/17 08:07 300 MG Levofloxacin (Levaquin Tab) 500 mg Q2D@1800 PO 01/28/17 18:00 01/31/17 23:59 Hydromorphone HCl (Dilaudid Tab) 8 mg Q4HWA PO 01/27/17 08:00 02/10/17 07:59 01/28/17 08:06 8 MG Alprazolam (Xanax Tab) 0.5 mg Q4HWA PO 01/27/17 08:00 02/26/17 07:59 01/28/17 08:05 0.5 MG Levofloxacin (Consult) 1 ea UD PRN N/A 01/26/17 21:45 02/25/17 21:44 Heparin Sodium (Porcine) (Heparin 100 Unit/ml 5ml Flush) 5 ml PRN PRN IV 01/26/17 22:15 02/25/17 22:14 01/28/17 05:58 5 ML Hydromorphone HCl (Dilaudid Inj) 1 mg BID PRN IV 01/27/17 11:00 02/10/17 10:59 01/28/17 04:30 1 MG Alprazolam (Xanax Tab) 0.5 mg DAILY PRN PO 01/27/17 11:00 02/26/17 10:59 01/28/17 04:37 0.5 MG Miconazole Nitrate (Desenex Powder) 1 appln PRN PRN EXT 01/27/17 20:30 02/26/17 20:29 Physical Exam Date Time Temp Pulse Resp B/P (MAP) Pulse Ox O2 Delivery O2 Flow Rate FiO2 01/28/17 07:37 36.7 81 18 128/78 (95) 89 Room Air 01/28/17 00:00 Room Air 01/27/17 23:50 36.7 64 18 130/76 (94) 91 Room Air 01/27/17 16:13 37.3 66 18 123/74 (90) 92 Room Air 01/27/17 16:00 95 Room Air 01/27/17 10:12 37.4 67 16 120/69 (86) 95 Room Air General Appearance: no apparent distress, + thin, + pertinent finding ( chronically ill-appearing) ENT: hearing grossly normal Neck: supple, no JVD Respiratory: lungs clear, no respiratory distress, no accessory muscle use Cardiovascular: regular rate, rhythm, no edema, + normal peripheral pulses Abdomen: normal bowel sounds, non tender, soft, + pertinent finding (JG tube present) Neurologic/Psychiatric: alert, normal mood/affect, oriented x 3 Laboratory Results Last 24 Hours Test 01/27/17 12:04 01/27/17 16:35 01/27/17 20:38 01/27/17 20:40 Bedside Glucose 230 mg/dl 217 mg/dl 200 mg/dl Hepatitis B Surface Antigen NEG Hepatitis B Surface Antibody NEG Test 01/28/17 05:30 01/28/17 07:28 White Blood Count 5.77 K/uL Red Blood Count 3.72 M/uL Hemoglobin 11.9 g/dL Hematocrit 37.9 % Mean Corpuscular Volume 101.9 fL Mean Corpuscular Hemoglobin 32.0 pg Mean Corpuscular Hemoglobin Concent 31.4 g/dl RDW Standard Deviation 50.1 fL RDW Coefficient of Variation 13.4 % Platelet Count 107 K/uL Mean Platelet Volume 11.0 fL Sodium Level 133 mmol/L Potassium Level 5.1 mmol/L Chloride Level 96 mmol/L Carbon Dioxide Level 26 mmol/L Anion Gap 11.0 mmol/L Blood Urea Nitrogen 88 mg/dl Creatinine 8.73 mg/dl Est Creatinine Clear Calc Drug Dose 5.1 ml/min Estimated GFR () 4.9 Estimated GFR (Non- 4.2 BUN/Creatinine Ratio 9.8 Random Glucose 146 mg/dl Calcium Level 8.9 mg/dl Bedside Glucose 152 mg/dl Assessment & Plan Problem list: Weakness Pain, abdominal- chronic. No pain at this time Physical deconditioning Wheelchair bound ESRD on HD Delirium 2/2 UTI- improved Goals of care (Z51.5) Palliative care recs: -Patient wishes to remain a full code/full resuscitation for now. She said in the future when she feels she has no hope of recovery, she will change this. -She is going to fill out a living will later today which will state that when she is truly at end-stage, she WOULD NOT want life-prolonging/aggressive measures and would want to be made comfortable. -For now, patient's goal is to "have one last chance to get stronger at home," and if she is unable then she will be ready to start focusing more on comfort instead of "getting better." She wants to continue with dialysis treatments. -Patient did not want to fill out POLST form without her here with her. Again, she will do the living will later today with patient rep and her . Thank you kindly for this consult. Please contact me with any further palliative care needs.
[2017-01-28] MEDS ORDERED: LEVOFLOXACIN 500 MG TAB PO SCH (18:00)
[2017-01-28] MEDS: SIMVASTATIN 10 MG TAB JT SCH (20:24)
--- NOTE | 2017-01-28 23:43 | Progress Note ---
Subjective Date of Service: Jan 28, 2017. Subjective Pt evaluation today including: conversation w/ patient, physical exam, chart review, lab review Patient states that she still has neck pain. She did provide an odd history as to why she is here. Patient denied any urinary tract symptoms, fever, chills, nausea, vomiting. Problem List Medical Problems: (1) Acute head injury Status: Acute (2) Altered mental status Status: Acute (3) Chronic pain syndrome Status: Chronic (4) Depression with anxiety Status: Chronic (5) Dyslipidemia Status: Chronic (6) End stage renal disease on dialysis Status: Chronic (7) Episode of syncope Status: Acute (8) GERD (gastroesophageal reflux disease) Status: Chronic (9) HTN (hypertension) Status: Chronic (10) Hypoxia Status: Acute (11) Narcotic dependence Status: Chronic (12) Osteoporosis Status: Chronic (13) Pneumonia Status: Acute (14) Right arm pain Status: Acute (15) Right orbital fracture Status: Acute (16) Substernal precordial chest pain Status: Acute Review of Systems Constitutional: No fever, No chills Respiratory: No cough, No sputum Cardiac: No chest pain, No orthopnea Neurologic: No memory loss, No paralysis Psychiatric: No depression symptoms, No anhedonism Endo: No fatigue Skin: No rash, No itch All Other Systems: Reviewed and Negative Objective Vital Signs Date Time Temp Pulse Resp B/P (MAP) Pulse Ox O2 Delivery O2 Flow Rate FiO2 01/28/17 23:30 36.9 74 20 160/90 (113) 94 Room Air 01/28/17 20:17 85 160/83 (108) 01/28/17 16:00 95 Room Air 01/28/17 15:57 36.2 77 18 162/74 (103) 93 Room Air 01/28/17 14:30 37.3 71 136/73 (94) 01/28/17 13:15 70 130/70 01/28/17 13:00 70 125/66 01/28/17 12:45 69 115/64 01/28/17 12:30 71 119/70 01/28/17 12:15 67 85/45 01/28/17 12:00 67 85/45 01/28/17 11:45 68 85/49 01/28/17 11:30 67 95/45 01/28/17 11:15 69 81/47 01/28/17 11:00 69 91/56 01/28/17 10:50 68 91/51 01/28/17 10:45 70 85/46 01/28/17 10:30 70 110/63 01/28/17 10:15 70 107/66 01/28/17 10:00 70 119/67 01/28/17 09:49 37.4 72 127/71 (89) 01/28/17 08:00 93 Room Air 01/28/17 07:37 36.7 81 18 128/78 (95) 89 Room Air 01/28/17 00:00 Room Air 01/27/17 23:50 36.7 64 18 130/76 (94) 91 Room Air Physical Exam Comments: General Appearance: WD/WN, no apparent distress, + pertinent finding (neck is bent to the right shoulder throughout exam) Eyes: PERRL, EOMI ENT: hearing grossly normal, pharynx normal, + pertinent finding (poor dentition, MMM) Neck: supple, no JVD Respiratory/Chest: lungs clear, no respiratory distress, no accessory muscle use Cardiovascular: regular rate, rhythm, no murmur Abdomen: normal bowel sounds, non tender, soft, + pertinent finding (JG tube in place, white substance has been molded to the outside of the tubing per pt due to a crack) Extremities: non-tender, no pedal edema, no calf tenderness Neurologic/Psychiatric: alert, oriented x 3 Skin: normal color, warm/dry Laboratory Results Last 24 Hours Test 01/28/17 05:30 01/28/17 07:28 01/28/17 16:54 01/28/17 19:54 White Blood Count 5.77 K/uL Red Blood Count 3.72 M/uL Hemoglobin 11.9 g/dL Hematocrit 37.9 % Mean Corpuscular Volume 101.9 fL Mean Corpuscular Hemoglobin 32.0 pg Mean Corpuscular Hemoglobin Concent 31.4 g/dl RDW Standard Deviation 50.1 fL RDW Coefficient of Variation 13.4 % Platelet Count 107 K/uL Mean Platelet Volume 11.0 fL Sodium Level 133 mmol/L Potassium Level 5.1 mmol/L Chloride Level 96 mmol/L Carbon Dioxide Level 26 mmol/L Anion Gap 11.0 mmol/L Blood Urea Nitrogen 88 mg/dl Creatinine 8.73 mg/dl Est Creatinine Clear Calc Drug Dose 5.1 ml/min Estimated GFR () 4.9 Estimated GFR (Non- 4.2 BUN/Creatinine Ratio 9.8 Random Glucose 146 mg/dl Calcium Level 8.9 mg/dl Bedside Glucose 152 mg/dl 127 mg/dl 145 mg/dl Assessment and Plan This is a 66 year old woman here for delirium secondary to UTI Delirium/UTI - Levaquin renal dosing has day # 3 - urine culture pending - cbc, prp am ESRD - consult nephrology - dialysis T,, - renally dose medications - discussed with palliative care. Patient is not ready for Hosice as of yet, Diabetes S/P Pancreatic Transplant (2003): Transplantation in [place] - Glucose controlled since transplantation - will monitor with routine labs - continue Cellcept and Prograf - Pt plans to make an appointment for JG tube replacement after this admission. HTN - continue metoprolol GERD - continue ranitidine CODE STATUS: FULL CODE Continued [facility] stay due to: ambulation difficulties Discharge planning: home
[2017-01-29] MEDS: ALPRAZOLAM 0.5 MG TAB PO PRN (00:54)
[2017-01-29] MEDS: HYDROmorphone INJ 1 MG/ML SYR IV PRN (00:55)
[2017-01-29 06:04] LABS: HEMATOCRIT 40.7 % (37-47); MEAN CELL VOLUME 100.2 fL (80-100); MEAN CORPUSCULAR HEMOGLOBIN 32.3 pg (25-34); MEAN CORPUSCULAR HGB CONC 32.2 g/dl (32-36); MEAN PLATELET VOLUME 11.5 fL (7.4-10.4); PLATELET COUNT 120 K/uL (130-400); RED BLOOD COUNT 4.06 M/uL (4.2-5.4); WHITE BLOOD COUNT 6.24 K/uL (4.8-10.8)
[2017-01-29] MEDS ORDERED: NURSING VERBAL MED ORDER ONE (06:15)
[2017-01-29] MEDS ORDERED: HYDROmorphone INJ 1 MG/ML SYR IV ONE (06:30)
[2017-01-29] MEDS ORDERED: NURSING DECISION MEDICATION ORDER SCH (06:30)
[2017-01-29 06:47] LABS: BUN/CREATININE RATIO 7.3 (10-20); CALCIUM 9.8 mg/dl (8.5-10.1); CREATININE 5.27 mg/dl (0.60-1.20); POTASSIUM 4.7 mmol/L (3.5-5.1)
[2017-01-29 07:05] VITALS: BP 131/83; PULSE 80; TEMP 37.3; O2SAT 96
[2017-01-29] MEDS: SENSIPAR~ORDER AWAITING ACTION SCH ×3 (07:13→16:00)
[2017-01-29] MEDS ORDERED: CALCIUM ACETATE 667MG GELCAP PO SCH (08:00)
[2017-01-29] MEDS: CITALOPRAM 20 MG TAB JT SCH (08:10)
[2017-01-29] MEDS: MYCOPHENOLATE SUSP 200 MG/1 ML JT SCH (08:11)
[2017-01-29] MEDS: VITAMIN B COMPLEX TAB PEG SCH (08:11)
[2017-01-29] MEDS: METOPROLOL TARTRATE 100 MG TAB JT SCH (08:11)
[2017-01-29] MEDS: RANITIDINE HCL 150 MG TAB PO SCH (08:12)
[2017-01-29] MEDS: TACROLIMUS 1 MG CAP PO SCH (08:12)
[2017-01-29] MEDS: FUROSEMIDE 80 MG TAB PO SCH (08:12)
[2017-01-29] MEDS: ALPRAZOLAM 0.5 MG TAB PO SCH ×3 (08:12→16:05)
[2017-01-29] MEDS: HEPARIN SOD 5000 UNIT/0.5 ML CARP SQ SCH (08:45)
--- NOTE | 2017-01-29 11:23 | NEPHROLOGY PROGRESS NOTE ---
DATE: 01/29/2017 DATE: 01/29/2017 SUBJECTIVE: Mrs. Guillen says that she is feeling relatively well this morning and is anxious to go home. Apparently her discharge was delayed because of some issues at home. She is also concerned that she has the right medications. She was dialyzed yesterday. Her treatment appeared to be uneventful, although she did not feel particularly well after her treatment. She denies having any issues of nausea or vomiting at the current time. She has had no diarrhea. In fact, she has not been recorded as having a bowel movement during the hospitalization. She denies shaking chills. She has had an intermittent low-grade fever. Her major complaint is discomfort in her neck radiating over her right shoulder and down her right upper arm. This has been a chronic complaint. OBJECTIVE: GENERAL: On physical exam, she appears at her baseline. She has a minimal temperature of 37.3, but for the most part she has been afebrile. Her blood pressure is 131/83. Her pulse 80 and regular, respiratory rate 18, her pulse ox 96% on room air. SKIN: Shows normal skin turgor. She has multiple scars from prior surgical procedures including scars over both hips and a scar in the right lower quadrant from her pancreas transplant. She has a GJ tube that exits in the left upper quadrant. She has a left upper arm AV fistula which is functional and multiple dialysis needle tract rajan over the fistula. There is no rash. LYMPHATICS: Show no adenopathy. HEAD, EYES, EARS, NOSE, MOUTH AND THROAT: Unremarkable except for very poor dentition. Oral mucous membranes are moist. NECK: Supple. She has it tilted somewhat to the right and she has some mild to moderate right paracervical tenderness. She has no jugular venous distention or carotid bruit. There is no thyromegaly. CHEST: Clear to auscultation. CARDIAC: Exam shows a regular rhythm, S1 and S2 are normal. There is a soft systolic murmur at the base radiating toward the neck and a harsher systolic murmur at the apex radiating toward the axilla. No gallops are heard. She has no arrhythmia. ABDOMEN: Shows the GJ tube. That is covered in part by some epoxy that was placed by her to seal a leak in the tube. Nonetheless, the exit site appears clean and was not leaking at the time seen by me. Bowel sounds are normal. There is no organomegaly or mass and no significant tenderness. She has a right lower quadrant fullness at the site of her pancreas transplant. EXTREMITIES: Show some muscle wasting. There is no cyanosis, clubbing or peripheral edema. Her left arm AV fistula functions well with a good pulse, thrill and bruit. NEUROLOGIC EXAMINATION: Shows her to be globally weak. She has somewhat of a decrease in protective sensation in her feet to vibration and light touch. Ankle jerks are absent. She is certainly alert and oriented. PERTINENT LABORATORY WORK: From today shows a white count of 6240. Her hemoglobin 13.1, hematocrit 40.7. Red cell indices are mildly macrocytic. Her platelet count 120,000. Clinical chemistries show a sodium of 133 mmol/L, potassium 4.7 mmol/L, chloride 96 mmol/L, and CO2 content 27 mmol/L. Her BUN 39, creatinine 5.27. Blood sugars vary from 127-152. Her serum calcium is 9.8. ASSESSMENT: Mrs. Guillen appears to be at her baseline. RECOMMENDATIONS: I think that she is capable of being discharged today. Follow-up dialysis will be at [facility] in [place]. She dialyzes Tuesdays, , and Saturdays. She should be discharged on her usual medications as well as any antibiotic that the hospitalist staff feels necessary. No other intervention. If her discharge is delayed please contact me by cellphone so that I can place orders for dialysis tomorrow.
[2017-01-29] MEDS: CALCIUM ACETATE 667MG GELCAP PO SCH ×2 (11:47→17:18)
[2017-01-29 16:05] VITALS: BP 135/76; PULSE 74; TEMP 36.7; O2SAT 95
--- NOTE | 2017-01-29 17:00 | Discharge Summary ---
Discharge Summary Date of Service Jan 29, 2017. Discharge Summary Admission Date: Jan 26, 2017 at 18:23 Discharge Date: Jan 29, 2017 Discharge Disposition: Home Principal Diagnosis: Metabolic encephalopathy secondary to UTI Problems/Secondary Diagnoses: (1) Chronic pain syndrome Status: Chronic (2) Depression with anxiety Status: Chronic (3) Dyslipidemia Status: Chronic (4) End stage renal disease on dialysis Status: Chronic (5) GERD (gastroesophageal reflux disease) Status: Chronic (6) HTN (hypertension) Status: Chronic (7) Narcotic dependence Status: Chronic (8) Osteoporosis Status: Chronic Immunizations: Have You Had Influenza Vaccine: Yes Influenza Vaccine Date: Nov 20, 2011 History of Tetanus Vaccine?: Yes Tetanus Immunization Date: June 21, 2004 History of Pneumococcal: Yes Pneumococcal Date: June 20, 1999 History of Hepatitis B Vaccine: Yes Hepatitis Immunization Date: Apr 10, 2003 Consultations: Palliative Consultation Date of Consultation: Jan 28, 2017. Requesting Physician: Dr. Mendes Attending Physician: Dr. Mendes Reason for Consultation: Goals of care History of Present Illness This 66 year old female patient with ESRD on dialysis, s/p pancreatic transplant and others listed below presented to the hospital two days ago with delirium secondary to UTI. Patient has long-standing history of chronic disease with physical deconditioning and poor compliance. She has been on dialysis since 2010 and is now essentially wheelchair-bound and confined to her house. She has chronic pain in her abdomen and generally all over body for which she is chronically on narcotics (PO Dilaudid). Upon admission, patient and both alluded to the fact that they have never had a conversation about goals of care per se. Palliative care is consulted to discuss goals of care. I met with patient in room 459-2. She is awake, alert and oriented. In no distress, has right torticollis. Patient states her goal is to get home and give it "one last try to get stronger," and if she's unable to do so, she is ready to start focusing on comfort. She wishes to continue on with dialysis at this point. She did state that her quality of life is not great given the fact that she is wheelchair-bound and dependent for her care. Her pain is normally well-managed with her PO Dilaudid. At this point, she wishes to remain a full code/full resuscitation level, but certainly would not want any long-term intubation or to be kept alive by machines. Once patient feels she is to the point of no improvement/recovery, she will change her code status. Patient rep will be by later today to complete a living will with her. Past Medical/Surgical History Medical History: ESRD on HD Insulin dependent diabetes S/P pancreatic transplant Chronic pain Gastroparesis GERD Htn JG tube Osteoporosis Torticollis Total hip arthroplasty Social History Smoking Status: Never Smoker History of Alcohol Use: No Drug Use: none Marital Status: Housing Status: lives with significant other Occupation Status: retired Review of Systems Constitutional: + weakness ENT: No trouble swallowing Respiratory: No cough, No shortness of breath, No dyspnea on exertion Cardiac: No chest pain, No edema Abdomen: + pain (occasional), No nausea, No vomiting Female : No problem reported Neurologic: + problem reported (reported some forgetfulness) Psychiatric: No depression symptoms, No anxiety Allergies Coded Allergies: Penicillins (Verified Allergy, Intermediate, RASH, 08/05/16) Erythromycin (Verified Allergy, Mild, RASH, 08/05/16) Acetaminophen (Unverified Allergy, Unknown, ., 08/05/16) Surgical Lubricant (Verified Allergy, Unknown, ITCHY, 08/05/16) Carbamazepine (Verified Adverse Reaction, Severe, TOXIC BLOOD POISONING, ) TOXIC BLOOD POISONING Metoclopramide (Verified Adverse Reaction, Severe, SEIZURES, 08/05/16) SEIZURES Corticosteroids (Verified Adverse Reaction, Intermediate, NAUSEA, 08/05/16) PATIENT STATES ON ALLERGY SHEET "ABSOLUTELY NONE" Dicyclomine (Verified Adverse Reaction, Intermediate, HALLUCINATIONS, 08/05) HALLUCINATIONS Ketorolac (Verified Adverse Reaction, Intermediate, NAUSEATED, 08/05/16) Pregabalin (Verified Adverse Reaction, Intermediate, CONFUSION, 08/05/16) Quinolones (Verified Adverse Reaction, Intermediate, LEVAQUIN-NAUSEA, CHRONIC HEARTBURN, 08/05/16) levaquin =NAUSEA, CHRONIC HEARTBURN. PT SAID SHE WILL NOT TAKE 12/06/08 Azithromycin (Verified Adverse Reaction, Mild, n&v, 08/05/16) Cephalexin (Verified Adverse Reaction, Mild, NAUSEA, 08/05/16) Cephalosporins (Verified Adverse Reaction, Mild, KEFLEX = NAUSEA, 08/05/16) Codeine (Verified Adverse Reaction, Mild, NAUSEA, 08/05/16) Gabapentin (Verified Adverse Reaction, Mild, NAUSEA, 08/05/16) NAUSEA Levofloxacin (Verified Adverse Reaction, Mild, NAUSEA, 08/05/16) Naproxen (Verified Adverse Reaction, Mild, NAUSEA, 08/05/16) Nitrofurantoin (Verified Adverse Reaction, Mild, NAUSEA, 08/05/16) Oxycodone (Verified Adverse Reaction, Mild, PRC/TYLOX = NAUSEA, 08/05/16) NAUSEA Phenobarbital (Verified Adverse Reaction, Mild, NAUSEA, 08/05/16) Prednisolone (Verified Adverse Reaction, Mild, IRRITATION, 08/05/16) Promethazine (Verified Adverse Reaction, Mild, DIARRHEA, 08/05/16) Sertraline (Verified Adverse Reaction, Mild, NAUSEA, 08/05/16) Adhesives (Verified Adverse Reaction, Unknown, UNKNOWN, 08/05/16) Mirtazapine (Verified Adverse Reaction, Unknown, HEARS VOICES, 08/05/16) Propoxyphene (Verified Adverse Reaction, Unknown, NAUSEA, 08/05/16) NAUSEA Tramadol (Verified Adverse Reaction, Unknown, DEPRESSION, 08/05/16) DEPRESSION Medications Current Inpatient Medications Medications (Trade) Dose Ordered Sig/Ayaka Route Start Time Stop Time Status Last Admin Dose Admin Heparin Sodium (Porcine) (Heparin Sq 5000 Unit/0.5ml) 5,000 unit Q12 SQ 01/26/17 21:00 02/25/17 20:59 01/28/17 09:32 5,000 UNIT Calcium Acetate (Phoslo Cap) 1,334 mg DAILYBB PO 01/27/17 06:30 02/26/17 06:29 01/28/17 08:07 1,334 MG Calcium Acetate (Phoslo Cap) 2,001 mg DAILYBL PO 01/27/17 11:00 02/26/17 10:59 01/27/17 12:01 2,001 MG Calcium Acetate (Phoslo Cap) 2,001 mg DAILYBD PO 01/27/17 16:30 02/26/17 16:29 01/27/17 16:26 2,001 MG Citalopram Hydrobromide (celeXA TAB) 20 mg QAM JT 01/27/17 08:00 02/26/17 08:59 01/28/17 08:06 20 MG Docusate Sodium (coLACE SYRUP) 100 mg BID PRN JT 01/26/17 18:15 02/25/17 18:14 01/28/17 08:09 100 MG Furosemide (Lasix Tab) 80 mg BID PO 01/26/17 20:00 02/25/17 20:59 01/27/17 20:36 80 MG Metoprolol Tartrate (Lopressor Tab) 100 mg BID JT 01/26/17 20:00 02/25/17 20:59 01/27/17 20:38 100 MG Mycophenolate Mofetil (Cellcept Susp) 500 mg QAM JT 01/27/17 08:00 02/26/17 08:59 01/28/17 08:05 500 MG Simvastatin (Zocor Tab) 10 mg HS JT 01/26/17 21:00 02/25/17 20:59 01/27/17 20:35 10 MG Tacrolimus (Prograf Cap) 3 mg QPM PO 01/26/17 21:00 02/25/17 20:59 01/27/17 20:35 3 MG Tacrolimus (Prograf Cap) 4 mg QAM PO 01/27/17 08:00 02/26/17 08:59 01/28/17 08:07 4 MG Trimethoprim/ Sulfamethoxazole (Septra 400/80MG Tab) 1 tab MoWeFr@1800 PO 01/27/17 18:00 02/01/17 17:59 01/27/17 20:36 1 TAB Vitamin B Complex (Vitamin B Complex) 1 tab DAILY PEG 01/27/17 08:00 02/26/17 08:59 01/28/17 08:07 1 TAB Miscellaneous Information (Order Awaiting Action) 1 ea QS N/A 01/27/17 00:00 02/26/17 00:00 Ranitidine HCl (zANTac TAB) 300 mg BID PO 01/26/17 20:00 02/25/17 20:59 01/28/17 08:07 300 MG Levofloxacin (Levaquin Tab) 500 mg Q2D@1800 PO 01/28/17 18:00 01/31/17 23:59 Hydromorphone HCl (Dilaudid Tab) 8 mg Q4HWA PO 01/27/17 08:00 02/10/17 07:59 01/28/17 08:06 8 MG Alprazolam (Xanax Tab) 0.5 mg Q4HWA PO 01/27/17 08:00 02/26/17 07:59 01/28/17 08:05 0.5 MG Levofloxacin (Consult) 1 ea UD PRN N/A 01/26/17 21:45 02/25/17 21:44 Heparin Sodium (Porcine) (Heparin 100 Unit/ml 5ml Flush) 5 ml PRN PRN IV 01/26/17 22:15 02/25/17 22:14 01/28/17 05:58 5 ML Hydromorphone HCl (Dilaudid Inj) 1 mg BID PRN IV 01/27/17 11:00 02/10/17 10:59 01/28/17 04:30 1 MG Alprazolam (Xanax Tab) 0.5 mg DAILY PRN PO 01/27/17 11:00 02/26/17 10:59 01/28/17 04:37 0.5 MG Miconazole Nitrate (Desenex Powder) 1 appln PRN PRN EXT 01/27/17 20:30 02/26/17 20:29 Physical Exam Date Time Temp Pulse Resp B/P (MAP) Pulse Ox O2 Delivery O2 Flow Rate FiO2 01/28/17 07:37 36.7 81 18 128/78 (95) 89 Room Air 01/28/17 00:00 Room Air 01/27/17 23:50 36.7 64 18 130/76 (94) 91 Room Air 01/27/17 16:13 37.3 66 18 123/74 (90) 92 Room Air 01/27/17 16:00 95 Room Air 01/27/17 10:12 37.4 67 16 120/69 (86) 95 Room Air General Appearance: no apparent distress, + thin, + pertinent finding ( chronically ill-appearing) ENT: hearing grossly normal Neck: supple, no JVD Respiratory: lungs clear, no respiratory distress, no accessory muscle use Cardiovascular: regular rate, rhythm, no edema, + normal peripheral pulses Abdomen: normal bowel sounds, non tender, soft, + pertinent finding (JG tube present) Neurologic/Psychiatric: alert, normal mood/affect, oriented x 3 Laboratory Results Last 24 Hours Test 01/27/17 12:04 01/27/17 16:35 01/27/17 20:38 12/20/17 20:40 Bedside Glucose 230 mg/dl 217 mg/dl 200 mg/dl Hepatitis B Surface Antigen NEG Hepatitis B Surface Antibody NEG Test 01/28/17 05:30 01/28/17 07:28 White Blood Count 5.77 K/uL Red Blood Count 3.72 M/uL Hemoglobin 11.9 g/dL Hematocrit 37.9 % Mean Corpuscular Volume 101.9 fL Mean Corpuscular Hemoglobin 32.0 pg Mean Corpuscular Hemoglobin Concent 31.4 g/dl RDW Standard Deviation 50.1 fL RDW Coefficient of Variation 13.4 % Platelet Count 107 K/uL Mean Platelet Volume 11.0 fL Sodium Level 133 mmol/L Potassium Level 5.1 mmol/L Chloride Level 96 mmol/L Carbon Dioxide Level 26 mmol/L Anion Gap 11.0 mmol/L Blood Urea Nitrogen 88 mg/dl Creatinine 8.73 mg/dl Est Creatinine Clear Calc Drug Dose 5.1 ml/min Estimated GFR () 4.9 Estimated GFR (Non- 4.2 BUN/Creatinine Ratio 9.8 Random Glucose 146 mg/dl Calcium Level 8.9 mg/dl Bedside Glucose 152 mg/dl Assessment & Plan Problem list: Weakness Pain, abdominal- chronic. No pain at this time Physical deconditioning Wheelchair bound ESRD on HD Delirium 2/2 UTI- improved Goals of care (Z51.5) Palliative care recs: -Patient wishes to remain a full code/full resuscitation for now. She said in the future when she feels she has no hope of recovery, she will change this. -She is going to fill out a living will later today which will state that when she is truly at end-stage, she WOULD NOT want life-prolonging/aggressive measures and would want to be made comfortable. -For now, patient's goal is to "have one last chance to get stronger at home," and if she is unable then she will be ready to start focusing more on comfort instead of "getting better." She wants to continue with dialysis treatments. -Patient did not want to fill out POLST form without her here with her. Again, she will do the living will later today with patient rep and her . Thank you kindly for this consult. Please contact me with any further palliative care needs. DATE: 01/28/2017 SUBJECTIVE: Mrs. Guillen says that she is feeling better. She does have a positive urine culture; however, she has no lower urinary tract complaints. She has no flank pain. She denies having any significant problems with nausea. She has had a low grade fever, but no shaking chills or sweats. She complains that she has not gotten some of her medications on time. For the most part she has remained at her baseline. OBJECTIVE: GENERAL: On physical exam when seen she appears to be a chronically ill woman who seemed quite comfortable. She is currently afebrile. Her maximum temperature was yesterday at about 4:13 p.m. and was 37.3. Her blood pressure this morning is 128/78, her pulse is 81 and regular, respiratory rate 18, her pulse ox 89-95% on room air. SKIN: shows normal skin turgor. She has a sallow complexion. She has multiple scars from prior surgeries including her AV fistula scar in the left upper arm, scars over both hips, and a right lower quadrant scar from her pancreas transplant. She has no specific rash. LYMPHATICS: Show no palpable adenopathy. HEAD, EARS, NOSE, MOUTH AND THROAT: Unremarkable except for very poor dentition. Oral mucous membranes are moist. NECK: Supple. She tilted somewhat to the right. She has some minimal paracervical tenderness on the right as well. She has no jugular venous distention, carotid bruit or thyromegaly. CHEST: Clear to auscultation. CARDIAC: Shows a regular rhythm. S1 and S2 are normal. She has a soft systolic murmur at the base radiating toward the neck and a harsher systolic murmur at the apex radiating to the axilla. She has no gallops and no rubs. No arrhythmias were noted. ABDOMEN: Shows the GJ tube. It is basically soft and nontender. There is no organomegaly or mass. There is a fullness in the right lower quadrant at the site of her pancreas transplant. The area is nontender. EXTREMITIES: Show no cyanosis, clubbing or peripheral edema. Her left arm AV fistula is functional with a good pulse, thrill and bruit. NEUROLOGIC: Shows a decrease in protective sensation in her feet to vibration and light touch. Ankle jerks are absent. She is oriented in 3 spheres. PERTINENT LABORATORY WORK: Shows a white count of 5770, no differential was done today. Her hemoglobin 11.9, hematocrit 37.9. Red cell indices are slightly macrocytic, her platelet count 107,000. Clinical chemistries from today show a sodium of 133 mmol/L, potassium 5.1 mmol/L, chloride 96 mmol/L, and CO2 content 26 mmol/L. Her BUN is 88, creatinine 8.73. Her serum calcium is 8.9. Blood sugars vary from 146-230. No other imaging studies were done. ASSESSMENT: I suspect Mrs. Guillen's symptoms were related to a viral illness. Despite a positive urine culture I think it is unlikely that she has a significant urinary tract infection causing her current symptoms. She has not had a dramatic fever, although it is somewhat low grade. However, her white count is normal and she has no urinary tract symptoms or problems including no flank pain. RECOMMENDATIONS: Hemodialysis is scheduled for today. However, I think that she can be discharged thereafter for outpatient followup. Given the fact that she does have a positive urine culture and although I believe it is a contaminant I do not see any harm in treating her with a total of 5-7 days with an oral antibiotic to which the organism would be sensitive. To use Levaquin should be fine in the dose of 500 mg every other day for a total of 5-7 days of total therapy. Medication Reconciliation New Medications: Levofloxacin (Levofloxacin) 500 Mg Tab 500 MG PO Q2D@1800 for 4 Days, #2 TAB 0 Refills Take 1 tablet on Wednesday and one tablet on Wednesday Continued Medications: Alprazolam (Alprazolam) 0.5 Mg Tab 0.5 MG PO Q4 B Complex W/ C (Vitamin B Complex-C) 1 Cap Cap 1 CAP DAILY Calcium Acetate (Phoslo 667 Mg) 667 Mg Cap 2 CAP PO BREAKFAST Calcium Acetate (Phoslo 667 Mg) 667 Mg Cap 3 CAP PO UD WITH LUNCH AND DINNER Calcium Acetate (Phoslo 667 Mg) 667 Mg Cap 3 CAP PO SNACKS Cinecalcet (Sensipar) 60 Mg Tab 30 MG JT BID Citalopram Hydrobromide (Celexa) 20 Mg Tab 20 MG JT QAM, TAB Docusate Sodium (Colace) 100 Mg Cap 100 MG PO BID PRN for Constipation Furosemide (Lasix) 80 Mg Tab 80 MG JT BID Hydromorphone Hcl (Dilaudid) 4 Mg Tab 8 MG PO Q4H, TAB Metoprolol Tartrate (Lopressor) (Lopressor) 100 Mg Tab 100 MG JT BID Mycophenolate Mofetil (Cellcept) 200 Mg/Ml Adela 500 MG JT QAM Ranitidine (Zantac) 300 Mg Tab 300 MG JT BID, TAB Simvastatin (Zocor) 10 Mg Tab 10 MG JT HS Tacrolimus (Prograf) 1 Mg Cap 3 MG PO QPM, CAP Tacrolimus (Prograf) 1 Mg Cap 4 MG PO QAM, CAP Trimethoprim/Sulfamethoxazole (Bactrim 400MG/80MG) Tab 1 TAB PO MWF, TAB crush & dissolve in water Discharge Exam Review of Systems: Constitutional: No fever, No chills Eyes: No worsening of vision ENT: No hearing loss Respiratory: No cough, No sputum Cardiovascular: No chest pain, No orthopnea Abdomen: No pain, No nausea Neurologic: No paralysis Psychiatric: No depression symptoms Endocrine: No fatigue Hematologic / Lymphatic: No abnormal bleeding/bruising, No clotting problems Integumentary: No rash Physical Exam: General Appearance: WD/WN, no apparent distress Eyes: normal inspection ENT: normal ENT inspection, + pertinent finding (poor dentition) Neck: + pertinent finding ( + pertinent finding (neck is bent to the right shoulder throughout exam)) Respiratory/Chest: chest non-tender, lungs clear, normal breath sounds Cardiovascular: regular rate, rhythm, no edema Abdomen / GI: normal bowel sounds, non tender, soft, + pertinent finding ( + pertinent finding (JG tube in place, white substance has been molded to the outside of the tubing per pt due to a crack)) Skin: normal color Lymphatic: no adenopathy Hospital Course History & Physical Date & Time of Service: Jan 26, 2017 at 17:37 Chief Complaint: Esrd, [place] Primary Care Physician: Pedro Pablo Hollis M.D. History of Present Illness Ms. Guillen woke up confused this morning but got better and went to dialysis however during dialysis became confused again. Normally she has short term memory loss, says this is twice as bad as her usual. It's the second or third time this has happened with the last episode two months ago which cleared on its own and the time before that she came to the ED but there was no reason for the behaviors found. She has had shaking at times over the week which looks like shivering. She had a fever of 100.2 at dialysis. She is oliguric and has not noticed any change. She is eating and drinking, no vomiting, no nausea. She normally goes between diarrhea and constipation. Her head slumps to the side and states this is usual posture for her, they have tried neck bracing at night in the past. ROS Constitutional: no chills, aches, sweats or fever Respiratory: no sob,cough, sputum, or wheezing Cardiac: no chest pain, palpitations, edema, orthopnea or lightheadedness GI: see HPI : see HPI Extremities: no joint pain or weakness Skin: no rash Other systems reviewed and negative Hospital Course This is a 66 year old woman here for delirium secondary to UTI Delirium/UTI - Levaquin received 4 days worth of renal dosing. -Mentation improved and patient returned to baseline ESRD - consulted nephrology - dialysis T,, - renally dose medications - discussed with palliative care. Patient is not ready for Hospice as of yet, Diabetes S/P Pancreatic Transplant (2003): Transplantation in [place] - Glucose controlled since transplantation - will monitor with routine labs - continue Cellcept and Prograf - Pt plans to make an appointment for JG tube replacement after this admission. HTN - continue metoprolol GERD - continue ranitidine Total Time Spent: Greater than 30 minutes This includes examination of the patient, discharge planning, medication reconciliation, and communication with other providers. Discharge Instructions Please refer to the electronic Patient Visit Report (Discharge Instructions) for additional information. Follow-Up As per discharge instructions
[2017-01-29] MEDS ORDERED: LVQ500 PO (17:06)
--- NOTE | 2017-01-29 17:13 | Discharge Instructions ---
Discharge Instructions Date of Service Jan 29, 2017. Admission Reason for Admission: Delirium Due To Another Medical Condition, Uti Discharge Discharge Diagnosis / Problem: Confusion secondary to UTI Discharge Goals Goal(s): Decrease discomfort, Improve function Activity Recommendations Activity Limitations: resume your previous activity . Instructions / Follow-Up Instructions / Follow-Up F/U with PCP in 1-2 weeks Current Hospital Diet Patient's current hospital diet: Renal Diet, Diabetes Type 2 Diet Discharge Diet Recommended Diet: Diabetes Type 2 Diet, Renal Diet Pending Studies Studies pending at discharge: no Medical Emergencies . Who to Call and When: Medical Emergencies: If at any time you feel your situation is an emergency, please call 911 immediately. . Non-Emergent Contact Non-Emergency issues call your: Primary Care Provider Call Non-Emergent contact if: you have a fever, you have any medication questions . . "Provider Documentation" section prepared by Ezekiel Mendes. . VTE Core Measure Inpt VTE Proph given/why not?: Unfractionated heparin SQ
[2017-01-29 17:42] VITALS: BP 135/76; PULSE 74; TEMP 36.7; O2SAT 95
[2017-01-29] MEDS: SULFAMETHOXAZOLE/TRIMETHOPRIM 400/80MG TAB PO SCH (18:19)
== END 2017-01-29 18:30 | disposition home health service (06) | DRG 689 ==
LOC: C.EDB 14:49 → C.MS4W 18:23 → ENRESERV 18:29 → EDBEDREQ 18:43
PROVIDERS: ADMIT Internal Medicine; ATTEND Internal Medicine Sports Medicine
DX: N39.0 Urinary tract infection, site not specified (principal); N18.6 End stage renal disease; G93.41 Metabolic encephalopathy; I12.0 Hypertensive chronic kidney disease with stage 5 chronic kidney disease or end stage renal disease; Z94.83 Pancreas transplant status; K21.9 Gastro-esophageal reflux disease without esophagitis; F32.9 Major depressive disorder, single episode, unspecified; E78.5 Hyperlipidemia, unspecified; E11.22 Type 2 diabetes mellitus with diabetic chronic kidney disease; E11.43 Type 2 diabetes mellitus with diabetic autonomic (poly)neuropathy; Z51.5 Encounter for palliative care; Z79.899 Other long term (current) drug therapy; Z88.0 Allergy status to penicillin; Z88.6 Allergy status to analgesic agent; Z99.2 Dependence on renal dialysis

== ENCOUNTER 2017-02-18 16:30 | Inpatient (IN) | payer BC, OTHER ==
[~2017-02-18] VITALS: Ht 160 cm; Wt 52.7 kg
[~2017-02-18 16:30] MED LIST changes: -ALPR-411 JT; +ALPR-411 PO; +CINA60TA JT; -CINA60TA PO; +LVQ500 PO; -NUTRLIQ14 GJT; -PANT40TA PO; -SPTL JT; +SULF1TAB92 PO; -TRIA1SPR4 NAE
[2017-02-18] MEDS ORDERED: ALBUT/IPRATROP 3MG/0.5MG NEB 3 ML VIAL INH STA (16:52)
--- NOTE | 2017-02-18 17:00 | EMERGENCY ROOM VISIT NOTE ---
History Report prepared by Diane: Maurizio Tanner Under the Supervision of: Dr. Allan Humphreys M.D. First contact with patient: 16:45 Chief Complaint: SHORTNESS OF BREATH Stated Complaint: SOB/INTERMITTENT RESPONCE History of Present Illness The patient is a 67 year old female who presents to the Emergency Room brought in by EMS with complaints of intermittent low oxygen saturation for two days [employer]ING [employer]PER[employer]. Per grandson, the patient has intermittent low oxygen saturation. Per nursing staff, the patient's room air oxygen saturation was 68% upon arrival. Per EMS, the patient has a fever and was administered 4 L oxygen via NC. The patient has increased cough and shortness of breath. Per grandson, the patient received her dialysis treatment today. Per grandson, the patient was a little off this morning and when she came back she had increased confusion. Per grandson, she uses at home oxygen at night and as needed throughout the day. Per grandson, the patient has been eating and urinating as normal. Per patient, the patient notes diarrhea. She has end stage renal disease. She cannot ambulate on her own. HPI is limited secondary patient's mental state. . 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 Review of Systems ROS is limited secondary patient's mental state. Past Medical & Surgical Medical Problems: (1) Acute anterior epistaxis (2) Anemia (3) Anxiety (4) Chest wall pain (5) Chronic pain syndrome (6) Delirium due to another medical condition (7) Depression (8) Depression with anxiety (9) Diabetes (10) Diabetes mellitus type 1 (11) Drop foot gait (12) Dyslipidemia (13) End stage kidney disease (14) End stage renal disease on dialysis (15) ESRD (end stage renal disease) on dialysis (16) Fall (17) Gastroparesis (18) GERD (gastroesophageal reflux disease) (19) HTN (hypertension) (20) Immunosuppression (21) Intractable back pain (22) Jejunostomy tube present (23) Narcotic dependence (24) Orbital floor fracture (25) Osteoporosis (26) Port-a-cath in place (27) Scoliosis (28) Secondary hyperparathyroidism of renal origin (29) Syncope (30) UTI (urinary tract infection) Surgical Problems: (1) H/O pancreas transplant (2) H/O total hip arthroplasty (3) Pancreas replaced by transplant (4) Pancreas transplant status Family History Cancer Heart disease Social History Smoking Status: Never Smoker Alcohol Use: none Drug Use: none Marital Status: Housing Status: lives with family Occupation Status: retired Current/Historical Medications Scheduled Alprazolam (Alprazolam), 0.5 MG PO Q4 B-Complex W/ P-Kyqxad-Gaqjtqws (Folbee Plus Cz), 1 TAB JT DAILY Calcium Acetate (Phoslo 667 Mg), 2 CAP PO BREAKFAST Calcium Acetate (Phoslo 667 Mg), 3 CAP PO UD Calcium Acetate (Phoslo 667 Mg), 3 CAP PO SNACKS Cinecalcet (Sensipar), 30 MG JT BID Citalopram Hydrobromide (Celexa), 20 MG JT QAM Furosemide (Lasix), 80 MG JT BID Metoprolol Tartrate (Lopressor) (Lopressor), 100 MG JT BID Mycophenolate Mofetil (Cellcept), 500 MG JT QAM Ranitidine (Zantac), 300 MG JT BID Simvastatin (Zocor), 10 MG JT HS Tacrolimus (Prograf), 3 MG PO QPM Tacrolimus (Prograf), 4 MG PO QAM Trimethoprim/Sulfamethoxazole (Bactrim 400MG/80MG), 1 TAB PO 3XWK Scheduled PRN Docusate Sodium (Colace), 100 MG PO BID PRN for Constipation Hydromorphone Hcl (Dilaudid), 8 MG PO Q4H PRN for Pain Allergies Coded Allergies: Penicillins (Verified Allergy, Intermediate, RASH, 08/05/16) Erythromycin (Verified Allergy, Mild, RASH, 08/05/16) Acetaminophen (Unverified Allergy, Unknown, ., 08/05/16) Surgical Lubricant (Verified Allergy, Unknown, ITCHY, 08/05/16) Carbamazepine (Verified Adverse Reaction, Severe, TOXIC BLOOD POISONING, ) TOXIC BLOOD POISONING Metoclopramide (Verified Adverse Reaction, Severe, SEIZURES, 08/05/16) SEIZURES Corticosteroids (Verified Adverse Reaction, Intermediate, NAUSEA, 08/05/16) PATIENT STATES ON ALLERGY SHEET "ABSOLUTELY NONE" Dicyclomine (Verified Adverse Reaction, Intermediate, HALLUCINATIONS, 08/05) HALLUCINATIONS Ketorolac (Verified Adverse Reaction, Intermediate, NAUSEATED, 08/05/16) Pregabalin (Verified Adverse Reaction, Intermediate, CONFUSION, 08/05/16) Quinolones (Verified Adverse Reaction, Intermediate, LEVAQUIN-NAUSEA, CHRONIC HEARTBURN, 08/05/16) levaquin =NAUSEA, CHRONIC HEARTBURN. PT SAID SHE WILL NOT TAKE 12/06/08 Azithromycin (Verified Adverse Reaction, Mild, n&v, 08/05/16) Cephalexin (Verified Adverse Reaction, Mild, NAUSEA, 08/05/16) Cephalosporins (Verified Adverse Reaction, Mild, KEFLEX = NAUSEA, 08/05/16) Codeine (Verified Adverse Reaction, Mild, NAUSEA, 08/05/16) Gabapentin (Verified Adverse Reaction, Mild, NAUSEA, 08/05/16) NAUSEA Levofloxacin (Verified Adverse Reaction, Mild, NAUSEA, 08/05/16) Naproxen (Verified Adverse Reaction, Mild, NAUSEA, 08/05/16) Nitrofurantoin (Verified Adverse Reaction, Mild, NAUSEA, 08/05/16) Oxycodone (Verified Adverse Reaction, Mild, PRC/TYLOX = NAUSEA, 08/05/16) NAUSEA Phenobarbital (Verified Adverse Reaction, Mild, NAUSEA, 08/05/16) Prednisolone (Verified Adverse Reaction, Mild, IRRITATION, 08/05/16) Promethazine (Verified Adverse Reaction, Mild, DIARRHEA, 08/05/16) Sertraline (Verified Adverse Reaction, Mild, NAUSEA, 08/05/16) Adhesives (Verified Adverse Reaction, Unknown, UNKNOWN, 08/05/16) Mirtazapine (Verified Adverse Reaction, Unknown, HEARS VOICES, 08/05/16) Propoxyphene (Verified Adverse Reaction, Unknown, NAUSEA, 08/05/16) NAUSEA Tramadol (Verified Adverse Reaction, Unknown, DEPRESSION, 08/05/16) DEPRESSION Physical Exam Vital Signs Date Time Temp Pulse Resp B/P (MAP) Pulse Ox O2 Delivery O2 Flow Rate FiO2 02/18/17 19:30 76 17 94 02/18/17 19:00 78 17 100 02/18/17 18:23 79 21 152/83 98 Room Air 02/18/17 17:44 99 Nasal Cannula 2.5 02/18/17 17:26 99 Nasal Cannula 2.5 02/18/17 16:45 78 02/18/17 16:45 99 Nasal Cannula 2.5 02/18/17 16:39 38.5 78 20 124/62 99 Nasal Cannula 2.5 Physical Exam GENERAL: Awake, alert, chronically ill-appearing, in no distress. Drowsy, but arouses to voice. HENT: Normocephalic, atraumatic. Oropharynx dry cracked mucus membranes. EYES: Normal conjunctiva. Sclera non-icteric. NECK: Supple. No nuchal rigidity. FROM. No JVD. RESPIRATORY: Scattered rhonchi and diminished at the bases. CARDIAC: Regular rate, normal rhythm. Extremities warm and well perfused. Pulses equal. ABDOMEN: Soft, non-distended. No tenderness to palpation. No rebound or guarding. No masses. PEG tube site, clean dry and intact. RECTAL: Deferred. MUSCULOSKELETAL: Chest examination reveals no tenderness. The back is kyphotic. There is no CVA tenderness to palpation. No joint edema. LOWER EXTREMITIES: Calves are equal size bilaterally and non-tender. No edema. No discoloration. NEURO: Normal sensorium. No sensory or motor deficits noted. SKIN: No rash or jaundice noted. Medical Decision & Procedures ER Provider Diagnostic Interpretation: Radiology results as stated below per my review and radiologist interpretation: CHEST ONE VIEW PORTABLE CLINICAL HISTORY: Fever. Sepsis. COMPARISON STUDY: Chest radiograph January 26, 2017. FINDINGS: Evaluation is suboptimal due to difficulty positioning. A left sided Pkwker-o-Xgpv remains in place. There may be a percutaneous gastrostomy. Cardiomediastinal silhouette is stable. Sensitivity for detection of pneumothorax is diminished but none is identified. Hazy left basilar opacity likely reflects atelectasis or epicardial fat pad. There is pulmonary vascular congestion. There is mild right basilar opacity. IMPRESSION: 1. Study compromised due to difficulty positioning. 2. Pulmonary vascular congestion. 3. Mild bibasilar opacities. Electronically signed by: Karthik Kahn M.D. 02/18/2017 5:07 PM HEAD WITHOUT CONTRAST (CT) CT DOSE: 537.48 mGy.cm HISTORY: Mental status change ams TECHNIQUE: Multiaxial CT images of the head were performed without the use of intravenous contrast. A dose lowering technique was utilized adhering to the principles of ALARA. Comparison: 01/26/2017 Findings: Opacified right mastoid air cells which is unchanged from the prior study. Density characteristics of the cerebellar as well as cerebral hemispheres are unremarkable. No acute intracranial hemorrhage. No midline shift. The calvarium and skull base are intact. The ventricles and sulci are within normal limits. There is no mass, hematoma, midline shift, or acute infarct. Impression: 1. No acute process. 2. Opacification right mastoid air cells. 3. No acute or interval finding compared to the prior study The above report was generated using voice recognition software. It may contain grammatical, syntax or spelling errors. Electronically signed by: Jose F Hutchins M.D. 02/18/2017 6:51 PM Dictated Date/Time: 02/18/2017 6:49 PM Laboratory Results Test 02/18/17 16:10 02/18/17 17:34 02/18/17 17:45 02/18/17 17:46 Prothrombin Time 11.2 SECONDS (9.0-12.0) Prothromb Time International Ratio 1.1 (0.9-1.1) Total Bilirubin 0.6 mg/dl (0.2-1) Alanine Aminotransferase (ALT/SGPT) 24 U/L (12-78) Alkaline Phosphatase 225 U/L (45-117) Troponin I < 0.015 ng/ml (0-0.045) Total Protein 7.4 gm/dl (6.4-8.2) Albumin 3.7 gm/dl (3.4-5.0) Lipase 79 U/L (73-393) Venous Blood pH 7.36 (7.36-7.41) Venous Blood Partial Pressure CO2 65 mmHg (38.0-50.0) Venous Blood Partial Pressure O2 26 mmHg Venous Blood HCO3 35 mmol/L Venous Blood Oxygen Saturation < 60.0 % Venous Blood Base Excess 8.0 mEq/L Lactic Acid Level 0.9 mmol/L (0.4-2.0) Direct Bilirubin 0.1 mg/dl (0-0.2) Aspartate Amino Transf (AST/SGOT) 19 U/L (15-37) Influenza Type A Antigen POS for Influ A (NEG) Influenza Type B Antigen Neg for Influ B (NEG) Test 02/18/17 18:18 Urine Color DK YELLOW Urine Appearance CLEAR (CLEAR) Urine pH 6.0 (4.5-7.5) Urine Specific [place] 1.015 (1.000-1.030) Urine Protein 2+ (NEG) Urine Glucose (UA) NEG (NEG) Urine Ketones NEG (NEG) Urine Occult Blood 1+ (NEG) Urine Nitrite NEG (NEG) Urine Bilirubin NEG (NEG) Urine Urobilinogen NEG (NEG) Urine Leukocyte Esterase SMALL (NEG) Urine WBC (Auto) 1-5 /hpf (0-5) Urine RBC (Auto) 0-4 /hpf (0-4) Urine Hyaline Casts (Auto) 0 /lpf (0-5) Urine Epithelial Cells (Auto) 10-20 /lpf (0-5) Urine Bacteria (Auto) NEG (NEG) Laboratory results reviewed by me Medications Administered Medications (Trade) Dose Ordered Sig/Ayaka Route Start Time Stop Time Status Last Admin Dose Admin Albuterol/ Ipratropium (Duoneb) 3 ml NOW STAT INH 02/18/17 16:52 02/18/17 16:55 DC 02/18/17 17:51 3 ML Acetaminophen 100 ml @ 400 mls/hr NOW STAT IV 02/18/17 17:48 02/18/17 18:02 DC 02/18/17 18:21 400 MLS/HR Vancomycin HCl 1250 mg/Sodium Chloride 525 ml @ 200 mls/hr ONE STAT IV 02/18/17 17:48 02/18/17 20:25 DC 02/18/17 18:52 200 MLS/HR Cefepime HCl 1000 mg/Dextrose 111 ml @ 200 mls/hr NOW STAT IV 02/18/17 18:08 02/18/17 18:41 DC 02/18/17 18:52 200 MLS/HR Methylprednisolone Sodium Succinate (Solu-Medrol IV) 125 mg NOW STAT IV 02/18/17 18:13 02/18/17 18:14 DC 02/18/17 18:51 125 MG Oseltamivir Phosphate (Tamiflu Cap) 75 mg NOW STAT PO 02/18/17 18:37 02/18/17 18:38 DC 02/18/17 18:52 75 MG ECG Indication: SOB/dyspnea Rate (beats per minute): 76 Rhythm: sinus rhythm Findings: no acute ischemic change, other (Normal axis) ED Course 1647: The patient was evaluated in room B3B. A complete history and physical exam was performed. 1832: I reassessed the patient at this time. She is resting comfortably. I discussed the results and treatment plan with the patient. I answered all pertaining questions that she had. She expressed understanding and verbalized agreement. The patient will be further evaluated. 1939: I spoke with nelly Grullon. We discussed the patients case. The patient will be evaluated by the [facility] for further management. Medical Decision I reviewed the patient's past medical history, medications, and the nursing notes as described above. The patient's presentation and history were concerning for PNA, bronchitis, UTI , sepsis, dehydration, fluid overload, electrolyte abnormalities, hypercapnia, and over medication.. The patient is a 67-year-old woman with a past medical history of end-stage renal disease on HD Wednesday who presents emergency Department with worsening fatigue and drowsiness over the past week that became acutely worse today after dialysis. Ill the patient is chronically ill-appearing, drowsy but alert to voice. Scattered rhonchi and diminished at the bases. She arrives febrile to 39. Chest x-ray with likely left basilar infiltrate given the patient's fever. Will treat with Vanc/cefepime. WBC within normal limits. Influenza A positive. Mild Co2 retention, given neb and steroids. Patient with improved mental status but still drowsy. Case was discussed with Dr. Somers, [facility] hospitalist, who will admit the patient for further management. Medication Reconcilliation Current Medication List: was personally reviewed by me Consults Time Called: 1836 Consulting Physician: nelly Grullon Returned Call: 1939 I spoke with nelly Grullon. We discussed the patients case. The patient will be evaluated by the [facility] for further management. Impression Primary Impression: Acute on chronic respiratory failure with hypoxia Additional Impressions: Hospital acquired PNA Influenza A Critical Care I have personally spent greater than 35 minutes of critical care time in the direct management of this patient. This includes bedside care, interpretation of diagnostic studies, and testing, discussion with consultants, patient, and family members, and other required patient management activities. This 35 minutes is in excess of all separately billable procedures. Scribe Attestation The scribe's documentation has been prepared under my direction and personally reviewed by me in its entirety. I confirm that the note above accurately reflects all work, treatment, procedures, and medical decision making performed by me. Departure Information Dispostion Being Evaluated By Hospitalist Referrals Pedro Pablo Hollis M.D. (PCP) Patient Instructions My [facility] Problem Qualifiers
[2017-02-18 17:05] LABS: BASO % 0.4 %; BASO ABS # 0.03 K/uL (0-0.2); EOS % 2.6 %; EOS ABS # 0.19 K/uL (0-0.5); HEMATOCRIT 36.4 % (37-47); IG# 0.01 K/uL (0.00-0.02); LYMPH % 10.2 %; LYMPH ABS # 0.75 K/uL (1.2-3.4); MEAN CELL VOLUME 104.3 fL (80-100); MEAN CORPUSCULAR HEMOGLOBIN 31.5 pg (25-34); MEAN CORPUSCULAR HGB CONC 30.2 g/dl (32-36); MEAN PLATELET VOLUME 11.7 fL (7.4-10.4); NEUT % 67.7 %; NEUT ABS # 4.97 K/uL (1.4-6.5); PLATELET COUNT 109 K/uL (130-400); RED CELL DISTRIBUTION WIDTH CV 13.4 % (11.5-14.5); RED CELL DISTRIBUTION WIDTH SD 50.3 fL (36.4-46.3); WHITE BLOOD COUNT 7.35 K/uL (4.8-10.8)
--- NOTE | 2017-02-18 17:08 | DIAGNOSTIC IMAGING REPORT ---
CHEST ONE VIEW PORTABLE CLINICAL HISTORY: Fever. Sepsis. COMPARISON STUDY: Chest radiograph January 26, 2017. FINDINGS: Evaluation is suboptimal due to difficulty positioning. A left sided Zbtkxk-d-Cwgl remains in place. There may be a percutaneous gastrostomy. Cardiomediastinal silhouette is stable. Sensitivity for detection of pneumothorax is diminished but none is identified. Hazy left basilar opacity likely reflects atelectasis or epicardial fat pad. There is pulmonary vascular congestion. There is mild right basilar opacity. IMPRESSION: 1. Study compromised due to difficulty positioning. 2. Pulmonary vascular congestion. 3. Mild bibasilar opacities. Electronically signed by: Karthik Kahn M.D. 02/18/2017 5:07 PM Dictated Date/Time: 02/18/2017 5:05 PM
[2017-02-18 17:20] LABS: INR 1.1 (0.9-1.1)
[2017-02-18 17:40] LABS: ALBUMIN 3.7 gm/dl (3.4-5.0); ALKALINE PHOSPHATASE 225 U/L (45-117); ALT/SGPT 24 U/L (12-78); BLOOD UREA NITROGEN 22 mg/dl (7-18); CALCIUM 8.8 mg/dl (8.5-10.1); CARBON DIOXIDE 33 mmol/L (21-32); CREATININE 3.52 mg/dl (0.60-1.20); GLUCOSE 127 mg/dl (70-99); LIPASE 79 U/L (73-393); SODIUM 135 mmol/L (136-145); TOTAL PROTEIN 7.4 gm/dl (6.4-8.2)
[2017-02-18] MEDS ORDERED: B-COTAB81 JT (17:46)
[2017-02-18] MEDS ORDERED: VANCOMYCIN INJ 1,250 MG in SODIUM CHLORIDE 0.9% 500ML 500 ML IV STA (17:48)
[2017-02-18] MEDS ORDERED: ACETAMINOPHEN IV 100 ML IV STA (17:48)
[2017-02-18] MEDS ORDERED: CEFEPIME IV 1,000 MG in DEXTROSE 5% 100ML 100 ML IV STA (18:08)
[2017-02-18 18:13] LABS: POTASSIUM 4.3 mmol/L (3.5-5.1)
[2017-02-18] MEDS ORDERED: METHYLPREDNISOLONE 125 MG VIAL IV STA (18:13)
[2017-02-18 18:22] LABS: INFLUENZA B ANTIGEN Neg for Influ B (NEG)
[2017-02-18] MEDS ORDERED: OSELTAMIVIR PHOSPHATE 75 MG CAP PO STA (18:37)
--- NOTE | 2017-02-18 18:52 | DIAGNOSTIC IMAGING REPORT ---
HEAD WITHOUT CONTRAST (CT) CT DOSE: 537.48 mGy.cm HISTORY: Mental status change ams TECHNIQUE: Multiaxial CT images of the head were performed without the use of intravenous contrast. A dose lowering technique was utilized adhering to the principles of ALARA. Comparison: 01/26/2017 Findings: Opacified right mastoid air cells which is unchanged from the prior study. Density characteristics of the cerebellar as well as cerebral hemispheres are unremarkable. No acute intracranial hemorrhage. No midline shift. The calvarium and skull base are intact. The ventricles and sulci are within normal limits. There is no mass, hematoma, midline shift, or acute infarct. Impression: 1. No acute process. 2. Opacification right mastoid air cells. 3. No acute or interval finding compared to the prior study The above report was generated using voice recognition software. It may contain grammatical, syntax or spelling errors. Electronically signed by: Jose F Hutchins M.D. 02/18/2017 6:51 PM Dictated Date/Time: 02/18/2017 6:49 PM
[2017-02-18] MEDS ORDERED: DOCUSATE SODIUM 100 MG CAP PO PRN (19:45)
[2017-02-18] MEDS ORDERED: CALCIUM ACETATE 667MG GELCAP PO PRN (19:45)
[2017-02-18] MEDS ORDERED: ACETAMINOPHEN 325 MG TAB PO PRN (19:45)
[2017-02-18] MEDS ORDERED: VANCOMYCIN INJ 1,000 MG in SODIUM CHLORIDE 0.9% 250ML 250 ML IV STA (19:49)
[2017-02-18] MEDS ORDERED: ACETAMINOPHEN IV 100 ML IV PRN (20:00)
[2017-02-18] MEDS ORDERED: LEVALBUTEROL/IPRATROPIUM NEB INH SCH (21:00)
--- NOTE | 2017-02-18 21:09 | History and Physical ---
History & Physical Date & Time of Service: Feb 18, 2017 at 21:08 Chief Complaint: Sob/Intermittent Responce Primary Care Physician: Pedro Pablo Hollis M.D. History of Present Illness Source: caregiver, hospital records The patient is a 67-year-old female brought to the emergency room by EMS due to intermittent low oxygen saturation, increased cough, shortness of breath and fever per grandson over the past 2 days [employer]. EMS had administered 4 L of nasal cannula oxygen upon arrival. The patient's oxygenation on room air upon arrival in the ED was 68%. Her grandson reports that she did get her dialysis treatment as usual today, but was more confused when she returned home. Her history of present illness is limited due to the patient's altered mental state. Past Medical/Surgical History Medical Problems: (1) Chest wall pain Status: Resolved (2) Chronic pain syndrome Status: Chronic (3) Depression with anxiety Status: Chronic (4) Diabetes Status: Chronic (5) Drop foot gait Status: Chronic (6) Dyslipidemia Status: Chronic (7) End stage kidney disease Status: Chronic (8) End stage renal disease on dialysis Status: Chronic (9) Fall Status: Resolved (10) Gastroparesis Status: Chronic (11) GERD (gastroesophageal reflux disease) Status: Chronic (12) HTN (hypertension) Status: Chronic (13) Intractable back pain Status: Resolved (14) Jejunostomy tube present Status: Chronic (15) Narcotic dependence Status: Chronic (16) Osteoporosis Status: Chronic (17) Port-a-cath in place Status: Resolved Surgical Problems: (1) H/O pancreas transplant Status: Chronic (2) H/O total hip arthroplasty Status: Chronic Family History Cancer Heart disease Social History Smoking Status: Never Smoker Smokeless Tobacco Use: No Alcohol Use: none Drug Use: none Marital Status: Housing status: lives with significant other Occupational Status: retired Immunizations History of Influenza Vaccine: Yes Influenza Vaccine Date: Nov 20, 2011 History of Tetanus Vaccine?: Yes Tetanus Immunization Date: June 21, 2004 History of Pneumococcal: Yes Pneumococcal Date: June 20, 1999 History of Hepatitis B Vaccine: Yes Hepatitis Immunization Date: Apr 10, 2003 Multi-Drug Resistant Organisms History of MDRO: No Allergies Coded Allergies: Penicillins (Verified Allergy, Intermediate, RASH, 08/05/16) Erythromycin (Verified Allergy, Mild, RASH, 08/05/16) Acetaminophen (Unverified Allergy, Unknown, ., 08/05/16) Surgical Lubricant (Verified Allergy, Unknown, ITCHY, 08/05/16) Carbamazepine (Verified Adverse Reaction, Severe, TOXIC BLOOD POISONING, ) TOXIC BLOOD POISONING Metoclopramide (Verified Adverse Reaction, Severe, SEIZURES, 08/05/16) SEIZURES Corticosteroids (Verified Adverse Reaction, Intermediate, NAUSEA, 08/05/16) PATIENT STATES ON ALLERGY SHEET "ABSOLUTELY NONE" Dicyclomine (Verified Adverse Reaction, Intermediate, HALLUCINATIONS, 08/05) HALLUCINATIONS Ketorolac (Verified Adverse Reaction, Intermediate, NAUSEATED, 08/05/16) Pregabalin (Verified Adverse Reaction, Intermediate, CONFUSION, 08/05/16) Quinolones (Verified Adverse Reaction, Intermediate, LEVAQUIN-NAUSEA, CHRONIC HEARTBURN, 08/05/16) levaquin =NAUSEA, CHRONIC HEARTBURN. PT SAID SHE WILL NOT TAKE 12/06/08 Azithromycin (Verified Adverse Reaction, Mild, n&v, 08/05/16) Cephalexin (Verified Adverse Reaction, Mild, NAUSEA, 08/05/16) Cephalosporins (Verified Adverse Reaction, Mild, KEFLEX = NAUSEA, 08/05/16) Codeine (Verified Adverse Reaction, Mild, NAUSEA, 08/05/16) Gabapentin (Verified Adverse Reaction, Mild, NAUSEA, 08/05/16) NAUSEA Levofloxacin (Verified Adverse Reaction, Mild, NAUSEA, 08/05/16) Naproxen (Verified Adverse Reaction, Mild, NAUSEA, 08/05/16) Nitrofurantoin (Verified Adverse Reaction, Mild, NAUSEA, 08/05/16) Oxycodone (Verified Adverse Reaction, Mild, PRC/TYLOX = NAUSEA, 08/05/16) NAUSEA Phenobarbital (Verified Adverse Reaction, Mild, NAUSEA, 08/05/16) Prednisolone (Verified Adverse Reaction, Mild, IRRITATION, 08/05/16) Promethazine (Verified Adverse Reaction, Mild, DIARRHEA, 08/05/16) Sertraline (Verified Adverse Reaction, Mild, NAUSEA, 08/05/16) Adhesives (Verified Adverse Reaction, Unknown, UNKNOWN, 08/05/16) Mirtazapine (Verified Adverse Reaction, Unknown, HEARS VOICES, 08/05/16) Propoxyphene (Verified Adverse Reaction, Unknown, NAUSEA, 08/05/16) NAUSEA Tramadol (Verified Adverse Reaction, Unknown, DEPRESSION, 08/05/16) DEPRESSION Home Medications Scheduled Alprazolam (Alprazolam), 0.5 MG PO Q4 B-Complex W/ Y-Rmppcs-Ewcexmdb (Folbee Plus Cz), 1 TAB JT DAILY Calcium Acetate (Phoslo 667 Mg), 2 CAP PO BREAKFAST Calcium Acetate (Phoslo 667 Mg), 3 CAP PO UD Calcium Acetate (Phoslo 667 Mg), 3 CAP PO SNACKS Cinecalcet (Sensipar), 30 MG JT BID Citalopram Hydrobromide (Celexa), 20 MG JT QAM Furosemide (Lasix), 80 MG JT BID Metoprolol Tartrate (Lopressor) (Lopressor), 100 MG JT BID Mycophenolate Mofetil (Cellcept), 500 MG JT QAM Ranitidine (Zantac), 300 MG JT BID Simvastatin (Zocor), 10 MG JT HS Tacrolimus (Prograf), 3 MG PO QPM Tacrolimus (Prograf), 4 MG PO QAM Trimethoprim/Sulfamethoxazole (Bactrim 400MG/80MG), 1 TAB PO 3XWK Scheduled PRN Docusate Sodium (Colace), 100 MG PO BID PRN for Constipation Hydromorphone Hcl (Dilaudid), 8 MG PO Q4H PRN for Pain Review of Systems Review of systems is limited due to the patient's altered mental state, and is as supplied by the grandson noted above. Physical Exam Vital Signs Date Time Temp Pulse Resp B/P (MAP) Pulse Ox O2 Delivery O2 Flow Rate FiO2 02/18/17 20:00 75 17 95 02/18/17 19:30 76 17 94 02/18/17 19:00 78 17 100 02/18/17 18:23 79 21 152/83 98 Room Air 02/18/17 17:44 99 Nasal Cannula 2.5 02/18/17 17:26 99 Nasal Cannula 2.5 02/18/17 16:45 78 02/18/17 16:45 99 Nasal Cannula 2.5 02/18/17 16:39 38.5 78 20 124/62 99 Nasal Cannula 2.5 The patient is somnolent and unresponsive, lying in bed and in no acute distress. HEENT--PERRL, EOMI, mucous membranes and oropharynx dry. Neck--supple. No JVD. No bruits. Thyroid normal, trachea midline, no adenopathy. Heart--normal S1 and S2. No murmurs, rubs or gallops. Lungs--coarse breath sounds and wheezes bilaterally, no respiratory distress, no accessory muscle use. Abdomen--normal bowel sounds and soft. Nontender. Nondistended, no hernias or masses, no organomegaly. Extremities--no cyanosis or clubbing. No edema. There are good distal pulses b/ l. Dermatologic--normal skin turgor, normal color, no abnormal lymph nodes, no rash. Neurologic--cranial nerves II through XII grossly intact. Rheumatologic--deferred Psychiatric--somnolent and unresponsive. Diagnostics Laboratory Results Results Past 24 Hours Test 02/18/17 16:10 02/18/17 17:34 02/18/17 17:45 02/18/17 17:46 Range/Units White Blood Count 7.35 4.8-10.8 K/uL Red Blood Count 3.49 4.2-5.4 M/uL Hemoglobin 11.0 12.0-16.0 g/dL Hematocrit 36.4 37-47 % Mean Corpuscular Volume 104.3 80-100 fL Mean Corpuscular Hemoglobin 31.5 25-34 pg Mean Corpuscular Hemoglobin Concent 30.2 32-36 g/dl Platelet Count 109 130-400 K/uL Mean Platelet Volume 11.7 7.4-10.4 fL Neutrophils (%) (Auto) 67.7 % Lymphocytes (%) (Auto) 10.2 % Monocytes (%) (Auto) 19.0 % Eosinophils (%) (Auto) 2.6 % Basophils (%) (Auto) 0.4 % Neutrophils # (Auto) 4.97 1.4-6.5 K/uL Lymphocytes # (Auto) 0.75 1.2-3.4 K/uL Monocytes # (Auto) 1.40 0.11-0.59 K/uL Eosinophils # (Auto) 0.19 0-0.5 K/uL Basophils # (Auto) 0.03 0-0.2 K/uL RDW Standard Deviation 50.3 36.4-46.3 fL RDW Coefficient of Variation 13.4 11.5-14.5 % Immature Granulocyte % (Auto) 0.1 % Immature Granulocyte # (Auto) 0.01 0.00-0.02 K/uL Prothrombin Time 11.2 9.0-12.0 SECONDS Prothromb Time International Ratio 1.1 0.9-1.1 Sodium Level 135 136-145 mmol/L Potassium Level 4.3 3.5-5.1 mmol/L Chloride Level 95 98-107 mmol/L Carbon Dioxide Level 33 21-32 mmol/L Anion Gap 7.0 3-11 mmol/L Blood Urea Nitrogen 22 7-18 mg/dl Creatinine 3.52 0.60-1.20 mg/dl Est Creatinine Clear Calc Drug Dose 13.0 ml/min Estimated GFR () 14.5 Estimated GFR (Non- 12.5 BUN/Creatinine Ratio 6.2 10-20 Random Glucose 127 70-99 mg/dl Calcium Level 8.8 8.5-10.1 mg/dl Total Bilirubin 0.6 0.2-1 mg/dl Direct Bilirubin 0.1 0-0.2 mg/dl Aspartate Amino Transf (AST/SGOT) 19 15-37 U/L Alanine Aminotransferase (ALT/SGPT) 24 12-78 U/L Alkaline Phosphatase 225 45-117 U/L Troponin I < 0.015 0-0.045 ng/ml Total Protein 7.4 6.4-8.2 gm/dl Albumin 3.7 3.4-5.0 gm/dl Lipase 79 73-393 U/L Venous Blood pH 7.36 7.36-7.41 Venous Blood Partial Pressure CO2 65 38.0-50.0 mmHg Venous Blood Partial Pressure O2 26 mmHg Venous Blood HCO3 35 mmol/L Venous Blood Oxygen Saturation < 60.0 % Venous Blood Base Excess 8.0 mEq/L Lactic Acid Level 0.9 0.4-2.0 mmol/L Influenza Type A Antigen POS for Influ A NEG Influenza Type B Antigen Neg for Influ B NEG Test 02/18/17 18:18 Range/Units Urine Color DK YELLOW Urine Appearance CLEAR CLEAR Urine pH 6.0 4.5-7.5 Urine Specific [place] 1.015 1.000-1.030 Urine Protein 2+ NEG Urine Glucose (UA) NEG NEG Urine Ketones NEG NEG Urine Occult Blood 1+ NEG Urine Nitrite NEG NEG Urine Bilirubin NEG NEG Urine Urobilinogen NEG NEG Urine Leukocyte Esterase SMALL NEG Urine WBC (Auto) 1-5 0-5 /hpf Urine RBC (Auto) 0-4 0-4 /hpf Urine Hyaline Casts (Auto) 0 0-5 /lpf Urine Epithelial Cells (Auto) 10-20 0-5 /lpf Urine Bacteria (Auto) NEG NEG Microbiology Results 02/18/17 Blood Culture, Received Pending 02/18/17 Blood Culture, Received Pending 02/18/17 Urine Culture, Received Pending Diagnostic Radiology Patient Name: DENISHA MOREAU V Unit Number: [id number] Dictated: 02/18/171704 Transcribed: 02/18/171704 JA Printed Date/Time: [~ rep prt dt]/[~ rep prt tm] [~ rep ct labl] - [~ rep ct ivnm] [facility] [place] [address] Dictated: 02/18/171704 Transcribed: 02/18/171704 JA Printed Date/Time: [~ rep prt dt]/[~ rep prt tm] [~ rep ct labl] - [~ rep ct ivnm] CHEST ONE VIEW PORTABLE CLINICAL HISTORY: Fever. Sepsis. COMPARISON STUDY: Chest radiograph January 26, 2017. FINDINGS: Evaluation is suboptimal due to difficulty positioning. A left sided Cgwptc-p-Ibxd remains in place. There may be a percutaneous gastrostomy. Cardiomediastinal silhouette is stable. Sensitivity for detection of pneumothorax is diminished but none is identified. Hazy left basilar opacity likely reflects atelectasis or epicardial fat pad. There is pulmonary vascular congestion. There is mild right basilar opacity. IMPRESSION: 1. Study compromised due to difficulty positioning. 2. Pulmonary vascular congestion. 3. Mild bibasilar opacities. Electronically signed by: Karthik Kahn M.D. 02/18/2017 5:07 PM Dictated Date/Time: 02/18/2017 5:05 PM The status of this report is Signed. Draft = Not yet reviewed or approved by Radiologist. Signed = Reviewed and approved by Radiologist. <AttendingPhy></AttendingPhy> <FamilyPhy>Pedro Pablo Hollis M.D.</FamilyPhy> < PrimaryPhy>Pedro Pablo Hollis M.D.</PrimaryPhy> <UnitNumber>[id number]</UnitNumber > <VisitNumber>[id number]</VisitNumber> <PatientName>DENISHA MOREAU V</ PatientName> <DateOfBirth>1950</DateOfBirth> <Location>C.EDB</Location> < ServiceDate>02/18/17</ServiceDate> <MNE>ESINDI</MNE> <OrderingPhy>Allan Humphreys M.D.</OrderingPhy> <OrderingPhyMNE>f rep ord dr chambers</OrderingPhyMNE> <DictatingPhyMNE>f rep dict dr chambers</DictatingPhyMNE> <CCListMNE>f rep ct mne</ CCListMNE> <AdmittingPhyMNE>f pt admit dr chambers</AdmittingPhyMNE> <AttendingPhyMNE >f pt attend dr chambers</AttendingPhyMNE> <ConsultingPhyMNE>f pt consult dr chambers</ConsultingPhyMNE> <FamilyPhyMNE>f pt fam dr chambers</FamilyPhyMNE> <OtherPhyMNE>f pt other dr chambers</OtherPhyMNE> < PrimaryPhyMNE>f pt prim care dr chambers</PrimaryPhyMNE> <ReferringPhyMNE>f pt referring dr chambers</ReferringPhyMNE> Patient Name: DENISHA MOREAU V Unit Number: [id number] Dictated: 02/18/171848 Transcribed: 02/18/171848 MS Printed Date/Time: [~ rep prt dt]/[~ rep prt tm] [~ rep ct labl] - [~ rep ct ivnm] [facility] [place] [address] Dictated: 02/18/171848 Transcribed: 02/18/171848 MS Printed Date/Time: [~ rep prt dt]/[~ rep prt tm] [~ rep ct labl] - [~ rep ct ivnm] [~ rep ct add3]] HEAD WITHOUT CONTRAST (CT) CT DOSE: 537.48 mGy.cm HISTORY: Mental status change ams TECHNIQUE: Multiaxial CT images of the head were performed without the use of intravenous contrast. A dose lowering technique was utilized adhering to the principles of ALARA. Comparison: 01/26/2017 Findings: Opacified right mastoid air cells which is unchanged from the prior study. Density characteristics of the cerebellar as well as cerebral hemispheres are unremarkable. No acute intracranial hemorrhage. No midline shift. The calvarium and skull base are intact. The ventricles and sulci are within normal limits. There is no mass, hematoma, midline shift, or acute infarct. Impression: 1. No acute process. 2. Opacification right mastoid air cells. 3. No acute or interval finding compared to the prior study The above report was generated using voice recognition software. It may contain grammatical, syntax or spelling errors. Electronically signed by: Jose F Hutchins M.D. 02/18/2017 6:51 PM Dictated Date/Time: 02/18/2017 6:49 PM The status of this report is Signed. Draft = Not yet reviewed or approved by Radiologist. Signed = Reviewed and approved by Radiologist. <AttendingPhy></AttendingPhy> <FamilyPhy>Pedro Pablo Hollis M.D.</FamilyPhy> < PrimaryPhy>Pedro Pablo Hollis M.D.</PrimaryPhy> <UnitNumber>[id number]</UnitNumber > <VisitNumber>[id number]</VisitNumber> <PatientName>DENISHA MOREAU V</ PatientName> <DateOfBirth>1950</DateOfBirth> <Location>C.EDB</Location> < ServiceDate>02/18/17</ServiceDate> <MNE>ESINDI</MNE> <OrderingPhy>Allan Humphreys M.D.</OrderingPhy> <OrderingPhyMNE>f rep ord dr chambers</OrderingPhyMNE> <DictatingPhyMNE>f rep dict dr chambers</DictatingPhyMNE> <CCListMNE>f rep ct leonae</ CCListMNE> <AdmittingPhyMNE>f pt admit dr chambers</AdmittingPhyMNE> <AttendingPhyMNE >f pt attend dr chambers</AttendingPhyMNE> <ConsultingPhyMNE>f pt consult dr chambers</ConsultingPhyMNE> <FamilyPhyMNE>f pt fam dr chambers</FamilyPhyMNE> <OtherPhyMNE>f pt other dr chambers</OtherPhyMNE> < PrimaryPhyMNE>f pt prim care dr chambers</PrimaryPhyMNE> <ReferringPhyMNE>f pt referring dr chambers</ReferringPhyMNE> EKG EKG shows normal sinus rhythm at 76 bpm, anterolateral ischemia, no change compared to 01/26/17 Impression Assessment and Plan Acute respiratory failure with hypoxia/bibasilar pneumonia-- The patient will be admitted to telemetry for close oxygen monitoring. Vancomycin IV per pharmacokinetic monitoring Levofloxacin 500 mg IV every 24 hours Xopenex/Atrovent nebulizers q6h wa and q2h when necessary Solu-Medrol 40 mg IV every 8 hours Guaifenesin extended release 600 mg by mouth twice a day Nasal cannula oxygen titrate to keep pulse ox greater than or equal to 92% Sputum Gram stain and culture End-stage renal disease on HD-- Continue Prograf, and CellCept if patient is alert enough to take GERD-- Pantoprazole 40 mg IV daily Level of Care Telemetry Advanced Directives Existing Advance Directive: No Existing Living Will: No Existing Power of Enterprise Integration Architect: No Resuscitation Status FULL RESUSCITATION VTE Prophylaxis VTE Risk Assessment Done? Y/N: Yes Risk Level: Moderate Given or contraindicated: SCD's
[2017-02-18] MEDS ORDERED: IPRATROPIUM BROMIDE NEB SOLN 0.02% 2.5 ML VIAL INH PRN (22:00)
[2017-02-18] MEDS ORDERED: LEVALBUTEROL 1.25MG/0.5ML NEB INH PRN (22:00)
[2017-02-18 23:00] VITALS: BP 131/70; PULSE 76; TEMP 37.6; O2SAT 96; Ht 160 cm; Wt 52.7 kg
[2017-02-18] MEDS ORDERED: VANCOMYCIN CONSULT ACTIVE PRN (23:00)
[2017-02-18] MEDS ORDERED: LEVOFLOXACIN CONSULT ACTIVE PRN (23:30)
[2017-02-18] MEDS: SODIUM CHLORIDE 0.9% 1000ML 1,000 ML IV SCH (23:30)
[2017-02-18] MEDS: OSELTAMIVIR PHOSPHATE SUSP 75 MG/12.5 ML UDP GT SCH (23:38)
[2017-02-19] VITALS (9 sets, daily range): BP systolic 129–157; BP diastolic 63–79; PULSE 60–71; TEMP 36.8–37.3; O2SAT 90–98
[2017-02-19] MEDS ORDERED: LEVOFLOXACIN / D5W 500 MG in PREMIXED IN D5W 100 ML IV SCH
[2017-02-19] MEDS: ALPRAZOLAM 0.5 MG TAB PO SCH ×6 (00:10→20:42)
[2017-02-19] MEDS: METOPROLOL TARTRATE 100 MG TAB JT SCH ×3 (00:12→20:44)
[2017-02-19] MEDS: TACROLIMUS 1 MG CAP PO SCH ×3 (00:13→20:44)
[2017-02-19] MEDS: SIMVASTATIN 10 MG TAB JT SCH ×2 (00:13→20:45)
[2017-02-19] MEDS: METHYLPREDNISOLONE IV 40 MG in SYRINGE 0 ML IV SCH ×2 (01:20→08:05)
[2017-02-19] MEDS: IPRATROPIUM BROMIDE NEB SOLN 0.02% 2.5 ML VIAL INH SCH ×4 (01:46→19:50)
[2017-02-19] MEDS: LEVALBUTEROL 1.25MG/0.5ML NEB INH SCH ×4 (01:47→19:50)
[2017-02-19] MEDS: HYDROmorphone HCL 2 MG TAB GT PRN ×4 (02:26→20:43)
[2017-02-19] MEDS: CALCIUM ACETATE 667MG GELCAP PO SCH ×3 (07:30→18:00)
[2017-02-19] MEDS: ONDANSETRON 8MG OD TAB PO PRN (08:05)
[2017-02-19] MEDS: FOLBEE PLUS CZ (DIATX) 1 TAB PO SCH (08:07)
[2017-02-19] MEDS: CITALOPRAM 20 MG TAB JT SCH (08:07)
[2017-02-19] MEDS: OSELTAMIVIR PHOSPHATE SUSP 75 MG/12.5 ML UDP GT SCH ×2 (08:07→20:46)
[2017-02-19 08:09] LABS: HEMATOCRIT 33.6 % (37-47); HEMOGLOBIN 10.5 g/dL (12.0-16.0); IG# 0.01 K/uL (0.00-0.02); LYMPH % 8.4 %; LYMPH ABS # 0.46 K/uL (1.2-3.4); MEAN CELL VOLUME 101.5 fL (80-100); MEAN CORPUSCULAR HEMOGLOBIN 31.7 pg (25-34); MEAN CORPUSCULAR HGB CONC 31.3 g/dl (32-36); MEAN PLATELET VOLUME 11.2 fL (7.4-10.4); MONO % 2.6 %; MONO ABS # 0.14 K/uL (0.11-0.59); NEUT % 88.8 %; NEUT ABS # 4.87 K/uL (1.4-6.5); PLATELET COUNT 100 K/uL (130-400); RED CELL DISTRIBUTION WIDTH CV 13.1 % (11.5-14.5); RED CELL DISTRIBUTION WIDTH SD 48.2 fL (36.4-46.3); WHITE BLOOD COUNT 5.48 K/uL (4.8-10.8)
[2017-02-19] MEDS: MYCOPHENOLATE SUSP 200 MG/1 ML JT SCH (08:09)
[2017-02-19 08:43] LABS: CALCIUM 8.8 mg/dl (8.5-10.1); CREATININE 4.81 mg/dl (0.60-1.20); POTASSIUM 4.5 mmol/L (3.5-5.1)
--- NOTE | 2017-02-19 11:51 | Clinical Documentation Query ---
CLINICAL DOCUMENTATION QUERY A 67-year-old female brought to the emergency room by EMS due to intermittent low oxygen saturation, increased cough, shortness of breath and fever. In your clinical opinion is this patient being managed for: ( ) Encephalopathy ( x ) Not Agree ( ) Other explanation of clinical findings (Please Explain) ( ) Unable to determine (Please Define) ( ) Need to Discuss The medical record reflects the following clinical findings, treatment, and risk factors. Clinical Indicators: Altered mental status, increased confusion, hypoxia, fever Treatment: CT head, O2, telemetry Risk Factors: Acute respiratory failure, hypoxia, ESRD, pneumonia Please clarify and document your clinical opinion in the progress notes and discharge summary. Terms such as "probable", "suspected", "likely", "questionable", "possible", or "still to be ruled out" are acceptable. IF IN AGREEMENT, YOU MUST DOCUMENT ABOVE DIAGNOSTIC STATEMENT IN DAILY PROGRESS NOTES AND DISCHARGE SUMMARY. This document is not part of the patient's record. Thank You, Alondra Delgado RN [phone]
--- NOTE | 2017-02-19 12:13 | NEPHROLOGY CONSULTATION ---
DATE OF CONSULTATION: 02/19/2017 REFERRING PHYSICIAN: [facility] hospitalist service. HISTORY OF PRESENT ILLNESS: Mrs. Guillen is a 67-year-old white female, well known to me. She has end-stage renal disease. She dialyzes regularly at [facility] dialysis unit of [place]. She dialyzes on Tuesdays, and Saturdays. She was admitted yesterday with increasing confusion, fever, shortness of breath and documented hypoxemia. PROBLEM LISTS: 1. History of diabetes mellitus, status post pancreas transplant in 2003 with essentially normal carbohydrate metabolism. 2. Gastroparesis secondary to autonomic neuropathy with chronic nausea and vomiting. She has a GJ tube in place. 3. End-stage renal disease. 4. Secondary anemia. 5. History of depression. 6. History of hypertension. 7. History of fractured left hip and right femur. 8. History of fractured left radius. 9. History of an orbital fracture secondary to trauma. 10. History of GI bleeding. 11. Hypoxemia. Mrs. Guillen has a history of longstanding insulin-dependent diabetes mellitus, complicated by an autonomic neuropathy, predominantly manifested by gastroparesis. Other complications of diabetes include presumed diabetic nephropathy associated with hypertension and the ultimate progression to end-stage renal disease. In 2003, Mrs. Guillen underwent a pancreas transplant without any other solid organ transplant at the [facility]. She has remained immunosuppressed since that time with a combination of Prograf 4 mg in the morning and 3 mg in the evening as well as CellCept 500 mg daily. She has essentially normal carbohydrate metabolism. Serum amylase and lipase levels have remained normal. There are checked on a monthly basis. Despite her normal carbohydrate metabolism since her pancreas transplant, she continued to have the sequelae of longstanding diabetes mellitus. This is principally manifested by her autonomic neuropathy with gastroparesis as well as a peripheral neuropathy with an associated left foot drop. Additionally, she had progressive renal insufficiency associated with hypertension. Renal insufficiency and hypertension frequently resulted in episodes of volume overload and shortness of breath. She was placed on active renal transplant list at the [facility] in 2010. Since that time, she was removed from the list because of her multiple comorbidities and general decline in her health status. She has a GJ tube in place for occasional feedings, but predominantly for the administration of medications. The tube is managed by the [facility]. She continues to have significant difficulties with the tube moving out of position. Additionally, she has had a recent leak around the tube that was repaired by her with the placement of some epoxy at that site. In 2010, Mrs. Guillen was begun on maintenance dialysis because of symptomatic uremia and volume overload. Despite some initial difficulties with vascular access, she now has a functioning left upper arm AV fistula, which is used regularly as vascular access. That was created by Dr. Sanchez. Since being on dialysis, the frequency of medical hospitalizations has decreased somewhat. Usually, hospitalizations have been brought about by falls resulting in some type of fracture or other trauma as noted in her problem list. She has not had regular problems with symptomatic uremia. She has within the past year had increasing episodes of hypoxemia. Chest x-rays at that time have been borderline for showing changes of volume overload. On one admission last year, she was significantly hypoxemic that responded to volume reduction with dialysis. Over the course of the past year, she was missing dialysis treatments with increasing frequency. Apparently, the major reason for that was her symptoms of diarrhea. She usually has about 2 bowel movements a day and occasionally 3. These are generally brown in color. She has not had any obvious melena or hematochezia. On one occasion, she did have a positive stool for occult blood, but there were no other particular associated issues and she did not develop hematemesis, melena or frankly bloody stools. Currently, she dialyzes 3 times a week as noted. We use an F160 dialyzer. She does not receive heparin with dialysis treatments. She will occasionally have some oozing from her left upper arm AV fistula. Her blood flow rate for dialysis is 350 mL per minute with a dialysate flow rate of 800. She dialyzes using a 2 potassium, 2 calcium bath for 3-1/2 hours. Her current admission was prompted by her not feeling well for the past 24-48 hours. Yesterday, when she presented for her regular dialysis treatment, she complained only of having a poor night sleep the night before. She seemed a bit more sleepy than usual. Her treatment appeared to be uncomplicated and she was returned to her usual dry weight. She was not complaining of shortness of breath. However, when she returned home, her family reported that she was more lethargic than usual. They checked her pulse oximetry and noted it to be quite low. She had a fever as high as 102 according to her. She denies shaking chills. She denied to me that she was feeling particularly short of breath. She had a minimal cough. When brought to the Emergency Room, she appeared to be hypoxemic with an oxygen saturation of 68%. That was only on one recording. Subsequently, with oxygen administration, her pulse oximetries have all been normal. Her chest x-ray did show evidence of a borderline pulmonary vascular congestion. Over the course of the past several months, she has had episodes of recognized hypoxemia. The specific etiology has never been determined. She does have home oxygen. She also has a problem in controlling the movement of her neck. Her neck is usually tip significantly to the right. Under those circumstances, she will occasionally be noted to be hypoxemic. I have encouraged her to use a soft cervical collar, but she has not been using it on a regular basis and said that she was not using it yesterday. Her diet is generally a renal diet. She says that she follows it reasonably well. CURRENT MEDICATIONS: Bactrim liquid 200/40 mg per 5 mL 2.5 mL of via her GJ tube on Mondays, Wednesdays and Fridays; calcium acetate 667 mg 2 with breakfast and 3 with lunch and 3 with dinner; Celexa 20 mg via her J tube daily; CellCept 500 mg daily via her J tube; Colace 1 capsule twice daily; Diatz Zn 1 a day; hydromorphone 4 mg 2 tablets q. 4 hours p.r.n.; furosemide 80 mg taken twice daily on nondialysis days; metoprolol tartrate 100 mg twice daily; Nasacort AQ 2 sniffs each nostril daily; Prograf 4 mg in the morning and 3 mg in the evening via her J tube; Protonix 40 mg twice daily; ranitidine 300 mg twice daily; Sensipar 60 mg once daily; Xanax 0.5 mg q. 4 hours p.r.n. and simvastatin 10 mg at bedtime. Her treatment medications only include Venofer 50 mg IV push and calcitriol 1 mcg orally on her dialysis days. ALLERGIES: MRS. GUILLEN HAS A LONG LIST OF DRUG SENSITIVITIES AND ALLERGIES. MOST OF THOSE ARE SENSITIVITIES AND SIDE EFFECTS OPPOSED TO TRUE ALLERGIES. THEY INCLUDE ACETAMINOPHEN, ADHESIVES, AZITHROMYCIN, CARBAMAZEPINE, CEPHALEXIN, CEPHALOSPORINS, CODEINE, CORTICOSTEROID, DICYCLOMINE, ERYTHROMYCIN, LEVAQUIN, NAPROSYN, NEURONTIN, PENICILLINS, PERCOCET, PHENOBARBITAL, REGLAN, REMERON, TEGRETOL, TYLOX, ULTRAM AND SERTRALINE. She has received many of those medications since her admission here including Levaquin and prednisolone without any adverse effect. The remainder of her past medical history, family history, social history and review of systems appear on previous admission notes as well as her current admission note and will not be repeated. OBJECTIVE: GENERAL: At the current time, Mrs. Guillen appears to be at her gentle baseline. She was lying quietly in bed and was in no distress. VITAL SIGNS: Her temperature this morning is 37.3 degrees. Her blood pressure 129/65. Her pulse is 71 and regular. Respiratory rate is 16. Her pulse ox has been varying from 95%-96% on 2-1/2 to 3 liters oxygen via nasal cannula. SKIN: Shows normal skin turgor. She has no obvious rash or infiltrative skin disease. She has a left upper arm AV fistula, which is functioning well. She has some significant ecchymoses around the fistula site. She has a GJ tube present in the mid abdomen. It is covered by a large dressing, which was not undressed. There is a significant amount of epoxy on the GJ tube from her 's repair. She has a right lower quadrant scar from her kidney transplant. She has scars over both hips from surgeries. LYMPHATICS: Show no palpable adenopathy. HEAD: Normal. EYES: Grossly normal. The ocular fundi were not examined. EARS, NOSE, MOUTH AND THROAT: Unremarkable other than very poor dentition. She has multiple missing teeth and retained roots. Oral mucous membranes are moist. NECK: Tipped significantly to the right. She does have the strength to bring it back to the midline. I see no current significant jugular venous distention at about 45 degrees. She has no carotid bruit and no thyromegaly. CHEST: Clear to auscultation. She has no wheezes, rales or rhonchi. CARDIAC: Shows a regular rhythm. S1 and S2 are normal. She has a systolic murmur at the base radiating toward the neck and a harsher systolic murmur at the apex radiating to the axilla. ABDOMEN: Shows the GJ tube to be in place. There is no significant drainage noted on the dressing. She has a fullness in the right lower quadrant at the site of her pancreas transplant. There is no other organomegaly or mass. I hear no abdominal bruits. EXTREMITIES: Show some muscle wasting of the limb girdle muscles and her lower extremities. There is no cyanosis, clubbing or peripheral edema. She has the scars over both hips and her shoulders as noted. NEUROLOGIC: Shows a decrease in protective sensation in her feet to vibration and light touch. Ankle jerks are absent. Deep tendon reflexes are otherwise unremarkable. Cranial nerves are normal and symmetrical and she is currently oriented in 3 spheres. She speaks slowly and deliberately. Her answers are usually short and seemingly somewhat evasive. PERTINENT LABORATORY WORK: From today shows a white count of 5480. She has 88.8% neutrophils, 8.4% lymphocytes, and 2.6% monocytes. Her hemoglobin is 10.5. Her hematocrit 33.6. Red cell indices are macrocytic consistent with her immunosuppression. Her platelet count is 100,000. Her prothrombin time is 11.2 with an INR of 1.1. Urinalysis shows a specific gravity of 1.015. She has 2+ protein and 1+ blood. There are 1-5 white cells and 0-4 red cells per high power field and 10-20 epithelial cells per low power field. Clinical chemistries from today show a sodium of 133 mmol/L, potassium 4.5 mmol/L, chloride 95 mmol/L, and CO2 content 28 mmol/L. Her anion gap was measured at 11. Her BUN 47 and creatinine 4.81 less than 24 hours status post most recent dialysis. Her blood sugars after receiving methylprednisolone have varied from 198 to 255. Her serum calcium is 8.8. Her magnesium is 2.4. Earlier during her hospitalization, her ALT was 24 and Her alkaline phosphatase was 225. Her troponin less than 0.015. Her total protein 7.4, albumin 3.7 and lipase 79. Serologic studies show her to be positive for influenza A. IMAGING STUDIES: Include chest x-ray, which is compromised by difficulty with her positioning. She has some changes of pulmonary vascular congestion and minimal bibasilar densities, likely from atelectasis. Blood cultures x2 and a urine culture are pending. ASSESSMENT: Mrs. Guillen was admitted with hypoxemia and fever. She is positive for influenza and has been started on Tamiflu. She has also received vancomycin and Levaquin. Nonetheless, she seems to be doing well with oxygen. The etiology of her apparent hypoxemia is unclear. I have always been concerned about her use of hydromorphone and we have checked hydromorphone levels in the past when presenting with hypoxemia and they have been unremarkable. I am increasingly concerned about the position of her neck and the impact that it may have on her respirations. Her neck is often tipped very far, so that her head is almost resting on her shoulder. That could lead to some upper airway obstruction that could compromise her ventilation. Although, she had venous blood gases, I do not think that are particularly reliable. I think if she has another episode of hypoxemia, the arterial blood gases would be essential in trying to determine the source of her hypoxemia. If there are no changes, I would then look at the potential for a central sleep apnea. For that, she would need a sleep study. Again, I do not think that her hypoxemia is secondary to volume overload and her current exam is unremarkable and she is well oxygenated. She has oxygen at home. Obviously, she has influenza, which is being appropriately managed with Tamiflu. I do not think high dose steroids are necessary at this point and I would suggest that they rapidly be tapered. I do not think in the absence of any positive cultures for bacterial pathogens that antibiotics are necessary. RECOMMENDATIONS: Continue as we are doing with holding further antibiotics until her cultures return. She should be adequately loaded with both Levaquin and vancomycin. Would taper her steroids. Orders for dialysis for tomorrow are written. No other immediate recommendations. MP
--- NOTE | 2017-02-19 16:38 | Progress Note ---
Subjective Date of Service: Feb 19, 2017. Subjective Pt evaluation today including: conversation w/ patient, physical exam, lab review, conversation w/ furniture rental consultant, review of inpatient medication list Pain: chronic pain PO Intake: adequate Voiding: no voiding problems patient feeling better, weaned off of oxygen appreciate nephrology consultation going to stop antibiotics and wean off steroids Problem List Medical Problems: (1) Acute head injury Status: Acute (2) Acute on chronic respiratory failure with hypoxia Status: Acute (3) Altered mental status Status: Acute (4) Chronic pain syndrome Status: Chronic (5) Depression with anxiety Status: Chronic (6) Dyslipidemia Status: Chronic (7) End stage renal disease on dialysis Status: Chronic (8) Episode of syncope Status: Acute (9) GERD (gastroesophageal reflux disease) Status: Chronic (10) Hospital acquired PNA Status: Acute (11) HTN (hypertension) Status: Chronic (12) Hypoxia Status: Acute (13) Influenza A Status: Acute (14) Narcotic dependence Status: Chronic (15) Osteoporosis Status: Chronic (16) Pneumonia Status: Acute (17) Right arm pain Status: Acute (18) Right orbital fracture Status: Acute (19) Substernal precordial chest pain Status: Acute Review of Systems Constitutional: + weakness, + fatigue Respiratory: + dyspnea on exertion All Other Systems: Reviewed and Negative Medications Current Inpatient Medications Medications (Trade) Dose Ordered Sig/Ayaka Route Start Time Stop Time Status Last Admin Dose Admin Sodium Chloride 1,000 ml @ 50 mls/hr Q20H IV 02/18/17 23:30 03/20/17 23:29 02/18/17 23:30 50 MLS/HR Acetaminophen (Tylenol Tab) 650 mg Q4H PRN PO 02/18/17 19:45 03/20/17 19:44 Alprazolam (Xanax Tab) 0.5 mg Q4 PO 02/19/17 00:00 03/21/17 00:00 02/19/17 16:18 0.5 MG Multivitamins (Folbee Plus Cz Tab) 1 tab DAILY PO 02/19/17 09:00 03/21/17 08:59 02/19/17 08:07 1 TAB Calcium Acetate (Phoslo Cap) 1,334 mg QDB PO 02/19/17 07:30 03/21/17 07:59 Calcium Acetate (Phoslo Cap) 2,001 mg UD PRN PO 02/18/17 19:45 03/20/17 19:44 Calcium Acetate (Phoslo Cap) 2,001 mg BID@1130,1800 PO 02/19/17 11:30 03/21/17 11:29 Citalopram Hydrobromide (celeXA TAB) 20 mg QAM JT 02/19/17 09:00 03/21/17 08:59 02/19/17 08:07 20 MG Docusate Sodium (coLACE CAP) 100 mg BID PRN PO 02/18/17 19:45 03/20/17 19:44 Hydromorphone HCl (Dilaudid Tab) 8 mg Q4H PRN GT 02/18/17 19:45 03/04/17 19:44 02/19/17 12:43 8 MG Metoprolol Tartrate (Lopressor Tab) 100 mg BID JT 02/18/17 21:00 03/20/17 20:59 02/19/17 08:08 100 MG Mycophenolate Mofetil (Cellcept Susp) 500 mg QAM JT 02/19/17 09:00 03/21/17 08:59 02/19/17 08:09 500 MG Simvastatin (Zocor Tab) 10 mg HS JT 02/18/17 21:00 03/20/17 20:59 02/19/17 00:13 10 MG Tacrolimus (Prograf Cap) 3 mg QPM PO 02/18/17 21:00 03/20/17 20:59 02/19/17 00:13 3 MG Tacrolimus (Prograf Cap) 4 mg QAM PO 02/19/17 09:00 03/21/17 08:59 02/19/17 08:08 4 MG Oseltamivir Phosphate (Tamiflu Susp) 75 mg BID GT 02/18/17 21:00 02/23/17 20:59 02/19/17 08:07 75 MG Ondansetron HCl (Zofran Odt) 8 mg Q6H PRN PO 02/18/17 20:00 03/20/17 19:59 02/19/17 08:05 8 MG Acetaminophen 100 ml @ 400 mls/hr Q8H PRN IV 02/18/17 20:00 03/20/17 19:59 Ipratropium Pratt (Atrovent 0.02% 0.5MG/2.5ML Neb) 0.5 mg Q6R INH 02/19/17 03:00 03/21/17 02:59 02/19/17 01:46 0.5 MG Levalbuterol (Xopenex 1.25MG/ 0.5ML Neb) 1.25 mg Q6R INH 02/19/17 03:00 03/21/17 02:59 02/19/17 01:47 1.25 MG Ipratropium Pratt (Atrovent 0.02% 0.5MG/2.5ML Neb) 0.5 mg Q2H PRN INH 02/18/17 22:00 03/20/17 21:59 Levalbuterol (Xopenex 1.25MG/ 0.5ML Neb) 1.25 mg Q2H PRN INH 02/18/17 22:00 03/20/17 21:59 Levofloxacin (Consult) 1 ea UD PRN N/A 02/18/17 23:30 03/20/17 23:29 Epoetin Roge (Procrit Inj) 10,000 units TODAY@0800 IV. 02/20/17 08:00 02/20/17 13:59 Sodium Chloride 1,000 ml @ 0 mls/hr Q0M PRN IV 02/20/17 08:00 02/20/17 18:00 Heparin Sodium (Porcine) (No Heparin In Dialysis) 1 ea TODAY@0800 N/A 02/20/17 08:00 02/20/17 13:59 Calcitriol (Rocaltrol Cap) 1 mcg TuThSa@1800 PO 02/20/17 18:00 03/22/17 17:59 Insulin Aspart (novoLOG ASPART) SLIDING SCALE G... ACHS SC 02/19/17 16:15 03/21/17 16:14 Methylprednisolone Sodium Succinate 40 mg/Syringe 0.64 ml @ 1.5 mls/min DAILY IV 02/20/17 09:00 03/21/17 01:59 Objective Vital Signs Date Time Temp Pulse Resp B/P (MAP) Pulse Ox O2 Delivery O2 Flow Rate FiO2 02/19/17 15:29 37.1 62 18 142/73 (96) 90 Room Air 02/19/17 12:00 95 Nasal Cannula 3.0 02/19/17 11:32 36.8 64 20 148/79 (102) 96 Nasal Cannula 2.0 02/19/17 08:00 96 Nasal Cannula 3.0 02/19/17 08:00 37.3 71 18 157/77 (103) 95 Nasal Cannula 3.0 02/19/17 04:00 Nasal Cannula 3.0 02/19/17 03:31 37.3 71 16 129/65 (86) 96 Nasal Cannula 02/19/17 01:49 69 14 96 Nasal Cannula 2.5 02/18/17 23:20 38.5 76 20 152/76 95 02/18/17 23:00 37.6 76 15 131/70 96 Nasal Cannula 3.0 02/18/17 22:28 38.5 76 20 152/76 95 02/18/17 22:05 76 20 95 02/18/17 21:36 152/76 02/18/17 21:35 75 22 95 02/18/17 21:05 74 23 95 02/18/17 20:35 74 14 95 02/18/17 20:06 152/83 02/18/17 20:05 75 16 95 02/18/17 20:00 75 17 95 02/18/17 19:30 76 17 94 02/18/17 19:00 78 17 100 02/18/17 18:23 79 21 152/83 98 Room Air 02/18/17 17:44 99 Nasal Cannula 2.5 02/18/17 17:26 99 Nasal Cannula 2.5 02/18/17 16:45 78 02/18/17 16:45 99 Nasal Cannula 2.5 02/18/17 16:39 38.5 78 20 124/62 99 Nasal Cannula 2.5 Physical Exam General Appearance: no apparent distress, + thin Eyes: normal inspection, EOMI, sclerae normal ENT: normal ENT inspection, hearing grossly normal, pharynx normal Neck: supple, no adenopathy, no JVD, trachea midline Respiratory/Chest: chest non-tender, lungs clear, normal breath sounds, no respiratory distress, no accessory muscle use Cardiovascular: regular rate, rhythm, no edema, no gallop, no JVD, no murmur Abdomen: normal bowel sounds, non tender, soft, no organomegaly Extremities: normal range of motion, non-tender, normal inspection, no pedal edema, no calf tenderness, pelvis stable Neurologic/Psychiatric: cake puller II-XII nml as tested, alert, normal mood/affect, oriented x 3, + motor weakness (generalized) Skin: normal color, warm/dry, no rash Laboratory Results Last 24 Hours Test 02/18/17 17:34 02/18/17 17:45 02/18/17 17:46 02/18/17 18:18 Venous Blood pH 7.36 Venous Blood Partial Pressure CO2 65 mmHg Venous Blood Partial Pressure O2 26 mmHg Venous Blood HCO3 35 mmol/L Venous Blood Oxygen Saturation < 60.0 % Venous Blood Base Excess 8.0 mEq/L Lactic Acid Level 0.9 mmol/L Potassium Level 4.3 mmol/L Direct Bilirubin 0.1 mg/dl Aspartate Amino Transf (AST/SGOT) 19 U/L Influenza Type A Antigen POS for Influ A Influenza Type B Antigen Neg for Influ B Urine Color DK YELLOW Urine Appearance CLEAR Urine pH 6.0 Urine Specific Hulbert 1.015 Urine Protein 2+ Urine Glucose (UA) NEG Urine Ketones NEG Urine Occult Blood 1+ Urine Nitrite NEG Urine Bilirubin NEG Urine Urobilinogen NEG Urine Leukocyte Esterase SMALL Urine WBC (Auto) 1-5 /hpf Urine RBC (Auto) 0-4 /hpf Urine Hyaline Casts (Auto) 0 /lpf Urine Epithelial Cells (Auto) 10-20 /lpf Urine Bacteria (Auto) NEG Test 02/19/17 00:43 02/19/17 07:46 02/19/17 08:29 02/19/17 11:34 Bedside Glucose 198 mg/dl 231 mg/dl 212 mg/dl White Blood Count 5.48 K/uL Red Blood Count 3.31 M/uL Hemoglobin 10.5 g/dL Hematocrit 33.6 % Mean Corpuscular Volume 101.5 fL Mean Corpuscular Hemoglobin 31.7 pg Mean Corpuscular Hemoglobin Concent 31.3 g/dl Platelet Count 100 K/uL Mean Platelet Volume 11.2 fL Neutrophils (%) (Auto) 88.8 % Lymphocytes (%) (Auto) 8.4 % Monocytes (%) (Auto) 2.6 % Eosinophils (%) (Auto) 0.0 % Basophils (%) (Auto) 0.0 % Neutrophils # (Auto) 4.87 K/uL Lymphocytes # (Auto) 0.46 K/uL Monocytes # (Auto) 0.14 K/uL Eosinophils # (Auto) 0.00 K/uL Basophils # (Auto) 0.00 K/uL RDW Standard Deviation 48.2 fL RDW Coefficient of Variation 13.1 % Immature Granulocyte % (Auto) 0.2 % Immature Granulocyte # (Auto) 0.01 K/uL Sodium Level 133 mmol/L Potassium Level 4.5 mmol/L Chloride Level 95 mmol/L Carbon Dioxide Level 28 mmol/L Anion Gap 11.0 mmol/L Blood Urea Nitrogen 47 mg/dl Creatinine 4.81 mg/dl Est Creatinine Clear Calc Drug Dose 8.8 ml/min Estimated GFR () 10.0 Estimated GFR (Non- 8.6 BUN/Creatinine Ratio 9.7 Random Glucose 255 mg/dl Calcium Level 8.8 mg/dl Magnesium Level 2.4 mg/dl Assessment and Plan 67 yo female with ESRD, s/p renal and pancreatic transplant, chronic pain syndrome - Acute hypoxic respiratory failure secondary to influenza A Tamiflu BID for 7 days total no signs of bacterial pneumonia, stop antibiotics lungs clear, no wheezing, taper off steroids - ESRD, s/p transplant HD tomorrow, continue anti-rejection medications - Chronic pain/anxiety continue dilaudid and benzos - DM: add Novolog coverage, not eating much today, continue basal insulin
[2017-02-19] MEDS: INSULIN ASPART 100 UNITS/ML 3 ML PEN SC SCH ×2 (17:29→20:49)
[2017-02-19] MEDS: SODIUM CHLORIDE 0.9% 1000ML 1,000 ML IV SCH (20:42)
[2017-02-20] VITALS (26 sets, daily range): BP systolic 87–140; BP diastolic 52–70; PULSE 64–86; TEMP 36.7–37.3; O2SAT 94–97
[2017-02-20] MEDS: IPRATROPIUM BROMIDE NEB SOLN 0.02% 2.5 ML VIAL INH SCH ×2 (01:13→07:29)
[2017-02-20] MEDS: LEVALBUTEROL 1.25MG/0.5ML NEB INH SCH ×2 (01:13→07:29)
[2017-02-20] MEDS: HYDROmorphone HCL 2 MG TAB GT PRN ×5 (04:16→23:13)
[2017-02-20] MEDS: ALPRAZOLAM 0.5 MG TAB PO SCH ×6 (04:16→23:13)
[2017-02-20 05:01] LABS: HEMATOCRIT 35.1 % (37-47); IG# 0.01 K/uL (0.00-0.02); LYMPH % 11.6 %; LYMPH ABS # 0.81 K/uL (1.2-3.4); MEAN CELL VOLUME 99.7 fL (80-100); MEAN CORPUSCULAR HEMOGLOBIN 31.3 pg (25-34); MEAN CORPUSCULAR HGB CONC 31.3 g/dl (32-36); MEAN PLATELET VOLUME 10.9 fL (7.4-10.4); MONO % 9.9 %; MONO ABS # 0.69 K/uL (0.11-0.59); NEUT % 78.4 %; NEUT ABS # 5.47 K/uL (1.4-6.5); PLATELET COUNT 125 K/uL (130-400); RED CELL DISTRIBUTION WIDTH CV 13.3 % (11.5-14.5); RED CELL DISTRIBUTION WIDTH SD 47.8 fL (36.4-46.3); WHITE BLOOD COUNT 6.98 K/uL (4.8-10.8)
[2017-02-20 05:33] LABS: CALCIUM 8.8 mg/dl (8.5-10.1); CREATININE 5.84 mg/dl (0.60-1.20); POTASSIUM 4.7 mmol/L (3.5-5.1)
[2017-02-20] MEDS: INSULIN ASPART 100 UNITS/ML 3 ML PEN SC SCH ×4 (07:00→23:06)
[2017-02-20] MEDS ORDERED: EPOETIN ALFA 10,000 UNITS/ML VIAL IV. SCH (08:00)
[2017-02-20] MEDS ORDERED: SODIUM CHLORIDE 0.9% 1000ML 1,000 ML IV PRN (08:00)
[2017-02-20] MEDS ORDERED: IPRATROPIUM BROMIDE NEB SOLN 0.02% 2.5 ML VIAL INH SCH (09:00)
[2017-02-20] MEDS: METOPROLOL TARTRATE 100 MG TAB JT SCH ×2 (09:00→23:15)
[2017-02-20] MEDS ORDERED: METHYLPREDNISOLONE IV 40 MG in SYRINGE 0 ML IV SCH (09:00)
[2017-02-20] MEDS ORDERED: LEVALBUTEROL 1.25MG/0.5ML NEB INH SCH (09:00)
[2017-02-20] MEDS: TACROLIMUS 1 MG CAP PO SCH ×2 (09:01→23:14)
[2017-02-20] MEDS: ONDANSETRON 8MG OD TAB PO PRN (09:03)
[2017-02-20] MEDS: OSELTAMIVIR PHOSPHATE SUSP 75 MG/12.5 ML UDP GT SCH ×2 (09:04→23:15)
[2017-02-20] MEDS: CALCIUM ACETATE 667MG GELCAP PO SCH ×3 (09:04→18:09)
[2017-02-20] MEDS: CITALOPRAM 20 MG TAB JT SCH (09:05)
[2017-02-20] MEDS: MYCOPHENOLATE SUSP 200 MG/1 ML JT SCH (09:06)
[2017-02-20] MEDS: FOLBEE PLUS CZ (DIATX) 1 TAB PO SCH (09:06)
[2017-02-20] MEDS ORDERED: LEVOFLOXACIN 500MG / D5W IV SCH (11:00)
[2017-02-20] MEDS: SODIUM CHLORIDE 0.9% 1000ML 1,000 ML IV SCH (12:56)
--- NOTE | 2017-02-20 13:21 | Nephrology Progress Note ---
Nephrology Progress Note Date of Service Feb 20, 2017. Chief Complaint Follow-up for end-stage renal disease on hemodialysis. Tylor Culp was seen examined in her room this morning. She is feeling better, denies any shortness of breath or chest pain. Blood pressure remained stable. Review of Systems A complete review of systems was performed. Pertinent positives are noted above. All other systems are negative. Vital Signs Last 8 Hrs Date Time Temp Pulse Resp B/P (MAP) Pulse Ox O2 Delivery O2 Flow Rate FiO2 02/20/17 12:13 36.7 68 19 140/70 (93) 96 Nasal Cannula 1.5 02/20/17 08:00 96 Nasal Cannula 1.5 02/20/17 07:43 36.9 64 20 136/69 (91) 96 Nasal Cannula 1.5 02/20/17 07:29 64 14 96 Nasal Cannula 2.0 Last Recorded Weight Weight (Kilograms): 53.500 Physical Exam GENERAL: Elderly female , AAA x 3, pleasant, ill-appearing, not in any distress. NECK: Supple, no JVD. RESPIRATORY: Normal breathing efforts, no accessory muscle use, clear to auscultation bilaterally, no wheezes or rales. CARDIOVASCULAR: S1, S2 normal, rate rhythm regular. EXTREMITY: No lower extremity edema NEURO: speech fluent. PSYCHIATRY: Normal mood and judgment Family History Cancer Heart disease Social History Smoking Status: Never smoker Smokeless Tobacco Use: No Alcohol Use: none Drug Use: none Marital Status: Housing Status: lives with significant other Occupation: retired Laboratory Results Past 24 Hours 02/20/17 04:20 Red Blood Count 3.52, Mean Corpuscular Volume 99.7, Mean Corpuscular Hemoglobin 31.3, Mean Corpuscular Hemoglobin Concent 31.3, Mean Platelet Volume 10.9, Neutrophils (%) (Auto) 78.4, Lymphocytes (%) (Auto) 11.6, Monocytes (%) (Auto) 9.9, Eosinophils (%) (Auto) 0.0, Basophils (%) (Auto) 0.0, Neutrophils # (Auto) 5.47, Lymphocytes # (Auto) 0.81, Monocytes # (Auto) 0.69, Eosinophils # (Auto) 0.00, Basophils # (Auto) 0.00 02/20/17 04:20 Test 02/19/17 16:23 02/19/17 20:04 02/20/17 04:20 02/20/17 06:14 Bedside Glucose 230 mg/dl (70-90) 220 mg/dl (70-90) 141 mg/dl (70-90) White Blood Count 6.98 K/uL (4.8-10.8) Red Blood Count 3.52 M/uL (4.2-5.4) Hemoglobin 11.0 g/dL (12.0-16.0) Hematocrit 35.1 % (37-47) Mean Corpuscular Volume 99.7 fL (80-100) Mean Corpuscular Hemoglobin 31.3 pg (25-34) Mean Corpuscular Hemoglobin Concent 31.3 g/dl (32-36) Platelet Count 125 K/uL (130-400) Mean Platelet Volume 10.9 fL (7.4-10.4) Neutrophils (%) (Auto) 78.4 % Lymphocytes (%) (Auto) 11.6 % Monocytes (%) (Auto) 9.9 % Eosinophils (%) (Auto) 0.0 % Basophils (%) (Auto) 0.0 % Neutrophils # (Auto) 5.47 K/uL (1.4-6.5) Lymphocytes # (Auto) 0.81 K/uL (1.2-3.4) Monocytes # (Auto) 0.69 K/uL (0.11-0.59) Eosinophils # (Auto) 0.00 K/uL (0-0.5) Basophils # (Auto) 0.00 K/uL (0-0.2) RDW Standard Deviation 47.8 fL (36.4-46.3) RDW Coefficient of Variation 13.3 % (11.5-14.5) Immature Granulocyte % (Auto) 0.1 % Immature Granulocyte # (Auto) 0.01 K/uL (0.00-0.02) Anion Gap 9.0 mmol/L (3-11) Est Creatinine Clear Calc Drug Dose 7.2 ml/min Estimated GFR () 7.9 Estimated GFR (Non- 6.8 BUN/Creatinine Ratio 11.5 (10-20) Calcium Level 8.8 mg/dl (8.5-10.1) Magnesium Level 2.3 mg/dl (1.8-2.4) Allergies Coded Allergies: Penicillins (Verified Allergy, Intermediate, RASH, 08/05/16) Erythromycin (Verified Allergy, Mild, RASH, 08/05/16) Acetaminophen (Unverified Allergy, Unknown, ., 08/05/16) Surgical Lubricant (Verified Allergy, Unknown, ITCHY, 08/05/16) Carbamazepine (Verified Adverse Reaction, Severe, TOXIC BLOOD POISONING, ) TOXIC BLOOD POISONING Metoclopramide (Verified Adverse Reaction, Severe, SEIZURES, 08/05/16) SEIZURES Corticosteroids (Verified Adverse Reaction, Intermediate, NAUSEA, 08/05/16) PATIENT STATES ON ALLERGY SHEET "ABSOLUTELY NONE" Dicyclomine (Verified Adverse Reaction, Intermediate, HALLUCINATIONS, 08/05) HALLUCINATIONS Ketorolac (Verified Adverse Reaction, Intermediate, NAUSEATED, 08/05/16) Pregabalin (Verified Adverse Reaction, Intermediate, CONFUSION, 08/05/16) Quinolones (Verified Adverse Reaction, Intermediate, LEVAQUIN-NAUSEA, CHRONIC HEARTBURN, 08/05/16) levaquin =NAUSEA, CHRONIC HEARTBURN. PT SAID SHE WILL NOT TAKE 12/06/08 Azithromycin (Verified Adverse Reaction, Mild, n&v, 08/05/16) Cephalexin (Verified Adverse Reaction, Mild, NAUSEA, 08/05/16) Cephalosporins (Verified Adverse Reaction, Mild, KEFLEX = NAUSEA, 08/05/16) Codeine (Verified Adverse Reaction, Mild, NAUSEA, 08/05/16) Gabapentin (Verified Adverse Reaction, Mild, NAUSEA, 08/05/16) NAUSEA Levofloxacin (Verified Adverse Reaction, Mild, NAUSEA, 08/05/16) Naproxen (Verified Adverse Reaction, Mild, NAUSEA, 08/05/16) Nitrofurantoin (Verified Adverse Reaction, Mild, NAUSEA, 08/05/16) Oxycodone (Verified Adverse Reaction, Mild, PRC/TYLOX = NAUSEA, 08/05/16) NAUSEA Phenobarbital (Verified Adverse Reaction, Mild, NAUSEA, 08/05/16) Prednisolone (Verified Adverse Reaction, Mild, IRRITATION, 08/05/16) Promethazine (Verified Adverse Reaction, Mild, DIARRHEA, 08/05/16) Sertraline (Verified Adverse Reaction, Mild, NAUSEA, 08/05/16) Adhesives (Verified Adverse Reaction, Unknown, UNKNOWN, 08/05/16) Mirtazapine (Verified Adverse Reaction, Unknown, HEARS VOICES, 08/05/16) Propoxyphene (Verified Adverse Reaction, Unknown, NAUSEA, 08/05/16) NAUSEA Tramadol (Verified Adverse Reaction, Unknown, DEPRESSION, 08/05/16) DEPRESSION Medications Current Inpatient Medications Medications (Trade) Dose Ordered Sig/Ayaka Route Start Time Stop Time Status Last Admin Dose Admin Sodium Chloride 1,000 ml @ 50 mls/hr Q20H IV 02/18/17 23:30 03/20/17 23:29 02/20/17 12:56 50 MLS/HR Acetaminophen (Tylenol Tab) 650 mg Q4H PRN PO 02/18/17 19:45 03/20/17 19:44 Alprazolam (Xanax Tab) 0.5 mg Q4 PO 02/19/17 00:00 03/21/17 00:00 02/20/17 12:55 0.5 MG Multivitamins (Folbee Plus Cz Tab) 1 tab DAILY PO 02/19/17 09:00 03/21/17 08:59 02/20/17 09:06 1 TAB Calcium Acetate (Phoslo Cap) 1,334 mg QDB PO 02/19/17 07:30 03/21/17 07:59 02/20/17 09:04 1,334 MG Calcium Acetate (Phoslo Cap) 2,001 mg UD PRN PO 02/18/17 19:45 03/20/17 19:44 Calcium Acetate (Phoslo Cap) 2,001 mg BID@1130,1800 PO 02/19/17 11:30 03/21/17 11:29 02/20/17 12:53 2,001 MG Citalopram Hydrobromide (celeXA TAB) 20 mg QAM JT 02/19/17 09:00 03/21/17 08:59 02/20/17 09:05 20 MG Docusate Sodium (coLACE CAP) 100 mg BID PRN PO 02/18/17 19:45 03/20/17 19:44 Hydromorphone HCl (Dilaudid Tab) 8 mg Q4H PRN GT 02/18/17 19:45 03/04/17 19:44 02/20/17 12:55 8 MG Metoprolol Tartrate (Lopressor Tab) 100 mg BID JT 02/18/17 21:00 03/20/17 20:59 02/19/17 20:44 100 MG Mycophenolate Mofetil (Cellcept Susp) 500 mg QAM JT 02/19/17 09:00 03/21/17 08:59 02/20/17 09:06 500 MG Simvastatin (Zocor Tab) 10 mg HS JT 02/18/17 21:00 03/20/17 20:59 02/19/17 20:45 10 MG Tacrolimus (Prograf Cap) 3 mg QPM PO 02/18/17 21:00 03/20/17 20:59 02/19/17 20:44 3 MG Tacrolimus (Prograf Cap) 4 mg QAM PO 02/19/17 09:00 03/21/17 08:59 02/20/17 09:01 4 MG Oseltamivir Phosphate (Tamiflu Susp) 75 mg BID GT 02/18/17 21:00 02/23/17 20:59 02/20/17 09:04 75 MG Ondansetron HCl (Zofran Odt) 8 mg Q6H PRN PO 02/18/17 20:00 03/20/17 19:59 02/20/17 09:03 8 MG Acetaminophen 100 ml @ 400 mls/hr Q8H PRN IV 02/18/17 20:00 03/20/17 19:59 Ipratropium [place] (Atrovent 0.02% 0.5MG/2.5ML Neb) 0.5 mg Q2H PRN INH 02/18/17 22:00 03/20/17 21:59 Levalbuterol (Xopenex 1.25MG/ 0.5ML Neb) 1.25 mg Q2H PRN INH 02/18/17 22:00 03/20/17 21:59 Levofloxacin (Consult) 1 ea UD PRN N/A 02/18/17 23:30 03/20/17 23:29 Epoetin Roge (Procrit Inj) 10,000 units TODAY@0800 IV. 02/20/17 08:00 02/20/17 13:59 Sodium Chloride 1,000 ml @ 0 mls/hr Q0M PRN IV 02/20/17 08:00 02/20/17 18:00 Heparin Sodium (Porcine) (No Heparin In Dialysis) 1 ea TODAY@0800 N/A 02/20/17 08:00 02/20/17 13:59 Calcitriol (Rocaltrol Cap) 1 mcg TuThSa@1800 PO 02/20/17 18:00 03/22/17 17:59 Insulin Aspart (novoLOG ASPART) SLIDING SCALE G... ACHS SC 02/19/17 16:15 03/21/17 16:14 02/19/17 20:49 2 UNITS Methylprednisolone Sodium Succinate 40 mg/Syringe 0.64 ml @ 1.5 mls/min DAILY IV 02/20/17 09:00 03/21/17 01:59 02/20/17 09:07 1.5 MLS/MIN Heparin Sodium (Porcine) (Heparin 100 Unit/ml 5ml Flush) 5 ml PRN PRN IV 02/20/17 02:30 03/22/17 02:29 Impression (1) End stage kidney disease (2) Ambulatory dysfunction (3) Immunosuppression (4) Secondary hyperparathyroidism of renal origin (5) Influenza A (6) Diabetes (7) Anemia Suni is a 67-year-old female with end-stage renal disease on hemodialysis Wednesday via left Brachiocephalic AV fistula. The she was admitted yesterday shortness of breath, cough, change in mental status. On admission CT head was negative. Chest x-ray was concerning for mild pulmonary condition. She was found to have influenza a positive and started on Tamiflu. Clinically started to improve. Blood pressure volume status electrolyte acceptable. She is due for dialysis today. Recommendations --Plan for hemodialysis today for 4 hours as her regular schedule. --avoid IV fluid, dose medications for GFR less than 10, continue on renal diet. --continue phosphate binder, Sensipar and Nephrocaps --Epogen with dialysis for hemoglobin less than 10 Will follow
--- NOTE | 2017-02-20 17:52 | DIAGNOSTIC IMAGING REPORT ---
ABD/PELVIS ORAL CONT ONLY CT DOSE: 251.90 mGy.cm HISTORY: Tube position Placement of J tube, became dislodged TECHNIQUE: Multiaxial CT images of the abdomen and pelvis were performed following the use of oral contrast. A dose lowering technique was utilized adhering to the principles of ALARA. COMPARISON STUDY: 03/18/2014 FINDINGS: Small bilateral pleural effusions. Mild bibasilar atelectasis. Configuration of liver spleen and pancreas are similar compared to the prior study. There has been repositioning and replacement of the patient's gastrostomy tube. Tube is in good position. Contrast is seen entering via the 2 catheter entering the stomach and going to the small bowel without extravasation. Mild gallbladder distention similar compared to the prior study. Atrophied kidneys with several renal vascular calcifications. Trace abdominal and pelvic ascites. Mild fecal impaction. Status post left hip arthroplasty and pain in the right hip. Bladder is midline. Mild body wall anasarca. IMPRESSION: 1. Interval repositioning/replacement of the patient's gastrostomy tube with the tube in good position. 2. No evidence for contrast extravasation or obstructive change. 3. Mild body wall anasarca. 4. Small bilateral pleural effusions with bibasilar atelectatic change. 5. Atrophic kidneys. 6. Mild fecal impaction. The above report was generated using voice recognition software. It may contain grammatical, syntax or spelling errors. Electronically signed by: Jose F Hutchins M.D. 02/20/2017 5:51 PM Dictated Date/Time: 02/20/2017 5:47 PM
[2017-02-20] MEDS ORDERED: CALCITRIOL 0.25 MCG CAP PO SCH (18:00)
[2017-02-20] MEDS ORDERED: NURSING VERBAL MED ORDER ONE ×2 (18:15→19:00)
--- NOTE | 2017-02-20 21:44 | Progress Note ---
Subjective Date of Service: Feb 20, 2017. Subjective Pt evaluation today including: conversation w/ patient, physical exam, lab review, review of inpatient medication list Pain: chronic pain PO Intake: adequate Voiding: no voiding problems RN raised concerns about J tube, per patient, it was dislodged two weeks ago, balloon deflated re-inserted and inflated balloon, has be working well on exam, there is foul smelling clear and yellow drainage around the tube no signs of cellulitis, no abdominal pain breathing better today, titrated off oxygen for HD today Problem List Medical Problems: (1) Acute head injury Status: Acute (2) Acute on chronic respiratory failure with hypoxia Status: Acute (3) Altered mental status Status: Acute (4) Chronic pain syndrome Status: Chronic (5) Depression with anxiety Status: Chronic (6) Dyslipidemia Status: Chronic (7) End stage renal disease on dialysis Status: Chronic (8) Episode of syncope Status: Acute (9) GERD (gastroesophageal reflux disease) Status: Chronic (10) Hospital acquired PNA Status: Acute (11) HTN (hypertension) Status: Chronic (12) Hypoxia Status: Acute (13) Influenza A Status: Acute (14) Narcotic dependence Status: Chronic (15) Osteoporosis Status: Chronic (16) Pneumonia Status: Acute (17) Right arm pain Status: Acute (18) Right orbital fracture Status: Acute (19) Substernal precordial chest pain Status: Acute Review of Systems Constitutional: + weakness, + fatigue Respiratory: + cough, + dyspnea on exertion All Other Systems: Reviewed and Negative Medications Current Inpatient Medications Medications (Trade) Dose Ordered Sig/Ayaka Route Start Time Stop Time Status Last Admin Dose Admin Sodium Chloride 1,000 ml @ 50 mls/hr Q20H IV 02/18/17 23:30 03/20/17 23:29 02/20/17 12:56 50 MLS/HR Acetaminophen (Tylenol Tab) 650 mg Q4H PRN PO 02/18/17 19:45 03/20/17 19:44 Alprazolam (Xanax Tab) 0.5 mg Q4 PO 02/19/17 00:00 03/21/17 00:00 02/20/17 16:53 0.5 MG Multivitamins (Folbee Plus Cz Tab) 1 tab DAILY PO 02/19/17 09:00 03/21/17 08:59 02/20/17 09:06 1 TAB Calcium Acetate (Phoslo Cap) 1,334 mg QDB PO 02/19/17 07:30 03/21/17 07:59 02/20/17 09:04 1,334 MG Calcium Acetate (Phoslo Cap) 2,001 mg UD PRN PO 02/18/17 19:45 03/20/17 19:44 Calcium Acetate (Phoslo Cap) 2,001 mg BID@1130,1800 PO 02/19/17 11:30 03/21/17 11:29 02/20/17 18:09 2,001 MG Citalopram Hydrobromide (celeXA TAB) 20 mg QAM JT 02/19/17 09:00 03/21/17 08:59 02/20/17 09:05 20 MG Docusate Sodium (coLACE CAP) 100 mg BID PRN PO 02/18/17 19:45 03/20/17 19:44 Hydromorphone HCl (Dilaudid Tab) 8 mg Q4H PRN GT 02/18/17 19:45 03/04/17 19:44 02/20/17 16:53 8 MG Metoprolol Tartrate (Lopressor Tab) 100 mg BID JT 02/18/17 21:00 03/20/17 20:59 02/19/17 20:44 100 MG Mycophenolate Mofetil (Cellcept Susp) 500 mg QAM JT 02/19/17 09:00 03/21/17 08:59 02/20/17 09:06 500 MG Simvastatin (Zocor Tab) 10 mg HS JT 02/18/17 21:00 03/20/17 20:59 02/19/17 20:45 10 MG Tacrolimus (Prograf Cap) 3 mg QPM PO 02/18/17 21:00 03/20/17 20:59 02/19/17 20:44 3 MG Tacrolimus (Prograf Cap) 4 mg QAM PO 02/19/17 09:00 03/21/17 08:59 02/20/17 09:01 4 MG Oseltamivir Phosphate (Tamiflu Susp) 75 mg BID GT 02/18/17 21:00 02/23/17 20:59 02/20/17 09:04 75 MG Ondansetron HCl (Zofran Odt) 8 mg Q6H PRN PO 02/18/17 20:00 03/20/17 19:59 02/20/17 09:03 8 MG Acetaminophen 100 ml @ 400 mls/hr Q8H PRN IV 02/18/17 20:00 03/20/17 19:59 Ipratropium [place] (Atrovent 0.02% 0.5MG/2.5ML Neb) 0.5 mg Q2H PRN INH 02/18/17 22:00 03/20/17 21:59 Levalbuterol (Xopenex 1.25MG/ 0.5ML Neb) 1.25 mg Q2H PRN INH 02/18/17 22:00 03/20/17 21:59 Levofloxacin (Consult) 1 ea UD PRN N/A 02/18/17 23:30 03/20/17 23:29 Calcitriol (Rocaltrol Cap) 1 mcg TuThSa@1800 PO 02/20/17 18:00 03/22/17 17:59 Insulin Aspart (novoLOG ASPART) SLIDING SCALE G... ACHS SC 02/19/17 16:15 03/21/17 16:14 02/20/17 18:15 14 UNITS Heparin Sodium (Porcine) (Heparin 100 Unit/ml 5ml Flush) 5 ml PRN PRN IV 02/20/17 02:30 03/22/17 02:29 Objective Vital Signs Date Time Temp Pulse Resp B/P (MAP) Pulse Ox O2 Delivery O2 Flow Rate FiO2 02/20/17 21:30 73 93/57 02/20/17 21:15 75 89/52 02/20/17 21:00 77 93/52 02/20/17 20:45 77 90/55 02/20/17 20:30 77 90/59 02/20/17 20:15 79 102/66 02/20/17 20:00 83 87/57 02/20/17 19:45 86 90/59 02/20/17 19:30 85 101/61 02/20/17 19:15 85 99/62 02/20/17 19:00 86 116/67 02/20/17 18:55 36.7 84 120/70 (87) 02/20/17 16:00 Room Air 02/20/17 16:00 37.1 77 16 133/70 (91) 94 Room Air 02/20/17 15:52 37.3 80 20 97 1.5 02/20/17 15:37 37.3 80 20 124/63 (83) 97 Room Air 02/20/17 12:13 36.7 68 19 140/70 (93) 96 Nasal Cannula 1.5 02/20/17 12:00 96 Nasal Cannula 1.5 02/20/17 08:00 96 Nasal Cannula 1.5 02/20/17 07:43 36.9 64 20 136/69 (91) 96 Nasal Cannula 1.5 02/20/17 07:29 64 14 96 Nasal Cannula 2.0 02/20/17 04:06 36.9 64 21 137/63 (87) 95 Nasal Cannula 1.5 02/20/17 04:00 Nasal Cannula 2.0 02/20/17 00:00 Nasal Cannula 2.0 02/19/17 23:40 36.8 64 21 142/63 (89) 98 Nasal Cannula 1.5 Physical Exam General Appearance: no apparent distress, + thin Eyes: normal inspection, EOMI, sclerae normal Respiratory/Chest: chest non-tender, lungs clear, normal breath sounds, no respiratory distress, no accessory muscle use Cardiovascular: regular rate, rhythm, no edema, no gallop, no JVD, no murmur Abdomen: normal bowel sounds, non tender, soft, no organomegaly, + pertinent finding (J tube, purulent drainage around tube, no signs of cellulitis at the skin) Extremities: normal range of motion, no pedal edema, no calf tenderness, pelvis stable Neurologic/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, alert, normal mood/affect, oriented x 3, + motor weakness (generalized) Laboratory Results Last 24 Hours Test 02/20/17 04:20 02/20/17 06:14 02/20/17 13:02 02/20/17 16:51 White Blood Count 6.98 K/uL Red Blood Count 3.52 M/uL Hemoglobin 11.0 g/dL Hematocrit 35.1 % Mean Corpuscular Volume 99.7 fL Mean Corpuscular Hemoglobin 31.3 pg Mean Corpuscular Hemoglobin Concent 31.3 g/dl Platelet Count 125 K/uL Mean Platelet Volume 10.9 fL Neutrophils (%) (Auto) 78.4 % Lymphocytes (%) (Auto) 11.6 % Monocytes (%) (Auto) 9.9 % Eosinophils (%) (Auto) 0.0 % Basophils (%) (Auto) 0.0 % Neutrophils # (Auto) 5.47 K/uL Lymphocytes # (Auto) 0.81 K/uL Monocytes # (Auto) 0.69 K/uL Eosinophils # (Auto) 0.00 K/uL Basophils # (Auto) 0.00 K/uL RDW Standard Deviation 47.8 fL RDW Coefficient of Variation 13.3 % Immature Granulocyte % (Auto) 0.1 % Immature Granulocyte # (Auto) 0.01 K/uL Sodium Level 132 mmol/L Potassium Level 4.7 mmol/L Chloride Level 95 mmol/L Carbon Dioxide Level 28 mmol/L Anion Gap 9.0 mmol/L Blood Urea Nitrogen 67 mg/dl Creatinine 5.84 mg/dl Est Creatinine Clear Calc Drug Dose 7.2 ml/min Estimated GFR () 7.9 Estimated GFR (Non- 6.8 BUN/Creatinine Ratio 11.5 Random Glucose 151 mg/dl Calcium Level 8.8 mg/dl Magnesium Level 2.3 mg/dl Bedside Glucose 141 mg/dl 346 mg/dl 339 mg/dl Assessment and Plan 67 yo female with ESRD, s/p renal and pancreatic transplant, chronic pain syndrome - Acute hypoxic respiratory failure secondary to influenza A Tamiflu BID for 5 days total, 3 more days no signs of bacterial pneumonia, stop antibiotics lungs clear, no wheezing, stop Solu medrol today - ESRD, s/p transplant HD today, continue anti-rejection medications - Chronic pain/anxiety continue dilaudid and benzos - DM: hyperglycemia due to Solu Medrol, tighten up coverage will be off Solu Medrol tomorrow - J tube: question of infection whether it was in good position CT with oral contrast only shows tube in good position no extravasation of contrast from bowel transfer to medial floor
[2017-02-20] MEDS: SIMVASTATIN 10 MG TAB JT SCH (23:12)
[2017-02-21] MEDS: ALPRAZOLAM 0.5 MG TAB PO SCH ×3 (04:00→08:54)
[2017-02-21] MEDS ORDERED: HYDROmorphone INJ 2 MG/ML SYR/VIAL IV ONE (05:00)
[2017-02-21 05:41] LABS: HEMATOCRIT 35.2 % (37-47); IG# 0.03 K/uL (0.00-0.02); LYMPH % 10.8 %; LYMPH ABS # 0.88 K/uL (1.2-3.4); MEAN CELL VOLUME 101.1 fL (80-100); MEAN CORPUSCULAR HEMOGLOBIN 31.6 pg (25-34); MEAN CORPUSCULAR HGB CONC 31.3 g/dl (32-36); MEAN PLATELET VOLUME 10.7 fL (7.4-10.4); MONO % 11.4 %; MONO ABS # 0.93 K/uL (0.11-0.59); NEUT % 77.4 %; NEUT ABS # 6.29 K/uL (1.4-6.5); PLATELET COUNT 127 K/uL (130-400); RED CELL DISTRIBUTION WIDTH CV 13.3 % (11.5-14.5); RED CELL DISTRIBUTION WIDTH SD 48.7 fL (36.4-46.3); WHITE BLOOD COUNT 8.13 K/uL (4.8-10.8)
[2017-02-21 06:09] LABS: CALCIUM 8.2 mg/dl (8.5-10.1); CREATININE 3.87 mg/dl (0.60-1.20); POTASSIUM 4.2 mmol/L (3.5-5.1)
[2017-02-21 07:30] VITALS: BP 96/58; PULSE 72; TEMP 36.8; O2SAT 92
[2017-02-21] MEDS: CALCIUM ACETATE 667MG GELCAP PO SCH (08:45)
[2017-02-21] MEDS: CITALOPRAM 20 MG TAB JT SCH (08:46)
[2017-02-21] MEDS: METOPROLOL TARTRATE 100 MG TAB JT SCH (08:46)
[2017-02-21] MEDS: TACROLIMUS 1 MG CAP PO SCH (08:46)
[2017-02-21] MEDS: FOLBEE PLUS CZ (DIATX) 1 TAB PO SCH (08:46)
[2017-02-21] MEDS: MYCOPHENOLATE SUSP 200 MG/1 ML JT SCH (08:47)
[2017-02-21] MEDS: INSULIN ASPART 100 UNITS/ML 3 ML PEN SC SCH (08:54)
[2017-02-21] MEDS: OSELTAMIVIR PHOSPHATE SUSP 75 MG/12.5 ML UDP GT SCH (08:54)
[2017-02-21] MEDS: HYDROmorphone HCL 2 MG TAB GT PRN (09:45)
[2017-02-21] MEDS: SODIUM CHLORIDE 0.9% 1000ML 1,000 ML IV SCH (10:02)
[2017-02-21] MEDS ORDERED: TMFUDL75 GT (10:51)
--- NOTE | 2017-02-21 10:58 | Discharge Instructions ---
Discharge Instructions Date of Service Feb 21, 2017. Admission Reason for Admission: Acute On Chronic Respiratory Failure W Hypoxia due to Influenza A Discharge Discharge Diagnosis / Problem: Influenza A Discharge Goals Goal(s): Improve function, Improve disease control Activity Recommendations Activity Limitations: resume your previous activity . Instructions / Follow-Up Instructions / Follow-Up Medications: - TAMIFLU: only 2 more doses needed to complete 5 days worth, 30mg (5mL) daily, take after HD on HD days - DIFLUCAN: 100mg via PEG on dialysis days after HD, take 4 doses Acute on chronic hypoxia due to influenza A: already improving no signs of bacterial pneumonia, no wheezing on exam stable on room air for two days J tube: concerns raised by nursing about placement of tube, drainage around the tube on exam there is no sign of cellulitis at the insertion site CT abdomen/pelvis with oral contrast showed tube in correct position skin culture growing jolly albicans, will treat with Diflucan FOLLOW UP - Dr. Hollis as previously scheduled - would recommend following up with [facility] for positioning of J tube, may be time for a new tube Current Hospital Diet Patient's current hospital diet: AHA Diet (Heart Healthy), Renal Diet, Diabetes Type 2 Diet Discharge Diet Recommended Diet: Diabetes Type 2 Diet, Renal Diet Pending Studies Studies pending at discharge: no Medical Emergencies . Who to Call and When: Medical Emergencies: If at any time you feel your situation is an emergency, please call 911 immediately. . Non-Emergent Contact Non-Emergency issues call your: Primary Care Provider Call Non-Emergent contact if: you have any medication questions . . "Provider Documentation" section prepared by Shorty Otoole. . VTE Core Measure Inpt VTE Proph given/why not?: SCD's [place] Drug Monitoring Program Search Results: no issues identified
[2017-02-21] MEDS ORDERED: FLUC100T PO (10:59)
[2017-02-21 11:15] VITALS: BP 96/58; PULSE 72; TEMP 36.8; O2SAT 92
--- NOTE | 2017-02-21 11:31 | Nephrology Progress Note ---
Nephrology Progress Note Date of Service Feb 21, 2017. Chief Complaint Follow-up for end-stage renal disease on hemodialysis. Tylor Culp was seen examined in her room this morning with her family at bedside. She is feeling better, denies any shortness of breath or chest pain. Blood pressure remained stable. Had dialysis yesterday with 2.5 liter UF, currently blood pressure, electrolyte and volume status acceptable. No episode of fever, chills or any overnight events. Review of Systems A complete review of systems was performed. Pertinent positives are noted above. All other systems are negative. Vital Signs Last 8 Hrs Date Time Temp Pulse Resp B/P (MAP) Pulse Ox O2 Delivery O2 Flow Rate FiO2 02/21/17 07:30 36.8 72 15 96/58 (71) 92 Room Air Last Recorded Weight Weight (Kilograms): 52.700 Physical Exam GENERAL: Elderly female , AAA x 3, pleasant, not in any distress. NECK: Supple, no JVD. RESPIRATORY: Normal breathing efforts, no accessory muscle use, clear to auscultation bilaterally, no wheezes or rales. CARDIOVASCULAR: S1, S2 normal, rate rhythm regular. EXTREMITY: No lower extremity edema NEURO: speech fluent. PSYCHIATRY: Normal mood and judgment Family History Cancer Heart disease Social History Smoking Status: Never smoker Smokeless Tobacco Use: No Alcohol Use: none Drug Use: none Marital Status: Housing Status: lives with significant other Occupation: retired Laboratory Results Past 24 Hours 02/21/17 05:30 Red Blood Count 3.48, Mean Corpuscular Volume 101.1, Mean Corpuscular Hemoglobin 31.6, Mean Corpuscular Hemoglobin Concent 31.3, Mean Platelet Volume 10.7, Neutrophils (%) (Auto) 77.4, Lymphocytes (%) (Auto) 10.8, Monocytes (%) ( Auto) 11.4, Eosinophils (%) (Auto) 0.0, Basophils (%) (Auto) 0.0, Neutrophils # (Auto) 6.29, Lymphocytes # (Auto) 0.88, Monocytes # (Auto) 0.93, Eosinophils # ( Auto) 0.00, Basophils # (Auto) 0.00 02/21/17 05:30 Test 02/20/17 13:02 02/20/17 16:51 02/20/17 23:03 02/21/17 05:30 Bedside Glucose 346 mg/dl (70-90) 339 mg/dl (70-90) 156 mg/dl (70-90) White Blood Count 8.13 K/uL (4.8-10.8) Red Blood Count 3.48 M/uL (4.2-5.4) Hemoglobin 11.0 g/dL (12.0-16.0) Hematocrit 35.2 % (37-47) Mean Corpuscular Volume 101.1 fL (80-100) Mean Corpuscular Hemoglobin 31.6 pg (25-34) Mean Corpuscular Hemoglobin Concent 31.3 g/dl (32-36) Platelet Count 127 K/uL (130-400) Mean Platelet Volume 10.7 fL (7.4-10.4) Neutrophils (%) (Auto) 77.4 % Lymphocytes (%) (Auto) 10.8 % Monocytes (%) (Auto) 11.4 % Eosinophils (%) (Auto) 0.0 % Basophils (%) (Auto) 0.0 % Neutrophils # (Auto) 6.29 K/uL (1.4-6.5) Lymphocytes # (Auto) 0.88 K/uL (1.2-3.4) Monocytes # (Auto) 0.93 K/uL (0.11-0.59) Eosinophils # (Auto) 0.00 K/uL (0-0.5) Basophils # (Auto) 0.00 K/uL (0-0.2) RDW Standard Deviation 48.7 fL (36.4-46.3) RDW Coefficient of Variation 13.3 % (11.5-14.5) Immature Granulocyte % (Auto) 0.4 % Immature Granulocyte # (Auto) 0.03 K/uL (0.00-0.02) Anion Gap 6.0 mmol/L (3-11) Est Creatinine Clear Calc Drug Dose 11.3 ml/min Estimated GFR () 13.0 Estimated GFR (Non- 11.2 BUN/Creatinine Ratio 9.7 (10-20) Calcium Level 8.2 mg/dl (8.5-10.1) Magnesium Level 2.3 mg/dl (1.8-2.4) Test 02/21/17 08:04 Bedside Glucose 216 mg/dl (70-90) Allergies Coded Allergies: Penicillins (Verified Allergy, Intermediate, RASH, 08/05/16) Erythromycin (Verified Allergy, Mild, RASH, 08/05/16) Acetaminophen (Unverified Allergy, Unknown, ., 08/05/16) Surgical Lubricant (Verified Allergy, Unknown, ITCHY, 08/05/16) Carbamazepine (Verified Adverse Reaction, Severe, TOXIC BLOOD POISONING, ) TOXIC BLOOD POISONING Metoclopramide (Verified Adverse Reaction, Severe, SEIZURES, 08/05/16) SEIZURES Corticosteroids (Verified Adverse Reaction, Intermediate, NAUSEA, 08/05/16) PATIENT STATES ON ALLERGY SHEET "ABSOLUTELY NONE" Dicyclomine (Verified Adverse Reaction, Intermediate, HALLUCINATIONS, 08/05) HALLUCINATIONS Ketorolac (Verified Adverse Reaction, Intermediate, NAUSEATED, 08/05/16) Pregabalin (Verified Adverse Reaction, Intermediate, CONFUSION, 08/05/16) Quinolones (Verified Adverse Reaction, Intermediate, LEVAQUIN-NAUSEA, CHRONIC HEARTBURN, 08/05/16) levaquin =NAUSEA, CHRONIC HEARTBURN. PT SAID SHE WILL NOT TAKE 12/06/08 Azithromycin (Verified Adverse Reaction, Mild, n&v, 08/05/16) Cephalexin (Verified Adverse Reaction, Mild, NAUSEA, 08/05/16) Cephalosporins (Verified Adverse Reaction, Mild, KEFLEX = NAUSEA, 08/05/16) Codeine (Verified Adverse Reaction, Mild, NAUSEA, 08/05/16) Gabapentin (Verified Adverse Reaction, Mild, NAUSEA, 08/05/16) NAUSEA Levofloxacin (Verified Adverse Reaction, Mild, NAUSEA, 08/05/16) Naproxen (Verified Adverse Reaction, Mild, NAUSEA, 08/05/16) Nitrofurantoin (Verified Adverse Reaction, Mild, NAUSEA, 08/05/16) Oxycodone (Verified Adverse Reaction, Mild, PRC/TYLOX = NAUSEA, 08/05/16) NAUSEA Phenobarbital (Verified Adverse Reaction, Mild, NAUSEA, 08/05/16) Prednisolone (Verified Adverse Reaction, Mild, IRRITATION, 08/05/16) Promethazine (Verified Adverse Reaction, Mild, DIARRHEA, 08/05/16) Sertraline (Verified Adverse Reaction, Mild, NAUSEA, 08/05/16) Adhesives (Verified Adverse Reaction, Unknown, UNKNOWN, 08/05/16) Mirtazapine (Verified Adverse Reaction, Unknown, HEARS VOICES, 08/05/16) Propoxyphene (Verified Adverse Reaction, Unknown, NAUSEA, 08/05/16) NAUSEA Tramadol (Verified Adverse Reaction, Unknown, DEPRESSION, 08/05/16) DEPRESSION Medications Current Inpatient Medications Medications (Trade) Dose Ordered Sig/Ayaka Route Start Time Stop Time Status Last Admin Dose Admin Sodium Chloride 1,000 ml @ 50 mls/hr Q20H IV 02/18/17 23:30 03/20/17 23:29 02/20/17 12:56 50 MLS/HR Acetaminophen (Tylenol Tab) 650 mg Q4H PRN PO 02/18/17 19:45 03/20/17 19:44 Alprazolam (Xanax Tab) 0.5 mg Q4 PO 02/19/17 00:00 03/21/17 00:00 02/21/17 08:54 0.5 MG Multivitamins (Folbee Plus Cz Tab) 1 tab DAILY PO 02/19/17 09:00 03/21/17 08:59 02/21/17 08:46 1 TAB Calcium Acetate (Phoslo Cap) 1,334 mg QDB PO 02/19/17 07:30 03/21/17 07:59 02/21/17 08:45 1,334 MG Calcium Acetate (Phoslo Cap) 2,001 mg UD PRN PO 02/18/17 19:45 03/20/17 19:44 Calcium Acetate (Phoslo Cap) 2,001 mg BID@1130,1800 PO 02/19/17 11:30 03/21/17 11:29 02/20/17 18:09 2,001 MG Citalopram Hydrobromide (celeXA TAB) 20 mg QAM JT 02/19/17 09:00 03/21/17 08:59 02/21/17 08:46 20 MG Docusate Sodium (coLACE CAP) 100 mg BID PRN PO 02/18/17 19:45 03/20/17 19:44 Hydromorphone HCl (Dilaudid Tab) 8 mg Q4H PRN GT 02/18/17 19:45 03/04/17 19:44 02/20/17 23:13 8 MG Metoprolol Tartrate (Lopressor Tab) 100 mg BID JT 02/18/17 21:00 03/20/17 20:59 1/13/18 23:15 100 MG Mycophenolate Mofetil (Cellcept Susp) 500 mg QAM JT 02/19/17 09:00 03/21/17 08:59 02/21/17 08:47 500 MG Simvastatin (Zocor Tab) 10 mg HS JT 02/18/17 21:00 03/20/17 20:59 02/20/17 23:12 10 MG Tacrolimus (Prograf Cap) 3 mg QPM PO 02/18/17 21:00 03/20/17 20:59 02/20/17 23:14 3 MG Tacrolimus (Prograf Cap) 4 mg QAM PO 02/19/17 09:00 03/21/17 08:59 02/21/17 08:46 4 MG Oseltamivir Phosphate (Tamiflu Susp) 75 mg BID GT 02/18/17 21:00 02/23/17 20:59 02/21/17 08:54 75 MG Ondansetron HCl (Zofran Odt) 8 mg Q6H PRN PO 02/18/17 20:00 03/20/17 19:59 02/20/17 09:03 8 MG Acetaminophen 100 ml @ 400 mls/hr Q8H PRN IV 02/18/17 20:00 03/20/17 19:59 Ipratropium [place] (Atrovent 0.02% 0.5MG/2.5ML Neb) 0.5 mg Q2H PRN INH 02/18/17 22:00 03/20/17 21:59 Levalbuterol (Xopenex 1.25MG/ 0.5ML Neb) 1.25 mg Q2H PRN INH 02/18/17 22:00 03/20/17 21:59 Levofloxacin (Consult) 1 ea UD PRN N/A 02/18/17 23:30 03/20/17 23:29 Calcitriol (Rocaltrol Cap) 1 mcg TuThSa@1800 PO 02/20/17 18:00 03/22/17 17:59 02/20/17 23:12 1 MCG Insulin Aspart (novoLOG ASPART) SLIDING SCALE G... ACHS SC 02/19/17 16:15 03/21/17 16:14 02/21/17 08:54 8 UNITS Heparin Sodium (Porcine) (Heparin 100 Unit/ml 5ml Flush) 5 ml PRN PRN IV 02/20/17 02:30 03/22/17 02:29 Impression (1) End stage kidney disease (2) Ambulatory dysfunction (3) Immunosuppression (4) Secondary hyperparathyroidism of renal origin (5) Influenza A (6) Diabetes (7) Anemia Suni is a 67-year-old female with end-stage renal disease on hemodialysis Wednesday via left Brachiocephalic AV fistula. The she was admitted yesterday shortness of breath, cough, change in mental status. On admission CT head was negative. Chest x-ray was concerning for mild pulmonary condition. She was found to have influenza a positive and started on Tamiflu. Clinically started to improve. Blood pressure volume status electrolyte acceptable. She is due for dialysis today. Recommendations --had hemodialysis as her regular schedule, had 2.5 liters UF, tolerated procedure well, currently clinically stable with stable vital sign, acceptable electrolyte and volume status. --avoid IV fluid, dose medications for GFR less than 10, continue on renal diet. --continue phosphate binder, Sensipar and Nephrocaps --Epogen with dialysis for hemoglobin less than 10 --next dialysis Wednesday, can be done at outpatient unit if discharge planned. Will follow while inpatient
--- NOTE | 2017-02-24 16:41 | Discharge Summary ---
Discharge Summary Date of Service Feb 21, 2017. Discharge Summary Admission Date: Feb 18, 2017 at 19:39 Discharge Date: Feb 21, 2017 Discharge Disposition: Home Principal Diagnosis: Acute hypoxic respiratory failure Problems/Secondary Diagnoses: Influenza A infection Erica albicans skin infection ESRD on HD s/p pancreas transplant Narcotic dependence Immunizations: Have You Had Influenza Vaccine: Yes Influenza Vaccine Date: Nov 20, 2011 History of Tetanus Vaccine?: Yes Tetanus Immunization Date: June 21, 2004 History of Pneumococcal: Yes Pneumococcal Date: June 20, 1999 History of Hepatitis B Vaccine: Yes Hepatitis Immunization Date: Apr 10, 2003 Procedures: Hemodialysis Consultations: Nephrology, Dr. Hollis Medication Reconciliation New Medications: Fluconazole (Diflucan) 100 Mg Tab 100 MG PO DAILY, #4 TAB take only on hemodialysis days, after dialysis Oseltamivir Phosphate (Tamiflu) 6 Mg/Ml Adela 5 ML GT DAILY for 2 Days, #10 ML 0 Refills Continued Medications: Alprazolam (Alprazolam) 0.5 Mg Tab 0.5 MG PO Q4 B-Complex W/ L-Ieeftr-Opstulrv (Folbee Plus Cz) 1 Tab Tab 1 TAB JT DAILY Calcium Acetate (Phoslo 667 Mg) 667 Mg Cap 2 CAP PO BREAKFAST Calcium Acetate (Phoslo 667 Mg) 667 Mg Cap 3 CAP PO UD WITH LUNCH AND DINNER Calcium Acetate (Phoslo 667 Mg) 667 Mg Cap 3 CAP PO SNACKS Cinecalcet (Sensipar) 60 Mg Tab 30 MG JT BID Citalopram Hydrobromide (Celexa) 20 Mg Tab 20 MG JT QAM, TAB Docusate Sodium (Colace) 100 Mg Cap 100 MG PO BID PRN for Constipation Furosemide (Lasix) 80 Mg Tab 80 MG JT BID Hydromorphone Hcl (Dilaudid) 4 Mg Tab 8 MG PO Q4H PRN for Pain, TAB Metoprolol Tartrate (Lopressor) (Lopressor) 100 Mg Tab 100 MG JT BID Mycophenolate Mofetil (Cellcept) 200 Mg/Ml Adela 500 MG JT QAM Ranitidine (Zantac) 300 Mg Tab 300 MG JT BID, TAB Simvastatin (Zocor) 10 Mg Tab 10 MG JT HS Tacrolimus (Prograf) 1 Mg Cap 3 MG PO QPM, CAP Tacrolimus (Prograf) 1 Mg Cap 4 MG PO QAM, CAP Trimethoprim/Sulfamethoxazole (Bactrim 400MG/80MG) Tab 1 TAB PO 3XWK, TAB TAKES MON, WED & FRI. CRUSH & DISSOLVE IN WATER. Discharge Exam Patient feeling much better on the day of discharge. Breathing comfortably on room air. Discussed why the CT was performed the day before, to assess placement of J tube. CT confirmed that J tube was in appropriate position. Discussed that the skin cultures around the tube had grown Erica albicans. Would treat with Diflucan, she agreed. Discussed plan to finish course of Tamiflu for the influenza infection. Of note , her breathing was very close to baseline, no cough, lungs clear and she had not had a fever. Review of Systems: Constitutional: No fever, No chills, No sweats, No weight loss, No weakness , No fatigue, No problem reported Eyes: No worsening of vision, No eye pain, No redness, No discharge, No diplopia, No problem reported ENT: No hearing loss, No unusual epistaxis, No nasal symptoms, No sore throat, No tinnitus, No dental problems, No trouble swallowing, No problem reported Respiratory: + dyspnea on exertion, No cough, No sputum, No wheezing, No shortness of breath, No dyspnea at rest, No hemoptysis, No problem reported Cardiovascular: No chest pain, No orthopnea, No PND, No edema, No claudication, No palpitations, No problem reported Abdomen: No pain, No nausea, No vomiting, No diarrhea, No constipation, No GI bleeding, No problem reported Musculoskeletal: + joint pain (chronic), No muscle pain, No swelling, No calf pain, No problem reported Genitourinary - Female: No dysuria, No urinary frequency, No urinary urgency , No urinary incontinence, No urinary retention, No hematuria Neurologic: No memory loss, No paralysis, No weakness, No numbness/tingling , No vertigo, No balance problems, No problem reported Psychiatric: No depression symptoms, No anhedonism, No anxiety, No insomnia , No substance abuse, No problem reported Integumentary: + problem reported (purulent drainage around her J tube), No rash, No itch, No new/changing skin lesions, No color change, No bleeding Physical Exam: General Appearance: no apparent distress, + thin Eyes: normal inspection, EOMI, sclerae normal ENT: normal ENT inspection, hearing grossly normal, pharynx normal Neck: supple, no adenopathy, no JVD, trachea midline Respiratory/Chest: chest non-tender, lungs clear, normal breath sounds, no respiratory distress, no accessory muscle use Cardiovascular: regular rate, rhythm, no edema, no gallop, no JVD, no murmur , normal peripheral pulses Abdomen / GI: normal bowel sounds, non tender, soft, no organomegaly Extremities: normal inspection, no calf tenderness, normal capillary refill , no pedal edema, normal range of motion Neurologic/Psychiatric: bath house 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 II-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 nml as tested, no motor/sensory deficits , alert, normal mood/affect, normal reflexes, oriented x 3 Skin: + pertinent finding (purulent yellow drainage around J tube opening) Hospital Course 67 yo female with ESRD, s/p renal and pancreatic transplant, chronic pain syndrome - Acute hypoxic respiratory failure secondary to influenza A Tamiflu BID for 5 days total, 2 more days after discharge no signs of bacterial pneumonia, stop antibiotics lungs clear, no wheezing, stopped Solu medrol day prior to discharged titrated off of oxygen, no fever, normal WBC - ESRD, s/p transplant HD 02/20, continue anti-rejection medications - Chronic pain/anxiety continue dilaudid and benzos - DM: hyperglycemia due to Solu Medrol, tighten up coverage will be off Solu Medrol tomorrow - J tube: question of infection whether it was in good position CT with oral contrast only shows tube in good position no extravasation of contrast from bowel culture from drainage grew Erica albicans, will treat with Diflucan for one week requested that the patient call for appointment with [facility] to see about getting J tube replaced d/c to home on 02/21, follow up with Dr. Hollis Total Time Spent: Greater than 30 minutes This includes examination of the patient, discharge planning, medication reconciliation, and communication with other providers. Discharge Instructions Please refer to the electronic Patient Visit Report (Discharge Instructions) for additional information. Follow-Up Dr. Hollis in one week Additional Copies To Pedro Pablo Hollis M.D.
== END 2017-02-21 12:10 | disposition home or self-care (01) | DRG 193 ==
LOC: EDBD 16:30 → C.EDB 16:34 → C.2T 19:39 → EDBEDREQ 19:43 → ENRESERV 21:54 → C.MSW 02-20 15:53
PROVIDERS: ADMIT Hospitalist; ATTEND Internal Medicine
DX: J10.1 Influenza due to other identified influenza virus with other respiratory manifestations (principal); J96.01 Acute respiratory failure with hypoxia; N18.6 End stage renal disease; I12.0 Hypertensive chronic kidney disease with stage 5 chronic kidney disease or end stage renal disease; Z94.83 Pancreas transplant status; K21.9 Gastro-esophageal reflux disease without esophagitis; E78.5 Hyperlipidemia, unspecified; E10.22 Type 1 diabetes mellitus with diabetic chronic kidney disease; E10.43 Type 1 diabetes mellitus with diabetic autonomic (poly)neuropathy; F41.9 Anxiety disorder, unspecified; G89.29 Other chronic pain; E10.65 Type 1 diabetes mellitus with hyperglycemia; T49.0X5A Adverse effect of local antifungal, anti-infective and anti-inflammatory drugs, initial encounter; Z79.4 Long term (current) use of insulin; Z79.899 Other long term (current) drug therapy; Z88.0 Allergy status to penicillin; Z88.1 Allergy status to other antibiotic agents; Z99.2 Dependence on renal dialysis; Z99.3 Dependence on wheelchair; Z99.81 Dependence on supplemental oxygen

== ENCOUNTER 2017-02-25 06:25 | Emergency (ER) | payer BC, OTHER ==
[~2017-02-25] VITALS: Ht 165.1 cm; Wt 57.2 kg
[~2017-02-25 06:25] MED LIST changes: -B COCAP3; +B-COTAB81 JT; +FLUC100T PO; -LVQ500 PO; +TMFUDL75 GT
[2017-02-25 06:30] VITALS: TEMP 36.5; Ht 165.1 cm; Wt 57.2 kg
--- NOTE | 2017-02-25 06:44 | EMERGENCY ROOM VISIT NOTE ---
History Report prepared by Diane: Ashley Campos Under the Supervision of: Dr. Micaela Parish M.D. First contact with patient: 06:40 Chief Complaint: WEAKNESS Stated Complaint: GENERALIZED WEAKNESS History of Present Illness The patient is a 67 year old female who presents to the Emergency Room with complaints of generalized weakness beginning this morning. The patient was discharged from the ED 4 days ago for the flu, and was supposed to have dialysis 2 days ago, but the patient states that she missed it. She reports that she does not make urine. She states that she had a hard, dry bowel movement while she was in the hospital, and then reports having diarrhea after she was discharged. She denies having blood in her stool. The patient denies falling or hitting her head in the last 4 days. She also reports having a cough. The patient reports that she lives with her who is ill. Per her family, the patient has not gotten better since she was discharged from the hospital. Her family states that the patient has had uncontrolled diarrhea and fluctuating oxygen levels. Her family states that the patient was on antibiotics in the hospital and reports that the patient has had c. diff. before. Per family, the patient has had worsening weakness and states that sometimes she is unable to stand on her own. Her family states that the patient has been eating. The patient was on Levaquin and Vancomycin while in the hospital. Source of History: patient, family Onset: this morning Position: other (global) Quality: other (weakness ) Timing: worsening Associated Symptoms: + cough, + diarrhea (uncontrolled) Review of Systems See HPI for pertinent positives & negatives. A total of 10 systems reviewed and were otherwise negative. Past Medical & Surgical Medical Problems: (1) Acute anterior epistaxis (2) Anemia (3) Anxiety (4) Chest wall pain (5) Chronic pain syndrome (6) Delirium due to another medical condition (7) Depression (8) Depression with anxiety (9) Diabetes (10) Diabetes mellitus type 1 (11) Drop foot gait (12) Dyslipidemia (13) End stage kidney disease (14) End stage renal disease on dialysis (15) ESRD (end stage renal disease) on dialysis (16) Fall (17) Gastroparesis (18) GERD (gastroesophageal reflux disease) (19) HTN (hypertension) (20) Immunosuppression (21) Intractable back pain (22) Jejunostomy tube present (23) Narcotic dependence (24) Orbital floor fracture (25) Osteoporosis (26) Port-a-cath in place (27) Scoliosis (28) Secondary hyperparathyroidism of renal origin (29) Syncope (30) UTI (urinary tract infection) Surgical Problems: (1) H/O pancreas transplant (2) H/O total hip arthroplasty (3) Pancreas replaced by transplant (4) Pancreas transplant status Family History Cancer Heart disease Social History Smoking Status: Former Smoker Alcohol Use: none Drug Use: none Marital Status: Housing Status: lives with significant other Occupation Status: retired Current/Historical Medications Scheduled Alprazolam (Alprazolam), 0.5 MG PO Q4 B-Complex W/ B-Lagpyu-Knwxnwed (Folbee Plus Cz), 1 TAB JT DAILY Calcium Acetate (Phoslo 667 Mg), 2 CAP PO BREAKFAST Calcium Acetate (Phoslo 667 Mg), 3 CAP PO UD Calcium Acetate (Phoslo 667 Mg), 3 CAP PO SNACKS Cinecalcet (Sensipar), 30 MG JT BID Citalopram Hydrobromide (Celexa), 20 MG JT QAM Fluconazole (Diflucan), 100 MG PO DAILY Furosemide (Lasix), 80 MG JT BID Metoprolol Tartrate (Lopressor) (Lopressor), 100 MG JT BID Mycophenolate Mofetil (Cellcept), 500 MG JT QAM Oseltamivir Phosphate (Tamiflu), 5 ML GT DAILY Ranitidine (Zantac), 300 MG JT BID Simvastatin (Zocor), 10 MG JT HS Tacrolimus (Prograf), 3 MG PO QPM Tacrolimus (Prograf), 4 MG PO QAM Trimethoprim/Sulfamethoxazole (Bactrim 400MG/80MG), 1 TAB PO 3XWK Scheduled PRN Docusate Sodium (Colace), 100 MG PO BID PRN for Constipation Hydromorphone Hcl (Dilaudid), 8 MG PO Q4H PRN for Pain Allergies Coded Allergies: Penicillins (Verified Allergy, Intermediate, RASH, 02/25/17) Erythromycin (Verified Allergy, Mild, RASH, 02/25/17) Acetaminophen (Unverified Allergy, Unknown, ., 02/25/17) Surgical Lubricant (Verified Allergy, Unknown, ITCHY, 02/25/17) Carbamazepine (Verified Adverse Reaction, Severe, TOXIC BLOOD POISONING, ) TOXIC BLOOD POISONING Metoclopramide (Verified Adverse Reaction, Severe, SEIZURES, 02/25/17) SEIZURES Corticosteroids (Verified Adverse Reaction, Intermediate, NAUSEA, 02/25/17) PATIENT STATES ON ALLERGY SHEET "ABSOLUTELY NONE" Dicyclomine (Verified Adverse Reaction, Intermediate, HALLUCINATIONS, 02/25) HALLUCINATIONS Ketorolac (Verified Adverse Reaction, Intermediate, NAUSEATED, 02/25/17) Pregabalin (Verified Adverse Reaction, Intermediate, CONFUSION, 02/25/17) Quinolones (Verified Adverse Reaction, Intermediate, LEVAQUIN-NAUSEA, CHRONIC HEARTBURN, 02/25/17) levaquin =NAUSEA, CHRONIC HEARTBURN. PT SAID SHE WILL NOT TAKE 12/06/08 Azithromycin (Verified Adverse Reaction, Mild, n&v, 02/25/17) Cephalexin (Verified Adverse Reaction, Mild, NAUSEA, 02/25/17) Cephalosporins (Verified Adverse Reaction, Mild, KEFLEX = NAUSEA, 02/25/17) Codeine (Verified Adverse Reaction, Mild, NAUSEA, 02/25/17) Gabapentin (Verified Adverse Reaction, Mild, NAUSEA, 02/25/17) NAUSEA Levofloxacin (Verified Adverse Reaction, Mild, NAUSEA, 02/25/17) Naproxen (Verified Adverse Reaction, Mild, NAUSEA, 02/25/17) Nitrofurantoin (Verified Adverse Reaction, Mild, NAUSEA, 02/25/17) Oxycodone (Verified Adverse Reaction, Mild, PRC/TYLOX = NAUSEA, 02/25/17) NAUSEA Phenobarbital (Verified Adverse Reaction, Mild, NAUSEA, 02/25/17) Prednisolone (Verified Adverse Reaction, Mild, IRRITATION, 02/25/17) Promethazine (Verified Adverse Reaction, Mild, DIARRHEA, 02/25/17) Sertraline (Verified Adverse Reaction, Mild, NAUSEA, 02/25/17) Adhesives (Verified Adverse Reaction, Unknown, UNKNOWN, 02/25/17) Mirtazapine (Verified Adverse Reaction, Unknown, HEARS VOICES, 02/25/17) Propoxyphene (Verified Adverse Reaction, Unknown, NAUSEA, 02/25/17) NAUSEA Tramadol (Verified Adverse Reaction, Unknown, DEPRESSION, 02/25/17) DEPRESSION Physical Exam Vital Signs Date Time Temp Pulse Resp B/P (MAP) Pulse Ox O2 Delivery O2 Flow Rate FiO2 02/25/17 10:51 63 18 118/49 95 02/25/17 08:51 62 16 124/67 94 Nasal Cannula 1.5 02/25/17 08:14 75 16 95 Room Air 1.5 02/25/17 07:07 64 18 135/77 92 Nasal Cannula 1.5 02/25/17 06:47 98 Nasal Cannula 1.5 02/25/17 06:34 64 02/25/17 06:31 92 Nasal Cannula 1.5 02/25/17 06:30 36.5 65 18 127/73 88 Room Air Physical Exam Vital signs reviewed. General: Chronically ill-appearing female, cachectic, feeding tube to the left abdomen. HEENT: No scleral icterus, PERRLA, neck supple. Atraumatic. Cardiovascular: Regular rate and rhythm, no extra sounds. Pulmonary: Crackles bilaterally, normal work of breathing. On nasal cannula oxygen. Abdomen: Soft, nontender, nondistended, positive bowel sounds. Musculoskeletal: Atraumatic, no peripheral edema. Neurologic: Patient awake alert and oriented x 3 Skin: Warm, dry, no rash Medical Decision & Procedures ER Provider Diagnostic Interpretation: Radiology results as stated below per my review and radiologist interpretation: CHEST ONE VIEW PORTABLE CLINICAL HISTORY: AMS, lethargy, missed dialysis dyspnea COMPARISON STUDY: 02/18/2017 FINDINGS: Moderate stable cardiomegaly. Infiltrative process left lung base. Prominent pulmonary vasculature. Potential developing right perihilar infiltrate. IMPRESSION: 1. Mild congestive failure. 2. Superimposed infiltrates left base and right perihilar region The above report was generated using voice recognition software. It may contain grammatical, syntax or spelling errors. Electronically signed by: Jose F Hutchins M.D. 02/25/2017 7:10 AM Dictated Date/Time: 02/25/2017 7:10 AM Laboratory Results 02/25/17 07:16 Red Blood Count 3.51, Mean Corpuscular Volume 101.1, Mean Corpuscular Hemoglobin 31.3, Mean Corpuscular Hemoglobin Concent 31.0, Mean Platelet Volume 10.9, Neutrophils (%) (Auto) 74.4, Lymphocytes (%) (Auto) 13.1, Monocytes (%) ( Auto) 9.7, Eosinophils (%) (Auto) 2.4, Basophils (%) (Auto) 0.2, Neutrophils # ( Auto) 4.94, Lymphocytes # (Auto) 0.87, Monocytes # (Auto) 0.64, Eosinophils # ( Auto) 0.16, Basophils # (Auto) 0.01 02/25/17 07:16 Test 02/25/17 07:16 02/25/17 07:22 White Blood Count 6.63 K/uL (4.8-10.8) Red Blood Count 3.51 M/uL (4.2-5.4) Hemoglobin 11.0 g/dL (12.0-16.0) Hematocrit 35.5 % (37-47) Mean Corpuscular Volume 101.1 fL (80-100) Mean Corpuscular Hemoglobin 31.3 pg (25-34) Mean Corpuscular Hemoglobin Concent 31.0 g/dl (32-36) Platelet Count 127 K/uL (130-400) Mean Platelet Volume 10.9 fL (7.4-10.4) Neutrophils (%) (Auto) 74.4 % Lymphocytes (%) (Auto) 13.1 % Monocytes (%) (Auto) 9.7 % Eosinophils (%) (Auto) 2.4 % Basophils (%) (Auto) 0.2 % Neutrophils # (Auto) 4.94 K/uL (1.4-6.5) Lymphocytes # (Auto) 0.87 K/uL (1.2-3.4) Monocytes # (Auto) 0.64 K/uL (0.11-0.59) Eosinophils # (Auto) 0.16 K/uL (0-0.5) Basophils # (Auto) 0.01 K/uL (0-0.2) RDW Standard Deviation 48.7 fL (36.4-46.3) RDW Coefficient of Variation 13.3 % (11.5-14.5) Immature Granulocyte % (Auto) 0.2 % Immature Granulocyte # (Auto) 0.01 K/uL (0.00-0.02) Est Creatinine Clear Calc Drug Dose 5.5 ml/min Estimated GFR () 4.9 Estimated GFR (Non- 4.2 BUN/Creatinine Ratio 9.7 (10-20) Calcium Level 9.7 mg/dl (8.5-10.1) Magnesium Level 2.9 mg/dl (1.8-2.4) Total Bilirubin 0.5 mg/dl (0.2-1) Direct Bilirubin 0.2 mg/dl (0-0.2) Aspartate Amino Transf (AST/SGOT) 11 U/L (15-37) Alanine Aminotransferase (ALT/SGPT) 14 U/L (12-78) Alkaline Phosphatase 165 U/L (45-117) Total Creatine Kinase 29 U/L (26-192) Creatine Kinase MB 1.6 ng/ml (0.5-3.6) Creatine Kinase MB Ratio 5.5 (0-3.0) Total Protein 6.6 gm/dl (6.4-8.2) Albumin 3.1 gm/dl (3.4-5.0) Thyroid Stimulating Hormone (TSH) 0.969 uIu/ml (0.300-4.500) Bedside Hemoglobin 10.9 g/dl (12.0-16.0) Bedside Hematocrit 32 % (37-47) Bedside Sodium 140 mEq/L (135-144) Bedside Potassium 5.0 mEq/L (3.3-5.0) Bedside Chloride 106 mEq/L (101-112) Bedside Total CO2 25 mEq/l (24-31) Anion Gap 14.0 mmol/L (16-25) Bedside Blood Urea Nitrogen 88 mg/dl (7-18) Bedside Creatinine 9.5 mg/dl (0.6-1.3) Bedside Glucose (other) 145 mg/dl (70-99) Bedside Ionized Calcium (Demarco) 1.28 mmol/l (1.12-1.32) Bedside Troponin I < 0.030 ng/ml (0-0.045) Laboratory results per my review. Medications Administered Medications (Trade) Dose Ordered Sig/Ayaka Route Start Time Stop Time Status Last Admin Dose Admin Heparin Sodium (Porcine) (Heparin 10 Unit/ ml 5 ml Flush) 5 ml STK-MED ONCE .ROUTE 02/25/17 09:58 02/25/17 09:59 DC 02/25/17 10:05 5 ML ECG Indication: weakness Rate (beats per minute): 63 Rhythm: normal sinus Findings: ST depression (Anterolateral), no ectopy, other (poor quality baseline for interpretation ) Comparison ECG Date: Patient's Electrocardiogram interpreted by me Change: no significant change (from Feb 20, 2017) ED Course 0648: Past medical records reviewed. The patient was evaluated in room A10. A complete history and physical examination was performed. 58: I reviewed the patient's case with Dr. Hollis. He called for an update on the patient. 45: I updated the patient and her family. 0958: Ordered Heparin Sodium (Porcine) 5 ml. 1035: Upon reevaluation, the patient appeared to have improvement of her symptoms. I discussed findings with her and her family. They verbalized agreement of the treatment plan. She was discharged home. Medical Decision Differential diagnosis: Etiologies such as metabolic, infection, hypo/hyperglycemia, electrolyte abnormalities, cardiac sources, intracerebral event, toxicologic, neurologic, C. diff colitis, as well as others were entertained. This patient was evaluated and appeared to be in no significant distress. IV access was obtained and laboratory work was drawn. Patient was placed on the environmental monitoring technician and found to be in a normal sinus rhythm. Patient has some nonspecific ST depression in the anterior leads without reciprocal change. There is no significant change from previous EKG performed earlier this month. Laboratory work is fairly unrevealing. The patient's white blood cell count is normal. Electrolytes are stable. The patient did miss dialysis 2 days ago and is scheduled for dialysis today. Patient has been unable to provide a stool sample. Chest x-ray reveals congestive change. I did speak with the patient's commercial sales consultant, Dr. Hollis. He states the patient has been noncompliant with dialysis in the past. She has had diarrhea off-and-on for some time that has also been evaluated. The patient was discharged with a prescription for a stool studies including stool culture and C. difficile toxin. She was discharged to a wheelchair van to dialysis. The patient will return to the ER for worsening of symptoms or any medical concerns. Medication Reconcilliation Current Medication List: was personally reviewed by me Blood Pressure Screening Patient's blood pressure: Normal blood pressure Consults Time Called: 0800 Consulting Physician: Dr. Hollis- [facility] Returned Call: [phone] I reviewed the patient's case with Dr. Hollis. He called for an update on the patient. Impression Primary Impression: Fluid overload Additional Impressions: ESRD (end stage renal disease) on dialysis Diarrhea Scribe Attestation The scribe's documentation has been prepared under my direction and personally reviewed by me in its entirety. I confirm that the note above accurately reflects all work, treatment, procedures, and medical decision making performed by me. Departure Information Dispostion Home / Self-Care Referrals Pedro Pablo Hollis M.D. (PCP) Forms HOME CARE DOCUMENTATION FORM, IMPORTANT VISIT INFORMATION Patient Instructions [facility] Additional Instructions Diagnosis: Fluid overload, end-stage renal disease on hemodialysis, diarrhea Please obtain a stool specimen and take it to the lab for testing. Follow-up with your primary care physician this week for reevaluation. Please maintain your dialysis schedule as best possible. Return to the emergency department for worsening of symptoms or any medical concerns. Problem Qualifiers
[2017-02-25 06:47] VITALS: O2SAT 98
--- NOTE | 2017-02-25 07:11 | DIAGNOSTIC IMAGING REPORT ---
CHEST ONE VIEW PORTABLE CLINICAL HISTORY: AMS, lethargy, missed dialysis dyspnea COMPARISON STUDY: 02/18/2017 FINDINGS: Moderate stable cardiomegaly. Infiltrative process left lung base. Prominent pulmonary vasculature. Potential developing right perihilar infiltrate. IMPRESSION: 1. Mild congestive failure. 2. Superimposed infiltrates left base and right perihilar region The above report was generated using voice recognition software. It may contain grammatical, syntax or spelling errors. Electronically signed by: Jose F Hutchins M.D. 02/25/2017 7:10 AM Dictated Date/Time: 02/25/2017 7:10 AM
[2017-02-25 07:31] LABS: BASO % 0.2 %; BASO ABS # 0.01 K/uL (0-0.2); EOS % 2.4 %; EOS ABS # 0.16 K/uL (0-0.5); HEMATOCRIT 35.5 % (37-47); IG# 0.01 K/uL (0.00-0.02); LYMPH % 13.1 %; LYMPH ABS # 0.87 K/uL (1.2-3.4); MEAN CELL VOLUME 101.1 fL (80-100); MEAN CORPUSCULAR HEMOGLOBIN 31.3 pg (25-34); MEAN PLATELET VOLUME 10.9 fL (7.4-10.4); MONO % 9.7 %; MONO ABS # 0.64 K/uL (0.11-0.59); NEUT % 74.4 %; NEUT ABS # 4.94 K/uL (1.4-6.5); PLATELET COUNT 127 K/uL (130-400); RED CELL DISTRIBUTION WIDTH CV 13.3 % (11.5-14.5); RED CELL DISTRIBUTION WIDTH SD 48.7 fL (36.4-46.3); WHITE BLOOD COUNT 6.63 K/uL (4.8-10.8)
[2017-02-25 07:38] LABS: ISTAT CREATININE 9.5 mg/dl (0.6-1.3); ISTAT IONIZED CALCIUM 1.28 mmol/l (1.12-1.32)
[2017-02-25 08:01] LABS: ALBUMIN 3.1 gm/dl (3.4-5.0); CALCIUM 9.7 mg/dl (8.5-10.1); CKMB 1.6 ng/ml (0.5-3.6); CREATININE 8.72 mg/dl (0.60-1.20); POTASSIUM 4.8 mmol/L (3.5-5.1); TOTAL PROTEIN 6.6 gm/dl (6.4-8.2)
[2017-02-25 10:51] VITALS: BP 118/49; PULSE 63; O2SAT 95
== END 2017-02-25 10:53 | disposition home or self-care (01) ==
LOC: EDBD 06:25 → C.EDA 06:26
DX: E87.70 Fluid overload, unspecified (principal); I12.0 Hypertensive chronic kidney disease with stage 5 chronic kidney disease or end stage renal disease; N18.6 End stage renal disease; Z99.2 Dependence on renal dialysis; R19.7 Diarrhea, unspecified; E10.22 Type 1 diabetes mellitus with diabetic chronic kidney disease; E78.5 Hyperlipidemia, unspecified; E10.43 Type 1 diabetes mellitus with diabetic autonomic (poly)neuropathy; K21.9 Gastro-esophageal reflux disease without esophagitis; M81.0 Age-related osteoporosis without current pathological fracture; N25.81 Secondary hyperparathyroidism of renal origin; F41.9 Anxiety disorder, unspecified; F32.9 Major depressive disorder, single episode, unspecified; G89.4 Chronic pain syndrome; Z87.891 Personal history of nicotine dependence; Z80.9 Family history of malignant neoplasm, unspecified; Z82.49 Family history of ischemic heart disease and other diseases of the circulatory system